=== PATIENT | female | born 1950 | race Caucasian/White ===

== ENCOUNTER 2019-03-07 15:30 | Outpatient (RCR) | payer MEDICARE, SELFPAY ==
--- NOTE | 2019-01-12 15:50 | HP.PTEVAL_ITS ---
Patient's Visit Information TEVIN MILLAN is a 68 year old F referred to Physical Therapy by Jero Leyva PA-C with a diagnosis of R knee pain. Date of Evaluation: 01/12/19 Physical Therapist: Shahzad Bautista PT, ATC - Visit Plan Frequency: 2x /Week Duration: 4-6 Weeks Plan: R LE stretching and strengthening, balance and proprio, core stab ex's, nustep, and HEP - Subjective Findings: Pt reports she has had R knee pain for over 2 years. Pt reports she fell in 2017 and has pad pain ever since that date. Pt reports she has increased pain with standing still, ambulating, and with stqair negotiation. No sleep dif ficulty secondary to pain. No tingling or numbness in R knee at this time. Pt reports her pain is the worst on the lateral aspect of her R knee. pt reports she had xrays taken which revealed severe OA in her R knee. 6/10 at rest, 9/10 when pain is at its worst. Pt reports knee will buckle and give out at time. - Pain R knee Pain Intensity (Out of 10): 6 Pain Intensity Range: 9 - Objective Neuro: B LE sensation is WNL to light touch. Girth at joint line: L knee 44cm, R knee 46 cm. Palpation: Pt is sore throughout the entire joint line of R knee. Minor swelling noted. ROM: R knee 0-5-110 degrees, L knee 0-115 degrees. MMT: L knee is 4/5 throughout, R knee 4-/5 throughout - Goals Goal 1:: Decrease R knee pain x 50% to aid with increasing hazel for ambulation Goal Time Frame: 4-6 Weeks Goal 2:: Increase R LE strength x 1 grade to aid with stair negotiations Goal 3:: I with HEP Goal Time Frame: 4-6 Weeks - Rehabilitation Potential Physical Therapy Diagnosis: Pt has R knee pain, weakness, and intol for ambulation secondary to OA R knee Rehabilitation Potential: Good - Anticipated Interventions Patient/Client Instruction: Educate patient on: Condition, Plan of Care For the Purpose of:: To improve self management Therapeutic Exercise to Include: Strength training, Endurance training, Balance training, Gait and locomotor training, Dynamic Lumbar Stabilization For the Purpose of:: To decrease pain, To increase ROM, To improve muscle performance and motor function Cryotherapy (ice pack, ice massage): Yes For the Purpose of:: To decrease pain Thank you for the opportunity to evaluate your patient. For Medicare and Medicare HMO plans, please review the plan of care and approve it. It will need to be FAXED BACK to us at [phone] for Medicare purposes. For Medicare only, by signing this I certify the plan of care. Please let me know if there are questions or concerns regarding this plan of care. Physician Signature: Date:
--- NOTE | 2019-03-07 15:59 | HP.PTDCSUM ---
HP - PT D/C Summary It has been my pleasure to treat TEVIN MILLAN under orders from Jreo Leyva PA-C, for the diagnosis of R knee pain for a total of 10 visit(s). Discharge Date: Please see the following information for a summary of their discharge status. - Subjective Subjective: Pt reports she has no pain this date - Pain R knee Pain Intensity (Out of 10): 0 - Overall Improvement % Improvement: 100 - Objective Objective/Function: 0/10 R knee pain this date. R LE MMT 5/5 throughout. Pt is I with HEP. Rx goals achieved - Goals Goal 1:: Decrease R knee pain x 50% to aid with increasing hazel for ambulation Goal Progress: Goal Met Goal 2:: Increase R LE strength x 1 grade to aid with stair negotiations Goal 3:: I with HEP Goal Progress: Goal Met - Plan Plan: Discharge - D/C Information If there are questions or concerns regarding this patient's physical therapy, please feel free to call me at [phone]. Thank you for the referral of this patient. Sincerely, Shahzad Bautista, PT, ATC
== END 2019-03-07 19:00 | disposition home or self-care (01) ==
LOC: PT 15:30
PROVIDERS: Family Provider Internal Medicine; PCP Internal Medicine; Referring Provider Physician Assistant; Visit Provider Physician Assistant
DX: M17.11 Unilateral primary osteoarthritis, right knee (principal)
CPT/HCPCS: 97110; 97161; 97530

== ENCOUNTER 2020-05-15 14:12 | Inpatient (IN) | payer MEDICARE, MEDICAID, SELFPAY ==
[2020-05-15] VITALS (11 sets, daily range): BP systolic 110–142; BP diastolic 69–85; PULSE 68–88; RESP 16–28; TEMP 36.6–38.4; O2SAT 93–96; BMI 30.7; BMI 25.4
[2020-05-15 15:56] LABS: Color, Urine Yellow (Yellow); Glucose, Dipstick Normal (Normal); Ketone-Dipstick 5 mg/dl (Negative); Leukocyte Esterase-Dipstick 25 /ul (Negative); Mucous, Urine 0 SEEN /hpf (<or=2+); Nitrite-Dipstick Negative (Negative); Occult Blood-Urine Negative /ul (Negative); Protein-Dipstick Negative (Negative); Red Blood Cells-Urine 0 SEEN /hpf (0-5); Squamous Epithelial Cells - UA 0 SEEN /hpf (5-10); Urine Bilirubin Dipstick Negative (Negative); Urine Clarity Clear (Clear); Urine Urobilinogen Normal (Normal)
[2020-05-15 16:02] LABS: White Blood Cells 5-10 SEEN /hpf (0-5)
--- NOTE | 2020-05-15 16:03 | EKG12_ITS ---
Test Reason : COMPLAINT Blood Pressure : / mmHG Vent. Rate : 076 BPM Atrial Rate : 076 BPM P-R Int : 156 ms QRS Dur : 094 ms QT Int : 368 ms P-R-T Axes : 039 -09 047 degrees QTc Int : 414 ms Normal sinus rhythm Nonspecific ST abnormality Abnormal ECG Confirmed by HERNANDO TRACEY, YARA ([id number]), commissioning editor KUSHAL GRACIA ([id number]) on 05/21/2020 11:49:59 AM Referred By: WANG Confirmed By:YARA VILLAGOMEZ MD
--- NOTE | 2020-05-15 16:04 | ED.VIS.GEN ---
History of Present Illness Chief Complaint: Complaint Informant: Patient Narrative: patient presents the emergency department for evaluation of weakness and inability to urinate. The patient called EMS today after she was unable to get up. She states that every time she tried to stand she did fall backwards. This has been progressively worsening over the past couple days. She urinated about 7 this morning and has not been able to urinate since. She notes that she has had a cough but does not otherwise feel sick. Patient informed me that the cough is new but she informed nursing that the cough is chronic. It is non productive. Past Medical History - Allergies and Home Meds Allergies/Adverse Reactions: Allergies No Known Allergies Allergy (Verified 10/14/15 08:06) Prior records reviewed: Yes Past Medical History: - - Hypertension Surgical History: - - Tracheostomy at age 17 Lives: Alone Smoking Status: Former smoker Drugs: None - Family History Maternal Family History: Reports: Diabetes, Heart Disease - Mother with ID age 60. Paternal Family History: Reports: Heart Disease - Father with ID age 65. Review of Systems General: Reports: Malaise. Denies: Chills, Fever, Sweats Eyes: Denies: Visual changes - bilaterally, Diplopia ENT: Denies: Rhinorrhea, Sore throat Cardiovascular: Denies: Chest pain, Palpitations Respiratory: Reports: Cough. Denies: Dyspnea, Dyspnea on exertion Gastrointestinal: Denies: Abdominal pain, Nausea, Vomiting, Diarrhea, Melena, Hematochezia Genitourinary: Reports: - - Inability urinate. Denies: Dysuria, Hematuria, Frequency Musculoskeletal: Denies: Back pain, Extremity Pain Skin: Denies: Rash, Wounds Neurological: Reports: Weakness - generalized. Denies: Headache, Numbness Physical Exam Vital Signs/Narrative: Vital Signs Temp Pulse Resp BP Pulse Ox 05/15/20 15:39 78 25 H 134/96 H 93 05/15/20 14:27 101.2 F H 86 16 142/85 H 96 05/15/20 14:13 101.2 F H 88 16 142/85 H 96 Inital Vital Signs reviewed: Yes General: Well nourished, Well developed, No Acute Distress Head: Normocephalic, Atraumatic Eyes: Perrl, EOMI ENT: No rhinorrhea, Dry mucous membranes Neck: Supple, Nontender Cardiovascular: Regular rate, Regular rhythm, No murmurs Respiratory: No distress, CTA bilaterally, Chest nontender Abdomen: Soft, Nontender, Nondistended, Normal bowel sounds Back: Nontender, Normal Inspection Extremities: Nontender, No edema Skin: Normal color, No rash Neurological: Alert, Oriented x3, Cranial nerves II-XII grossly intact, Normal Strength, Normal Sensation Psychological: Normal affect, Normal Mood Diagnostic/Tx/Re-eval Clinical Impression(s) from Imaging Studies Chest X-Ray 05/15/20 16:30 IMPRESSION: Normal x-ray examination of the chest. Electronically Signed: Rayo Archuleta MD at 16:53 EDT , Service support , Laboratory Last Values WBC 3.4 K/mm3 (4.4-11.0) L 05/15/20 14:35 RBC 4.32 M/mm3 (4.2-5.4) 05/15/20 14:35 Hgb 13.2 g/dL (12.0-15.0) 05/15/20 14:35 Hct 40.1 % (37-47) 05/15/20 14:35 MCV 92.8 fL (81-99) 05/15/20 14:35 MCH 30.6 pg (27.0-32.0) 05/15/20 14:35 MCHC 32.9 g/dL (32-36) 05/15/20 14:35 RDW Std Deviation 44.4 fl (35.1-43.9) H 05/15/20 14:35 RDW Coeff of Marcus 13.1 % (11.6-14.6) 05/15/20 14:35 Plt Count 126 K/mm3 (150-450) L 05/15/20 14:35 MPV 8.9 fl (6.2-12.0) 05/15/20 14:35 Immature Gran % (Auto) 0.300 % (0.0-0.9) 05/15/20 14:35 Neut % (Auto) 54.8 % (47-70) 05/15/20 14:35 Lymph % (Auto) 39.0 % (19-41) 05/15/20 14:35 [place] % (Auto) 5.3 % (0-10) 05/15/20 14:35 Eos % (Auto) 0.3 % (0-5) 05/15/20 14:35 Baso % (Auto) 0.3 % (0-1) 05/15/20 14:35 Absolute Neuts (auto) 1.9 X10^3/uL (2.0-7.7) L 05/15/20 14:35 Absolute Lymphs (auto) 1.33 X10^3/uL (0.83-4.51) 05/15/20 14:35 Nucleated RBC % 0 % (0-5) 05/15/20 14:35 PT 12.7 SECONDS (11.7-14.9) 05/15/20 14:35 INR 1.0 05/15/20 14:35 APTT 33.7 Seconds (24.1-36.2) 05/15/20 14:35 Sodium 139 mmol/L (136-145) 05/15/20 14:35 Potassium 3.1 mmol/L (3.5-5.1) L 05/15/20 14:35 Chloride 102 mmol/L (98-107) 05/15/20 14:35 Carbon Dioxide 31.0 mmol/L (21.0-32.0) 05/15/20 14:35 Anion Gap 6 (5-15) 05/15/20 14:35 BUN 13 mg/dL (7-18) 05/15/20 14:35 Creatinine 0.82 mg/dL (0.55-1.02) 05/15/20 14:35 Estim Creat Clear Calc 59.76 ml/min 05/15/20 14:35 Est GFR (MDRD) Af Amer 89 mL/min (>60) 05/15/20 14:35 Est GFR (MDRD) Non-Af 74 mL/min (>60) 05/15/20 14:35 BUN/Creatinine Ratio 15.9 RATIO (-20) 05/15/20 14:35 Glucose 93 mg/dL (74-106) 05/15/20 14:35 Lactic Acid 1.0 mmol/L (0.4-1.9) 05/15/20 14:35 Calcium 8.3 mg/dL (8.5-10.1) L 05/15/20 14:35 Total Bilirubin 0.30 mg/dL (0.20-1.00) 05/15/20 14:35 AST 24 U/L (15-37) 05/15/20 14:35 ALT 32 U/L (13-56) 05/15/20 14:35 Alkaline Phosphatase 81 U/L (45-117) 05/15/20 14:35 Troponin I < 0.015 ng/mL (<0.045) 05/15/20 14:35 Total Protein 7.1 g/dL (6.4-8.2) 05/15/20 14:35 Albumin 3.4 g/dL (3.2-5.0) 05/15/20 14:35 Globulin 3.7 g/dL (2.2-4.2) 05/15/20 14:35 Albumin/Globulin Ratio 0.9 RATIO (0.9-2.4) 05/15/20 14:35 Urine Color Yellow (Yellow) 05/15/20 15:35 Urine Clarity Clear (Clear) 05/15/20 15:35 Urine pH 8.0 (5.0 - 8.0) 05/15/20 15:35 Ur Specific [place] 1.010 (1.002-1.030) 05/15/20 15:35 Urine Protein Negative mg/dl (Negative) 05/15/20 15:35 Urine Glucose (UA) Normal mg/dl (Normal) 05/15/20 15:35 Urine Ketones 5 mg/dl (Negative) H 05/15/20 15:35 Urine Occult Blood Negative /ul (Negative) 05/15/20 15:35 Urine Nitrite Negative (Negative) 05/15/20 15:35 Urine Bilirubin Negative mg/dL (Negative) 05/15/20 15:35 Urine Urobilinogen Normal mg/dl (Normal) 05/15/20 15:35 Ur Leukocyte Esterase 25 /ul (Negative) H 05/15/20 15:35 Urine RBC 0 SEEN /hpf (0-5) 05/15/20 15:35 Urine WBC 5-10 SEEN /hpf (0-5) 05/15/20 15:35 Ur Squamous Epith Cells 0 SEEN /hpf (5-10) 05/15/20 15:35 Urine Bacteria 1+ /hpf (None Seen) 05/15/20 15:35 Urine Mucus 0 SEEN /hpf (<or=2+) 05/15/20 15:35 - EKG Initial EKG Interpretation: Sinus Rhythm - EKG demonstrates a normal sinus rhythm at a rate of 76 without ACS features or ectopy - Medical Decision Making Patient received IV fluids Tylenol and Rocephin. She is slightly leukopenic. Otherwise labs are negative. Urinalysis shows 1+ bacteria. Positive leukocyte esterase. But minimal white blood cells. Covid test is positive. As the patient has debility and cannot get up off the couch to feed herself or perform ADLs that alone should require admission. However she is febrile with possible UTI. With temperature and respiratory rate initially greater than 20 this would qualify her for sepsis. Hospitalist will be contacted for admission. Sepsis reevaluation was obtained. Patient was reevaluated multiple times continues to have adequate perfusion (capillary refill) and normal mentation. ED Disposition - Plan for ED Patient: Disposition: Acute Care Hospital [facility] Diagnosis: UTI (urinary tract infection), Sepsis, Debility, COVID-19
[2020-05-15 16:16] LABS: Absolute Lymphocyte Count 1.33 X10^3/uL (0.83-4.51); Absolute Neutrophil Count 1.9 X10^3/uL (2.0-7.7); Basophil# 0.01 X10^3/uL; Basophil% 0.3 % (0-1); Eosinophil# 0.01 X10^3/uL; Eosinophils% 0.3 % (0-5); Hematocrit 40.1 % (37-47); Hemoglobin 13.2 g/dL (12.0-15.0); Lymphocyte # 1.33 X10^3/ul (4.0); Mean Corp Hgb Conc 32.9 g/dL (32-36); Mean Corpuscular Hgb 30.6 pg (27.0-32.0); Mean Corpuscular Volume 92.8 fL (81-99); Mean Platelet Vol. 8.9 fl (6.2-12.0); Monocyte# 0.18 X10^3/uL; Monocyte% 5.3 % (0-10); NRBC Flagged by Analyzer 0 % (0-5); Neutrophil # 1.87 X10^3/uL (2.7-7.7); Neutrophil % 54.8 % (47-70); Platelet Count 126 K/mm3 (150-450); RBC Distribution Width CV 13.1 % (11.6-14.6); RBC Distribution Width SD 44.4 fl (35.1-43.9); Red Blood Count 4.32 M/mm3 (4.2-5.4); White Blood Count 3.4 K/mm3 (4.4-11.0)
[2020-05-15] MEDS: 0.9% Normal Saline 1,000 ML 999 ML IV (16:30)
[2020-05-15] MEDS: Acetaminophen 500 MG Tablet 1000 MG PO (16:30)
--- NOTE | 2020-05-15 16:30 | RAD_ITS ---
STUDY: X-RAY CHEST REASON FOR EXAM: Female, 70 years old. FEVER, UNABLE TO URINATE TECHNIQUE: Single frontal view of the chest. COMPARISON: None. FINDINGS: The lungs are clear and expanded. There is no demonstrated pleural abnormality. Normal size heart. Normal mediastinum and samara. Normal visualized pulmonary arteries. Normal visualized aortic arch and descending thoracic aorta. Normal visualized thoracic spine. Normal visualized ribs, clavicles, and shoulders. There is no demonstrated abnormality of the visualized soft tissue structures of the upper abdomen. RAD/Chest 1 View (Portable) IMPRESSION: Normal x-ray examination of the chest. Electronically Signed: Rayo Archuleta MD at 16:53 EDT , Service support ,
[2020-05-15 16:32] LABS: ALB/GLOB Ratio 0.9 RATIO (0.9-2.4); AST(SGOT) 24 U/L (15-37); Alanine Aminotransfer ALT/SGPT 32 U/L (13-56); Albumin, Serum 3.4 g/dL (3.2-5.0); Alkaline Phosphatase 81 U/L (45-117); Anion Gap 6 (5-15); BUN 13 mg/dL (7-18); BUN/Creat Ratio 15.9 RATIO (10-20); Calcium,Total 8.3 mg/dL (8.5-10.1); Chloride 102 mmol/L (98-107); Creatinine, Serum 0.82 mg/dL (0.55-1.02); EST Glomerular Filtration Rate 74 mL/min (>60); Est Glom Filt Rate - Afr Amer 89 mL/min (>60); Estimated Creatinine Clearance 59.76 ml/min; Globulin 3.7 g/dL (2.2-4.2); Glucose 93 mg/dL (74-106); Potassium 3.1 mmol/L (3.5-5.1); Protein, Total 7.1 g/dL (6.4-8.2); Sodium Level 139 mmol/L (136-145)
[2020-05-15 16:32] LABS: Bacteria 1+ /hpf (None Seen)
[2020-05-15] MEDS: Ceftriaxone 1 GM/50 ML BAG IV (17:00)
[2020-05-15 17:06] LABS: Prothrombin Time (Protime)PT. 12.7 SECONDS (11.7-14.9)
[2020-05-15 17:07] LABS: Partial Thromboplast Time 33.7 Seconds (24.1-36.2)
--- NOTE | 2020-05-15 17:23 | PCM.HP.STD ---
Problem List (1) Sepsis Status: Acute Qualifiers: Sepsis type: sepsis due to unspecified organism Sepsis acute organ dysfunction status: unspecified Qualified Code(s): A41.9 - Sepsis, unspecified organism (2) UTI (urinary tract infection) Status: Acute Qualifiers: Urinary tract infection type: site unspecified (3) HTN (hypertension) Status: Chronic Qualifiers: Hypertension type: essential hypertension Qualified Code(s): I10 - Essential (primary) hypertension (4) GERD (gastroesophageal reflux disease) Status: Chronic Qualifiers: Esophagitis presence: esophagitis presence not specified Qualified Code(s): K21.9 - Gastro-esophageal reflux disease without esophagitis (5) Osteoarthritis Status: Chronic Qualifiers: Osteoarthritis location: unspecified site Osteoarthritis type: unspecified Qualified Code(s): M19.90 - Unspecified osteoarthritis, unspecified site (6) History of seizures as a child Status: Chronic (7) Speech impediment Status: Chronic History of Present Illness Date of Admission: 05/15/20 Chief Complaint: Debility, weakness, cough, decreased UOP The patient is a 70 y/o F w/ PMHx: OA, GERD, HTN, Speech impediment, Hx Respiratory failure possibly secondary to Pneumonia w/ Trach placement at age 17, Hx Infantile Seizure disorder who presents to the [facility] ED on 05/15/20 with history of onset fatigue, malaise and debility with severe weakness, difficulty even ambulating with onset fevers, chills and harsh nonproductive cough without significantly associated dyspnea noting that earlier in the day she had urinated once but had not since prompting eventual ED presentation. She denies any recent ill contacts. She notes when she goes out it is only to the store and she wears a mask. She denies any nausea, emesis, abdominal pain, diarrhea, body aches above normal, alteration to her sense of taste or smell. Work-up in the ED included T101.2, heart rate 88, BP 142/85, respiratory rate 16 although vacillated up into the mid 20s while in the ED, 96% on room air, CBC with WBC 3.4, hemoglobin 13.2, platelet 126 with neutropenia with ANC 1.9, unremarkable coags, CMP with potassium 3.1 otherwise not marked appearing, troponin less than 0.015, lactic acid 1.0, urinalysis with specific gravity 1.010, ketone 5, nitrite negative, leukocyte esterase 25, urine WBCs 5-10 with 1+ urine bacteria, urine culture pending, blood culture x2 pending per ED, Covid testing pending per ED, chest x-ray with no acute cardiopulmonary findings. In the ED patient ministered normal saline, Rocephin, Tylenol therapies. Past Medical History Past Medical History (Chronic Problems): Chronic Problems HTN (hypertension) (Chronic) GERD (gastroesophageal reflux disease) (Chronic) Osteoarthritis (Chronic) History of seizures as a child (Chronic) Speech impediment (Chronic) Allergies No Known Allergies Allergy (Verified 10/14/15 08:06) Home Medications: Ambulatory Orders Medication Instructions Recorded Esomeprazole Mag Trihydrate 20 mg PO DAILY 05/15/20 [Nexium] Ibuprofen 400 mg PO DAILY PRN PRN 05/15/20 Lisinopril/Hydrochlorothiazide 1 tab PO DAILY 05/15/20 [Lisinopril-Hctz 10-12.5 mg Tab] Surgical History: - - Tracheostomy at age 17. Psychiatric History: No pertinent psych hx SPIRITUAL MINISTER History: No pertinent SPIRITUAL MINISTER history Lives: Alone Smoking Status: Never smoker Tobacco Use: Non-smoker Alcohol: None Drugs: None - *Family History Maternal History Items: Diabetes, Heart Disease - Mother with MS age 60. Paternal History Items: Heart Disease - Father with MS age 65. Review of Systems Constitutional: Reports: Anorexia, Chills, Fever, Malaise, Weakness, Fatigue. Denies: Weight Change HEENT: Reports: - - Chronic speech impediment.. Denies: Head Aches, Sinus Congestion, Sinus Drainage Cardiovascular: Denies: Chest Pain, Palpitations Respiratory: Reports: Cough. Denies: Shortness of Breath, Shortness of breath at rest, Shortness of breath upon exertion, Sputum production, Wheezing Gastrointestinal: Denies: Abdominal Pain, Nausea, Vomiting Genitourinary: Reports: - - Decreased urine output.. Denies: Dysuria, Frequency, Hesitancy, Urgency Musculoskeletal: Reports: Joint Pain. Denies: Joint Tenderness Skin: Denies: Rash, Wounds Neurological: Denies: Numbness, Tingling, Focal weakness Psychiatric: Denies: Anxiety, Depression, Homicidal Ideations, Suicidal Ideations Hematologic/ Lymphatic: Denies: Easy Bruising, Easy Bleeding VTE Information - Inpt Only VTE Present on Admission: No VTE Mechan Device Prophylaxis: SCD's VTE Pharm Prophylaxis ordered?: Yes Patient Problems: Active and Suspected Problems Sepsis (Acute) UTI (urinary tract infection) (Acute) Subjective: Patient seated upright in the ED bed, fatigued appearance otherwise NAD, flushed. Objective: Physical Examination: General: awake, alert, oriented x 3 and cooperative, speech impediment, seated upright in the ED bed in no apparent distress,fatigued appearance. Skin: flushed color and warm to touch, normal turgor, no icterus, no cyanosis, noted trach scar. HEENT: AT/NC, EOMI, PERRLA, dry MM, no carotid bruits or JVD noted. Lungs: Diminished BS, > bases, moderate effort, no rales, ronchi or wheezing. Heart: Regular rate and rhythm; no gallop, rub audible. Abdomen: soft, obese, NTTP, ND, normal BS, no HSM. Extremities: no cyanosis, clubbing, or edema. Neurological: patient awake, alert, oriented x 3; cognitive function appears baseline intact; pupils equally reactive to light and accomodation; cranial nerves II-XII grossly normal, moving all 4 extremities, no focal deficits, strength moderately to severely globally decreased secondary to acute presentation. Psychiatric: affect appears fatigued otherwise normal, no acute evidence of depressive or anxiety feelings. - Physical Exam Vitals/I&O's: Vital Signs Temp Pulse Resp BP Pulse Ox 99.4 F H 79 20 H 110/69 96 05/15/20 17:02 05/15/20 17:02 05/15/20 17:02 05/15/20 17:02 05/15/20 17:02 Oxygen Delivery Method Room Air Weight: 190 lb 4.143 oz Body Mass Index (BMI) 30.7 Intake and Output for Last 24 Hours 05/13/20 05/14/20 05/15/20 23:59 23:59 23:59 Intake Total 499.5 / 499.5 Output Total 200 / 200 Balance 299.5 / 299.5 Laboratory Results 05/15/20 14:35: WBC 3.4 L, RBC 4.32, Hgb 13.2, Hct 40.1, MCV 92.8, MCH 30.6, MCHC 32.9, RDW Std Deviation 44.4 H, RDW Coeff of Marcus 13.1, Plt Count 126 L, MPV 8.9, Immature Gran % (Auto) 0.300, Neut % (Auto) 54.8, Lymph % (Auto) 39.0, [place] % (Auto) 5.3, Eos % (Auto) 0.3, Baso % (Auto) 0.3, Absolute Neuts (auto) 1.9 L, Absolute Lymphs (auto) 1.33, Nucleated RBC % 0 05/15/20 14:35: PT 12.7, INR 1.0, APTT 33.7 05/15/20 14:35: Sodium 139, Potassium 3.1 L, Chloride 102, Carbon Dioxide 31.0, Anion Gap 6, BUN 13, Creatinine 0.82, Estim Creat Clear Calc 59.76, Est GFR (MDRD) Af Amer 89, Est GFR (MDRD) Non-Af 74, BUN/Creatinine Ratio 15.9, Glucose 93, Calcium 8.3 L, Total Bilirubin 0.30, AST 24, ALT 32, Alkaline Phosphatase 81, Troponin I < 0.015, Total Protein 7.1, Albumin 3.4, Globulin 3.7, Albumin/Globulin Ratio 0.9 05/15/20 14:35: Lactic Acid 1.0 05/15/20 15:35: Urine Color Yellow, Urine Clarity Clear, Urine pH 8.0, Ur Specific [place] 1.010, Urine Protein Negative, Urine Glucose (UA) Normal, Urine Ketones 5 H, Urine Occult Blood Negative, Urine Nitrite Negative, Urine Bilirubin Negative, Urine Urobilinogen Normal, Ur Leukocyte Esterase 25 H, Urine RBC 0 SEEN, Urine WBC 5-10 SEEN, Ur Squamous Epith Cells 0 SEEN, Urine Bacteria 1+, Urine Mucus 0 SEEN 05/15/20 16:11: COVID-19 (NERY) Pending Current Medications Sodium Chloride () 1,000 mls @ 150 mls/hr IV .[id number] [facility] Assessment/Plan All Active Problems Sepsis (Acute) UTI (urinary tract infection) (Acute) The patient is a 70 y/o F w/ PMHx: OA, GERD, HTN, Speech impediment, Hx Respiratory failure possibly secondary to Pneumonia w/ Trach placement at age 17, Hx Infantile Seizure disorder who presents to the [facility] ED on 05/15/20 with history of onset fatigue, malaise and debility with severe weakness, difficulty even ambulating with onset fevers, chills and harsh nonproductive cough without significantly associated dyspnea with decreased uop associated with decreased intake. 1. Sepsis secondary to ? Acute Urinary Tract Infection: Will admit to medical surgical floor, UA upon ED evaluation not severe appearing but 1+ urine bacteria with some urine WBCs and minimally elevated leukocyte Estrace, pending UCx, admission CBC with low WBCs with ANC 1.9, febrile upon presentation with increased respiratory rate, continue IVFs, monitor I/Os, continue IV Rocephin w/ transition as able pending sensitivities and speciation. Given urinalysis not severe appearing and possible decreased urine output secondary to poor oral intake as patient straight catheterized in the ED with only 200 out, will additionally await Covid testing, request sputum cultures, respiratory viral panel, urine antigens, will obtain procalcitonin, CRP, CPK, Ferritin, LDH. If COVID positive would add d-dimer additionally. We will also plan judicious hydration overnight and repeat chest x-ray in a.m. in case developing pneumonia. Bld cx x 2 obtained in the ED. PT, OT, case management consultation for discharge planning. 2. Hypokalemia: Admission K+ 3.1, magnesium level requested, supplementation given, repeat level in AM. 3. Leukopenia, thrombocytopenia: Admission CBC with WBC 3.4, platelet 126, possibly associated with acute illness and presentation, treating as noted above #1, repeat CBC in AM. 4. History of Infantile Seizures: Noted only as an infant and resolved completely, no seizures as an adult. 5. History of Respiratory Failure, Trach placement: Unclear exact history but possibly secondary to pneumonia at age 17, required trach placement. 6. GERD: Will continue home PPI. 7. Hypertension: Will continue lisinopril, hold HCTZ given poor intake, planned judicious hydration, add back once appropriate. 8. DVT Prophylaxis: SCDs, lovenox. 9 . CODE status: Patient does not have HCPOA nor living will set-up. She notes having two sisters, one she would prefer to make decisions if needed, Keyla who lives in [place]. Encouraged her to discuss set-up information with CM/SW during admission. Discussed CODE status at length including difference between FULL code, DNR-CCA and DNR-CC status. Following discussions about the differences in these status, requested Full Code status. Advanced Care Planning Face to Face Time: 16 minutes. Inpatient E&M: 48527 Init Hosp L3 Procedures: [id number] Advncd Care Plan 30 Min
[2020-05-15 19:00] LABS: Probe Check PASS; Specimen Processing Control PASS
[2020-05-15] MEDS: 0.9% Normal Saline 1,000 ML 100 ML IV (20:48)
[2020-05-15 20:50] LABS: Ferritin 367 ng/mL (8-252); LDH 213 U/L (84-246); Magnesium 1.9 mg/dL (1.6-2.6)
[2020-05-15 20:51] LABS: D-Dimer Quantitative (DVT/PE) 0.69 FEU/ug/m (0.27-0.49)
[2020-05-15] MEDS: Enoxaparin 80 MG/0.8 ML Syringe SC (21:27)
[2020-05-15 22:59] LABS: Procalcitonin < 0.04 ng/mL (0.00-0.09)
[2020-05-16 03:46] VITALS: BP 140/75; PULSE 83; RESP 16; TEMP 37.1; O2SAT 96
--- NOTE | 2020-05-16 05:55 | RAD_ITS ---
STUDY: X-RAY CHEST REASON FOR EXAM: Female, 70 years old. COUGH AND SOB TECHNIQUE: Single AP portable view of the chest. COMPARISON: Comparison is made with prior study dated the 2019. FINDINGS: Mild increased markings are seen in the right midlung as well as in the left lower lobe and lingular segment of the left upper lobe. Follow-up is recommended. There is no demonstrated pleural abnormality. Normal size heart. Normal mediastinum and samara. Normal visualized pulmonary arteries. Normal visualized aortic arch and descending thoracic aorta. Normal visualized thoracic spine. Normal visualized ribs, clavicles, and shoulders. Small hiatal hernia. RAD/Chest 1 View (Portable) IMPRESSION: Increased markings in the right midlung as well as in the lingular segment of the left upper lobe and left lower lobe and follow-up is recommended. Electronically Signed: Dinesh Nevarez, at 9:21 EDT , Service support ,
[2020-05-16] MEDS: 0.9% Normal Saline 1,000 ML 100 ML IV ×2 (06:17→16:27)
[2020-05-16 06:45] LABS: Absolute Lymphocyte Count 1.54 X10^3/uL (0.83-4.51); Absolute Neutrophil Count 1.9 X10^3/uL (2.0-7.7); Basophil# 0.01 X10^3/uL; Basophil% 0.3 % (0-1); Eosinophil# 0.01 X10^3/uL; Eosinophils% 0.3 % (0-5); Hematocrit 36.4 % (37-47); Hemoglobin 11.7 g/dL (12.0-15.0); Lymphocyte # 1.54 X10^3/ul (4.0); Lymphocyte % 41.7 % (19-41); Mean Corp Hgb Conc 32.1 g/dL (32-36); Mean Corpuscular Hgb 30.1 pg (27.0-32.0); Mean Corpuscular Volume 93.6 fL (81-99); Mean Platelet Vol. 8.7 fl (6.2-12.0); Monocyte% 5.4 % (0-10); NRBC Flagged by Analyzer 0 % (0-5); Neutrophil # 1.92 X10^3/uL (2.7-7.7); Platelet Count 109 K/mm3 (150-450); RBC Distribution Width CV 13.2 % (11.6-14.6); RBC Distribution Width SD 45.2 fl (35.1-43.9); Red Blood Count 3.89 M/mm3 (4.2-5.4); White Blood Count 3.7 K/mm3 (4.4-11.0)
[2020-05-16 07:12] LABS: ALB/GLOB Ratio 0.8 RATIO (0.9-2.4); AST(SGOT) 24 U/L (15-37); Alanine Aminotransfer ALT/SGPT 28 U/L (13-56); Albumin, Serum 2.7 g/dL (3.2-5.0); Alkaline Phosphatase 70 U/L (45-117); Anion Gap 5 (5-15); BUN 10 mg/dL (7-18); BUN/Creat Ratio 17.3 RATIO (10-20); Chloride 110 mmol/L (98-107); Creatinine, Serum 0.58 mg/dL (0.55-1.02); EST Glomerular Filtration Rate 110 mL/min (>60); Est Glom Filt Rate - Afr Amer 133 mL/min (>60); Estimated Creatinine Clearance 52.81 ml/min; Globulin 3.2 g/dL (2.2-4.2); Glucose 92 mg/dL (74-106); Potassium 3.6 mmol/L (3.5-5.1); Protein, Total 5.9 g/dL (6.4-8.2); Sodium Level 142 mmol/L (136-145)
--- NOTE | 2020-05-16 07:31 | PCM.PN.HOSP ---
Patient Problems: Active and Suspected Problems Sepsis (Acute) UTI (urinary tract infection) (Acute) UTI (urinary tract infection) (Acute) Sepsis (Acute) Debility (Acute) COVID-19 (Acute) Reason for Visit: Covid 19 infection Subjective: Patient is a 70-year-old lady admitted with increasing generalized weakness with cough. Diagnostic evaluation on admission was consistent with COVID-[address] [facility] floor the cohort unit management initiated per protocol Objective: GENERAL: cooperative HEENT: Atraumatic; EYES; Anicteric, Normal Conjunctiva NECK; supple, normal thyroid, RESPIRATORY: Diminished to auscultation CARDIOVASCULAR: Regular S1 S2, GI: soft, normoactive bowel sounds, : No Renal angle tenderness; EXTREMITIES: No edema, no clubbing, MUSCULOSKELETAL: no muscle waisting NEURO: Awake; no lateralizing signs. SKIN: No Rash PSYCH; Flat affect Vitals/I&O's: Vital Signs Temp Pulse Resp BP Pulse Ox 98.8 F 83 16 140/75 H 96 05/16/20 03:46 05/16/20 03:46 05/16/20 03:46 05/16/20 03:46 05/16/20 03:46 Oxygen Delivery Method Room Air Weight: 75.8 kg Body Mass Index (BMI) 25.4 Intake and Output for Last 24 Hours 05/14/20 05/15/20 05/16/20 23:59 23:59 23:59 Intake Total 1050.0 / 1050.0 948.33 / 948.33 Output Total 200 / 200 500 / 500 Balance 850.0 / 850.0 448.33 / 448.33 Microbiology Past 72 Hours 05/16/20 03:55 Urine, Clean Catch Legionella Antigen - Final 05/16/20 03:55 Urine, Clean Catch Streptococcus pneumoniae Antigen (M - Final 05/15/20 16:11 Mucosa - Nasopharyngeal Respiratory Panel (PCR) - Final Laboratory Results 05/15/20 14:35: WBC 3.4 L, RBC 4.32, Hgb 13.2, Hct 40.1, MCV 92.8, MCH 30.6, MCHC 32.9, RDW Std Deviation 44.4 H, RDW Coeff of Marcus 13.1, Plt Count 126 L, MPV 8.9, Immature Gran % (Auto) 0.300, Neut % (Auto) 54.8, Lymph % (Auto) 39.0, Petroleum % (Auto) 5.3, Eos % (Auto) 0.3, Baso % (Auto) 0.3, Absolute Neuts (auto) 1.9 L, Absolute Lymphs (auto) 1.33, Nucleated RBC % 0 05/15/20 14:35: PT 12.7, INR 1.0, APTT 33.7 05/15/20 14:35: Sodium 139, Potassium 3.1 L, Chloride 102, Carbon Dioxide 31.0, Anion Gap 6, BUN 13, Creatinine 0.82, Estim Creat Clear Calc 59.76, Est GFR (MDRD) Af Amer 89, Est GFR (MDRD) Non-Af 74, BUN/Creatinine Ratio 15.9, Glucose 93, Calcium 8.3 L, Total Bilirubin 0.30, AST 24, ALT 32, Alkaline Phosphatase 81, Troponin I < 0.015, Total Protein 7.1, Albumin 3.4, Globulin 3.7, Albumin/Globulin Ratio 0.9 05/15/20 14:35: Lactic Acid 1.0 05/15/20 14:35: D-Dimer Quant (PE/DVT) 0.69 H* 05/15/20 14:35: Magnesium 1.9, Ferritin 367 H, Lactate Dehydrogenase 213, C-React Prot Ext Range 33.30 H 05/15/20 15:35: Urine Color Yellow, Urine Clarity Clear, Urine pH 8.0, Ur Specific [place] 1.010, Urine Protein Negative, Urine Glucose (UA) Normal, Urine Ketones 5 H, Urine Occult Blood Negative, Urine Nitrite Negative, Urine Bilirubin Negative, Urine Urobilinogen Normal, Ur Leukocyte Esterase 25 H, Urine RBC 0 SEEN, Urine WBC 5-10 SEEN, Ur Squamous Epith Cells 0 SEEN, Urine Bacteria 1+, Urine Mucus 0 SEEN 05/15/20 16:11: COVID-19 (NERY) Detected 05/15/20 21:07: Procalcitonin < 0.04 05/16/20 06:30: WBC 3.7 L, RBC 3.89 L, Hgb 11.7 L, Hct 36.4 L, MCV 93.6, MCH 30.1, MCHC 32.1, RDW Std Deviation 45.2 H, RDW Coeff of Marcus 13.2, Plt Count 109 L, MPV 8.7, Immature Gran % (Auto) 0.300, Neut % (Auto) 52.0, Lymph % (Auto) 41.7 H, Petroleum % (Auto) 5.4, Eos % (Auto) 0.3, Baso % (Auto) 0.3, Absolute Neuts (auto) 1.9 L, Absolute Lymphs (auto) 1.54, Nucleated RBC % 0 05/16/20 06:30: Sodium 142, Potassium 3.6, Chloride 110 H, Carbon Dioxide 27.0, Anion Gap 5, BUN 10, Creatinine 0.58, Estim Creat Clear Calc 52.81, Est GFR (MDRD) Af Amer 133, Est GFR (MDRD) Non-Af 110, BUN/Creatinine Ratio 17.3, Glucose 92, Calcium 8.0 L, Total Bilirubin 0.30, AST 24, ALT 28, Alkaline Phosphatase 70, Total Protein 5.9 L, Albumin 2.7 L, Globulin 3.2, Albumin/Globulin Ratio 0.8 L Current Medications Acetaminophen (Acetaminophen 325 Mg Tablet) 650 mg PO Q6H PRN PRN PRN Reason: Pain Score 1-10/Temp > 100.7 F Al Hydroxide/Mg Hydroxide (Mag Hydrox/Al Hydrox/Simeth 30 Ml Udc) 30 ml PO Q6H PRN PRN PRN Reason: Gastric Burning Albuterol Sulfate (Albuterol 2.5 Mg/3 Ml Vial.Neb.) 2.5 mg INHALATION Q2H PRN PRN PRN Reason: Dyspnea, wheezing Enoxaparin Sodium (Enoxaparin 80 Mg/0.8 Ml Syringe) 80 mg SC BID [facility] Last Admin: 05/15/20 21:27 Dose: 80 mg Documented by: Guaifenesin (Guaifenesin 10 Ml Udc (200mg/10ml)) 20 ml PO Q4H PRN PRN PRN Reason: COUGH Sodium Chloride () 1,000 mls @ 100 mls/hr IV .Q10H [facility] Last Admin: 05/16/20 06:17 Dose: 100 mls/hr Documented by: Lisinopril (Lisinopril 10 Mg Tablet) 10 mg PO DAILY [facility] Magnesium Hydroxide (Magnesium Hydroxide 30 Ml Udc) 30 ml PO DAILY PRN PRN PRN Reason: Constipation Melatonin (Melatonin 3 Mg Tablet) 3 mg PO QHS PRN PRN PRN Reason: INSOMNIA Morphine Sulfate (Morphine 2 Mg/Ml Syringe) 2 mg IV Q3H PRN PRN PRN Reason: Pain Score 6-10 Nitroglycerin (Nitroglycerin (Inpatient Use) 0.4 Mg Tab.Subl) 0.4 mg SUBLINGUAL Q5M PRN PRN Reason: CARDIAC/CHEST PAIN Nutritional Formula (Lactose Free) (Ensure Enlive 120 Ml Liquid) 120 ml PO 4X/DAYCM [facility]AN Ondansetron HCl (Ondansetron 4 Mg/2 Ml Vial) 4 mg IV Q8H PRN PRN PRN Reason: NAUSEA/VOMITING Oxycodone HCl (Oxycodone 5 Mg Tablet) 5 mg PO Q4H PRN PRN PRN Reason: Pain Score 4-5 Pantoprazole Sodium (Pantoprazole Sodium 20 Mg Tablet) 20 mg PO DAILY [facility] Prochlorperazine Edisylate (Prochlorperazine 10 Mg/2 Ml Vial) 5 mg IV Q4H PRN PRN PRN Reason: Breakthrough nausea/vomiting Psyllium Hydrophilic Mucilloid (Psyllium 1 Packet) 1 packet PO DAILY PRN PRN PRN Reason: Constipation Senna/Docusate Sodium (Senna/Docusate Sodium 1 Tablet) 2 tablet PO BID PRN PRN PRN Reason: Constipation Sodium Chloride (0.9% Saline Lock 10 Ml Syringe) 10 - 40 ml IV UD PRN PRN Reason: SALINE FLUSH Throat Lozenges (Benzocaine/Menthol 1 Lozenge) 1 lozenge MUCOUS MEM Q2H PRN PRN PRN Reason: SORE THROAT STROKE Vital Signs/Narrative: Vital Signs Temp Pulse Resp BP Pulse Ox 05/16/20 03:46 98.8 F 83 16 140/75 H 96 Medical Necessity - Tobacco Use Smoking Status: Never smoker Tobacco Use: Non-smoker Assessment/Plan All Active Problems Sepsis (Acute) UTI (urinary tract infection) (Acute) UTI (urinary tract infection) (Acute) Sepsis (Acute) Debility (Acute) COVID-19 (Acute) Patient is a 70-year-old lady admitted with increasing generalized weakness with cough. Diagnostic evaluation on admission was consistent with COVID-[address] [facility] floor the cohort unit management initiated per protocol 1. Sepsis secondary to COVID-19 infection ?Patient admitted to the Covid cohort floor. Placed on supplemental oxygen as well as Decadron 2. Hypokalemia ?Corrected per protocol 3. Thrombocytopenia ?present on admission etiology not clear may be related to patient underlying infection. Patient was started on Lovenox on admission discontinued started on Eliquis instead 4. History of previous trach placement ?Patient has a well-healed scar 5. GERD ?Patient is on PPI 6. Hypertension - Blood pressure controlled, home medications continued with dose adjustment as needed 7. DVT prophylaxis ?[facility] Inpatient E&M: 23034 Subs Hosp L2
[2020-05-16 08:49] VITALS: BP 127/86; PULSE 64; RESP 18; TEMP 36.8; O2SAT 92
[2020-05-16] MEDS: Lisinopril 10 MG Tablet PO (08:57)
[2020-05-16] MEDS: Enoxaparin 80 MG/0.8 ML Syringe SC (08:57)
[2020-05-16] MEDS: Pantoprazole Sodium 20 MG Tablet PO (08:57)
[2020-05-16 09:00] VITALS: O2SAT 92
--- NOTE | 2020-05-16 10:40 | CASEMGMT ---
Addendum entered by Steve Campos 05/16/20 11:05: When talking w/pt on the phone, discussed AD. She states she does not have LW or Healthcare POA and she is not sure who she would want to be her POA. Per Dr Rivera's note pt had told her she would want her sister, Keyla, to make healthcare decisions, but when BERTIN IBARRA asked pt about this, she states she is not sure and she would have to think about it. Pt made aware a Delivery Clerk Rac card/contact info can be provided and she can make an appt if she decides later to have this completed. She voices understanding. Pt also stated that she (pt) and her sister, Keyla, are looking into getting an apartment together soon that would have a walk-in shower and easier to get around. Addendum entered by Steve Campos 05/16/20 10:58: Call has been placed to therapy requesting PT/OT evals. Original Note: BERTIN IBARRA ASSESSMENT Pt is COVID-19 positive and in isolation precautions. BERTIN IBARRA placed call to pt in her room at this time and assessment completed via phone. Pt is A/O at this time and answers all questions appropriately. Care providers, pharmacy, and demographics verified/updated at this time. PCP: Dr Reyes Specialists: None Insurance: [facility] Prescription Benefit: Yes LNOK: Pt only wants her friend, Shirin Grider listed on her demographics for contact at this time, but she does have 2 sisters: Keyla lives in [place], Carmen lives in [place]. Living Arrangements: Lives alone in an apartment. Pt was taking care of herself until she became ill recently. She states she would walk to the store to buy her own groceries and to the bank. She states she has been weak and it has been difficult for to take care of herself. She states she does not know who would be able to help her at home with being COVID + and does not know who would be able to get her groceries. Transportation: Walks to the grocery store and bank. Uses bus or taxi for longer distances. DME: States has the following DME: Pt states no need for further DME at this time. SNF/HHC: No history of SNF. Pt states she feels she needs to go to a nursing facility for awhile prior to returning home, as she has been weak and it is difficult to take care of herself. Pt made aware there are no SNF's in [facility] currently taking COVID + pts and so would need to go to a SNF outside of [facility]. She states would like to see a list of SNF's that she could go to to make a decision of location. Vannessa MADSEN, made aware. PLAN: SNF PT/OT rivera pending. Annamarie CRENSHAWN RN CM
[2020-05-16] MEDS: Polyethylene Glycol 3350 17 GM PACKET PO (12:38)
--- NOTE | 2020-05-16 13:29 | CASEMGMT ---
Social Work Received referral from AYO Wilson that pt is requesting to go to SNF at time of discharge. SW spoke with pt on phone and pt confirms need for short term SNF for rehab prior to returning home. SW explained that local SNFs are not accepting Covid positive pt at this time. Provided information that the three closest facilities that are in network with pt insurance are [facility], [facility] and [facility]. Pt made aware that visitors will not be allowed for at least the first 14 days of admission. Pt choosing [facility]. Referral faxed to [facility] and VM left with carrie Jerez, ([phone]). SW will follow up once determination has been made. Plan: [facility], pending acceptance and JACINTO Cordero
[2020-05-16 14:36] VITALS: BP 150/77; PULSE 87; RESP 22; TEMP 37.2; O2SAT 95
[2020-05-16] MEDS: dexAMETHasone 4 MG Tablet 6 MG PO (14:39)
[2020-05-16] MEDS: Acetaminophen 325 MG Tablet 650 MG PO (14:44)
[2020-05-16 20:54] VITALS: BP 114/75; PULSE 66; RESP 18; TEMP 37.1; O2SAT 96
[2020-05-16] MEDS: APIXABAN 5 MG TABLET PO (21:02)
[2020-05-17 03:00] VITALS: BP 103/81; PULSE 60; RESP 18; TEMP 36.4; O2SAT 96
[2020-05-17] MEDS: 0.9% Normal Saline 1,000 ML 100 ML IV (03:08)
[2020-05-17 06:48] LABS: Hematocrit 36.2 % (37-47); Hemoglobin 11.8 g/dL (12.0-15.0); Mean Corp Hgb Conc 32.6 g/dL (32-36); Mean Corpuscular Hgb 30.2 pg (27.0-32.0); Mean Corpuscular Volume 92.6 fL (81-99); Mean Platelet Vol. 8.5 fl (6.2-12.0); Platelet Count 124 K/mm3 (150-450); RBC Distribution Width SD 44.3 fl (35.1-43.9); Red Blood Count 3.91 M/mm3 (4.2-5.4); White Blood Count 3.4 K/mm3 (4.4-11.0)
[2020-05-17 07:04] LABS: Anion Gap 5 (5-15); BUN 17 mg/dL (7-18); BUN/Creat Ratio 31.8 RATIO (10-20); Calcium,Total 8.2 mg/dL (8.5-10.1); Chloride 111 mmol/L (98-107); Creatinine, Serum 0.53 mg/dL (0.55-1.02); EST Glomerular Filtration Rate 120 mL/min (>60); Est Glom Filt Rate - Afr Amer 145 mL/min (>60); Estimated Creatinine Clearance 52.81 ml/min; Glucose 116 mg/dL (74-106); Magnesium 1.9 mg/dL (1.6-2.6); Potassium 3.8 mmol/L (3.5-5.1); Sodium Level 142 mmol/L (136-145)
--- NOTE | 2020-05-17 07:43 | PCM.PN.HOSP ---
Patient Problems: Active and Suspected Problems Sepsis (Acute) UTI (urinary tract infection) (Acute) UTI (urinary tract infection) (Acute) Sepsis (Acute) Debility (Acute) COVID-19 (Acute) Objective: GENERAL: cooperative HEENT: Atraumatic; EYES; Anicteric, Normal Conjunctiva NECK; supple, normal thyroid, RESPIRATORY: Diminished to auscultation CARDIOVASCULAR: Regular S1 S2, GI: soft, normoactive bowel sounds, : No Renal angle tenderness; EXTREMITIES: No edema, no clubbing, MUSCULOSKELETAL: no muscle waisting NEURO: Awake; no lateralizing signs. SKIN: No Rash PSYCH; Flat affect Vitals/I&O's: Vital Signs Temp Pulse Resp BP Pulse Ox 97.5 F L 60 18 103/81 H 96 05/17/20 03:00 05/17/20 03:00 05/17/20 03:00 05/17/20 03:00 05/17/20 03:00 Oxygen Delivery Method Room Air Weight: 75.8 kg Body Mass Index (BMI) 25.4 Intake and Output for Last 24 Hours 05/15/20 05/16/20 05/17/20 23:59 23:59 23:59 Intake Total 1050.0 / 1050.0 2754.00 / 2954.00 1018.66 / 1018.66 Output Total 200 / 200 800 / 800 Balance 850.0 / 850.0 1954.00 / 2154.00 1018.66 / 1018.66 Microbiology Past 72 Hours 05/15/20 15:35 Urine Catheter - Catheter Urine Culture - Preliminary Gram Positive Cocci 05/16/20 03:55 Urine, Clean Catch Legionella Antigen - Final 05/16/20 03:55 Urine, Clean Catch Streptococcus pneumoniae Antigen (M - Final 05/15/20 16:11 Mucosa - Nasopharyngeal Respiratory Panel (PCR) - Final Laboratory Results 05/17/20 06:34: WBC 3.4 L, RBC 3.91 L, Hgb 11.8 L, Hct 36.2 L, MCV 92.6, MCH 30.2, MCHC 32.6, RDW Std Deviation 44.3 H, RDW Coeff of Marcus 13.0, Plt Count 124 L, MPV 8.5 05/17/20 06:34: Sodium 142, Potassium 3.8, Chloride 111 H, Carbon Dioxide 26.0, Anion Gap 5, BUN 17, Creatinine 0.53 L, Estim Creat Clear Calc 52.81, Est GFR (MDRD) Af Amer 145, Est GFR (MDRD) Non-Af 120, BUN/Creatinine Ratio 31.8 H, Glucose 116 H, Calcium 8.2 L, Magnesium 1.9 Current Medications Acetaminophen (Acetaminophen 325 Mg Tablet) 650 mg PO Q6H PRN PRN PRN Reason: Pain Score 1-10/Temp > 100.7 F Last Admin: 05/16/20 14:44 Dose: 650 mg Documented by: Al Hydroxide/Mg Hydroxide (Mag Hydrox/Al Hydrox/Simeth 30 Ml Udc) 30 ml PO Q6H PRN PRN PRN Reason: Gastric Burning Albuterol Sulfate (Albuterol 2.5 Mg/3 Ml Vial.Neb.) 2.5 mg INHALATION Q2H PRN PRN PRN Reason: Dyspnea, wheezing Apixaban (Apixaban 5 Mg Tablet) 5 mg PO BID [facility] Last Admin: 05/16/20 21:02 Dose: 5 mg Documented by: Dexamethasone (Dexamethasone 4 Mg Tablet) 6 mg PO DAILY@0800 [facility] Guaifenesin (Guaifenesin 10 Ml Udc (200mg/10ml)) 20 ml PO Q4H PRN PRN PRN Reason: COUGH Sodium Chloride () 1,000 mls @ 100 mls/hr IV .Q10H [facility] Last Infusion: 05/17/20 05:49 Dose: 100 mls/hr Documented by: Ampicillin Sodium/Sulbactam (Sodium 3 gm/ Sodium Chloride) 112 mls @ 150 mls/hr IV Q8 [facility] Last Infusion: 05/17/20 05:49 Dose: Infused Documented by: Lisinopril (Lisinopril 10 Mg Tablet) 10 mg PO DAILY [facility] Last Admin: 05/16/20 08:57 Dose: 10 mg Documented by: Magnesium Hydroxide (Magnesium Hydroxide 30 Ml Udc) 30 ml PO DAILY PRN PRN PRN Reason: Constipation Melatonin (Melatonin 3 Mg Tablet) 3 mg PO QHS PRN PRN PRN Reason: INSOMNIA Morphine Sulfate (Morphine 2 Mg/Ml Syringe) 2 mg IV Q3H PRN PRN PRN Reason: Pain Score 6-10 Nitroglycerin (Nitroglycerin (Inpatient Use) 0.4 Mg Tab.Subl) 0.4 mg SUBLINGUAL Q5M PRN PRN Reason: CARDIAC/CHEST PAIN Ondansetron HCl (Ondansetron 4 Mg/2 Ml Vial) 4 mg IV Q8H PRN PRN PRN Reason: NAUSEA/VOMITING Oxycodone HCl (Oxycodone 5 Mg Tablet) 5 mg PO Q4H PRN PRN PRN Reason: Pain Score 4-5 Pantoprazole Sodium (Pantoprazole Sodium 20 Mg Tablet) 20 mg PO DAILY [facility] Last Admin: 05/16/20 08:57 Dose: 20 mg Documented by: Polyethylene Glycol (Polyethylene Glycol 3350 17 Gm Packet) 17 gm PO DAILY [facility] Last Admin: 05/16/20 12:38 Dose: 17 gm Documented by: Prochlorperazine Edisylate (Prochlorperazine 10 Mg/2 Ml Vial) 5 mg IV Q4H PRN PRN PRN Reason: Breakthrough nausea/vomiting Psyllium Hydrophilic Mucilloid (Psyllium 1 Packet) 1 packet PO DAILY PRN PRN PRN Reason: Constipation Senna/Docusate Sodium (Senna/Docusate Sodium 1 Tablet) 2 tablet PO BID PRN PRN PRN Reason: Constipation Sodium Chloride (0.9% Saline Lock 10 Ml Syringe) 10 - 40 ml IV UD PRN PRN Reason: SALINE FLUSH Throat Lozenges (Benzocaine/Menthol 1 Lozenge) 1 lozenge MUCOUS MEM Q2H PRN PRN PRN Reason: SORE THROAT Medical Necessity - Tobacco Use Smoking Status: Never smoker Tobacco Use: Non-smoker Assessment/Plan All Active Problems Sepsis (Acute) UTI (urinary tract infection) (Acute) UTI (urinary tract infection) (Acute) Sepsis (Acute) Debility (Acute) COVID-19 (Acute) Patient is a 70-year-old lady admitted with increasing generalized weakness with cough. Diagnostic evaluation on admission was consistent with COVID-19 infection admitted to [facility] floor the cohort unit management initiated per protocol 1. Sepsis secondary to COVID-19 infection ?Patient admitted to the Covid cohort floor. Placed on supplemental oxygen as well as Decadron 2. Hypokalemia ?Corrected per protocol 3. Thrombocytopenia ?present on admission etiology not clear may be related to patient underlying infection. Patient was started on Lovenox on admission discontinued started on Eliquis instead 4. History of previous trach placement ?Patient has a well-healed scar 5. GERD ?Patient is on PPI 6. Hypertension - Blood pressure controlled, home medications continued with dose adjustment as needed 7. DVT prophylaxis ?[facility] Inpatient E&M: 13281 Subs Hosp L2
--- NOTE | 2020-05-17 09:45 | CASEMGMT ---
Social Work Note SW placed a call to Meri in admissions at [facility] and left message asking if they are able to accept pt. SW waiting for call back. Plan: SNF pending acceptance and pre-cert Renata Rueda MSW, [employer]
[2020-05-17] MEDS: dexAMETHasone 4 MG Tablet 6 MG PO (10:03)
[2020-05-17] MEDS: Lisinopril 10 MG Tablet PO (10:04)
[2020-05-17] MEDS: Pantoprazole Sodium 20 MG Tablet PO (10:04)
[2020-05-17] MEDS: APIXABAN 5 MG TABLET PO (10:04)
[2020-05-17 10:06] VITALS: BP 137/95; PULSE 62; RESP 16; TEMP 36.7; O2SAT 98
--- NOTE | 2020-05-17 11:06 | DCINST_ITS ---
- Discharge Diagnoses Current Active Problems: Current Active and Chronic Problems Sepsis (Acute) UTI (urinary tract infection) (Acute) HTN (hypertension) (Chronic) GERD (gastroesophageal reflux disease) (Chronic) Osteoarthritis (Chronic) History of seizures as a child (Chronic) Speech impediment (Chronic) UTI (urinary tract infection) (Acute) Sepsis (Acute) Debility (Acute) COVID-19 (Acute) You will use the following diet at home:: No restrictions Your food should be the consistency of: Regular Discharge Activity: Return to Normal Activity, - - To isolate for 7 days Allergies/Adverse Reactions: Allergies No Known Allergies Allergy (Verified 10/14/15 08:06) Medications to take at Discharge Esomeprazole Mag Trihydrate [Nexium] 20 mg PO DAILY 05/15/20 Lisinopril/Hydrochlorothiazide [Lisinopril-Hctz 10-12.5 mg Tab] 1 tab PO DAILY 05/15/20 Amoxicillin 500 mg PO BID #10 tab 05/17/20 Apixaban [Eliquis] 5 mg PO BID #30 tab 05/17/20 Dexamethasone [Decadron] 6 mg PO DAILY@0800 #8 tab 05/17/20 The following prescriptions were given: Amoxicillin 500 mg PO BID #10 tab Transmission Status: Pending to [facility] Dexamethasone [Decadron] 6 mg PO DAILY@0800 #8 tab Transmission Status: Pending to [facility] Apixaban [Eliquis] 5 mg PO BID #30 tab Transmission Status: Pending to [facility] Primary Care Physician: Anika Reyes MD [Primary Care Provider] - Please follow up with your Primary Care Physician in: in 2 weeks Test Results: Test results from this visit will be discussed in further detail at your follow- up appointment, if applicable. Proposed Discharge Date: 05/17/20
--- NOTE | 2020-05-17 11:11 | PCM.DC.SUM ---
Discharge Date and Diagnosis - Problem List Patient Problems: Active and Suspected Problems Sepsis (Acute) UTI (urinary tract infection) (Acute) UTI (urinary tract infection) (Acute) Sepsis (Acute) Debility (Acute) COVID-19 (Acute) Date of Admission: 05/15/20 Date of Discharge: 05/17/20 - Primary Discharge Diagnosis Acute Problems: Active Problems Sepsis (Acute) UTI (urinary tract infection) (Acute) UTI (urinary tract infection) (Acute) Sepsis (Acute) Debility (Acute) COVID-19 (Acute) - Secondary Discharge Diagnosis Chronic Problems: Chronic Problems HTN (hypertension) (Chronic) GERD (gastroesophageal reflux disease) (Chronic) Osteoarthritis (Chronic) History of seizures as a child (Chronic) Speech impediment (Chronic) Hospital Course and Treatment Imaging Results: Clinical Impression(s) from Imaging Studies Chest X-Ray 05/15/20 16:30 IMPRESSION: Normal x-ray examination of the chest. Electronically Signed: Rayo Archuleta MD at 16:53 EDT , Service support , Chest X-Ray 05/16/20 05:55 IMPRESSION: Increased markings in the right midlung as well as in the lingular segment of the left upper lobe and left lower lobe and follow-up is recommended. Electronically Signed: Dinesh Nevarez, at 9:21 EDT , Service support , Microbiology 05/15/20 15:35 Urine Catheter - Catheter Urine Culture - Final Enterococcus faecalis 05/16/20 03:55 Urine, Clean Catch Legionella Antigen - Final 05/16/20 03:55 Urine, Clean Catch Streptococcus pneumoniae Antigen (M - Final 05/15/20 16:11 Mucosa - Nasopharyngeal Respiratory Panel (PCR) - Final Summary of Care Provided: Patient is a 70-year-old lady admitted with increasing generalized weakness with cough and dysuria. Diagnostic evaluation on admission was consistent with COVID-19 infection admitted to [facility] floor the cohort unit management initiated per protocol 1. Sepsis secondary to COVID-19 infection ?Patient admitted to the Covid cohort floor. Placed on supplemental oxygen as well as Decadron -Was discharged home on Decadron for 8 days as well as Eliquis for 2 weeks 2. Acute Cystitis with Enterococcus ?Patient was managed with Unasyn discharged home on amoxicillin 3. Hypokalemia ?Corrected per protocol 4. Thrombocytopenia ?present on admission etiology not clear may be related to patient underlying infection. Patient was started on Lovenox on admission discontinued started on Eliquis instead 5. History of previous trach placement ?Patient has a well-healed scar 6. GERD ?Patient is on PPI 7. Hypertension - Blood pressure controlled, home medications continued with dose adjustment as needed 9. DVT prophylaxis ?Eliquis Patient Problems: Active and Suspected Problems Sepsis (Acute) UTI (urinary tract infection) (Acute) UTI (urinary tract infection) (Acute) Sepsis (Acute) Debility (Acute) COVID-19 (Acute) Objective: GENERAL: cooperative HEENT: Atraumatic; EYES; Anicteric, Normal Conjunctiva NECK; supple, normal thyroid, RESPIRATORY: Diminished to auscultation CARDIOVASCULAR: Regular S1 S2, GI: soft, normoactive bowel sounds, : No Renal angle tenderness; EXTREMITIES: No edema, no clubbing, MUSCULOSKELETAL: no muscle waisting NEURO: Awake; no lateralizing signs. SKIN: No Rash PSYCH; Flat affect - Physical Exam Vitals/I&O's: Vital Signs Temp Pulse Resp BP Pulse Ox 98.0 F 62 16 137/95 H 98 05/17/20 10:06 05/17/20 10:06 05/17/20 10:06 05/17/20 10:06 05/17/20 10:06 Oxygen Delivery Method Room Air Weight: 75.8 kg Body Mass Index (BMI) 25.4 Intake and Output for Last 24 Hours 05/15/20 05/16/20 05/17/20 23:59 23:59 23:59 Intake Total 1050.0 / 1050.0 2754.00 / 2954.00 1018.66 / 1018.66 Output Total 200 / 200 800 / 800 Balance 850.0 / 850.0 1954.00 / 2154.00 1018.66 / 1018.66 Microbiology Past 72 Hours 05/15/20 15:35 Urine Catheter - Catheter Urine Culture - Final Enterococcus faecalis 05/16/20 03:55 Urine, Clean Catch Legionella Antigen - Final 05/16/20 03:55 Urine, Clean Catch Streptococcus pneumoniae Antigen (M - Final 05/15/20 16:11 Mucosa - Nasopharyngeal Respiratory Panel (PCR) - Final Laboratory Results 05/17/20 06:34: WBC 3.4 L, RBC 3.91 L, Hgb 11.8 L, Hct 36.2 L, MCV 92.6, MCH 30.2, MCHC 32.6, RDW Std Deviation 44.3 H, RDW Coeff of Marcus 13.0, Plt Count 124 L, MPV 8.5 05/17/20 06:34: Sodium 142, Potassium 3.8, Chloride 111 H, Carbon Dioxide 26.0, Anion Gap 5, BUN 17, Creatinine 0.53 L, Estim Creat Clear Calc 52.81, Est GFR (MDRD) Af Amer 145, Est GFR (MDRD) Non-Af 120, BUN/Creatinine Ratio 31.8 H, Glucose 116 H, Calcium 8.2 L, Magnesium 1.9 Current Medications Acetaminophen (Acetaminophen 325 Mg Tablet) 650 mg PO Q6H PRN PRN PRN Reason: Pain Score 1-10/Temp > 100.7 F Last Admin: 05/16/20 14:44 Dose: 650 mg Documented by: Al Hydroxide/Mg Hydroxide (Mag Hydrox/Al Hydrox/Simeth 30 Ml Udc) 30 ml PO Q6H PRN PRN PRN Reason: Gastric Burning Albuterol Sulfate (Albuterol 2.5 Mg/3 Ml Vial.Neb.) 2.5 mg INHALATION Q2H PRN PRN PRN Reason: Dyspnea, wheezing Apixaban (Apixaban 5 Mg Tablet) 5 mg PO BID [facility] Last Admin: 05/17/20 10:04 Dose: 5 mg Documented by: Dexamethasone (Dexamethasone 4 Mg Tablet) 6 mg PO DAILY@0800 [facility] Last Admin: 05/17/20 10:03 Dose: 6 mg Documented by: Guaifenesin (Guaifenesin 10 Ml Udc (200mg/10ml)) 20 ml PO Q4H PRN PRN PRN Reason: COUGH Sodium Chloride () 1,000 mls @ 100 mls/hr IV .Q10H [facility] Last Infusion: 05/17/20 05:49 Dose: 100 mls/hr Documented by: Ampicillin Sodium/Sulbactam (Sodium 3 gm/ Sodium Chloride) 112 mls @ 150 mls/hr IV Q8 [facility] Last Infusion: 05/17/20 05:49 Dose: Infused Documented by: Lisinopril (Lisinopril 10 Mg Tablet) 10 mg PO DAILY [facility] Last Admin: 05/17/20 10:04 Dose: 10 mg Documented by: Magnesium Hydroxide (Magnesium Hydroxide 30 Ml Udc) 30 ml PO DAILY PRN PRN PRN Reason: Constipation Melatonin (Melatonin 3 Mg Tablet) 3 mg PO QHS PRN PRN PRN Reason: INSOMNIA Morphine Sulfate (Morphine 2 Mg/Ml Syringe) 2 mg IV Q3H PRN PRN PRN Reason: Pain Score 6-10 Nitroglycerin (Nitroglycerin (Inpatient Use) 0.4 Mg Tab.Subl) 0.4 mg SUBLINGUAL Q5M PRN PRN Reason: CARDIAC/CHEST PAIN Ondansetron HCl (Ondansetron 4 Mg/2 Ml Vial) 4 mg IV Q8H PRN PRN PRN Reason: NAUSEA/VOMITING Oxycodone HCl (Oxycodone 5 Mg Tablet) 5 mg PO Q4H PRN PRN PRN Reason: Pain Score 4-5 Pantoprazole Sodium (Pantoprazole Sodium 20 Mg Tablet) 20 mg PO DAILY [facility] Last Admin: 05/17/20 10:04 Dose: 20 mg Documented by: Polyethylene Glycol (Polyethylene Glycol 3350 17 Gm Packet) 17 gm PO DAILY [facility] Last Admin: 05/17/20 09:49 Dose: Not Given Documented by: Prochlorperazine Edisylate (Prochlorperazine 10 Mg/2 Ml Vial) 5 mg IV Q4H PRN PRN PRN Reason: Breakthrough nausea/vomiting Psyllium Hydrophilic Mucilloid (Psyllium 1 Packet) 1 packet PO DAILY PRN PRN PRN Reason: Constipation Senna/Docusate Sodium (Senna/Docusate Sodium 1 Tablet) 2 tablet PO BID PRN PRN PRN Reason: Constipation Sodium Chloride (0.9% Saline Lock 10 Ml Syringe) 10 - 40 ml IV UD PRN PRN Reason: SALINE FLUSH Throat Lozenges (Benzocaine/Menthol 1 Lozenge) 1 lozenge MUCOUS MEM Q2H PRN PRN PRN Reason: SORE THROAT Discharge Diet: No Restrictions Discharge Activity: Return to Normal Activity, - - To isolate for 7 days Home Medications: Medications to take at Discharge Esomeprazole Mag Trihydrate [Nexium] 20 mg PO DAILY 05/15/20 Lisinopril/Hydrochlorothiazide [Lisinopril-Hctz 10-12.5 mg Tab] 1 tab PO DAILY 05/15/20 Amoxicillin 500 mg PO BID #10 tab 05/17/20 Apixaban [Eliquis] 5 mg PO BID #30 tab 05/17/20 Dexamethasone [Decadron] 6 mg PO DAILY@0800 #8 tab 05/17/20 Following Prescriptions Were Given to Patient: Amoxicillin 500 mg PO BID #10 tab Transmission Status: Pending to [facility] Dexamethasone [Decadron] 6 mg PO DAILY@0800 #8 tab Transmission Status: Pending to [facility] Apixaban [Eliquis] 5 mg PO BID #30 tab Transmission Status: Pending to [facility] Primary Care Physician: Anika Reyes MD [Primary Care Provider] - Please follow up with your Primary Care Physician in: in 2 weeks Disposition: Home Minutes spent on discharge:: 35 Patient Condition:: Stable Medical Necessity - Tobacco Use Smoking Status: Never smoker Tobacco Use: Non-smoker Meaningful Use Info Meaningful Use Diagnoses (Choose all that apply): None applicable Inpatient E&M: 07555 Disch Hosp
--- NOTE | 2020-05-17 12:19 | CASEMGMT ---
BERTIN CM Note: [facility] to [facility] copay for Eliquis: $1.95. No other dc concerns identified. Agustín RADFORD RN ACM
--- NOTE | 2020-05-17 12:31 | CASEMGMT ---
Addendum entered by Renata Rueda 05/17/20 13:57: TENA updated April at [facility] that pt is now going home at discharge. Original Note: Social Work Note SW reviewed chart. Discharge for home is in. SW placed a call to pt's room. SW introduced self and role at [facility]. Pt confirms that she will now be returning home at discharge, denied SNF. Pt states she will be returning home alone at discharge but she has neighbors that will be able to assist. Pt denied HHC at this time. Per previous CM notes, pt denied additional DME. TENA updated RN CM. Plan: Home Renata Rueda SKIN GRADER, ACCESS LEAD
[2020-05-17 14:00] VITALS: O2SAT 98
[2020-05-17 14:35] VITALS: O2SAT 97
--- NOTE | 2020-05-17 15:12 | CASEMGMT ---
BERTIN IBARRA Note: nursing received a call from patient's sister stating the patient did not have food in her home. The patient had been relying on neighbors, but her neighbor was nervous re: shopping for her. BERTIN IBARRA called to patient to discuss and pt did state she had no food in her home and was going to rely on her neighbor. BERTIN IBARRA discussed meals on wheels and patient is agreeable to have referral made. BERTIN IBARRA also called [employer] and they will deliver 3 days worth of meals to her home tonight. Patient was given the MOW # to call tomorrow if she does not hear from them. The patient said she will order pizza tonight for dinner. Agustín RADFORD RN ACM
== END 2020-05-17 14:05 | disposition home or self-care (01) | DRG 689 ==
LOC: ED 17:27 → MS2 19:08
PROVIDERS: Admitting Provider Family Medicine; Emergency Provider Emergency Medicine; PCP Internal Medicine; Visit Provider Internal Medicine
DX: N30.00 Acute cystitis without hematuria (principal); U07.1 COVID-19; B95.2 Enterococcus as the cause of diseases classified elsewhere; E87.6 Hypokalemia; D69.6 Thrombocytopenia, unspecified; K21.9 Gastro-esophageal reflux disease without esophagitis; I10 Essential (primary) hypertension; Z87.891 Personal history of nicotine dependence; R53.81 Other malaise; D72.819 Decreased white blood cell count, unspecified
CPT/HCPCS: 36415; 71045; 80048; 80053; 81001; 82728; 83605; 83615; 83735; 84145; 84484; 85025; 85027; 85379; 85610; 85730; 86140; 87040; 87077; 87086; 87088; 87186; 87449; 87633; 87635; 93005; 97110; 97162; 97166; 97530; 97535; 99251; 99285; 99406; J7030; A4216; G0463; J0295; U0003

== ENCOUNTER 2020-05-22 02:09 | Emergency (ER) | payer MEDICARE, MEDICAID, SELFPAY ==
[2020-05-15 20:58] VITALS: BMI 25.4
[2020-05-22 02:10] VITALS: BP 157/75; PULSE 96; RESP 18; TEMP 36.4; O2SAT 97; BMI 27.6
--- NOTE | 2020-05-22 02:33 | ED.VIS.GEN ---
History of Present Illness Chief Complaint: General Illness Informant: Patient Narrative: 70-year-old female presenting with nausea. She was recently hospitalized for UTI, sepsis, Covid?19. She was discharged on the . She states her first day of symptoms were the when she came in this would be the seventh day by her history. She states that she is not short of breath, not having chest pain, and is fever free. Her only complaint is that she is a little nauseous. She has not lost her taste or smell, but states that she has a sour taste in her mouth sometimes. He denies abdominal pain with her nausea. - Past Medical History (1) COVID-19 Status: Acute (2) Debility Status: Chronic (3) GERD (gastroesophageal reflux disease) Status: Chronic (4) HTN (hypertension) Status: Chronic Past Medical History - Allergies and Home Meds Allergies/Adverse Reactions: Allergies No Known Allergies Allergy (Verified 05/22/20 02:16) Primary Care Physician: Anika Reyes MD [Primary Care Provider] - Prior records reviewed: Yes Past Medical History: - - Reviewed problem list Surgical History: - - Tracheostomy at age 17. Lives: Alone Smoking Status: Never smoker - Family History Maternal Family History: Reports: Diabetes, Heart Disease - Mother with LA age 60. Paternal Family History: Reports: Heart Disease - Father with LA age 65. Review of Systems General: Reports: Malaise. Denies: Chills, Fever, Sweats Eyes: Denies: Visual changes - bilaterally, Diplopia ENT: Denies: Rhinorrhea, Sore throat Cardiovascular: Denies: Chest pain, Palpitations Respiratory: Denies: Dyspnea, Cough, Dyspnea on exertion Gastrointestinal: Reports: Nausea. Denies: Abdominal pain, Vomiting, Diarrhea Genitourinary: Denies: Dysuria, Hematuria, Frequency Musculoskeletal: Denies: Myalgias, Arthralgias Skin: Denies: Rash, Abscess Neurological: Denies: Headache, Weakness Physical Exam Vital Signs/Narrative: Vital Signs Temp Pulse Resp BP Pulse Ox 05/22/20 02:10 97.6 F L 96 18 157/75 H 97 General: Well nourished, No Acute Distress Head: Normocephalic, Atraumatic Eyes: Perrl, EOMI. Negative for: Scleral icterus ENT: Moist mucous membranes, No rhinorrhea Cardiovascular: Regular rate, Regular rhythm Respiratory: No distress, CTA bilaterally Abdomen: Soft, Nontender, Nondistended Extremities: Nontender, No edema Skin: Normal color, No rash. Negative for: Cyanosis, Diaphoresis Neurological: Alert, Oriented x3 Psychological: Normal affect, Normal Mood Diagnostic/Tx/Re-eval Laboratory Data 05/22/20 05/22/20 05/22/20 03:20 03:20 04:48 WBC 6.4 RBC 4.25 Hgb 12.9 Hct 39.7 MCV 93.4 MCH 30.4 MCHC 32.5 RDW Std Deviation 43.7 RDW Coeff of Marcus 12.9 Plt Count 314 MPV 8.2 Immature Gran % (Auto) 0.900 Neut % (Auto) 59.9 Lymph % (Auto) 30.2 Hardin % (Auto) 7.8 Eos % (Auto) 0.9 Baso % (Auto) 0.3 Absolute Neuts (auto) 3.8 Absolute Lymphs (auto) 1.93 Nucleated RBC % 0 Sodium 142 Potassium 3.3 L Chloride 107 Carbon Dioxide 29.0 Anion Gap 6 BUN 14 Creatinine 0.71 Estim Creat Clear Calc 52.81 Est GFR (MDRD) Af Amer 105 Est GFR (MDRD) Non-Af 87 BUN/Creatinine Ratio 19.8 Glucose 96 Calcium 8.4 L Total Bilirubin 0.50 AST 20 ALT 113 H Alkaline Phosphatase 81 Total Protein 6.7 Albumin 3.0 L Globulin 3.7 Albumin/Globulin Ratio 0.8 L Lipase 233 Urine Color Yellow Urine Clarity Clear Urine pH 7.0 Ur Specific [place] 1.005 Urine Protein Negative Urine Glucose (UA) Normal Urine Ketones Negative Urine Occult Blood Negative Urine Nitrite Negative Urine Bilirubin Negative Urine Urobilinogen Normal Ur Leukocyte Esterase Negative Urine RBC 0 SEEN Urine WBC 0 SEEN Ur Squamous Epith Cells 0 SEEN Urine Bacteria 1+ Urine Mucus 0 SEEN - Medical Decision Making Patient was seen and evaluated on arrival for nausea. She is currently day 7 with Covid?19. She has been at home. She does not require oxygen. She denies shortness of breath, cough, fever. Her only complaint is of nausea. She was given Zofran which controlled her nausea. I checked basic lab work which is normal. Urinalysis is negative. I feel this time patient is stable to be discharged home. She will be discharged home with prescription for Zofran and given return precautions. Impression: 1. Covid?19 2. Nausea ED Disposition - Plan for ED Patient: Disposition: Home or Assisted Living Diagnosis: COVID-19 Instructions: ED Nausea Vomiting Adult Prescriptions: Ondansetron [Zofran Odt] 4 mg PO Q8H PRN PRN #20 tab PRN Reason: Nausea Prescription Printed Referrals: nAika Reyes MD [Primary Care Provider] -
[2020-05-22] MEDS: Ondansetron 4 MG/2 ML Vial IV (03:16)
[2020-05-22 03:25] LABS: Absolute Lymphocyte Count 1.93 X10^3/uL (0.83-4.51); Absolute Neutrophil Count 3.8 X10^3/uL (2.0-7.7); Basophil# 0.02 X10^3/uL; Basophil% 0.3 % (0-1); Eosinophil# 0.06 X10^3/uL; Eosinophils% 0.9 % (0-5); Hematocrit 39.7 % (37-47); Hemoglobin 12.9 g/dL (12.0-15.0); Lymphocyte # 1.93 X10^3/ul (4.0); Lymphocyte % 30.2 % (19-41); Mean Corp Hgb Conc 32.5 g/dL (32-36); Mean Corpuscular Hgb 30.4 pg (27.0-32.0); Mean Corpuscular Volume 93.4 fL (81-99); Mean Platelet Vol. 8.2 fl (6.2-12.0); Monocyte% 7.8 % (0-10); NRBC Flagged by Analyzer 0 % (0-5); Neutrophil # 3.83 X10^3/uL (2.7-7.7); Neutrophil % 59.9 % (47-70); Platelet Count 314 K/mm3 (150-450); RBC Distribution Width CV 12.9 % (11.6-14.6); RBC Distribution Width SD 43.7 fl (35.1-43.9); Red Blood Count 4.25 M/mm3 (4.2-5.4); White Blood Count 6.4 K/mm3 (4.4-11.0)
[2020-05-22 03:41] LABS: ALB/GLOB Ratio 0.8 RATIO (0.9-2.4); AST(SGOT) 20 U/L (15-37); Alanine Aminotransfer ALT/SGPT 113 U/L (13-56); Alkaline Phosphatase 81 U/L (45-117); Anion Gap 6 (5-15); BUN 14 mg/dL (7-18); BUN/Creat Ratio 19.8 RATIO (10-20); Calcium,Total 8.4 mg/dL (8.5-10.1); Chloride 107 mmol/L (98-107); Creatinine, Serum 0.71 mg/dL (0.55-1.02); EST Glomerular Filtration Rate 87 mL/min (>60); Est Glom Filt Rate - Afr Amer 105 mL/min (>60); Estimated Creatinine Clearance 52.81 ml/min; Globulin 3.7 g/dL (2.2-4.2); Glucose 96 mg/dL (74-106); Lipase 233 U/L (73-393); Potassium 3.3 mmol/L (3.5-5.1); Protein, Total 6.7 g/dL (6.4-8.2); Sodium Level 142 mmol/L (136-145)
[2020-05-22 04:52] VITALS: BP 152/65; PULSE 61; RESP 16; O2SAT 96
[2020-05-22 04:52] LABS: Mucous, Urine 0 SEEN /hpf (<or=2+); Red Blood Cells-Urine 0 SEEN /hpf (0-5); Squamous Epithelial Cells - UA 0 SEEN /hpf (5-10); White Blood Cells 0 SEEN /hpf (0-5)
[2020-05-22 04:53] LABS: Color, Urine Yellow (Yellow); Glucose, Dipstick Normal (Normal); Ketone-Dipstick Negative (Negative); Leukocyte Esterase-Dipstick Negative /ul (Negative); Nitrite-Dipstick Negative (Negative); Occult Blood-Urine Negative /ul (Negative); Protein-Dipstick Negative (Negative); Specific Gravity, Urine 1.005 (1.002-1.030); Urine Bilirubin Dipstick Negative (Negative); Urine Clarity Clear (Clear); Urine Urobilinogen Normal (Normal)
[2020-05-22 04:59] LABS: Bacteria 1+ /hpf (None Seen)
[2020-05-22 06:26] VITALS: BP 148/90; PULSE 64; RESP 16; O2SAT 96
== END 2020-05-22 06:47 | disposition home or self-care (01) ==
PROVIDERS: Emergency Provider Student in an Organized Health Care Education/Training Program; PCP Internal Medicine
DX: U07.1 COVID-19 (principal); R11.0 Nausea; Z87.440 Personal history of urinary (tract) infections; K21.9 Gastro-esophageal reflux disease without esophagitis; I10 Essential (primary) hypertension; Z79.899 Other long term (current) drug therapy
CPT/HCPCS: 80053; 81001; 83690; 85025; 87086; 96374; 99285; A4216; J2405

== ENCOUNTER → 2021-05-30 12:55 | Outpatient (CLI) | payer MEDICARE, MEDICAID, SELFPAY ==
--- NOTE | 2021-05-30 13:02 | CT_ITS ---
STUDY: RIGHT LOWER EXTREMITY CT SCAN REASON FOR EXAM: Female, 71 years old. VALGUS DEFORMITY. Presurgical planning. RADIATION DOSAGE (If Supplied By Facility): CTDIvol = ( 19.01 ) mGy, DLP = ( 1434.18 ) mGycm. Individualized dose optimization techniques were used for this CT.? TECHNIQUE: Axial multidetector CT scan of the right lower cavity. Coronal and sagittal reformatted images. NICHOLE technique. COMPARISON: None. FINDINGS: No acute fracture, dislocation or cortical destruction. Osteopenia. Right hip: Mild/moderate osteoarthritis predominating superiolaterally. Mild pubic symphysis arthrosis. Visualized intra-abdominal/pelvic contents within normal limits. No acute muscle or soft tissue abnormality. Vascular calcifications. Right knee: Severe lateral compartment arthrosis. Moderate medial compartment arthrosis. Severe patellofemoral joint arthrosis. No acute muscle abnormality. Vascular calcifications. Moderate volume joint effusion. No popliteal cyst. Mild soft tissue swelling. Quadriceps tendon enthesophyte. Right ankle: Mild tibiotalar joint arthrosis. Achilles enthesophyte. Ankle mortise well aligned. Spurring at the distal tibiofibular interface (coronal image 25 series 608) with mild calcification of the intraosseous membrane. No acute muscle abnormality. Mild soft tissue swelling. CT/Extremity Lower without Contra IMPRESSION: Severe right knee osteoarthritis Moderate volume right knee joint effusion with mild soft tissue swelling Additional degenerative changes, as above Electronically Signed: Neo Pearson DO at 13:50 EDT Tel , Service support ,
== END ==
PROVIDERS: PCP Internal Medicine; Referring Provider Specialist; Visit Provider Specialist
DX: M21.061 Valgus deformity, not elsewhere classified, right knee (principal)
CPT/HCPCS: 73700

== ENCOUNTER 2021-06-12 18:07 | Observation (INO) | payer MEDICARE, MEDICAID, SELFPAY ==
--- NOTE | 2021-05-27 11:56 | HP.PCM_ITS ---
History and Physical History and Physical [facility] Patient Name: Delmy Campos : 1950 From: FAWAD MILELR PA-C DATE OF SURGERY: 06/12/2021 SCHEDULED PROCEDURE: right total knee arthroplasty HISTORY OF PRESENT ILLNESS: Preoperative history and physical exam was performed on May 27, 2021. This is a 70-year-old female who's had ongoing pain since 2019 with her right knee. Patient initially had a fall while walking her jaw. Her pain is located over the medial aspect of the knee. She gets occasional clicking/cracking sensation in the knee. Pain can reach as high as an 8/10. Pain has been intermittent, aching, and sore. She has increased pain with walking long distances and stooping. She has fallen and tripped/stumbled due to the knee pain. Patient has start up pain. Patient has tried previous conservative measures including rest, elevation with minimal relief. She has had a previous cortisone injection which gave approximately 3 days of relief. She has been through physical therapy with minimal relief. She has tried [id number] Tylenol arthritis. She denies any previous surgery on the right knee. She uses a walker. After failing conservative measures and discussing treatment options with Dr. Clemente Coley, the patient does wish to proceed with a right total knee arthroplasty. We are obtaining surgical clearance from the primary care physician Dr. Reyes. Patient has medical history pertinent for hypertension, vitamin D deficiency, acid reflex, and unspecified intellectual disability. She has also had a tracheostomy when she was 17 years old. She currently denies any chest pain, shortness of breath, fevers chills, or recent infections. REVIEW OF SYSTEMS: ROS: Const: Denies change in appetite, fever and weight change. CV: Denies chest pain, heart murmur and irregular heartbeat. Resp: Denies cough, pneumonia, shortness of breath, tuberculosis and wheezing. GI: Reports constipation and heartburn, but denies diarrhea, nausea, rectal itching, bloody stools and vomiting. : Denies incontinence. Musculo: Reports leg swelling, limitations of movement, trouble walking and weakness, with pain of both feet Skin: Denies Raynaud's, history of shingles and tattoo. Neuro: Reports ambulatory dysfunction but denies dizziness, imbalance, numbness/tingling and tremor. Psych: Reports stress, but denies anxiety and insomnia. Jose De Jesus/Lymph: Denies anemia, bleeding/bruising tendency and past transfusion. Reviewed and updated. PAST MEDICAL HISTORY: Advance Care Plan: No Advance Directives Effective Date: 12/28/2018 PMH: Medical Problems: Arthritis, High Blood Pressure, Osteoporosis, Vision Problems/Blind, Acid Reflux, Vitamin D deficiency, Intellectual disability Accidents: None Surgical Hx: Appendectomy - (1949) MLB-DR CRUZ Anesthesia Complications: None Assistive Devices: Brace, Cane, Walker, Glasses Reviewed and updated. SOCIAL HISTORY: SH: Marital: Single.Occupation: Retired - [employer].Work Status: Retired.Hand Dominance: Right-handed. Personal Habits: Cigarette Use: Never Smoked Cigarettes.Smokeless Tobacco: Never Used Smokeless Tobacco.E-Cigarette Use: Never used.Alcohol: Denies use.Drug Use: Denies Use.Enjoy Exercising: Daily. Reviewed, no changes. VITALS: Ht: 61 Wt: 196lb Wt k.906 BMI: 37.0 BP: 136/84 Pulse: 72 Resp: 16 T: 97.4 T: 36.3C Pain Level: 7 ALLERGIES: No Known Drug Allergy MEDICATIONS: Esomeprazole Magnesium 20 mg 1 by mouth every day, Lisinopril- Hydrochlorothiazide 10-12.5 mg 1 by mouth every day, Calcium 1000 + D 1000-800 MG-Unit daily, Simethicone Extra Strength 125 mg 1po qday, Rosa[place] Original 325 mg DISSOLVE 2 TABS IN 4oz LIQUID, Acetaminophen Extra Strength 500 mg take 2 tablets (1,000 mg) every 8 hours as needed for pain PRE-OP EXAM: General appearance:NORMAL Other: Eyes: Conjunctivae and lids: NORMAL Pupils: ERR Ears, Nose, Mouth, and Throat: NORMAL Other: Inspection of lips, teeth and gums: NORMAL Other: Neck: Examination of neck: no masses noted. Respiratory: Assessment of respiratory effort: NORMAL Other: Auscultation of lungs: clear to auscultation no wheezes, rhonchi or rales. Cardiovascular: Auscultation of heart: regular rate and rhythm, no murmurs, gallops or rubs. PHYSICAL EXAMINATION: Patient does walk with an antalgic gait with use of walker. Right knee is cool to touch without erythema or signs of infection. Patient does have a effusion to the right knee. Patient has valgus alignment which is non-correctable on exam. Range of motion: Lacks 15 extension to 105 flexion. Sensation intact to light touch. IMAGING STUDIES: Previous x-rays of the right knee reveal valgus alignment with lateral joint space narrowing, subchondral sclerosis, osteophyte formation consistent with severe stage IV tricompartmental osteoarthritis. There are bony erosions located in the lateral compartment. IMPRESSION: 1. Severe right knee osteoarthritis with valgus deformity 2. Hypertension 3. Gastroesophageal reflux disease 4. Vitamin D deficiency 5. Unspecified intellectual disability PLAN: Dr. Clemente Coley did discuss and review with the patient all treatment options including surgical versus nonsurgical options. Patient does wish to proceed with the above-stated procedure. Potential risks, benefits, and complications of the procedure were discussed in detail including but not limited to , infection, nerve and blood vessel damage, persistent pain, numbness, tingling, paresthesias, blood clot, pulmonary embolism, and requirement for possible furth er surgery. The patient expressed full understanding and has no further questions for the doctor. Patient does agree to proceed with the above-stated procedure and has signed the surgery consent form. We discussed the current risks associated with COVID 19. This does include the risk of exposure while in the hospital. Patient was reassured local hospitals have low infection rates and are taking all necessary precautions to avoid exposure to patients. In addition, we discussed strategies that can be used to help limit exposure including those that limit the patient's time in the hospital. Also using strategies to limit the patient's need for continued inpatient services after being discharged from the hospital. Patient was notified that we will need to comply with any screening or testing the hospital wishes to perform or that surgery may be delayed for any positive results. This dictation was created using voice recognition software. Phonetic and/or grammatical errors may exist. ___ I have re-examined the patient. There are no clinical changes since date of exam. ___ See progress notes for changes. ___ Dictated on admission Date: Time: Signature:
--- NOTE | 2021-05-29 10:52 | NURSING ---
This RN spoke with embedded case manager Filomena regarding pt's concerns for needing rehab facility placement following surgery and no available transportation. Case management to reach out to pt regarding these concerns
--- NOTE | 2021-05-30 13:06 | EKG12_ITS ---
Test Reason : PREOP Blood Pressure : / mmHG Vent. Rate : 062 BPM Atrial Rate : 062 BPM P-R Int : 170 ms QRS Dur : 098 ms QT Int : 406 ms P-R-T Axes : 017 -18 019 degrees QTc Int : 412 ms Normal sinus rhythm Voltage criteria for left ventricular hypertrophy Abnormal ECG Confirmed by MELVI TRACEY, JERRY ([id number]), editor greeting card KUSHAL GRACIA ([id number]) on 06/03/2021 10:11:45 A M Referred By: Clemente Coley Confirmed By:EH OGDEN MD
[2021-05-30 14:44] LABS: Absolute Lymphocyte Count 2.55 X10^3/uL (0.83-4.51); Absolute Neutrophil Count 6.2 X10^3/uL (2.0-7.7); Basophil# 0.04 X10^3/uL; Basophil% 0.4 % (0-1); Hematocrit 43.1 % (37-47); Lymphocyte # 2.55 X10^3/ul (0.83-4.51); Lymphocyte % 26.7 % (19-41); Mean Corp Hgb Conc 32.5 g/dL (32-36); Mean Corpuscular Hgb 29.5 pg (27.0-32.0); Mean Corpuscular Volume 90.7 fL (81-99); Mean Platelet Vol. 8.7 fl (6.2-12.0); Monocyte# 0.64 X10^3/uL; Monocyte% 6.7 % (0-10); NRBC Flagged by Analyzer 0 % (0-5); Neutrophil # 6.17 X10^3/uL (2.7-7.7); Neutrophil % 64.8 % (47-70); Platelet Count 265 K/mm3 (150-450); RBC Distribution Width CV 12.7 % (11.6-14.6); Red Blood Count 4.75 M/mm3 (4.2-5.4); White Blood Count 9.5 K/mm3 (4.4-11.0)
[2021-05-30 15:01] LABS: Magnesium 2.2 mg/dL (1.6-2.6)
[2021-05-30 15:05] LABS: Albumin, Serum 3.8 g/dL (3.2-5.0); Anion Gap 6 (5-15); BUN 30 mg/dL (7-18); Calcium,Total 9.7 mg/dL (8.5-10.1); Chloride 104 mmol/L (98-107); Creatinine, Serum 0.97 mg/dL (0.55-1.02); EST Glomerular Filtration Rate 60 mL/min (>60); Est Glom Filt Rate - Afr Amer 73 mL/min (>60); Glucose 89 mg/dL (74-106); Potassium 4.5 mmol/L (3.5-5.1); Sodium Level 137 mmol/L (136-145)
--- NOTE | 2021-06-03 13:27 | CASEMGMT ---
SW called pt as preadmission testing had indicated pt needs to go somewhere at discharge for rehab. SW reviewed prior level of care and anticipated discharge plan for pt. PCP: Dr. Reyes Specialists: Dr. Coley(ortho) Insurance: [employer] Medicare Pharmacy: Pt not certain where her meds get ordered from. Pt is at [facility], she states they order her medications and give them to her. Prior level of function/living arrangements: Pt lives at [facility]. They help pt with meals, meds, showers, dressing. Pt states she tries to dress herself but she loses her balance easily. LNOK: Pt has a sister, Keyla Dykes, who lives nearby in [place]\ LW/POA: Pt has not completed LW/POA. DME/HHC/SNF: Pt uses a walker for ambulation. Pt has never been to a chcf in the past. SW spoke w/pt about discharge options, pt is agreeable to go [facility] a [facility] facility. SW reviewed on the phone w/search engine optimization consultantpenitentiary facilities in pt's insurance network. Pt would like to go to TCU if possible. SW explained will make a referral, and SW on the floor will speak w/pt when she is here to let her know if TCU has a bed, if not, we will review other options. Pt states understanding. SW called TCU, message left on Joellen's voicemail letting her know about this pt's preference to come to TCU after surgery. SW will follow up w/pt postoperatively. NOÉ Cook
--- NOTE | 2021-06-05 08:47 | CASEMGMT ---
Social Work Return call from Renate in TCU. Pt name has been placed on TCU wait list. Bed is not guaranteed at this time as pt admission to TCU is dependent on bed availability and insurance preauth. SW will follow up with pt upon admission to assist with d/c planning. JACINTO Saldana
[2021-06-12] VITALS (11 sets, daily range): BP systolic 108–134; BP diastolic 59–75; PULSE 59–91; RESP 16–20; TEMP 35.8–36.8; O2SAT 93–100; BMI 37.5; BMI 36.0
[2021-06-12 12:56] LABS: Bedside Glucose 131 mg/dL (70-110)
[2021-06-12] MEDS: Gabapentin 600 MG Tablet PO (12:59)
[2021-06-12] MEDS: Celecoxib 200 MG Capsule 400 MG PO ×2 (12:59)
[2021-06-12] MEDS: Lactated Ringers 1,000 ML 15 ML IV (13:02)
[2021-06-12] MEDS: Cefazolin 2 GM in 0.9% Normal Saline 100 ML IV (14:00)
--- NOTE | 2021-06-12 15:33 | PCM.OPRPT ---
Report of Operation Date of Procedure: 06/12/21 Pre-Operative Diagnosis: Right knee primary osteoarthritis Fixed valgus deformity right knee Post-Operative Diagnosis: Right knee primary osteoarthritis Fixed valgus deformity right knee Surgery/Procedure Performed:: Right minimally invasive robotic total knee replacement Description of Surgical Findings:: Stable knee with good patella tracking. Valgus alignment was corrected according to robotic navigation. Surgeon: Clemente Coley remote recruiter: Elizabeth Patterson Type of Anesthesia: Spinal Anesthesiologist: Valerio Chase Special Medications: 2 g Ancef, 1 g TXA at incision, 1 g TXA closure, 10 mg Decadron, joint cocktail (5 mg Duramorph, 30 mL of 0.5% Ropivicaine, 1000 units of epinephrine, 30 mg of Toradol) Specimen's removed: Bony cuts Estimated Blood Loss (mL): 75 Fluids Replaced: 600 Description of Procedure: Implants used: 1. Albert size 6 triathlon posterior stabilized distal femoral cemented component 2. Albert size 6 universal tibial baseplate 3. Albert X3 11 mm TS polyethylene 4. [place] X3 32 mm asymmetric patella Brief history operative indications: 71-year-old female with history of right knee osteoarthritis and severe valgus deformity fixed with radiographic findings with loss of joint space, osteophyte formation and subchondral sclerosis. Failed conservative measures as mentioned in the H&P. Discussion of total knee arthroplasty as well as risk and benefits were discussed the patient including but not limited to blood loss, DVTs, PEs, neurovascular damage, general risk of anesthesia including loss of life, and stiffness or instability were discussed with patient. Patient demonstrated understanding and was able to sign informed consent. Procedure: On the date of procedure patient's right lower extremity was marked in the preoperative area. The patient was then taken back to the operating room where the patient was placed on the table in the supine position. All bony prominences were identified a well-padded. Anesthesia assumed control of the C-spine and airway and remained controlled throughout the remainder of the procedure. A tourniquet was placed on the right upper thigh and the leg was prepped in a sterile fashion. The surgeon then scrubbed at this time .Upon reentering the room right lower extremity was draped in a standard orthopedic fashion. A timeout was then called and everyone agreed upon the side, the site, the procedure to be performed, patient's identity and antibiotics given. Esmarch bandage was used to exsanguinate the extremity and the tourniquet was placed up to 250 mmHg with the knee in flexion. A midline skin incision was made and sharp dissection was taken down through skin subcutaneous tissue and fat. The standard medial parapatellar incision was made and the patella was subluxed laterally. An Appropriate deep MCL release was done and the fat pad was resected. Our attention was then directed to the patella. The patella was everted and a flat resection was made. The knee was then flexed up in 2 femoral pins were placed inside the incision and 2 tibial pins were placed outside the incision in the medial tibia bicortically. Once this was completed the 2 checkpoints in the femur and tibia were placed. Knee was then flexed up and the bony landmarks were registered. Once this was completed knee was taken through range of motion and manually stressed allowing us to a plan for an appropriate tibial cut. The robotic arm was brought into the field sterilely and checkpoint and saw were registered. Based on the patient's deformity the tibial cut was made in neutral position as well as skin cuts on the distal femur and posterior condyles using robotics. At this time the tensioner was then placed in the joint and ligament tension was checked at 90 degrees and full extension. Based on the patient's ligamentous tension appropriate adjustments were made to the operative plan and ligament releases were done. This did require significant posterior lateral releases including releasing the popliteus IT band. Once we were happy with our operative plan with balanced flexion and extension gaps our attention was directed to the femur. The robot was brought into the field sterilely and registered. Posterior condylar cuts, anterior chamfer cuts and anterior cuts were appropriately made for a size 6 femur. When these were completed the saws were switched out in the distal femoral and posterior chamfer cuts were made. Protecting the soft tissue throughout this time. A size 6 tibial base plate was selected. the knee was flexed to 90 degrees and the soft tissues and posterior osteophytes were removed from the joint. 40 cc of the periarticular injection was injected into the posterior medial corner of the joint. The appropriate trials were then placed on the femur and tibia. A trial polyethylene was trialed to ensure proper balancing and stability of the knee. The appropriate tibial internal rotation was then marked with a bovie. Our attention was then directed to the patella. The lug holes were drilled and the patella trial was placed. Patellar tracking was checked and deemed appropriate. Once we were happy lug holes were drilled for the femur and trial components were removed. the tibia was subluxed and pinned into place and the keel was punched and drilled appropriately for a short stem. Femoral box cut was made after flexing the knee. Final components were verified and opened, and cement was mixed in a vacuum. Lell[place] Simplex cement was used. The wound was copiously irrigated with normal saline. When the cement was ready the components were cemented into place starting with the tibia, femur and finally cementing the patella. The trial poly component was placed and the knee was placed in full extension. All excess cement was removed in the process. Once the cement had cured the tracking, alignment and balance were verified and a size 11 mm TS polyethylene component was placed. Once the final components were placed a 3-minute dilute Betadine lavage was performed followed by an Irrisept lavage was performed and the wound was copiously irrigated with normal saline solution and the periarticular injection was given. The wound was closed in a layer storey fashion using #1 vicryl interrupted sutures for the arthrotomy, 2-0 interrupted Vicryl suture for the subcuticular layer and marcella for final skin closure. A sterile compressive dressing was then placed. The patient was then awakened from anesthesia, transferred to the [facility] and transferred to the PACU for recovery. Post op plan DVT ppx: ASA 81mg BID, thigh high compression stockings Follow up: in office in 2 weeks for wound check PT: to start POD #0 at hospital, outpatient PT should be arranged. My physician executive assistant to general counsel was a vital part of this case. He was important in appropriate retraction during the case, and protection of soft tissues during bony cuts. His intimate knowledge of the case and my steps aided in safe and expedient completion of the procedure as well as appropriate position of the leg during the case. He was also vital in assisting with closure under my direct supervision. Due to the complexity of this case robotic arm was used to assist in the surgery to improve accuracy and clinical outcomes. Complications No intraoperative complications Admit VTE Documentation VTE Present on Admission: No VTE Mechan Device Prophylaxis: SCD's and Thigh High JJ Hose VTE Pharm Prophylaxis ordered?: Yes
--- NOTE | 2021-06-12 16:40 | RAD_ITS ---
STUDY: X-RAY - RIGHT KNEE REASON FOR EXAM: Female, 71 years old. Postop. TECHNIQUE: 2 view(s) of the knee. COMPARISON: CT of the right lower extremity, 05/30/2021. FINDINGS: There is a total knee replacement. The prosthetic components are intact and articulate normally with each other. There is no evidence of loosening from the underlying bone. There is no evidence of osseous fracture or destructive osseous pathology. There is air and swelling in the anterior soft tissues with midline skin clips. RAD/Knee 1 or 2 Views IMPRESSION: Status post right total knee arthroplasty. Electronically Signed: Chay Enriquez DO at 17:18 EST Tel [phone], Service support ,
[2021-06-12] MEDS: Lactated Ringers 1,000 ML 999 ML IV (16:58)
[2021-06-12] MEDS: Lactated Ringers 1,000 ML 125 ML IV (19:00)
[2021-06-12] MEDS: Acetaminophen 500 MG Tablet 1000 MG PO (21:33)
[2021-06-12] MEDS: Senna/Docusate Sodium 1 Tablet 2 TABLET PO (21:33)
--- NOTE | 2021-06-12 22:05 | PCM.PN.HOSP ---
Subjective Subjective Status post right knee minimally invasive robotic replacement per Dr. Coley. Patient reports she is having right knee pain, reporting it 5-10 in severity and requesting pain medications at this time otherwise no acute complaints. She reports return of full sensation and is moving her right lower extremity as expected postoperatively. Patient denies fevers, chills, nausea, emesis, abdominal pain, chest pain or dyspnea. Objective Data Objective Data Vital Signs: Vital Signs Temp Pulse Resp BP Pulse Ox 98.0 F 79 18 117/69 96 06/12/21 21:35 06/12/21 21:35 06/12/21 21:35 06/12/21 21:35 06/12/21 21:35 Oxygen Flow Rate (L/min) 100 Oxygen Delivery Method Room Air Weight: 191 lb Body Mass Index (BMI) 36.0 Intake & Output: Intake and Output for Last 24 Hours 06/10/21 06/11/21 06/12/21 23:59 23:59 23:59 Intake Total 1435.5 / 1435.5 Balance 1435.5 / 1435.5 Lab / Micro Data Result Diagrams: 05/30/21 13:34 05/30/21 13:34 Labs: Laboratory Results - last 24 hr 06/12/21 12:31: POC Glucose 131 H Micro: Microbiology 05/30/21 13:34 Interface Orders Nasal Screen MRSA/MSSA - Final Radiography Diagnostic Testing: Radiology Impression Knee X-Ray 06/12/21 16:40 IMPRESSION: Status post right total knee arthroplasty. Electronically Signed: Chay Enriquez DO at 17:18 EST Tel [phone], Service support , Physical Exam Narrative Physical Examination: General: awake, alert, oriented x 3 and cooperative, speech impediment, seated upright in the medical surgical bed in no apparent distress, reporting some right knee pain postoperatively. Skin: Normal color, normal turgor, no icterus, no cyanosis except recent right knee total replacement with dressings in place, no drainage. HEENT: AT/NC, EOMI, PERRLA, MMM, no carotid bruits or JVD noted. Lungs: Mildly diminished, greater bases, moderate effort, no rales, ronchi or wheezing. Heart: Regular rate and rhythm; no gallop, rub audible. Abdomen: soft, obese, NTTP, ND, normal BS, no HSM. Extremities: no cyanosis, clubbing, or edema. Neurological: patient awake, alert, oriented as noted; cognitive function appears baseline intact; pupils equally reactive to light and accomodation; cranial nerves II-XII grossly normal, moving all 4 extremities although expected right lower extremity decreased movement given recent right total knee replacement, strength accordingly moderately global decrease. Psychiatric: affect appears fatigued otherwise normal, no acute evidence of depressive or anxiety feelings. Assessment & Plan Assessment/Plan (1) Osteoarthritis: QUALIFIERS: Osteoarthritis location: unspecified site Osteoarthritis type: unspecified Qualified Code(s): M19.90 - Unspecified osteoarthritis, unspecified site PLAN: The patient is a 70 y/o F w/ PMHx: OA, GERD, HTN, Speech impediment, Hx Respiratory failure possibly secondary to Pneumonia w/ Trach placement at age 17, Hx Infantile Seizure disorder who presents to the [facility] 06/12/21 for planned R TKR per Dr. Coley. 1. Severe Osteoarthritis, right knee: Failed conservative therapies and treatments, admitted per Dr. Coley for planned right total knee replacement, post-operative pain management, bowel regimen, DVT Prophylaxis, PT/OT/CM per Orthopedic surgery discretion. 2. History of Infantile Seizures: Noted only as an infant and resolved completely, no seizures as an adult. 3. History of Respiratory Failure, Trach placement: Unclear exact history but possibly secondary to pneumonia at age 17, required trach placement. 4. GERD: Will continue home PPI. 5. Hypertension: Will continue lisinopril-HCTZ regimen. 8. DVT Prophylaxis: SCDs, chemoprophylaxis per orthopedic surgery discretion given recent OR. Charges/Coding Visit Charges Inpatient E&M: 62314 Subs Hosp L3
[2021-06-13 03:30] VITALS: BP 130/76; PULSE 61; RESP 18; TEMP 36.6; O2SAT 94
[2021-06-13] MEDS: Acetaminophen 500 MG Tablet 1000 MG PO ×3 (05:31→21:12)
[2021-06-13 06:00] VITALS: BP 119/86; PULSE 68; RESP 18; TEMP 36.6; O2SAT 96
[2021-06-13 07:42] LABS: Hematocrit 37.2 % (37-47); Hemoglobin 12.3 g/dL (12.0-15.0); Mean Corp Hgb Conc 33.1 g/dL (32-36); Mean Corpuscular Hgb 30.2 pg (27.0-32.0); Mean Corpuscular Volume 91.4 fL (81-99); Mean Platelet Vol. 8.5 fl (6.2-12.0); Platelet Count 170 K/mm3 (150-450); RBC Distribution Width CV 13.2 % (11.6-14.6); RBC Distribution Width SD 43.8 fl (35.1-43.9); Red Blood Count 4.07 M/mm3 (4.2-5.4); White Blood Count 9.4 K/mm3 (4.4-11.0)
[2021-06-13 08:35] LABS: Anion Gap 7 (5-15); BUN 18 mg/dL (7-18); Calcium,Total 8.8 mg/dL (8.5-10.1); Chloride 105 mmol/L (98-107); EST Glomerular Filtration Rate 66 mL/min (>60); Est Glom Filt Rate - Afr Amer 80 mL/min (>60); Estimated Creatinine Clearance 43.26 ml/min; Glucose 100 mg/dL (74-106); Potassium 4.3 mmol/L (3.5-5.1); Sodium Level 139 mmol/L (136-145)
--- NOTE | 2021-06-13 09:27 | PCS.PANDOC ---
PANDEMIC DOCUMENTATION INITIATED: Date: 03/11/2021 Time: 190
[2021-06-13] MEDS: Polyethylene Glycol 3350 17 GM PACKET PO (09:54)
[2021-06-13] MEDS: Aspirin 81 MG TAB.CHEW PO ×2 (09:55→18:07)
[2021-06-13] MEDS: hydroCHLOROthiazide 12.5mg 12.5 MG PO ×2 (09:55)
[2021-06-13] MEDS: Senna/Docusate Sodium 1 Tablet 2 TABLET PO ×2 (09:55→21:13)
[2021-06-13] MEDS: Lisinopril 10 MG Tablet PO (09:55)
[2021-06-13] MEDS: Famotidine 20 MG Tablet PO (09:56)
[2021-06-13] MEDS: Pantoprazole Sodium 20 MG Tablet PO (09:56)
[2021-06-13 09:59] VITALS: BP 141/84; PULSE 68; RESP 16; TEMP 36.4; O2SAT 96
--- NOTE | 2021-06-13 10:15 | CASEMGMT ---
Social Work SW met with pt and introduced self and role of SW. Pt is currently a resident at [facility]. Pt stating that they assist with showers, meals and meds. She is able to dress herself and get around her room. Pt stating she needs rehab prior to return to [facility]. SW provided list of SNF providers including quality and resource use data and consistent with the patient's preferred geographic region, medical needs and insurance network. Pt preferred provider is [facility]. Phone call to Joellen in TCU and they would be able to accept pt and will start precert when therapy evaluations are complete. TENA met with pt and confirmed TCU can accept and precert will need obtained. Discharge likely tomorrow. Pt requesting SW notify pt sister. Phone call to pt sister Keyla and updated on discharge plan. Keyla is agreeable. SW to continue to follow. Plan: TCU, pending precert JACINTO Saldana
[2021-06-13] MEDS: Ensure Surgery 237 ML LIQUID PO ×3 (11:30→18:07)
--- NOTE | 2021-06-13 11:42 | PN.ORTHO_ITS ---
Subjective Subjective Patient is s/p right sided total knee arthroplasty with Dr. Coley. Patient resting comfortably in chair. Rates pain 5/ 10 at rest. With movement 5/10. States taking Tylenol, oxycodone as needed and ice help to relieve pain. Patient has been up with therapy. Walking with the assit of a walker. Afebrile, no chest pain, shortness of breath, negative calf pain/ erythema, and no other signs of DVT. Objective Data Objective Data Vital Signs: Vital Signs Temp Pulse Resp BP Pulse Ox 97.5 F L 68 16 141/84 H 96 06/13/21 09:59 06/13/21 09:59 06/13/21 09:59 06/13/21 09:59 06/13/21 09:59 Oxygen Flow Rate (L/min) 100 Oxygen Delivery Method Room Air Weight: 86.636 kg Body Mass Index (BMI) 36.0 Intake & Output: Intake and Output for Last 24 Hours 06/11/21 06/12/21 06/13/21 23:59 23:59 23:59 Intake Total 2435.5 / 2675.5 2040 / 2040 Output Total 900 / 900 Balance 2435.5 / 2175.5 1140 / 1140 Lab / Micro Data Result Diagrams: 06/13/21 06:54 06/13/21 06:54 Labs: Laboratory Results - last 24 hr 06/12/21 12:31: POC Glucose 131 H 06/13/21 06:54: WBC 9.4, RBC 4.07 L, Hgb 12.3, Hct 37.2, MCV 91.4, MCH 30.2, MCHC 33.1, RDW Std Deviation 43.8, RDW Coeff of Marcus 13.2, Plt Count 170, MPV 8.5 06/13/21 06:54: Sodium 139, Potassium 4.3, Chloride 105, Carbon Dioxide 27.0, Anion Gap 7, BUN 18, Creatinine 0.90, Estim Creat Clear Calc 43.26, Est GFR (MDRD) Af Amer 80, Est GFR (MDRD) Non-Af 66, BUN/Creatinine Ratio 20.0, Glucose 100, Calcium 8.8 Micro: Microbiology 05/30/21 13:34 Interface Orders Nasal Screen MRSA/MSSA - Final Radiography Diagnostic Testing: Radiology Impression Knee X-Ray 06/12/21 16:40 IMPRESSION: Status post right total knee arthroplasty. Electronically Signed: Chay Enriquez, at 17:18 EST Tel [phone], Service support , Physical Exam Narrative Patient resting comfortably in bed No signs of acute distress Satting well on room air Limb is warm to touch, Sensation intact throughout entire lower extremity, including saphenous, sural, superficial and deep peroneal, and tibial dist ribution. DP/PT pulses bounding. Dorsiflexion, plantarflexion 5/5 Dressing small amount of sanguinous drainage at the most inferior aspect of dressing. It has not required changing. Calf nontender to palpation, no erythema, no edema. Negative Homans Assessment & Plan Assessment/Plan (1) S/P total knee arthroplasty: PLAN: Patient is status post robotic assisted right total knee arthroplasty with Dr. Coley on 06/12/2021. 1. Will continue PT today 2. plan for discharge to a nursing facility likely tomorrow. 3. Patient will follow up for post op appointment in 2 weeks. 4. WBC 9.4 no acute reactive leukocytosis 5. H/H 12.3/37.2 no post operavtive anemia 6. DVT prophylaxis : Aspirin 81 mg twice daily x4 weeks 7. Pain control: patient instructed to take tylenol 500mg 2 tablets TID, meloxicam twice daily and oxycodone 1-2 tablets every 4-6 hours only as needed for pain control. 8. Patient also given a prescription of pepcid for ulcer prophylaxis
--- NOTE | 2021-06-13 11:46 | PCM.DC ---
Discharge Instructions Diet Discharge Diet: No restrictions Dressing / Incision Call your doctor if your incision/area has: Continuous Slow Oozing, Sudden Increased Bleeding, Increased Pain/ Swelling, Increased Redness, Foul Smelling Discharge and Swelling at the incision site Call your doctor if you observe: Fever of 101 or Higher, Numbness or Tingling, Shortness of breath, Dizziness, Chest pain and Calf discomfort Remove Dressing in: 5 days Cleanse incision/area with: Soap & Water Follow Up Care Test Results: Test results from this visit will be discussed in further detail at your follow-up appointment, if applicable. Discharge Plan Admission Admit Date/Time: 06/12/21 18:07 Attending Provider: Neo Harden Primary Care Provider: Anika Reyes Consulting Providers: Melissa Liao ; Graciela Diaz ; Roe Chopra ; Harjit Garcia Discharge Orders/Prescriptions Prescriptions: No Action lisinopril-hydrochlorothiazide 1 EACH tablet 1 tab PO DAILY RF: 0 esomeprazole magnesium [Nexium] 20 MG capsule 20 mg PO DAILY RF: 0 polyethylene glycol 3350 [Miralax] 17 gram Powder In Packet 17 g PO DAILY PRN (Reason: Constipation) RF: 0 ketoconazole 2 % cream 1 applic TOPICAL PRN PRN (Reason: Rash) RF: 0 omeprazole 20 mg Capsule,Delayed Release(Dr/Ec) 20 mg PO DAILY RF: 0 Other Ambulatory Orders: 12 Lead EKG (Routine) Location: None Selected Ordered By: Dr. Clemente Coley
--- NOTE | 2021-06-13 11:57 | PCM.TXEXTCAR ---
Diet 06/13/21 06:56 Diet: Regular - General Is pt able to select menu?: Yes Wound(s) RIGHT KNEE: Wound Type: Surgical Incision Therapies Weight Bearing: Weight bearing as tolerated Problem/Diagnosis (1) S/P total knee arthroplasty: Status: Acute Allergies/Procedures Done in Hospital Allergies No Known Allergies Allergy (Verified 05/29/21 10:17) Type of Care/Length of Stay Estimated LOS: Convalescent Care Less Than 30 days Type of Care Needed: Skilled Rehab Potential: Good Prognosis: Good Additional Orders/Day of Discharge Day of Discharge: 06/14/21 Discharge Plan Admission Admit Date/Time: 06/12/21 18:07 Attending Provider: Neo Harden Primary Care Provider: Anika Reyes Consulting Providers: Melissa Liao ; Graciela Diaz ; Roe Chopra ; Harjit Garcia Discharge Orders/Prescriptions Prescriptions: New acetaminophen 500 mg Tablet 1,000 mg PO Q8 Qty: 90 RF: 0 aspirin 81 mg Tablet,Chewable 81 mg PO 0800,1700 28 Days Qty: 56 RF: 0 meloxicam 7.5 mg Tablet 7.5 mg PO BID Qty: 60 RF: 0 oxycodone 5 mg Tablet See Rx Instructions .ROUTE .COMPLEX PRN (Reason: Pain Score 4-10) 7 Days Qty: 60 RF: 0 Continued lisinopril-hydrochlorothiazide 1 EACH tablet 1 tab PO DAILY RF: 0 esomeprazole magnesium [Nexium] 20 MG capsule 20 mg PO DAILY RF: 0 polyethylene glycol 3350 [Miralax] 17 gram Powder In Packet 17 g PO DAILY PRN (Reason: Constipation) RF: 0 ketoconazole 2 % cream 1 applic TOPICAL PRN PRN (Reason: Rash) RF: 0 omeprazole 20 mg Capsule,Delayed Release(Dr/Ec) 20 mg PO DAILY RF: 0 Other Ambulatory Orders: 12 Lead EKG (Routine) Location: None Selected Ordered By: Dr. Clemente Coley Referrals / Follow Up: Anika Reyes MD [Primary Care Provider] - Disposition Disposition (needs filled in before D/C Order can be placed): Senior Living Facility
[2021-06-13] MEDS: oxyCODONE 5 MG Tablet PO ×2 (12:09→18:29)
--- NOTE | 2021-06-13 14:52 | PCM.PN.HOSP ---
Subjective Subjective Feels well. Comments on difficulty flexing her right knee. Has chronic balance issues. Objective Data Objective Data Vital Signs: Vital Signs Temp Pulse Resp BP Pulse Ox 36.4 C L 68 16 141/84 H 96 06/13/21 09:59 06/13/21 09:59 06/13/21 09:59 06/13/21 09:59 06/13/21 09:59 Oxygen Flow Rate (L/min) 100 Oxygen Delivery Method Room Air Weight: 86.636 kg Body Mass Index (BMI) 36.0 Intake & Output: Intake and Output for Last 24 Hours 06/11/21 06/12/21 06/13/21 23:59 23:59 23:59 Intake Total 2435.5 / 2675.5 2039 / 2039 Output Total 900 / 900 Balance 2435.5 / 2175.5 1140 / 1140 Lab / Micro Data Result Diagrams: 06/13/21 06:54 06/13/21 06:54 Labs: Laboratory Results - last 24 hr 06/13/21 06:54: WBC 9.4, RBC 4.07 L, Hgb 12.3, Hct 37.2, MCV 91.4, MCH 30.2, MCHC 33.1, RDW Std Deviation 43.8, RDW Coeff of Marcus 13.2, Plt Count 170, MPV 8.5 06/13/21 06:54: Sodium 139, Potassium 4.3, Chloride 105, Carbon Dioxide 27.0, Anion Gap 7, BUN 18, Creatinine 0.90, Estim Creat Clear Calc 43.26, Est GFR (MDRD) Af Amer 80, Est GFR (MDRD) Non-Af 66, BUN/Creatinine Ratio 20.0, Glucose 100, Calcium 8.8 Micro: Microbiology 05/30/21 13:34 Interface Orders Nasal Screen MRSA/MSSA - Final Radiography Diagnostic Testing: Radiology Impression Knee X-Ray 06/12/21 16:40 IMPRESSION: Status post right total knee arthroplasty. Electronically Signed: Chay Enriquez DO at 17:18 EST Tel [phone], Service support , Physical Exam Const alert HEENT head/scalp atraumatic Head and Scalp: normocephalic Resp normal respiratory effort and no retractions Cardio regular rate, regular rhythm, S1 normal heart sound and S2 normal heart sound GI normal to inspection, nondistended, normoactive bowel sounds, soft to palpation, non-tender and non-distended Extremity Extremity Narrative: right knee bandaged with overlying ice pack--did not remove. Assessment & Plan Assessment/Plan (1) S/P total knee arthroplasty: QUALIFIERS: Laterality: right Qualified Code(s): Z96.651 - Presence of right artificial knee joint PLAN: 1. s/p right knee arthroplasty mgmt per orthopaedics on ASA BID for VTE prophylaxis. Medically stable for discharge. No active medical issues. Will sign off. Please recontact if new issues arrive. Charges/Coding Visit Charges Inpatient E&M: 38084 Subs Hosp L1
[2021-06-13 14:57] VITALS: BP 113/77; PULSE 90; RESP 16; TEMP 36.9; O2SAT 97
--- NOTE | 2021-06-13 16:14 | CASEMGMT ---
BERTIN IBARRA in to complete DURBIN form with patient. BERTIN IBARRA explained DURBIN form with patient, patient voiced understanding. Patient signed DURBIN form and filed in chart. Patient provided with copy of signed DURBIN form. Patient had no further questions or concerns at this time.
[2021-06-13 21:00] VITALS: BP 135/80; PULSE 78; RESP 16; TEMP 37.1; O2SAT 93
[2021-06-14 02:28] VITALS: BP 100/58; PULSE 74; RESP 16; TEMP 37.1; O2SAT 92
[2021-06-14] MEDS: Acetaminophen 500 MG Tablet 1000 MG PO ×3 (05:49→21:11)
[2021-06-14 08:00] VITALS: BP 121/59; PULSE 76; RESP 16; TEMP 36.3; O2SAT 94
[2021-06-14] MEDS: Famotidine 20 MG Tablet PO (08:16)
[2021-06-14] MEDS: Aspirin 81 MG TAB.CHEW PO ×2 (08:16→17:01)
[2021-06-14] MEDS: Polyethylene Glycol 3350 17 GM PACKET PO (08:17)
[2021-06-14] MEDS: Senna/Docusate Sodium 1 Tablet 2 TABLET PO ×2 (08:17→21:10)
[2021-06-14] MEDS: Pantoprazole Sodium 20 MG Tablet PO (08:17)
[2021-06-14] MEDS: Meloxicam 7.5 MG Tablet PO ×2 (08:17→21:09)
[2021-06-14] MEDS: Lisinopril 10 MG Tablet PO (08:18)
[2021-06-14] MEDS: hydroCHLOROthiazide 12.5mg 12.5 MG PO (08:18)
[2021-06-14] MEDS: oxyCODONE 5 MG Tablet PO ×2 (08:22→14:12)
[2021-06-14] MEDS: Ensure Surgery 237 ML LIQUID PO ×3 (08:23→17:01)
--- NOTE | 2021-06-14 11:41 | PCM.PN.ORT ---
Subjective Subjective Patient is s/p right sided total knee arthroplasty with Dr. Coley. Patient resting comfortably in bedside chair. Rates pain 5/ 10 at rest. With movement 5/10. States taking Tylenol, oxycodone as needed and ice help to relieve pain. Patient has been up with therapy. Walking with the assit of a walker. Afebrile, no chest pain, shortness of breath, negative calf pain/ erythema, and no other signs of DVT. Objective Data Objective Data Vital Signs: Vital Signs Temp Pulse Resp BP Pulse Ox 97.3 F L 76 16 121/59 H 94 06/14/21 08:00 06/14/21 08:00 06/14/21 08:00 06/14/21 08:00 06/14/21 08:00 Oxygen Flow Rate (L/min) 100 Oxygen Delivery Method Room Air Weight: 86.636 kg Body Mass Index (BMI) 36.0 Intake & Output: Intake and Output for Last 24 Hours 06/12/21 06/13/21 06/14/21 23:59 23:59 23:59 Intake Total 2435.5 / 2675.5 3020 / 3020 654 / 654 Output Total 1500 / 2050 2700 / 2700 Balance 2435.5 / 2175.5 1520 / 970 -2046 / -2046 Lab / Micro Data Result Diagrams: 06/13/21 06:54 06/13/21 06:54 Micro: Microbiology 05/30/21 13:34 Interface Orders Nasal Screen MRSA/MSSA - Final Physical Exam Narrative Patient resting comfortably in bed No signs of acute distress Satting well on room air Limb is warm to touch, Sensation intact throughout entire lower extremity, including saphenous, sural, superficial and deep peroneal, and tibial distribution. DP/PT pulses bounding. Dorsiflexion plantarflexion 5/5 Dressing small amount of sanguinous drainage at the most inferior aspect of dressing. It has not required changing. Stable from yesterday Calf nontender to palpation, no erythema, no edema. Negative Homans Assessment & Plan Assessment/Plan (1) S/P total knee arthroplasty: QUALIFIERS: Laterality: right Qualified Code(s): Z96.651 - Presence of right artificial knee joint PLAN: 1. Will continue PT today 2. plan for discharge this afternoon following PT 3. Patient will follow up for postop appointment in 2 weeks as previously scheduled. 4. Patient patient will be transitioning to TCU at [facility] 5. DVT prophylaxis : Aspirin 81 mg twice daily x4 weeks . Pain control: patient instructed to take tylenol 500mg 2 tablets TID. and oxycodone 1-2 tablets every 4-6 hours only as needed for pain control. 6. Patient takes omeprazole at home. Should continue for ulcer prophylaxis.
[2021-06-14 14:00] VITALS: BP 123/74; PULSE 97; RESP 16; TEMP 37; O2SAT 95
--- NOTE | 2021-06-14 14:10 | CASEMGMT ---
Social Work Phone call to Joellen in TCU. Precert is still pending. Radha placed on chart in the event precert is obtained over the weekend. Pt updated on status of insurance request. Plan: TCU, pending precert JACINTO Saldana
--- NOTE | 2021-06-14 14:41 | NURSING ---
therapy came to get nurse. pt throwing covers back saying [facility] stole my insurance information. and i cant go to [facility] now so im getting out of here cm just in to say that havent heard yet from insurance for precert yet and that could be today or tomorrow yet. pt back in bed and calixto back in to talk with her d/t mix up.
[2021-06-14 20:00] VITALS: BP 123/65; PULSE 89; RESP 16; TEMP 36.9; O2SAT 93
[2021-06-15 02:00] VITALS: BP 120/62; PULSE 82; RESP 16; TEMP 36.8; O2SAT 95
[2021-06-15] MEDS: oxyCODONE 5 MG Tablet PO ×3 (04:43→15:06)
[2021-06-15] MEDS: Acetaminophen 500 MG Tablet 1000 MG PO ×3 (06:18→21:39)
[2021-06-15 08:00] VITALS: BP 126/80; PULSE 76; RESP 16; TEMP 36.8; O2SAT 93
[2021-06-15] MEDS: hydroCHLOROthiazide 12.5mg 12.5 MG PO (09:14)
[2021-06-15] MEDS: Polyethylene Glycol 3350 17 GM PACKET PO (09:14)
[2021-06-15] MEDS: Pantoprazole Sodium 20 MG Tablet PO (09:14)
[2021-06-15] MEDS: Senna/Docusate Sodium 1 Tablet 2 TABLET PO ×2 (09:14→21:40)
[2021-06-15] MEDS: Meloxicam 7.5 MG Tablet PO ×2 (09:14→21:40)
[2021-06-15] MEDS: Aspirin 81 MG TAB.CHEW PO ×2 (09:14→17:58)
[2021-06-15] MEDS: Lisinopril 10 MG Tablet PO (09:14)
[2021-06-15] MEDS: Ensure Surgery 237 ML LIQUID PO ×2 (09:14→11:55)
[2021-06-15] MEDS: Famotidine 20 MG Tablet PO (09:14)
--- NOTE | 2021-06-15 09:38 | PCM.PN.ORT ---
Subjective Subjective Patient is s/p right sided total knee arthroplasty with Dr. Coley 06/12/21. Patient resting comfortably in bedside chair. Rates pain 5/ 10 at rest. With movement 7/10. States taking Tylenol, oxycodone as needed and ice help to relieve pain. Patient has been up with therapy. Walking with the assist of a walker. Afebrile, no chest pain, shortness of breath, negative calf pain/ erythema, and no other signs of DVT. Objective Data Objective Data Vital Signs: Vital Signs Temp Pulse Resp BP Pulse Ox 98.3 F 76 16 126/80 H 93 06/15/21 08:00 06/15/21 08:00 06/15/21 08:00 06/15/21 08:00 06/15/21 08:00 Oxygen Flow Rate (L/min) 100 Oxygen Delivery Method Room Air Weight: 86.636 kg Body Mass Index (BMI) 36.0 Intake & Output: Intake and Output for Last 24 Hours 06/13/21 06/14/21 06/15/21 23:59 23:59 23:59 Intake Total 3020 / 3020 1321 / 1321 Output Total 1500 / 2050 3525 / 3875 1050 / 1050 Balance 1520 / 970 -2204 / -2554 -1050 / -1050 Lab / Micro Data Result Diagrams: 06/13/21 06:54 06/13/21 06:54 Micro: Microbiology 05/30/21 13:34 Interface Orders Nasal Screen MRSA/MSSA - Final Physical Exam Narrative Patient resting comfortably in bed No signs of acute distress Satting well on room air Limb is warm to touch, Sensation intact throughout entire lower extremity, including saphenous, sural, superficial and deep peroneal, and tibial distribution. DP/PT pulses bounding. Dorsiflexion plantarflexion 5/5 Dressing small amount of sanguinous drainage at the most inferior aspect of dressing. It has not required changing. Stable from yesterday Calf nontender to palpation, no erythema, no edema. Negative Homans Assessment & Plan Assessment/Plan (1) S/P total knee arthroplasty: QUALIFIERS: Laterality: right Qualified Code(s): Z96.651 - Presence of right artificial knee joint PLAN: S/P left total knee arthroplasty 06/12/21: 1. Will continue PT today 2. plan for discharge when precert for TCU is obtained. (potentially today) 3. Patient will follow up for postop appointment in 2 weeks as previously scheduled. 4. Patient patient will be transitioning to TCU at [facility] 5. DVT prophylaxis : Aspirin 81 mg twice daily x4 weeks . Pain control: patient instructed to take tylenol 500mg 2 tablets TID. and oxycodone 1-2 tablets every 4-6 hours only as needed for pain control. 6. Patient takes omeprazole at home. Should continue for ulcer prophylaxis.
[2021-06-15 13:53] VITALS: BP 135/88; PULSE 88; RESP 18; TEMP 36.6; O2SAT 95
[2021-06-15 18:00] VITALS: BP 129/79; PULSE 85; RESP 18; TEMP 36.6; O2SAT 93
[2021-06-15 20:00] VITALS: O2SAT 97
[2021-06-15 20:07] VITALS: BP 125/80; PULSE 84; RESP 20; TEMP 36.8; O2SAT 96
[2021-06-16 02:30] VITALS: BP 110/66; PULSE 98; RESP 16; TEMP 36.9; O2SAT 95
[2021-06-16 02:34] VITALS: O2SAT 98
[2021-06-16] MEDS: Acetaminophen 500 MG Tablet 1000 MG PO ×3 (05:48→20:54)
[2021-06-16 08:30] VITALS: BP 117/85; PULSE 78; RESP 16; TEMP 36.7; O2SAT 95
[2021-06-16] MEDS: Polyethylene Glycol 3350 17 GM PACKET PO (08:52)
[2021-06-16] MEDS: Senna/Docusate Sodium 1 Tablet 2 TABLET PO (08:52)
[2021-06-16] MEDS: hydroCHLOROthiazide 12.5mg 12.5 MG PO (08:52)
[2021-06-16] MEDS: Aspirin 81 MG TAB.CHEW PO ×2 (08:52→17:07)
[2021-06-16] MEDS: Lisinopril 10 MG Tablet PO (08:52)
[2021-06-16] MEDS: Famotidine 20 MG Tablet PO (08:52)
[2021-06-16] MEDS: Pantoprazole Sodium 20 MG Tablet PO (08:52)
[2021-06-16] MEDS: Meloxicam 7.5 MG Tablet PO ×2 (08:52→20:55)
[2021-06-16] MEDS: oxyCODONE 5 MG Tablet PO (10:35)
--- NOTE | 2021-06-16 13:36 | PCM.PN.ORT ---
Subjective Subjective Patient is doing well. She has no new complaints overnight. The nurse is concerned about some of her constipation would like to add a dose of milk of magnesia. Pain is 0 out of 10 she did recently receive a dose of oxycodone however she has not had consistent dosing of this and overall has been doing well with good pain control. She is happy with her current outcomes. Currently we are waiting on pre-CERT approval for transition to rehabilitation. Objective Data Objective Data Postop x-rays reviewed showing stable well aligned right total knee replacement. Vital Signs: Vital Signs Temp Pulse Resp BP Pulse Ox 98.1 F 78 16 117/85 H 95 06/16/21 08:30 06/16/21 08:30 06/16/21 08:30 06/16/21 08:30 06/16/21 08:30 Oxygen Flow Rate (L/min) 100 Oxygen Delivery Method Room Air Weight: 191 lb Body Mass Index (BMI) 36.0 Intake & Output: Intake and Output for Last 24 Hours 06/14/21 06/15/21 06/16/21 23:59 23:59 23:59 Intake Total 1321 / 1321 1650 / 1650 700 / 700 Output Total 3525 / 3875 1050 / 1050 Balance -2204 / -2554 600 / 600 700 / 700 Lab / Micro Data Result Diagrams: 06/13/21 06:54 06/13/21 06:54 Micro: Microbiology 05/30/21 13:34 Interface Orders Nasal Screen MRSA/MSSA - Final Physical Exam Narrative Alert and oriented x3. No acute distress. Extremity Extremity Narrative: Right lower extremity: Dressing is clean dry and intact Sensations intact to light touch saphenous, sural, superficial peroneal, deep peroneal, and tibial distributions Motors intact EHL, DF, PF calves are soft and supple Assessment & Plan Assessment/Plan (1) S/P total knee arthroplasty: QUALIFIERS: Laterality: right Qualified Code(s): Z96.651 - Presence of right artificial knee joint PLAN: Postoperative day 4 right total knee arthroplasty 06/12/21: 1. Will continue PT per inpatient services. Overall doing well. Range of motion as tolerated. Weightbearing as tolerated. 2. Disposition: Plan for discharge when precert for TCU is obtained. Should be early next week. Patient is otherwise medically stable and meets discharge criteria 3. Patient will follow up for postop appointment in 2 weeks as previously scheduled for wound check and regular follow-up. 4. DVT prophylaxis : Aspirin 81 mg twice daily x4 weeks 5. Pain control: patient instructed to take tylenol 500mg 2 tablets TID. and oxycodone 1-2 tablets every 4-6 hours only as needed for pain control. 6. Patient takes omeprazole at home. Should continue for ulcer prophylaxis. 7. Medical management patient medically stable medicine service has signed off. Patient does have some constipation per nursing staff will give her dose of milk of magnesia in addition to her Senokot.
[2021-06-16 14:30] VITALS: BP 119/63; PULSE 70; RESP 18; TEMP 36.6; O2SAT 94
[2021-06-16] MEDS: Magnesium Hydroxide 30 ML UDC PO (14:44)
[2021-06-16 20:49] VITALS: BP 137/72; PULSE 79; RESP 20; TEMP 36.9; O2SAT 96
[2021-06-17 02:04] VITALS: BP 127/73; PULSE 90; RESP 18; TEMP 36.7; O2SAT 93
[2021-06-17] MEDS: Acetaminophen 500 MG Tablet 1000 MG PO ×3 (05:52→21:29)
--- NOTE | 2021-06-17 06:52 | PCM.PN.ORT ---
Subjective Subjective The patient was sitting in bed upon examination. Patient denies any chest pain, shortness of breath, dizziness, lightheadedness, nausea or vomiting, or calf pain. Pain is controlled on medications. No adverse overnight events. Patient overall has been doing well postoperatively. We have been waiting on approval from insurance for patient to go to the transitional care unit. Patient has very little help at home and does have underlying unspecified intellectual disability. Pain is being controlled on Tylenol, meloxicam, and oxycodone. Per case management note we are still waiting on pre-CERT for insurance purposes to go to the transitional care unit. Objective Data Objective Data Vital Signs: Vital Signs Temp Pulse Resp BP Pulse Ox 98.1 F 90 18 127/73 H 93 06/17/21 02:04 06/17/21 02:04 06/17/21 02:04 06/17/21 02:04 06/17/21 02:04 Oxygen Flow Rate (L/min) 100 Oxygen Delivery Method Room Air Weight: 86.636 kg Body Mass Index (BMI) 36.0 Intake & Output: Intake and Output for Last 24 Hours 06/15/21 06/16/21 06/17/21 23:59 23:59 23:59 Intake Total 1650 / 1650 1100 / 1350 300 / 300 Output Total 1050 / 1050 Balance 600 / 600 1100 / 1350 300 / 300 Lab / Micro Data Result Diagrams: 06/13/21 06:54 06/13/21 06:54 Micro: Microbiology 05/30/21 13:34 Interface Orders Nasal Screen MRSA/MSSA - Final Physical Exam Narrative Vital signs stable and afebrile. Patient is able to plantarflex and dorsiflex actively. Sensation is intact to light touch to saphenous, sural, superficial and deep peroneal, and tibial distribution. Minimal drainage over the main distal incision which has been stable. Otherwise clean dry and intact Negative Homans bilaterally, negative signs and symptoms of DVT. Const alert, oriented x3 and no apparent distress Assessment & Plan Assessment/Plan (1) S/P total knee arthroplasty: QUALIFIERS: Laterality: right Qualified Code(s): Z96.651 - Presence of right artificial knee joint PLAN: Postoperative day 5 right total knee arthroplasty 06/12/21: 1. Will continue PT per inpatient services. Overall doing well. Range of motion as tolerated. Weightbearing as tolerated. 2. Disposition: Plan for discharge when precert for TCU is obtained. 3. Patient will follow up for postop appointment in 2 weeks as previously scheduled for wound check and regular follow-up. 4. DVT prophylaxis : Aspirin 81 mg twice daily x4 weeks 5. Pain control: Pain has been controlled with Tylenol, meloxicam, and oxycodone. Continue with current pain regimen. 6. Patient takes omeprazole at home. Should continue for ulcer prophylaxis. 7. Disposition: Plan will be for discharge to TCU once pre-CERT has been obtained from insurance. We will continue to follow today. Prescriptions are attached to chart for discharge. Patient has been stable through the weekend and we have been waiting on insurance for appropriate discharge. Patient resides at [facility] but needs rehab prior to return to this facility. She will keep scheduled follow-up per postop instructions.
[2021-06-17 08:00] VITALS: BP 128/78; PULSE 80; RESP 18; TEMP 36.8; O2SAT 97
--- NOTE | 2021-06-17 08:06 | CASEMGMT ---
Addendum entered by Patti Boyd 06/17/21 16:10: SW let pt know that we are still waiting for precert. Pt states she is just going to go home. SW reviewed PT, explained to pt it does not look like she is ready yet to go home. SW asked pt to give it one more day, pt states will give it one more day. SW will follow up tomorrow, will check /[facility] [place] tomorrow to see if it would be realistic for pt go go back to assisted living tomorrow. SW will continue to follow. NOÉ Cook Addendum entered by Patti Boyd 06/17/21 14:49: SW called pt's sister and left a message letting her know that precert is still pending. NOÉ Cook Addendum entered by Patti Boyd 06/17/21 09:51: [facility] also called back confirming pt has been vaccinated for COVID. NOÉ Cook Addendum entered by Patti Boyd 06/17/21 09:37: Pt has been vaccinated for COVID, SW let Joellen in TCU know, she was aware. Precert is still pending. SW let pt know that we are still waiting for precert and once we hear from insurance will get her moved to [facility]. Pt states understanding. SW will continue to follow. NOÉ Cook Original Note: TENA called [facility] [place] to inquire about pt's vaccination status, message left. NOÉ Cook
[2021-06-17] MEDS: Aspirin 81 MG TAB.CHEW PO ×2 (08:34→14:18)
[2021-06-17] MEDS: hydroCHLOROthiazide 12.5mg 12.5 MG PO (08:35)
[2021-06-17] MEDS: Polyethylene Glycol 3350 17 GM PACKET PO (08:35)
[2021-06-17] MEDS: Meloxicam 7.5 MG Tablet PO ×2 (08:35→21:29)
[2021-06-17] MEDS: Famotidine 20 MG Tablet PO (08:35)
[2021-06-17] MEDS: Pantoprazole Sodium 20 MG Tablet PO (08:35)
[2021-06-17] MEDS: Lisinopril 10 MG Tablet PO (08:36)
[2021-06-17 09:00] VITALS: O2SAT 95
[2021-06-17 13:07] VITALS: BP 117/83; PULSE 77; RESP 16; TEMP 36.7; O2SAT 95
[2021-06-17 13:11] VITALS: PULSE 77
[2021-06-17 20:56] VITALS: BP 123/74; PULSE 74; RESP 16; TEMP 36.4; O2SAT 95
[2021-06-18] MEDS: oxyCODONE 5 MG Tablet PO (00:08)
[2021-06-18 02:56] VITALS: BP 110/62; PULSE 64; RESP 16; TEMP 36.5; O2SAT 96
[2021-06-18] MEDS: Acetaminophen 500 MG Tablet 1000 MG PO ×2 (05:44→14:35)
--- NOTE | 2021-06-18 07:24 | PCM.PN.ORT ---
Subjective Subjective Patient sitting at bedside in a chair sleeping. Patient easy to awake. Patient states her pain is been very well managed. Patient is very anxiously awaiting discharge to postop rehab, TCU. Patient has no other complaints at this time. Patient denies chest pain, shortness of breath, calf pain, nausea vomiting. Objective Data Objective Data Vital Signs: Vital Signs Temp Pulse Resp BP Pulse Ox 97.7 F L 64 16 110/62 96 06/18/21 02:56 06/18/21 02:56 06/18/21 02:56 06/18/21 02:56 06/18/21 02:56 Oxygen Flow Rate (L/min) 100 Oxygen Delivery Method Room Air Weight: 86.636 kg Body Mass Index (BMI) 36.0 Intake & Output: Intake and Output for Last 24 Hours 06/16/21 06/17/21 06/18/21 23:59 23:59 23:59 Intake Total 1100 / 1350 900 / 900 Balance 1100 / 1350 900 / 900 Lab / Micro Data Result Diagrams: 06/13/21 06:54 06/13/21 06:54 Micro: Microbiology 05/30/21 13:34 Interface Orders Nasal Screen MRSA/MSSA - Final Physical Exam Narrative Patient awake, alert and oriented. Patient no respiratory distress, speaking in full sentences. Patient's right knee was cool to touch nonerythematous. Dressings clean dry intact. Patient has no calf pain, or signs or symptoms of DVT. Vital signs and labs were reviewed noted. Patient afebrile. Const alert and oriented x3 Eyes PERRL Neuro CN's II-XII intact bilaterally Psych mental status grossly normal Assessment & Plan Assessment/Plan (1) S/P total knee arthroplasty: QUALIFIERS: Laterality: right Qualified Code(s): Z96.651 - Presence of right artificial knee joint PLAN: 1. Continue all pain medications as prescribed 2. Continue anticoagulation postoperatively as prescribed 3. Encourage incentive spirometry 4. Continue physical therapy, weight-bear as tolerated with walker. 5. Discharge to TCU when cleared with insurance.
[2021-06-18 08:40] VITALS: BP 140/78; PULSE 83; RESP 17; TEMP 36.2; O2SAT 95
[2021-06-18] MEDS: Polyethylene Glycol 3350 17 GM PACKET PO (08:44)
[2021-06-18] MEDS: Meloxicam 7.5 MG Tablet PO (08:45)
[2021-06-18] MEDS: Famotidine 20 MG Tablet PO (08:45)
[2021-06-18] MEDS: hydroCHLOROthiazide 12.5mg 12.5 MG PO (08:45)
[2021-06-18] MEDS: Aspirin 81 MG TAB.CHEW PO (08:45)
[2021-06-18] MEDS: Pantoprazole Sodium 20 MG Tablet PO (08:45)
[2021-06-18] MEDS: Lisinopril 10 MG Tablet PO (08:45)
[2021-06-18] MEDS: Ensure Surgery 237 ML LIQUID PO ×2 (08:48→14:35)
--- NOTE | 2021-06-18 08:53 | CASEMGMT ---
Addendum entered by Patti Boyd 06/18/21 10:26: TENA spoke with Lexii, nurse at [facility], pt needs to be able to walk at least 150 feet in order to return, they do not feel pt is ready to return to [facility] just yet. She states there is not enough help in the evenings to accommodate pt at this time. She states that [facility] also can only do therapy twice per week w/pt. SW will explain this to pt, and Lexii also offered to call pt if needed to explain all of this to her. SW will continue to follow. NOÉ Cook Addendum entered by Patti Boyd 06/18/21 09:47: SW did call [facility] and sent clinicals for them to review, to see if we cannot get authorization from pt's insurance, if she could return to [facility]. NOÉ Cook Addendum entered by Patti Boyd 06/18/21 09:21: As per RN, pt concerned about cost of being in the hospital and paying for TCU. SW spoke w/pt, reassured her that she is not going to be billed for being stuck in the hospital waiting for insurance. SW also explained that we are waiting to hear from insurance, that they will authorize pt to go to TCU, and that they will cover the cost. Pt states understanding, states that she feels knowing this is a weight off my chest. SW explained will let her know as soon as this SW hears back from Joellen in TCU about the precert, explained that Joellen has been in contact with someone at her insurance and we are hopeful to get an answer today. Pt states understanding. SW will continue to follow. NOÉ Cook Original Note: SW spoke w/Joellen in TCU this morning, she did finally hear back from the reviewer at [facility], stating she just received clinicals yesterday, updates requested. Updates faxed already this morning. Joellen will let SW know as soon as she hears back from pt's insurance. NOÉ Cook
--- NOTE | 2021-06-18 11:50 | CASEMGMT ---
Addendum entered by Patti Boyd 06/18/21 12:53: SW faxed all discharge instructions to TCU, COVID results back, pt can go to TCU when TCU is ready to take her. NOÉ Cook Original Note: Precert attained for pt to go to TCU today. TENA let pt know, pt agreeable to go today. SW called pt's sister Keyla, message left letting her know pt will go to TCU this afternoon. NOÉ Cook
--- NOTE | 2021-06-18 12:48 | PCM.DC.SUM ---
Providers Date of Admission: 06/12/21 Date of Discharge: 06/18/21 Primary Care Physician: Dr. Anika Reyes MD Consultations 06/12/21 07:09 Consult: Hospitalist Routine Consulting Provider: [facility] Reason for Consult: post op med management EMERGENT Consult: No MD Notified: Yes Date Notified: 06/12/21 Time Notified: 18:54 Method of Notification: Text Reason For Visit: RT TOTAL KNEE ROBOT Diagnosis Discharge Diagnosis (1) S/P total knee arthroplasty: Status: Acute Code(s): Z96.659 - Presence of unspecified artificial knee joint Qualifiers: Laterality: right Qualified Code(s): Z96.651 - Presence of right artificial knee joint Medications at Discharge Home Medications esomeprazole magnesium [Nexium] 20 mg PO DAILY 05/15/20 lisinopril-hydrochlorothiazide 1 tab PO DAILY 05/15/20 ketoconazole 1 applic TOPICAL PRN PRN 05/29/21 polyethylene glycol 3350 [Miralax] 17 g PO DAILY PRN 05/29/21 omeprazole 20 mg PO DAILY 06/12/21 oxycodone See Rx Instructions .ROUTE .COMPLEX PRN 7 Days #60 tab 06/13/21 acetaminophen 1,000 mg PO Q8 06/18/21 aspirin 81 mg PO 0800,1700 06/18/21 meloxicam 7.5 mg PO BID 06/18/21 Hospital Course Operations total knee replacement (right total knee arthroplasty June 12, 2021) Summary of Care Provided Hospital Course: Patient is a 71-year-old female who has had ongoing right knee pain with severe valgus deformity. After failing conservative measures, the patient opted to proceed with a right total knee arthroplasty. The patient underwent the above-stated procedure on June 12, 2021. Patient did receive perioperative antibiotics. Intraoperatively was uneventful. For details please see dictated operative note. The patient was placed in thigh-high teds, bilateral SCDs, remained stable in recovery. Patient was admitted to the 2nd floor at [facility]. The patient's pain was managed with the use of IV and p.o. pain medications. Patient participated in physical therapy. Patient was discharged on postoperative day 6 to transitional care unit at [facility]. Patient's length of stay was secondary to waiting for approval and Pre-Cert for admission to the transitional care unit. Patient was utilizing Tylenol, meloxicam, oxycodone for pain control. Patient is on aspirin 81 mg twice daily for 4 weeks postoperatively for DVT prophylaxis. Patient will follow up with [facility] per postop instructions for reassessment. Weight / BMI Weight Weight: 86.636 kg Body Mass Index (BMI) 36.0 ABG / Lab / Microbiology Data Result Diagrams: 06/13/21 06:54 06/13/21 06:54 Microbiology: Microbiology 06/18/21 11:40 Nasal Secretion SARS-CoV-2 Antigen (Rapid) - Final 05/30/21 13:34 Interface Orders Nasal Screen MRSA/MSSA - Final D/C Instructions Discharge Diet: No restrictions Call your doctor if your incision/area has: Continuous Slow Oozing, Sudden Increased Bleeding, Increased Pain/ Swelling, Increased Redness, Foul Smelling Discharge and Swelling at the incision site Call your doctor if you observe: Fever of 101 or Higher, Numbness or Tingling, Shortness of breath, Dizziness, Chest pain and Calf discomfort Cleanse incision/area with: Soap & Water Meaningful Use Info Meaningful Use Diagnoses (Choose all that apply): None applicable Discharge Plan Admission Admit Date/Time: 06/12/21 18:07 Attending Provider: Harjit Garcia Primary Care Provider: Anika Reyes Consulting Providers: Melissa Liao ; Graciela Diaz ; Roe Chopra ; Harjit Garcia Discharge Orders/Prescriptions Prescriptions: New oxycodone 5 mg Tablet See Rx Instructions .ROUTE .COMPLEX PRN (Reason: Pain Score 4-10) 7 Days Qty: 60 RF: 0 Continued lisinopril-hydrochlorothiazide 1 EACH tablet 1 tab PO DAILY RF: 0 esomeprazole magnesium [Nexium] 20 MG capsule 20 mg PO DAILY RF: 0 polyethylene glycol 3350 [Miralax] 17 gram Powder In Packet 17 g PO DAILY PRN (Reason: Constipation) RF: 0 ketoconazole 2 % cream 1 applic TOPICAL PRN PRN (Reason: Rash) RF: 0 omeprazole 20 mg Capsule,Delayed Release(Dr/Ec) 20 mg PO DAILY RF: 0 No Action acetaminophen 500 mg tablet 1,000 mg PO Q8 RF: 0 meloxicam 7.5 mg tablet 7.5 mg PO BID RF: 0 aspirin 81 mg tablet,chewable 81 mg PO 0800,1700 RF: 0 Other Ambulatory Orders: 12 Lead EKG (Routine) Location: None Selected Ordered By: Dr. Clemente Coley Referrals / Follow Up: Anika Reyes MD [Primary Care Provider] - Disposition Disposition (needs filled in before D/C Order can be placed): [facility]
== END 2021-06-18 14:50 | disposition skilled nursing facility (03) ==
LOC: MS2 18:07
PROVIDERS: Anesthesiology; Admitting Provider Specialist; PCP Internal Medicine; Referring Provider Specialist; Visit Provider Family Medicine
PROC: 0SRC0JZ Replacement of Right Knee Joint with Synthetic Substitute, Open Approach (ICD-10-PCS; CPT 27447; principal; 2021-06-12 14:05)
DX: M17.11 Unilateral primary osteoarthritis, right knee (principal); M21.061 Valgus deformity, not elsewhere classified, right knee; I10 Essential (primary) hypertension; K21.9 Gastro-esophageal reflux disease without esophagitis; F79 Unspecified intellectual disabilities; Z79.899 Other long term (current) drug therapy
CPT/HCPCS: 01402; 27447; 64447; S2900; 36415; 73560; 80048; 82040; 82962; 83735; 85025; 85027; 87081; 87426; 93005; 97110; 97116; 97162; 97166; 97530; 97535; 99218; 99251; C1776; J7120; G0378; G0463

== ENCOUNTER 2021-06-18 15:00 | Inpatient (IN) | payer MEDICARE, MEDICAID, SELFPAY ==
[2021-06-18 15:12] VITALS: BP 152/84; PULSE 78; RESP 18; TEMP 36; O2SAT 96; BMI 31.0
[2021-06-18] MEDS: Aspirin 81 MG TAB.CHEW PO (17:39)
[2021-06-18] MEDS: Meloxicam 7.5 MG Tablet PO (17:39)
[2021-06-18] MEDS: Polyethylene Glycol 3350 17 GM PACKET PO (17:43)
--- NOTE | 2021-06-18 19:40 | PCM.HP.STD ---
HPI - General General Date of Admission: 06/18/21 HPI Narrative 05/30/2021 EKG normal sinus rhythm, voltage criteria for LVH. 06/12/2021 TEVIN MILLAN, is a 71 Female who presents with followin06/12/2021 Dr. Coley performed right minimally invasive robotic total knee replacement. 06/12/2021 Right knee pain. 06/13/2021 Oxycodone as needed for pain, Tylenol, Meloxicam. PT. Hemoglobin 12.3. Aspirin 81mg twice daily x 4 weeks for DVT prophylaxis. 06/14/2021 Pain 5/10 at rest and movement. Patient up with therapy, walking with walker. Omeprazole for ulcer prophylaxis. 06/14/2021 Pain 5/10 at rest and movement. 06/15/2021 Pain 7/10 with movement. 06/16/2021 Milk of Magnesia, Senokot for constipation. 06/17/2021 Pain controlled. TCU after insurance pre-cert. Resident lives at [facility], does not have enough support to go home alone. 06/18/2021 Pain controlled. Encourage incentive spirometry. 06/18/2021 Admit to TCU with debility, here for rehabilitation, strengthening, prior to discharge home to [facility]. [facility] Medical History (Updated 06/18/21 @ 19:[address] Geovanny Downs MD) Constipation Gastric reflux Hypertension Non-smoker Rash Shortness of breath on exertion Wears glasses Home Medications esomeprazole magnesium [Nexium] 20 mg PO DAILY 05/15/20 [History Last Taken 05/15/20] lisinopril-hydrochlorothiazide 1 tab PO DAILY 05/15/20 [History Last Taken 05/15/20] ketoconazole 1 applic TOPICAL PRN PRN 05/29/21 [History Last Taken Unknown] polyethylene glycol 3350 [Miralax] 17 g PO DAILY PRN 05/29/21 [History Last Taken Unknown] omeprazole 20 mg PO DAILY 06/12/21 [History Last Taken Unknown] oxycodone See Rx Instructions .ROUTE .COMPLEX PRN 7 Days #60 tab 06/13/21 [Rx Last Taken Unknown] acetaminophen 1,000 mg PO Q8 06/18/21 [History Last Taken Unknown] aspirin 81 mg PO 0800,1700 06/18/21 [History Last Taken Unknown] meloxicam 7.5 mg PO BID 06/18/21 [History Last Taken Unknown] Allergy/AdvReac Type Severity Reaction Status Date / Time No Known Allergies Allergy Verified 05/29/21 10:17 Surgical History (Updated 06/18/21 @ 19:[address] Geovanny Downs MD) History of toe surgery History of total right knee replacement Hx of tracheostomy Social History (Updated 06/18/21 @ 19:[address] Geovanny Downs MD) household members: none Smoking Status: Never smoker alcohol intake: never substance use type: does not use ROS Constitutional Constitutional: Denies chills, fever(s) or weight gain ENT HEENT: Denies headache(s), nasal congestion or nasal discharge Cardiovascular Cardiovascular: Denies chest pain or palpitations Respiratory/Chest Respiratory/Chest: Denies cough, excessive phlegm production or shortness of breath with exertion Gastrointestinal Gastrointestinal: Denies abdominal pain, nausea or vomiting Genitourinary Genitourinary: Denies dysuria Musculoskeletal Musculoskeletal: Denies joint pain or joint swelling Integumentary Integumentary: Denies rash or wounds Neurologic Neurologic: Denies focal weakness, numbness or tingling Psychiatric Psychiatric: Denies anxiety, depression, homicidal ideation or suicidal ideation Vital Signs Vital Signs Vital Signs: 06/18/21 15:12 Temperature 96.8 F L Temperature Source Temporal Pulse Rate 78 Pulse Rhythm Regular Pulse Strength Normal (2+) Respiratory Rate 18 Respiratory Effort Normal Respiratory Depth Normal Respiratory Pattern Normal Blood Pressure 152/84 H Blood Pressure Mean 106 Blood Pressure Source Monitor Blood Pressure Position Semi-Fowlers Blood Pressure Location Right Arm Pulse Ox 96 Oxygen Delivery Method Room Air Weight Weight: 92.59 kg Body Mass Index (BMI) 31.0 Physical Exam Const alert and oriented x3 General Appearance: cooperative HEENT normocephalic Eyes PERRL and EOMs intact bilaterally Neck supple, no JVD and no carotid bruits Resp normal respiratory effort, normal air movement and clear to auscultation bilaterally Cardio regular rate and regular rhythm GI normal to inspection, nondistended, normoactive bowel sounds, non-tender and non-distended Extremity normal capillary refill General Extremity: Negative for edema Skin no rashes or lesions noted General Skin Exam: no breakdown Psych affect normal Appearance: appropriate Assessment & Plan Assessment/Plan (1) S/P total knee arthroplasty: QUALIFIERS: Laterality: right Qualified Code(s): Z96.651 - Presence of right artificial knee joint (2) Debility: (3) Osteoarthritis of right knee: (4) Hypertension: (5) Vitamin D deficiency: (6) Gastroesophageal reflux disease: (7) Intellectual disability: PLAN: 71 year old female with below past medical history hospitalized for right total knee replacement 06/12/[address] Coley, Postoperative course uncomplicated, admitted to TCU with debility, here for rehabilitation, strengthening, prior to discharge home to [facility]. Debility - PT/OT. Pain - Tylenol 1000mg q8h, Oxycodone 5-10mg Q4H prn. Bowel - Miralax 17gm every other day, Senna/colace 2 tablets twice daily, Dulcolax 10mg daily prn. Adult immunization - Administer prevnar 13, pneumovax 23, fluzone, covid19 vaccine as appropriate. DVT prophylaxis - Aspirin 81mg twice daily thru 07/12/2021. Indigestion - Calcium carbonate 500mg q4h prn. Hypertension - Lisinopril 10mg daily, HCTZ 12.5mg daily. Tinea Corporis - Ketoconazole cream topical twice daily prn. Osteoarthritis - Meloxicam 7.5mg twice daily. Skin irritation - Calmoseptine topical twice daily. GERD - Pantoprazole 20mg daily.
[2021-06-18] MEDS: Acetaminophen 500 MG Tablet 1000 MG PO (21:44)
[2021-06-18] MEDS: oxyCODONE 5 MG Tablet PO (21:44)
[2021-06-18] MEDS: Menthol/Lanolin/Calamine/Znox 113 GM Tube 1 APPLIC TOPICAL (21:45)
[2021-06-19 05:49] LABS: Absolute Lymphocyte Count 2.12 X10^3/uL (0.83-4.51); Absolute Neutrophil Count 3.3 X10^3/uL (2.0-7.7); Basophil# 0.04 X10^3/uL; Basophil% 0.6 % (0-1); Eosinophil# 0.38 X10^3/uL; Eosinophils% 5.7 % (0-5); Hematocrit 31.8 % (37-47); Hemoglobin 10.5 g/dL (12.0-15.0); Lymphocyte # 2.12 X10^3/ul (0.83-4.51); Lymphocyte % 32.1 % (19-41); Mean Corpuscular Hgb 30.4 pg (27.0-32.0); Mean Corpuscular Volume 92.2 fL (81-99); Mean Platelet Vol. 8.2 fl (6.2-12.0); Monocyte# 0.71 X10^3/uL; Monocyte% 10.7 % (0-10); NRBC Flagged by Analyzer 0 % (0-5); Neutrophil # 3.33 X10^3/uL (2.7-7.7); Neutrophil % 50.4 % (47-70); Platelet Count 245 K/mm3 (150-450); RBC Distribution Width CV 13.2 % (11.6-14.6); RBC Distribution Width SD 44.5 fl (35.1-43.9); Red Blood Count 3.45 M/mm3 (4.2-5.4); White Blood Count 6.6 K/mm3 (4.4-11.0)
[2021-06-19] MEDS: Lisinopril 10 MG Tablet PO (05:54)
[2021-06-19] MEDS: Pantoprazole Sodium 20 MG Tablet PO (05:54)
[2021-06-19] MEDS: hydroCHLOROthiazide 12.5mg 12.5 MG PO (05:54)
[2021-06-19] MEDS: Acetaminophen 500 MG Tablet 1000 MG PO ×3 (05:54→19:48)
[2021-06-19] MEDS: Meloxicam 7.5 MG Tablet PO ×2 (05:54→17:26)
[2021-06-19] MEDS: Senna/Docusate Sodium 1 Tablet 2 TABLET PO ×2 (05:55→17:26)
[2021-06-19] MEDS: Menthol/Lanolin/Calamine/Znox 113 GM Tube 1 APPLIC TOPICAL ×2 (06:01→19:47)
[2021-06-19 06:26] LABS: Anion Gap 4 (5-15); BUN 28 mg/dL (7-18); BUN/Creat Ratio 35.9 RATIO (10-20); Calcium,Total 8.6 mg/dL (8.5-10.1); Chloride 107 mmol/L (98-107); Creatinine, Serum 0.78 mg/dL (0.55-1.02); EST Glomerular Filtration Rate 77 mL/min (>60); Est Glom Filt Rate - Afr Amer 94 mL/min (>60); Estimated Creatinine Clearance 52.05 ml/min; Glucose 95 mg/dL (74-106); Sodium Level 140 mmol/L (136-145)
[2021-06-19] MEDS: oxyCODONE 5 MG Tablet PO ×2 (07:44→17:25)
[2021-06-19] MEDS: Aspirin 81 MG TAB.CHEW PO ×2 (07:45→17:25)
[2021-06-19] MEDS: Iron Polysaccharide Complex 150 MG CAPSULE PO (08:28)
[2021-06-19 10:00] VITALS: BP 150/58; PULSE 71; RESP 16; TEMP 36.2; O2SAT 96
[2021-06-19] MEDS: Tuberculin,Purif.prot.deriv. 50 TU/ML Vial 0.1 ML ID (10:58)
--- NOTE | 2021-06-19 14:19 | CASEMGMT ---
Social Work Met with patient for initial assessment. Discussed code status. Confirmed full code. MOLST form completed, communication to , placed in chart. Explained [facility] insurance with NRD 06/24 and continued stay is not guaranteed. The goal is for pt to return to [facility]. AL assist with all ADLs. Pt has AL Waiver CM Domonique Altamirano, whom is aware of her admission. SW to continue to follow. Shasta Avendano ,STRATEGIC ALLIANCES MANAGER LEATHER CRAFTSMAN
[2021-06-20] MEDS: Menthol/Lanolin/Calamine/Znox 113 GM Tube 1 APPLIC TOPICAL ×2 (06:13→17:18)
[2021-06-20] MEDS: Acetaminophen 500 MG Tablet 1000 MG PO ×3 (06:21→20:41)
[2021-06-20] MEDS: Pantoprazole Sodium 20 MG Tablet PO (06:21)
[2021-06-20] MEDS: Meloxicam 7.5 MG Tablet PO ×2 (06:21→17:17)
[2021-06-20] MEDS: Senna/Docusate Sodium 1 Tablet 2 TABLET PO ×2 (06:21→17:17)
[2021-06-20] MEDS: Lisinopril 10 MG Tablet PO (06:21)
[2021-06-20] MEDS: hydroCHLOROthiazide 12.5mg 12.5 MG PO (06:21)
[2021-06-20] MEDS: Iron Polysaccharide Complex 150 MG CAPSULE PO (07:50)
[2021-06-20] MEDS: Aspirin 81 MG TAB.CHEW PO ×2 (07:50→17:17)
[2021-06-20] MEDS: Polyethylene Glycol 3350 17 GM PACKET PO (09:09)
[2021-06-20 13:27] VITALS: BP 104/65; PULSE 82; RESP 14; TEMP 36.5; O2SAT 95
[2021-06-21] MEDS: Acetaminophen 500 MG Tablet 1000 MG PO ×3 (05:22→20:07)
[2021-06-21] MEDS: Menthol/Lanolin/Calamine/Znox 113 GM Tube 1 APPLIC TOPICAL ×2 (05:22→17:26)
[2021-06-21] MEDS: Lisinopril 10 MG Tablet PO (05:22)
[2021-06-21] MEDS: Meloxicam 7.5 MG Tablet PO ×2 (05:22→17:25)
[2021-06-21] MEDS: Pantoprazole Sodium 20 MG Tablet PO (05:22)
[2021-06-21] MEDS: hydroCHLOROthiazide 12.5mg 12.5 MG PO (05:22)
[2021-06-21 05:30] VITALS: BP 124/72; PULSE 73; RESP 16; TEMP 36.6
[2021-06-21] MEDS: Aspirin 81 MG TAB.CHEW PO ×2 (07:29→17:25)
[2021-06-21] MEDS: Iron Polysaccharide Complex 150 MG CAPSULE PO (07:29)
[2021-06-21 14:50] VITALS: BP 110/66; PULSE 80; RESP 14; TEMP 36.8; O2SAT 95
[2021-06-22] MEDS: Menthol/Lanolin/Calamine/Znox 113 GM Tube 1 APPLIC TOPICAL ×2 (05:45→17:34)
[2021-06-22] MEDS: Meloxicam 7.5 MG Tablet PO ×2 (05:46→17:32)
[2021-06-22] MEDS: Pantoprazole Sodium 20 MG Tablet PO (05:46)
[2021-06-22] MEDS: hydroCHLOROthiazide 12.5mg 12.5 MG PO (05:46)
[2021-06-22] MEDS: Acetaminophen 500 MG Tablet 1000 MG PO ×3 (05:47→21:03)
[2021-06-22] MEDS: Lisinopril 10 MG Tablet PO (05:48)
[2021-06-22] MEDS: Iron Polysaccharide Complex 150 MG CAPSULE PO (08:47)
[2021-06-22] MEDS: Aspirin 81 MG TAB.CHEW PO ×2 (08:47→17:32)
[2021-06-22] MEDS: Polyethylene Glycol 3350 17 GM PACKET PO (08:51)
[2021-06-22 14:22] VITALS: BP 119/70; PULSE 71; RESP 16; TEMP 36.1; O2SAT 97
[2021-06-22] MEDS: Senna/Docusate Sodium 1 Tablet 2 TABLET PO (17:33)
[2021-06-23] MEDS: Lisinopril 10 MG Tablet PO (05:37)
[2021-06-23] MEDS: hydroCHLOROthiazide 12.5mg 12.5 MG PO (05:37)
[2021-06-23] MEDS: Meloxicam 7.5 MG Tablet PO ×2 (05:37→16:41)
[2021-06-23] MEDS: Senna/Docusate Sodium 1 Tablet 2 TABLET PO (05:38)
[2021-06-23] MEDS: Acetaminophen 500 MG Tablet 1000 MG PO ×3 (05:38→20:43)
[2021-06-23] MEDS: Pantoprazole Sodium 20 MG Tablet PO (05:38)
[2021-06-23] MEDS: Menthol/Lanolin/Calamine/Znox 113 GM Tube 1 APPLIC TOPICAL ×2 (05:39→16:41)
[2021-06-23] MEDS: Aspirin 81 MG TAB.CHEW PO ×2 (09:10→16:41)
[2021-06-23] MEDS: Iron Polysaccharide Complex 150 MG CAPSULE PO (09:10)
[2021-06-23 14:35] VITALS: BP 111/68; PULSE 79; RESP 18; TEMP 36.6; O2SAT 97
[2021-06-24] MEDS: hydroCHLOROthiazide 12.5mg 12.5 MG PO (05:56)
[2021-06-24] MEDS: Pantoprazole Sodium 20 MG Tablet PO (05:56)
[2021-06-24] MEDS: Meloxicam 7.5 MG Tablet PO ×2 (05:56→17:36)
[2021-06-24] MEDS: Lisinopril 10 MG Tablet PO (05:56)
[2021-06-24] MEDS: Acetaminophen 500 MG Tablet 1000 MG PO ×3 (05:56→21:20)
[2021-06-24] MEDS: oxyCODONE 5 MG Tablet PO ×2 (05:59→21:23)
[2021-06-24] MEDS: Menthol/Lanolin/Calamine/Znox 113 GM Tube 1 APPLIC TOPICAL ×2 (06:00→17:36)
[2021-06-24 06:02] VITALS: BP 125/70; PULSE 76; RESP 16; TEMP 37.1; O2SAT 94
--- NOTE | 2021-06-24 06:21 | NURSING ---
Patient educated on using call light for assistance. Patient stated she has had pain 10 out of 10 since around 04:00, but did not want to bother staff, because you guys are too busy. Patient reminded we have staff here to always assist with needs.
[2021-06-24] MEDS: Aspirin 81 MG TAB.CHEW PO ×2 (07:35→17:36)
[2021-06-24] MEDS: Iron Polysaccharide Complex 150 MG CAPSULE PO (07:35)
--- NOTE | 2021-06-24 09:20 | PCM.PN.RX ---
Progress Note - Pharmacy Subjective: [] TCU Admission Objective: Allergies No Known Allergies Allergy (Verified 05/29/21 10:17) Current Medications Generic Name Dose Route Start Last Admin Trade Name Madonna PRN Reason Stop Dose Admin Acetaminophen 1,000 mg 06/18/21 22:00 06/24/21 05:56 Acetaminophen 500 Mg Tablet PO 1,000 mg Q8 ANAND Administration Aspirin 81 mg 06/18/21 17:00 06/24/21 07:35 Aspirin 81 Mg Tab.Chew PO 07/10/21 06:00 81 mg 0800,1700 ANAND Administration Bisacodyl 10 mg 06/18/21 19:53 Bisacodyl 5 Mg Tablet PO DAILY PRN Constipation Calamine/Phenol 1 applic 06/18/21 18:00 06/24/21 06:00 Menthol/Lanolin/Calamine/Znox 113 Gm Tube TOPICAL 1 applic BID ANAND Administration Protocol Calcium Carbonate 500 mg 06/18/21 16:59 Calcium Carbonate 500 Mg Tablet PO Q4H PRN PRN INDIGESTION Hydrochlorothiazide 12.5 mg 06/19/21 06:00 06/24/21 05:56 Hydrochlorothiazide 12.5mg PO 12.5 mg DAILY ANAND Administration Ketoconazole 1 applic 06/18/21 15:21 Ketoconazole Cream TOPICAL BID PRN PRN Rash Protocol Lisinopril 10 mg 06/19/21 06:00 06/24/21 05:56 Lisinopril 10 Mg Tablet PO 10 mg DAILY ANAND Administration Meloxicam 7.5 mg 06/18/21 18:00 06/24/21 05:56 Meloxicam 7.5 Mg Tablet PO 7.5 mg BID ANAND Administration Oxycodone HCl 5 - 10 mg 06/18/21 15:21 06/24/21 05:59 Oxycodone 5 Mg Tablet PO 10 mg Q4H PRN PRN Administration Pain Score 4-10 Pantoprazole Sodium 20 mg 06/19/21 06:00 06/24/21 05:56 Pantoprazole Sodium 20 Mg Tablet PO 20 mg DAILY ANAND Administration Polyethylene Glycol 17 gm 06/26/21 06:00 Polyethylene Glycol 3350 17 Gm Packet PO QODAY@0600 ANAND Polysaccharide Iron Complex 150 mg 06/19/21 08:00 06/24/21 07:35 Iron Polysaccharide Complex 150 Mg Capsule PO 150 mg DAILYCM ANAND Administration Senna/Docusate Sodium 2 tablet 06/19/21 06:00 06/24/21 05:57 Senna/Docusate Sodium 1 Tablet PO Not Given BID ANAND Tuberculin PPD 0.1 ml 06/26/21 10:00 Tuberculin,Purif.Prot.Deriv. 50 Tu/Ml Vial ID 06/26/21 10:01 X1 ONE Problem List (Last Updated 06/18/21 @ 19:[address] Geovanny Downs MD) Intellectual disability (Acute) Gastroesophageal reflux disease (Acute) Vitamin D deficiency (Acute) Hypertension (Chronic) Osteoarthritis of right knee (Acute) Debility (Acute) S/P total knee arthroplasty (Acute) Vital Signs Temp Pulse Resp BP Pulse Ox 98.7 F 76 16 125/70 H 94 06/24/21 06:02 06/24/21 06:02 06/24/21 06:02 06/24/21 06:02 06/24/21 06:02 Oxygen Delivery Method Room Air Weight: 92.59 kg Body Mass Index (BMI) 31.0 Sodium 140 mmol/L (136-145) 06/19/21 05:18 Potassium 4.0 mmol/L (3.5-5.1) 06/19/21 05:18 Chloride 107 mmol/L (98-107) 06/19/21 05:18 Carbon Dioxide 29.0 mmol/L (21.0-32.0) 06/19/21 05:18 Anion Gap 4 (5-15) L 06/19/21 05:18 BUN 28 mg/dL (7-18) H 06/19/21 05:18 Creatinine 0.78 mg/dL (0.55-1.02) 06/19/21 05:18 Est GFR (MDRD) Af Amer 94 mL/min (>60) 06/19/21 05:18 Est GFR (MDRD) Non-Af 77 mL/min (>60) 06/19/21 05:18 BUN/Creatinine Ratio 35.9 RATIO (10-20) H 06/19/21 05:18 Glucose 95 mg/dL (74-106) 06/19/21 05:18 Assessment/Plan: 1) Pain: Acetaminophen 1000mg po q8h anand, Oxycodone 5-10mg po q4h prn for pain 4-10. Please continue to monitor prn usage and for signs/symtpoms of increased/decreased pain. 2) GERD: Pantoprazole 20mg po daily. Please continue to monitor for signs/symptoms of GERD 3) Osteoarthritis: Meloxicam 7.5mg po bid. Please continue to monitor for signs/symptoms of arthritis/pain 4) Hypertension: Lisinopril 10mg po daily, HCTZ 12.5mg po daily. Pt's SrCr is 0.78, BUN is 28, Na is 140, and K+ is 4. Please continue to monitor labs. Pt's average bp is 124/69. Please continue to monitor. Psychotropic Medications: none Unnecessary Medications: none Bowel Regimen: Bisacodyl 10mg po daily prn for constipation, Miralax 17gm po every other day, Senna/Docusate 2 tablets po bid. Pt has refused 6 of 11 Senna/Docusate doses. Please consider changing from Anand to PRN. Thanks Date of Note:: 06/24/21
[2021-06-25] MEDS: Lisinopril 10 MG Tablet PO (05:36)
[2021-06-25] MEDS: Acetaminophen 500 MG Tablet 1000 MG PO ×3 (05:36→21:02)
[2021-06-25] MEDS: hydroCHLOROthiazide 12.5mg 12.5 MG PO (05:36)
[2021-06-25] MEDS: Meloxicam 7.5 MG Tablet PO ×2 (05:36→17:33)
[2021-06-25] MEDS: Pantoprazole Sodium 20 MG Tablet PO (05:36)
[2021-06-25] MEDS: Menthol/Lanolin/Calamine/Znox 113 GM Tube 1 APPLIC TOPICAL ×2 (05:37→21:02)
[2021-06-25] MEDS: oxyCODONE 5 MG Tablet PO ×3 (05:39→21:04)
[2021-06-25] MEDS: Aspirin 81 MG TAB.CHEW PO ×2 (08:58→17:33)
[2021-06-25] MEDS: Iron Polysaccharide Complex 150 MG CAPSULE PO (08:58)
[2021-06-25] MEDS: MethylPREDNISolone 125 MG/2 ML Vial IV (09:46)
[2021-06-25] MEDS: 0.9% Saline Lock 10 ML Syringe IV (10:01)
[2021-06-25] MEDS: Calcium Carbonate 500 MG Tablet PO (12:04)
--- NOTE | 2021-06-25 14:30 | NURSING ---
THIS NURSE GAVE PT THE MODERNA BOOSTER IN PT LEFT DELT. PT TOLERATED WELL.
[2021-06-25 15:40] VITALS: BP 128/66; PULSE 77; RESP 16; TEMP 36.7; O2SAT 96
--- NOTE | 2021-06-25 16:36 | CHAPLAIN ---
Type of Pastoral Visit _x__ Initial Visit ___ Follow-up Visit ___ On-call Visit ___ General Patient Visit ___ Spiritual Assessment ___ Family Conference ___ Bereavement ___ Rapid Response ___ Code Blue ___ Other (describe below) Pastoral Care Referral From _x__ Patient ___ Family ___ Nurse ___ Physician ___ Office Technology Instructor ___ Wiper Blender ___ Other (describe below) Sacrament/Intervention _x__ Active listening ___ Anointing ___ Temple ___ Bereavement ___ Communion _x__ Homa exploration ___ ___ Life review _x__ Prayer ___ Reconciliation ___ Sacrament of Sick _x__ Supportive presence ___ Wedding ___ Other (describe below) Pastoral Comments patient is missing going to orthodoxy and hopes to get better soon
[2021-06-25] MEDS: Senna/Docusate Sodium 1 Tablet 2 TABLET PO (17:33)
[2021-06-25] MEDS: Ketoconazole Cream 1 APPLIC TOPICAL (21:22)
[2021-06-26 05:53] LABS: Absolute Neutrophil Count 12.2 X10^3/uL (2.0-7.7); Basophil# 0.03 X10^3/uL; Basophil% 0.2 % (0-1); Eosinophil# 0.02 X10^3/uL; Eosinophils% 0.1 % (0-5); Hematocrit 33.1 % (37-47); Hemoglobin 10.9 g/dL (12.0-15.0); Lymphocyte % 9.1 % (19-41); Mean Corp Hgb Conc 32.9 g/dL (32-36); Mean Corpuscular Hgb 29.4 pg (27.0-32.0); Mean Corpuscular Volume 89.2 fL (81-99); Monocyte# 0.63 X10^3/uL; Monocyte% 4.4 % (0-10); NRBC Flagged by Analyzer 0 % (0-5); Neutrophil # 12.16 X10^3/uL (2.7-7.7); Neutrophil % 85.6 % (47-70); Platelet Count 410 K/mm3 (150-450); RBC Distribution Width CV 13.1 % (11.6-14.6); RBC Distribution Width SD 42.9 fl (35.1-43.9); Red Blood Count 3.71 M/mm3 (4.2-5.4); White Blood Count 14.2 K/mm3 (4.4-11.0)
[2021-06-26] MEDS: Pantoprazole Sodium 20 MG Tablet PO (06:07)
[2021-06-26] MEDS: oxyCODONE 5 MG Tablet PO ×2 (06:07→20:25)
[2021-06-26] MEDS: Lisinopril 10 MG Tablet PO (06:07)
[2021-06-26] MEDS: hydroCHLOROthiazide 12.5mg 12.5 MG PO (06:07)
[2021-06-26] MEDS: Meloxicam 7.5 MG Tablet PO ×2 (06:07→17:48)
[2021-06-26] MEDS: Senna/Docusate Sodium 1 Tablet 2 TABLET PO ×2 (06:07→17:49)
[2021-06-26] MEDS: Acetaminophen 500 MG Tablet 1000 MG PO ×3 (06:07→20:25)
[2021-06-26] MEDS: Menthol/Lanolin/Calamine/Znox 113 GM Tube 1 APPLIC TOPICAL ×2 (06:10→20:26)
[2021-06-26 06:16] LABS: Anion Gap 8 (5-15); BUN 49 mg/dL (7-18); BUN/Creat Ratio 46.2 RATIO (10-20); Calcium,Total 9.1 mg/dL (8.5-10.1); Chloride 103 mmol/L (98-107); Creatinine, Serum 1.06 mg/dL (0.55-1.02); EST Glomerular Filtration Rate 54 mL/min (>60); Est Glom Filt Rate - Afr Amer 66 mL/min (>60); Estimated Creatinine Clearance 49.11 ml/min; Glucose 123 mg/dL (74-106); Potassium 3.9 mmol/L (3.5-5.1); Sodium Level 134 mmol/L (136-145)
--- NOTE | 2021-06-26 06:47 | NURSING ---
ON 06/25 AID CAME TO THIS AND STATED PT HAD A RASH ON HER ARMS,LEGS AND ABDOMINAL. THIS NURSE SEEN PT AND REPORT TO RN. ORDERS FOR IV AND GIVE SOLU-MEDROE X1. AFTER ADMINISTERED RASH STARTED TO GO AWAY.
[2021-06-26 07:30] VITALS: PULSE 91; RESP 18; O2SAT 95
--- NOTE | 2021-06-26 07:46 | NURSING ---
THIS NURSE IN PT ROOM ,THERAPY WITH PT. THIS NURSE FOUND PT SALINE LOCK PULLED OUT. RN AWARE
[2021-06-26] MEDS: Aspirin 81 MG TAB.CHEW PO ×2 (08:49→17:48)
[2021-06-26] MEDS: Tuberculin,Purif.prot.deriv. 50 TU/ML Vial 0.1 ML ID (10:38)
[2021-06-26 14:01] VITALS: BP 135/69; PULSE 82; RESP 28; TEMP 36.6; O2SAT 96
--- NOTE | 2021-06-26 14:31 | CASEMGMT ---
Social Work IDT met with patient and sister for care plan meeting. Discussed patient's progress in PT/OT and nursing. Explained [facility] insurance with NRD 06/27 and continued stay is not guaranteed. The goal is for pt to return to [facility], but pt is unable to ambulate or complete steps. [facility] does not provide assist with their residents and broached topic of pt may not ready to return initially at time of DC. Pt has Domonique Ambriz CM. Provided list of SNF with Medicare resource data to brainstorm alternative place. SW to continue to follow for discharge planning. YARI Andrew WICKER WORKER
[2021-06-26] MEDS: Polyethylene Glycol 3350 17 GM PACKET PO (14:53)
--- NOTE | 2021-06-26 15:06 | NURSING ---
Order for EMG to be done to bilateral legs and nerve conduct study. Order faxed to scheduling. They will set up but said it way be not till in . Resident aware and states I dont think I will even do it. I can walk fine..
[2021-06-26] MEDS: Bisacodyl 5 MG Tablet 10 MG PO (20:25)
[2021-06-27] MEDS: Lisinopril 10 MG Tablet PO (06:30)
[2021-06-27] MEDS: Acetaminophen 500 MG Tablet 1000 MG PO ×2 (06:30→13:33)
[2021-06-27] MEDS: Senna/Docusate Sodium 1 Tablet 2 TABLET PO (06:30)
[2021-06-27] MEDS: Meloxicam 7.5 MG Tablet PO ×2 (06:30→17:51)
[2021-06-27] MEDS: Pantoprazole Sodium 20 MG Tablet PO (06:30)
[2021-06-27] MEDS: hydroCHLOROthiazide 12.5mg 12.5 MG PO (06:30)
[2021-06-27] MEDS: Menthol/Lanolin/Calamine/Znox 113 GM Tube 1 APPLIC TOPICAL ×2 (06:32→17:50)
[2021-06-27 06:33] VITALS: BP 120/63; PULSE 72; RESP 16; TEMP 36.9; O2SAT 96
[2021-06-27] MEDS: Calcium Carbonate 500 MG Tablet PO (06:35)
[2021-06-27] MEDS: Aspirin 81 MG TAB.CHEW PO ×2 (08:10→17:51)
--- NOTE | 2021-06-27 09:28 | NURSING ---
This nurse called Dr. Coley's office to ask if pt had another f/u scheduled. Office staff stated pt has another appointment on 07/24/21 at 1345. Sharona were removed at appointment yesterday and knee is now JONATHAN. Pt still c/o of being unable to move left leg while walking
[2021-06-27 14:11] VITALS: BP 113/66; PULSE 74; RESP 18; TEMP 36.4; O2SAT 97
[2021-06-27] MEDS: oxyCODONE 5 MG Tablet PO (21:00)
[2021-06-28] MEDS: Acetaminophen 500 MG Tablet 1000 MG PO ×3 (06:55→21:39)
[2021-06-28] MEDS: Menthol/Lanolin/Calamine/Znox 113 GM Tube 1 APPLIC TOPICAL ×2 (06:55→17:21)
[2021-06-28] MEDS: hydroCHLOROthiazide 12.5mg 12.5 MG PO (06:55)
[2021-06-28] MEDS: Pantoprazole Sodium 20 MG Tablet PO (06:55)
[2021-06-28] MEDS: Lisinopril 10 MG Tablet PO (06:55)
[2021-06-28] MEDS: Meloxicam 7.5 MG Tablet PO ×2 (06:55→17:20)
[2021-06-28 06:57] VITALS: BP 117/84; PULSE 75
[2021-06-28] MEDS: Aspirin 81 MG TAB.CHEW PO ×2 (09:03→17:20)
[2021-06-28 15:19] VITALS: BP 112/63; PULSE 77; RESP 16; TEMP 36.4; O2SAT 98
[2021-06-28] MEDS: Senna/Docusate Sodium 1 Tablet 2 TABLET PO (17:20)
[2021-06-29] MEDS: Meloxicam 7.5 MG Tablet PO ×2 (05:57→17:32)
[2021-06-29] MEDS: Pantoprazole Sodium 20 MG Tablet PO (05:57)
[2021-06-29] MEDS: Senna/Docusate Sodium 1 Tablet 2 TABLET PO (05:57)
[2021-06-29] MEDS: Acetaminophen 500 MG Tablet 1000 MG PO ×3 (05:57→21:54)
[2021-06-29] MEDS: Lisinopril 10 MG Tablet PO (05:57)
[2021-06-29] MEDS: hydroCHLOROthiazide 12.5mg 12.5 MG PO (05:57)
[2021-06-29] MEDS: Menthol/Lanolin/Calamine/Znox 113 GM Tube 1 APPLIC TOPICAL ×2 (05:58→17:28)
[2021-06-29] MEDS: Aspirin 81 MG TAB.CHEW PO ×2 (08:27→17:32)
[2021-06-29] MEDS: oxyCODONE 5 MG Tablet PO (08:29)
[2021-06-29 15:20] VITALS: BP 112/70; PULSE 73; RESP 16; TEMP 36.8; O2SAT 96
[2021-06-29] MEDS: Calcium Carbonate 500 MG Tablet PO (17:31)
[2021-06-30 05:00] VITALS: BP 114/61; PULSE 71; RESP 16; TEMP 36.6; O2SAT 96
[2021-06-30] MEDS: Lisinopril 10 MG Tablet PO (05:02)
[2021-06-30] MEDS: Senna/Docusate Sodium 1 Tablet 2 TABLET PO (05:02)
[2021-06-30] MEDS: Acetaminophen 500 MG Tablet 1000 MG PO ×3 (05:02→21:48)
[2021-06-30] MEDS: hydroCHLOROthiazide 12.5mg 12.5 MG PO (05:03)
[2021-06-30] MEDS: Pantoprazole Sodium 20 MG Tablet PO (05:03)
[2021-06-30] MEDS: Polyethylene Glycol 3350 17 GM PACKET PO (05:04)
[2021-06-30] MEDS: Menthol/Lanolin/Calamine/Znox 113 GM Tube 1 APPLIC TOPICAL ×2 (05:06→17:38)
[2021-06-30] MEDS: Meloxicam 7.5 MG Tablet PO ×2 (09:03→17:31)
[2021-06-30] MEDS: Aspirin 81 MG TAB.CHEW PO ×2 (09:03→17:31)
[2021-06-30 10:35] VITALS: PULSE 71; RESP 18; O2SAT 97
[2021-06-30 15:38] VITALS: BP 128/73; PULSE 78; RESP 14; TEMP 36.8; O2SAT 96
[2021-07-01] MEDS: Pantoprazole Sodium 20 MG Tablet PO (05:56)
[2021-07-01] MEDS: Acetaminophen 500 MG Tablet 1000 MG PO ×3 (05:56→20:55)
[2021-07-01] MEDS: hydroCHLOROthiazide 12.5mg 12.5 MG PO (05:57)
[2021-07-01] MEDS: Lisinopril 10 MG Tablet PO (05:58)
[2021-07-01] MEDS: Menthol/Lanolin/Calamine/Znox 113 GM Tube 1 APPLIC TOPICAL ×2 (05:59→17:49)
[2021-07-01 06:00] VITALS: BP 109/61; PULSE 69; RESP 16; TEMP 36.3; O2SAT 96
[2021-07-01] MEDS: Aspirin 81 MG TAB.CHEW PO ×2 (09:09→17:48)
[2021-07-01] MEDS: Meloxicam 7.5 MG Tablet PO ×2 (09:10→17:48)
--- NOTE | 2021-07-01 09:22 | MDS.RN ---
Information for the mds was obtained from review of the clinical record, interview of resident, staff, and direct observation of resident's care.
[2021-07-01 14:46] VITALS: BP 122/68; PULSE 80; RESP 18; TEMP 36.2; O2SAT 98
--- NOTE | 2021-07-01 15:16 | NURSING ---
Resident and friend, Shirin notified of staff member testing positive for COVID.
--- NOTE | 2021-07-01 15:46 | CASEMGMT ---
Social Work Followed up with pt on SNF choices. Pt states sister does not drive so she needs to know which facilities has drop off for the city bus and taxi's. Suggested for sister to call those transport companies and this worker can refer to those places. Pt agreed. SW to follow up at a later date. YARI AndrewW
[2021-07-02] MEDS: Pantoprazole Sodium 20 MG Tablet PO (05:33)
[2021-07-02] MEDS: Acetaminophen 500 MG Tablet 1000 MG PO ×3 (05:33→22:31)
[2021-07-02] MEDS: hydroCHLOROthiazide 12.5mg 12.5 MG PO (05:33)
[2021-07-02] MEDS: Lisinopril 10 MG Tablet PO (05:33)
[2021-07-02] MEDS: Aspirin 81 MG TAB.CHEW PO ×2 (08:58→17:30)
[2021-07-02] MEDS: Meloxicam 7.5 MG Tablet PO ×2 (08:58→17:30)
[2021-07-02] MEDS: Menthol/Lanolin/Calamine/Znox 113 GM Tube 1 APPLIC TOPICAL ×2 (09:02→17:29)
[2021-07-02 11:40] VITALS: PULSE 63; RESP 18; O2SAT 97
[2021-07-02 14:17] VITALS: BP 115/67; PULSE 69; RESP 20; TEMP 36.4; O2SAT 95
--- NOTE | 2021-07-02 15:04 | CASEMGMT ---
Social Work Spoke with therapy and pt has made good progress thus far. IDT would like to see pt return to [facility] instead of SNF. Left message with [facility] to inquire about services pt could have upon returning - such as getting assistance to go to the dining room, etc. Will await for return call. Shasta Avendano, PAINTLESS DENT REPAIR TECHNICIAN ELECTROPLATER HELPER
--- NOTE | 2021-07-02 18:13 | NURSING ---
PT ASKED THIS NURSE TO TAKE A FRIEND NAMED VIRGIE OFF HER CONTACT LIST DUE TO FRIEND DID NOT WANT TO BE ON IT. THIS NURSE CALLED REGISTRATION,CONTACT WILL BE TAKEN OFF.
[2021-07-03] MEDS: Acetaminophen 500 MG Tablet 1000 MG PO ×3 (05:39→22:14)
[2021-07-03] MEDS: Lisinopril 10 MG Tablet PO (05:39)
[2021-07-03] MEDS: Pantoprazole Sodium 20 MG Tablet PO (05:39)
[2021-07-03] MEDS: hydroCHLOROthiazide 12.5mg 12.5 MG PO (05:39)
[2021-07-03] MEDS: Menthol/Lanolin/Calamine/Znox 113 GM Tube 1 APPLIC TOPICAL ×2 (05:39→17:30)
[2021-07-03 05:52] LABS: Absolute Lymphocyte Count 2.98 X10^3/uL (0.83-4.51); Basophil# 0.05 X10^3/uL; Basophil% 0.6 % (0-1); Eosinophil# 0.49 X10^3/uL; Hematocrit 38.6 % (37-47); Hemoglobin 12.4 g/dL (12.0-15.0); Lymphocyte # 2.98 X10^3/ul (0.83-4.51); Lymphocyte % 36.7 % (19-41); Mean Corp Hgb Conc 32.1 g/dL (32-36); Mean Corpuscular Hgb 28.8 pg (27.0-32.0); Mean Corpuscular Volume 89.8 fL (81-99); Monocyte% 7.4 % (0-10); NRBC Flagged by Analyzer 0 % (0-5); Neutrophil # 3.97 X10^3/uL (2.7-7.7); Neutrophil % 48.8 % (47-70); Platelet Count 448 K/mm3 (150-450); RBC Distribution Width CV 13.3 % (11.6-14.6); White Blood Count 8.1 K/mm3 (4.4-11.0)
[2021-07-03 06:17] LABS: Anion Gap 9 (5-15); BUN 42 mg/dL (7-18); Calcium,Total 9.3 mg/dL (8.5-10.1); Chloride 108 mmol/L (98-107); Glucose 95 mg/dL (74-106); Sodium Level 140 mmol/L (136-145)
[2021-07-03] MEDS: Aspirin 81 MG TAB.CHEW PO ×2 (08:13→17:29)
[2021-07-03] MEDS: Meloxicam 7.5 MG Tablet PO ×2 (08:13→17:30)
--- NOTE | 2021-07-03 13:05 | NURSING ---
Addendum entered by Eli Mathis 07/03/21 14:57: Pt back from appointment at this time N.N.O Original Note: Pt left for appointment with Dr. Poe at this time
[2021-07-03 14:06] LABS: BUN/Creat Ratio 54.5 RATIO (10-20); Creatinine, Serum 0.77 mg/dL (0.55-1.02); EST Glomerular Filtration Rate 79 mL/min (>60); Est Glom Filt Rate - Afr Amer 96 mL/min (>60); Estimated Creatinine Clearance 52.05 ml/min
--- NOTE | 2021-07-03 15:04 | CASEMGMT ---
Social Work Spoke with [facility] to inquire if pt can get assistance to and from dining room, etc. Nurse stated pt must be able to self-propel in w/c and use bathroom without assistance to return. Updated IDT. SW to continue to follow. Shasta Avendano, SOIL CONSERVATION TEACHER TOOL TECHNICIAN
[2021-07-03 16:00] VITALS: BP 103/70; PULSE 75; RESP 16; TEMP 36.9; O2SAT 97
[2021-07-03] MEDS: Senna/Docusate Sodium 1 Tablet 2 TABLET PO (17:29)
[2021-07-04] MEDS: Pantoprazole Sodium 20 MG Tablet PO (05:58)
[2021-07-04] MEDS: hydroCHLOROthiazide 12.5mg 12.5 MG PO (05:58)
[2021-07-04] MEDS: Acetaminophen 500 MG Tablet 1000 MG PO ×2 (05:58→13:12)
[2021-07-04] MEDS: Lisinopril 10 MG Tablet PO (05:58)
[2021-07-04 06:05] VITALS: BP 107/64; PULSE 70; RESP 16; TEMP 36.8; O2SAT 96
[2021-07-04] MEDS: Meloxicam 7.5 MG Tablet PO ×2 (08:29→17:30)
[2021-07-04] MEDS: Aspirin 81 MG TAB.CHEW PO ×2 (08:29→17:30)
[2021-07-04] MEDS: Menthol/Lanolin/Calamine/Znox 113 GM Tube 1 APPLIC TOPICAL ×2 (08:31→21:33)
[2021-07-04 13:15] VITALS: PULSE 70; RESP 18; O2SAT 96
--- NOTE | 2021-07-05 01:37 | NURSING ---
Assisted patient to restroom X1 assist with FWW. Patient's urine cloudy. Patient complains of urine frequency but denies any pain or discomfort. Message left for Dr. Downs.
[2021-07-05] MEDS: Acetaminophen 500 MG Tablet 1000 MG PO ×3 (04:26→21:59)
[2021-07-05] MEDS: Pantoprazole Sodium 20 MG Tablet PO (04:27)
[2021-07-05] MEDS: hydroCHLOROthiazide 12.5mg 12.5 MG PO (04:27)
[2021-07-05] MEDS: Lisinopril 10 MG Tablet PO (04:27)
[2021-07-05] MEDS: Menthol/Lanolin/Calamine/Znox 113 GM Tube 1 APPLIC TOPICAL ×2 (04:28→16:58)
[2021-07-05 04:29] VITALS: BP 118/67; PULSE 76; RESP 16; TEMP 36.7; O2SAT 95
[2021-07-05] MEDS: Meloxicam 7.5 MG Tablet PO ×2 (08:14→16:58)
[2021-07-05] MEDS: Aspirin 81 MG TAB.CHEW PO ×2 (08:14→16:59)
[2021-07-05 11:19] LABS: Color, Urine Yellow (Yellow); Glucose, Dipstick Normal (Normal); Ketone-Dipstick Negative (Negative); Leukocyte Esterase-Dipstick 500 /ul (Negative); Nitrite-Dipstick Positive (Negative); Occult Blood-Urine 25 /ul (Negative); Protein-Dipstick 30 mg/dl (Negative); Urine Bilirubin Dipstick Negative (Negative); Urine Clarity Cloudy (Clear); Urine Urobilinogen Normal (Normal)
[2021-07-05 11:24] LABS: White Blood Cells >100 SEEN /hpf (0-5)
[2021-07-05 11:25] LABS: Bacteria 3+ /hpf (None Seen); Mucous, Urine RARE /hpf (<or=2+); Red Blood Cells-Urine 0-5 SEEN /hpf (0-5); Squamous Epithelial Cells - UA 0-5 SEEN /hpf (5-10)
[2021-07-05 13:06] VITALS: BP 118/67; PULSE 76; RESP 16; TEMP 36.7; O2SAT 95
[2021-07-05] MEDS: Senna/Docusate Sodium 1 Tablet 2 TABLET PO (16:58)
[2021-07-05] MEDS: Ciprofloxacin 250 MG Tablet PO (17:51)
[2021-07-05] MEDS: Calcium Carbonate 500 MG Tablet PO (22:03)
[2021-07-06] MEDS: hydroCHLOROthiazide 12.5mg 12.5 MG PO (05:28)
[2021-07-06] MEDS: Ciprofloxacin 250 MG Tablet PO ×2 (05:28→17:10)
[2021-07-06] MEDS: Lisinopril 10 MG Tablet PO (05:28)
[2021-07-06] MEDS: Senna/Docusate Sodium 1 Tablet 2 TABLET PO (05:28)
[2021-07-06] MEDS: Pantoprazole Sodium 20 MG Tablet PO (05:28)
[2021-07-06] MEDS: Acetaminophen 500 MG Tablet 1000 MG PO ×3 (05:28→21:22)
[2021-07-06] MEDS: Menthol/Lanolin/Calamine/Znox 113 GM Tube 1 APPLIC TOPICAL ×2 (05:29→17:11)
[2021-07-06] MEDS: Polyethylene Glycol 3350 17 GM PACKET PO (05:29)
[2021-07-06] MEDS: Meloxicam 7.5 MG Tablet PO ×2 (08:08→17:10)
[2021-07-06] MEDS: Aspirin 81 MG TAB.CHEW PO ×2 (08:08→17:10)
[2021-07-06] MEDS: Calcium Carbonate 500 MG Tablet PO ×2 (10:35→21:22)
[2021-07-06 14:30] VITALS: BP 120/60; PULSE 82; RESP 18; TEMP 36.7; O2SAT 95
[2021-07-06 22:19] VITALS: BP 125/73; PULSE 65; RESP 16; TEMP 36.4
[2021-07-06 22:45] VITALS: PULSE 64; RESP 16; O2SAT 99
[2021-07-07] MEDS: Menthol/Lanolin/Calamine/Znox 113 GM Tube 1 APPLIC TOPICAL ×2 (06:11→17:07)
[2021-07-07] MEDS: Ciprofloxacin 250 MG Tablet PO ×2 (06:12→17:07)
[2021-07-07] MEDS: hydroCHLOROthiazide 12.5mg 12.5 MG PO (06:13)
[2021-07-07] MEDS: Senna/Docusate Sodium 1 Tablet 2 TABLET PO (06:14)
[2021-07-07] MEDS: Pantoprazole Sodium 20 MG Tablet PO (06:14)
[2021-07-07] MEDS: Acetaminophen 500 MG Tablet 1000 MG PO ×3 (06:15→21:36)
[2021-07-07] MEDS: Lisinopril 10 MG Tablet PO (06:16)
[2021-07-07] MEDS: Aspirin 81 MG TAB.CHEW PO ×2 (08:23→17:07)
[2021-07-07] MEDS: Meloxicam 7.5 MG Tablet PO ×2 (08:23→17:07)
[2021-07-07 13:41] VITALS: BP 105/52; PULSE 63; RESP 16; TEMP 36.3; O2SAT 99
[2021-07-07] MEDS: Calcium Carbonate 500 MG Tablet PO (21:39)
--- NOTE | 2021-07-07 21:56 | NURSING ---
Spoke w/ pt to clarify if she would like Mylanta in addition to current regimen of Tums and Protonix. Per pt, she does not wish to add any additional medication to current regimen at this time.
[2021-07-08] MEDS: Menthol/Lanolin/Calamine/Znox 113 GM Tube 1 APPLIC TOPICAL ×2 (06:52→17:26)
[2021-07-08] MEDS: hydroCHLOROthiazide 12.5mg 12.5 MG PO (06:53)
[2021-07-08] MEDS: Pantoprazole Sodium 20 MG Tablet PO (06:53)
[2021-07-08] MEDS: Ciprofloxacin 250 MG Tablet PO ×2 (06:53→17:24)
[2021-07-08] MEDS: Lisinopril 10 MG Tablet PO (06:53)
[2021-07-08] MEDS: Acetaminophen 500 MG Tablet 1000 MG PO ×3 (06:54→19:42)
[2021-07-08] MEDS: Calcium Carbonate 500 MG Tablet PO (07:00)
[2021-07-08] MEDS: Meloxicam 7.5 MG Tablet PO ×2 (08:52→17:24)
[2021-07-08] MEDS: Aspirin 81 MG TAB.CHEW PO ×2 (08:52→17:24)
[2021-07-08 10:00] VITALS: PULSE 64; RESP 18; O2SAT 93
[2021-07-08] MEDS: Polyethylene Glycol 3350 17 GM PACKET PO (13:20)
[2021-07-08 16:00] VITALS: BP 140/71; PULSE 73; RESP 16; TEMP 36.5; O2SAT 96
[2021-07-08] MEDS: Senna/Docusate Sodium 1 Tablet 2 TABLET PO (17:24)
[2021-07-08] MEDS: oxyCODONE 5 MG Tablet PO (19:42)
[2021-07-09] MEDS: Acetaminophen 500 MG Tablet 1000 MG PO ×3 (05:31→21:44)
[2021-07-09] MEDS: Pantoprazole Sodium 20 MG Tablet PO (05:31)
[2021-07-09] MEDS: hydroCHLOROthiazide 12.5mg 12.5 MG PO (05:32)
[2021-07-09] MEDS: Lisinopril 10 MG Tablet PO (05:32)
[2021-07-09] MEDS: Ciprofloxacin 250 MG Tablet PO ×2 (05:32→17:15)
[2021-07-09] MEDS: Senna/Docusate Sodium 1 Tablet 2 TABLET PO ×2 (05:32→17:16)
[2021-07-09] MEDS: Menthol/Lanolin/Calamine/Znox 113 GM Tube 1 APPLIC TOPICAL ×2 (05:33→21:45)
[2021-07-09 05:34] VITALS: BP 109/56; PULSE 70; RESP 16; TEMP 36.6; O2SAT 94
[2021-07-09] MEDS: Aspirin 81 MG TAB.CHEW PO ×2 (08:10→17:15)
[2021-07-09] MEDS: Meloxicam 7.5 MG Tablet PO ×2 (08:10→17:15)
[2021-07-09] MEDS: oxyCODONE 5 MG Tablet PO (09:29)
[2021-07-09 21:42] VITALS: PULSE 67; RESP 16; O2SAT 98
[2021-07-10 04:57] LABS: Absolute Neutrophil Count 5.4 X10^3/uL (2.0-7.7); Basophil# 0.05 X10^3/uL; Basophil% 0.5 % (0-1); Eosinophils% 7.4 % (0-5); Hematocrit 35.6 % (37-47); Hemoglobin 11.5 g/dL (12.0-15.0); Lymphocyte % 27.6 % (19-41); Mean Corp Hgb Conc 32.3 g/dL (32-36); Mean Corpuscular Hgb 29.3 pg (27.0-32.0); Mean Corpuscular Volume 90.6 fL (81-99); Mean Platelet Vol. 8.4 fl (6.2-12.0); Monocyte# 0.68 X10^3/uL; Monocyte% 7.2 % (0-10); NRBC Flagged by Analyzer 0 % (0-5); Neutrophil # 5.36 X10^3/uL (2.7-7.7); Neutrophil % 56.9 % (47-70); Platelet Count 291 K/mm3 (150-450); RBC Distribution Width CV 13.4 % (11.6-14.6); RBC Distribution Width SD 45.1 fl (35.1-43.9); Red Blood Count 3.93 M/mm3 (4.2-5.4); White Blood Count 9.4 K/mm3 (4.4-11.0)
[2021-07-10 05:22] LABS: Anion Gap 9 (5-15); BUN 60 mg/dL (7-18); BUN/Creat Ratio 45.5 RATIO (10-20); Calcium,Total 8.9 mg/dL (8.5-10.1); Chloride 106 mmol/L (98-107); Creatinine, Serum 1.32 mg/dL (0.55-1.02); EST Glomerular Filtration Rate 42 mL/min (>60); Est Glom Filt Rate - Afr Amer 51 mL/min (>60); Estimated Creatinine Clearance 39.43 ml/min; Glucose 100 mg/dL (74-106); Sodium Level 137 mmol/L (136-145)
[2021-07-10 05:39] VITALS: BP 102/66; PULSE 74; RESP 16; TEMP 37.1; O2SAT 97
[2021-07-10] MEDS: oxyCODONE 5 MG Tablet PO (05:45)
[2021-07-10] MEDS: Pantoprazole Sodium 20 MG Tablet PO (05:46)
[2021-07-10] MEDS: hydroCHLOROthiazide 12.5mg 12.5 MG PO (05:46)
[2021-07-10] MEDS: Lisinopril 10 MG Tablet PO (05:46)
[2021-07-10] MEDS: Polyethylene Glycol 3350 17 GM PACKET PO (05:46)
[2021-07-10] MEDS: Ciprofloxacin 250 MG Tablet PO ×2 (05:46→17:08)
[2021-07-10] MEDS: Acetaminophen 500 MG Tablet 1000 MG PO ×3 (05:46→21:28)
[2021-07-10] MEDS: Senna/Docusate Sodium 1 Tablet 2 TABLET PO (05:46)
[2021-07-10] MEDS: Menthol/Lanolin/Calamine/Znox 113 GM Tube 1 APPLIC TOPICAL ×2 (05:48→17:08)
[2021-07-10] MEDS: Meloxicam 7.5 MG Tablet PO ×2 (08:07→17:08)
[2021-07-10 09:56] VITALS: PULSE 66; O2SAT 99
--- NOTE | 2021-07-10 15:37 | CASEMGMT ---
Social Work Overheard pt talking on the phone with someone while walking past pt room. Pt was stating she wish she would've gone to the grave; wish she never woke up; she should just kill herself she is so upset. Entered room and asked to speak with pt. Pt ended conversation with whomever on the phone. Inquired about what this worker overheard. Pt began explaining her sister makes her very upset; she feels like a burden, and that her sister blames her for everything. Pt expanded further that sister recently moved from [place] where she was receiving community services such as transport and home delivered meals, and had decided to move to [place] to be closer to pt. Reportedly sister lives at [facility] and the bus nor MOW services that area. She has to take a taxi places, which costs more money. Pt expressed her sister yells at her and makes it seem like she resents pt and it was pt's fault for sister moving to the [facility]. Pt explained she told sister to do what was best for her, and not move to [place], and pt could move to [place], but sister keeps throwing it back in her face any time she can't get something, she blames pt, or if she buys pt clothes, she uses that against pt when she gets angry. Validated pt's feelings. Provided supportive listening. Encouraged pt that it is not her fault; sister can make her own choices, and she should not be blaming pt. Offered maybe having some distance from sister if she is causing her this much angst, to limit conversations and visits for now. Pt agreed but states sister just keeps calling. Offered to speak with sister - pt wishes for this worker to do so. At that time, sister happened to call pt's room, and this worker received pt's permission to answer phone call. It was pt's sister and offered for her to explain what was going on. Sister became 'excited' explaining pt just gets upset over little things and it angers me. She gave a few examples, including I called the pt to tell her I couldn't go to my dr's appt one day because the taxi was late and the bus can't come pick me up. Then the pt got upset and I told her not to - she does stuff like that all the time, even to her friends. She just doesn't understand things. Offered to reframe situation positively that pt is getting 'upset' because she cares for sister and her well-being, and pt is able to understand situations. Sister continued to excitedly explain other issues with pt, and told story of how she moved to area from [place], and she does not have access to the same resources, and she may just move back. Agreed it would be frustrating to not have the services available she needs or is used to having, and to do what is best for her. Also attempted to explain that each person has different perspective's and it is causing pt to become upset and wanting to take her life. Sister did not allow this worker to continue speaking - she said she just wouldn't talk to pt any more and would just move back to [place] and abruptly hung up the phone. Spoke further with pt. Inquired about plan or intent to commit harm to self. Pt explained she would take pills to , but has not thought further about the details. She denied using any other methods, such as utensils or cords in room, and denied hurting others. Explained nursing will continue to provide only the medications prescribed and so will [facility] upon return, so she would not have access to additional pills. Upon further discussion, this worker concluded pt has no intent to harm self or others, is not a threat, and this was an isolated incident that caused a lot of upset to pt. Pt agreed to not take further phone calls or visit from sister until she felt ready. Pt agreeable to psych services offered at [facility] and a SW to follow at [place]. Offered pt to come out of room to [facility] to socialize with others and participate in upcoming activity. Pt agreed. Notified [facility] and assisted with transport. Pt appreciative of SW assistance. Notified nursing and suggested to ensure pt is not pocketing pills at [facility]. SW to notify [facility] at [place] as well. SW to continue to follow. Total time spent: 30-45 minutes YARI Andrew
--- NOTE | 2021-07-10 17:29 | CASEMGMT ---
Social Work Insurance issued LCD 07/12, DC 07/13. Spoke with pt - pt agreeable to DC and returning to [facility]. Left message with [facility] notifying of pt return. Left message with Domonique Altamirano CM notifying of DC. Pt requesting 3-in-1 commode. [place] [facility] Pt agreeable to [facility] PT/OT/SW. Provided [facility] list with quality and resource data. Pt does not have preference - agreeable to any agency. Referred to [facility]. Will await outcome. Plan: DC to [facility], [facility] PT/OT/SW, [facility] Shasta Avendano, SKULL CHOPPER CUSTOM FEED MILL OPERATOR
[2021-07-11 05:27] VITALS: BP 110/68; PULSE 77; RESP 16; TEMP 36.7; O2SAT 95
[2021-07-11] MEDS: Ciprofloxacin 250 MG Tablet PO ×2 (05:28→17:50)
[2021-07-11] MEDS: Lisinopril 10 MG Tablet PO (05:28)
[2021-07-11] MEDS: Acetaminophen 500 MG Tablet 1000 MG PO ×3 (05:28→20:42)
[2021-07-11] MEDS: Senna/Docusate Sodium 1 Tablet 2 TABLET PO ×2 (05:28→17:50)
[2021-07-11] MEDS: Pantoprazole Sodium 20 MG Tablet PO (05:28)
[2021-07-11] MEDS: Menthol/Lanolin/Calamine/Znox 113 GM Tube 1 APPLIC TOPICAL ×2 (05:29→20:45)
[2021-07-11 05:30] VITALS: PULSE 77; RESP 16; O2SAT 95
[2021-07-11] MEDS: Meloxicam 7.5 MG Tablet PO ×2 (08:29→17:50)
--- NOTE | 2021-07-11 11:31 | CASEMGMT ---
Social Work Spoke with [facility] nurse. Provided hand off and inquired about psych[facility]counseling services. [facility] and scheduled appt for 07/23 at 12:30 pm. [facility] stated they will schedule transport. Followed up with [facility] and they can accept. Awaiting return phone call from CM. Pt will need transport home. SW to assist. Shasta Avendano, ACTING PROFESSOR POSTDOCTORAL FELLOW
--- NOTE | 2021-07-11 12:24 | MDS.RN ---
Pain interview for COLBY 07/13/21 completed.
--- NOTE | 2021-07-11 16:09 | CHAPLAIN ---
Type of Pastoral Visit ___ Initial Visit _x__ Follow-up Visit ___ On-call Visit ___ General Patient Visit ___ Spiritual Assessment ___ Family Conference ___ Bereavement ___ Rapid Response ___ Code Blue ___ Other (describe below) Pastoral Care Referral From _x__ Patient ___ Family ___ Nurse ___ Physician ___ Aerial Photogrammetrist ___ Oral Communication Instructor ___ Other (describe below) Sacrament/Intervention _x__ Active listening ___ Anointing ___ Protestant ___ Bereavement ___ Communion ___ Homa exploration ___ ___ Life review ___ Prayer ___ Reconciliation ___ Sacrament of Sick _x__ Supportive presence ___ Wedding ___ Other (describe below) Pastoral Comments
[2021-07-11] MEDS: Calcium Carbonate 500 MG Tablet PO (20:43)
--- NOTE | 2021-07-11 21:00 | PCM.DC.SUM ---
Providers Date of Admission: 06/18/21 Primary Care Physician: Dr. Anika Reyes MD Reason For Visit: RIGHT TOTAL KNEE -ROBOT Diagnosis Discharge Diagnosis (1) S/P total knee arthroplasty: Status: Acute Code(s): Z96.659 - Presence of unspecified artificial knee joint Qualifiers: Laterality: right Qualified Code(s): Z96.651 - Presence of right artificial knee joint (2) Debility: Status: Acute Code(s): R53.81 - Other malaise (3) Osteoarthritis of right knee: Status: Acute Code(s): M17.11 - Unilateral primary osteoarthritis, right knee (4) Hypertension: Status: Chronic Code(s): I10 - Essential (primary) hypertension (5) Vitamin D deficiency: Status: Acute Code(s): E55.9 - Vitamin D deficiency, unspecified (6) Gastroesophageal reflux disease: Status: Acute Code(s): K21.9 - Gastro-esophageal reflux disease without esophagitis (7) Intellectual disability: Status: Acute Code(s): F79 - Unspecified intellectual disabilities Medications at Discharge Home Medications esomeprazole magnesium [Nexium] 20 mg PO DAILY 05/15/20 ketoconazole 1 applic TOPICAL PRN PRN 05/29/21 polyethylene glycol 3350 [Miralax] 17 g PO DAILY PRN 05/29/21 acetaminophen 1,000 mg PO Q8 06/18/21 meloxicam 7.5 mg PO BID 06/18/21 calcium carbonate 500 mg PO Q4H PRN PRN #0 tab 07/11/21 lisinopril 10 mg PO DAILY 30 Days #30 tab 07/11/21 menthol-zinc oxide [Calmoseptine] 1 applic TOPICAL BID #0 g 07/11/21 oxycodone 5 - 10 mg PO Q4H PRN PRN 7 Days #42 tab 07/11/21 sennosides-docusate sodium [Stool Softener-Stimulant Laxat] 2 tab PO BID 30 Days #120 tab 07/11/21 Hospital Course Operations total knee replacement (Robotic assisted right.) Procedures None Summary of Care Provided Minutes Spent on Discharge: 35 Hospital Course: 71 year old female with below past medical history hospitalized for right total knee replacement 06/12/[address] Coley, Postoperative course uncomplicated, admitted to TCU with debility, here for rehabilitation, strengthening, prior to [place] [facility] [place] [facility] [place]. [facility]. Discharge to [facility] [place] 07/13/2021, [facility] PT/OT/SW, Bedside commode. Physical Exam Const alert and oriented x3 General Appearance: cooperative HEENT normocephalic Eyes PERRL and EOMs intact bilaterally Neck supple, no JVD and no carotid bruits Resp normal respiratory effort, normal air movement and clear to auscultation bilaterally Cardio regular rate and regular rhythm GI normal to inspection, nondistended, normoactive bowel sounds, non-tender and non-distended Extremity normal capillary refill General Extremity: Negative for edema Skin no rashes or lesions noted General Skin Exam: no breakdown Psych affect normal Appearance: appropriate Weight / BMI Weight Weight: 89.131 kg Body Mass Index (BMI) 31.0 ABG / Lab / Microbiology Data Result Diagrams: 07/10/21 04:15 07/10/21 04:15 Microbiology: Microbiology 07/05/21 11:00 Urine Catheter - Catheter Urine Culture - Final Enterobacter aerogenes D/C Instructions Discharge Diet: No restrictions Discharge Activity: Return to Normal Activity, May Shower and Use Walker Weight Bearing Status: Weight bearing as tolerated Call your doctor if you observe: Fever of 101 or Higher, Inability to urinate, Inability to have a bowel movement, Shortness of breath, Dizziness, Fainting spells, Swelling in the ankles, Chest pain and Uncontrolled pain Additional Instructions: Discharge to [facility] [place] 07/13/2021, [facility] PT/OT/SW, Bedside commode. Meaningful Use Info Meaningful Use Diagnoses (Choose all that apply): None applicable Discharge Plan Admission Admit Date/Time: 06/18/21 15:00 Primary Reason for Your Visit: Debility. Attending Provider: Geovanny Downs Chi Primary Care Provider: Anika Reyes Instructions Additional Instructions / Restrictions: Discharge to [facility] [place] 07/13/2021, [facility] PT/OT/SW, Bedside commode. Discharge Orders/Prescriptions Prescriptions: New calcium carbonate 200 mg calcium (500 mg) Tablet,Chewable 500 mg PO Q4H PRN PRN (Reason: Indigestion) Qty: 0 RF: 0 oxycodone 5 mg Tablet 5 - 10 mg PO Q4H PRN PRN (Reason: Pain Score 4-10) 7 Days Qty: 42 RF: 0 lisinopril 10 mg Tablet 10 mg PO DAILY 30 Days Qty: 30 RF: 0 sennosides-docusate sodium [Stool Softener-Stimulant Laxat] 8.6-50 mg Tablet 2 tab PO BID 30 Days Qty: 120 RF: 0 menthol-zinc oxide [Calmoseptine] 0.44-20.6 % Ointment 1 applic topical BID Qty: 0 RF: 0 Continued esomeprazole magnesium [Nexium] 20 MG capsule 20 mg PO DAILY RF: 0 polyethylene glycol 3350 [Miralax] 17 gram Powder In Packet 17 g PO DAILY PRN (Reason: Constipation) RF: 0 ketoconazole 2 % cream 1 applic TOPICAL PRN PRN (Reason: Rash) RF: 0 acetaminophen 500 mg tablet 1,000 mg PO Q8 RF: 0 meloxicam 7.5 mg tablet 7.5 mg PO BID RF: 0 Discontinued lisinopril-hydrochlorothiazide 1 EACH tablet 1 tab PO DAILY RF: 0 omeprazole 20 mg Capsule,Delayed Release(Dr/Ec) 20 mg PO DAILY RF: 0 oxycodone 5 mg Tablet See Rx Instructions .ROUTE .COMPLEX PRN (Reason: Pain Score 4-10) 7 Days Qty: 60 RF: 0 aspirin 81 mg tablet,chewable 81 mg PO 0800,1700 RF: 0 Referrals / Follow Up: [facility] [GROUP OF PHYSICIANS] - 07/23/21 1:00 pm ([facility] to schedule transport. Arrive by 12:30 pm. Counselor is Uma. ) Anika Reyes MD [Primary Care Provider] - Kirit Poe DO [STAFF PHYSICIAN] - 07/03/21 2:00 pm ([facility] w[facility] poultry picker 1:00p.m.) Teto Jeffers PA-C [PHYSICIAN SENIOR POLICY ASSOCIATE] - 07/24/22 1:45 pm (Schedule transport if here) Disposition Disposition (needs filled in before D/C Order can be placed): Assisted Living
--- NOTE | 2021-07-11 21:08 | TREXTCAR_ITS ---
Diet 06/18/21 15:29 Diet: Regular - General Food consistency:: Regular Liquid Consistency:: Regular/Thin Dietary Modifications:: No Added Salt Routine Orders/Code Status Code Status: Full Code Wound(s) RIGHT UPPER LEG: Wound Type: Surgical Incision Dressing Change: Dry Sterile Dressing RIGHT KNEE: Wound Type: Surgical Incision Dressing Change: Dry Sterile Dressing RIGHT LOWER LEG: Wound Type: Surgical Incision Dressing Change: Wet to Dry Dressing UPPER THIGH: Wound Type: Abrasion LEFT CHEST: Wound Type: Abrasion MID BACK: Wound Type: redness, pad and protect Dressing Change: mepilex 06/18 Therapies Weight Bearing: Weight bearing as tolerated Extremity Affected:: Bilateral Lower Physical Therapy: Eval and Treat Occupational Therapy: Eval and Treat Problem/Diagnosis (1) S/P total knee arthroplasty: Status: Acute (2) Debility: Status: Acute (3) Osteoarthritis of right knee: Status: Acute (4) Hypertension: Status: Chronic (5) Vitamin D deficiency: Status: Acute (6) Gastroesophageal reflux disease: Status: Acute (7) Intellectual disability: Status: Acute Allergies/Procedures Done in Hospital Allergies No Known Allergies Allergy (Verified 05/29/21 10:17) Procedures: None Type of Care/Length of Stay Estimated LOS: More Than 30 Days Type of Care Needed: Assisted/Assisted Living Rehab Potential: Fair Prognosis: Fair Additional Orders/Day of Discharge Day of Discharge: 07/13/21 Dietary and Speech Recommendations Dietitian Recommendations/Changes: Will continue Regular No Added Salt d/t pmhx Discharge Plan Admission Admit Date/Time: 06/18/21 15:00 Primary Reason for Your Visit: Debility. Attending Provider: Geovanny Downs Chi Primary Care Provider: Anika Reyes Instructions Additional Instructions / Restrictions: Discharge to [facility] 07/13/2021, [facility] PT/OT/SW, Bedside commode. Discharge Orders/Prescriptions Prescriptions: New calcium carbonate 200 mg calcium (500 mg) Tablet,Chewable 500 mg PO Q4H PRN PRN (Reason: Indigestion) Qty: 0 RF: 0 oxycodone 5 mg Tablet 5 - 10 mg PO Q4H PRN PRN (Reason: Pain Score 4-10) 7 Days Qty: 42 RF: 0 lisinopril 10 mg Tablet 10 mg PO DAILY 30 Days Qty: 30 RF: 0 sennosides-docusate sodium [Stool Softener-Stimulant Laxat] 8.6-50 mg Tablet 2 tab PO BID 30 Days Qty: 120 RF: 0 menthol-zinc oxide [Calmoseptine] 0.44-20.6 % Ointment 1 applic topical BID Qty: 0 RF: 0 Continued esomeprazole magnesium [Nexium] 20 MG capsule 20 mg PO DAILY RF: 0 polyethylene glycol 3350 [Miralax] 17 gram Powder In Packet 17 g PO DAILY PRN (Reason: Constipation) RF: 0 ketoconazole 2 % cream 1 applic TOPICAL PRN PRN (Reason: Rash) RF: 0 acetaminophen 500 mg tablet 1,000 mg PO Q8 RF: 0 meloxicam 7.5 mg tablet 7.5 mg PO BID RF: 0 Discontinued lisinopril-hydrochlorothiazide 1 EACH tablet 1 tab PO DAILY RF: 0 omeprazole 20 mg Capsule,Delayed Release(Dr/Ec) 20 mg PO DAILY RF: 0 oxycodone 5 mg Tablet See Rx Instructions .ROUTE .COMPLEX PRN (Reason: Pain Score 4-10) 7 Days Qty: 60 RF: 0 aspirin 81 mg tablet,chewable 81 mg PO 0800,1700 RF: 0 Referrals / Follow Up: [facility] [GROUP OF PHYSICIANS] - 07/23/21 1:00 pm ([facility] to schedule transport. Arrive by 12:30 pm. Counselor is Uma. ) Anika Reyes MD [Primary Care Provider] - Kirit Poe DO [STAFF PHYSICIAN] - 07/03/21 2:00 pm ([facility] w/c coal picker 1:00p.m.) Teto Jeffers PA-C [PHYSICIAN COUNTY EXTENSION AGENT] - 07/24/22 1:45 pm (Schedule transport if here) Disposition Disposition (needs filled in before D/C Order can be placed): Assisted Living
[2021-07-12 05:20] VITALS: BP 101/62; PULSE 74
[2021-07-12] MEDS: Lisinopril 10 MG Tablet PO (05:21)
[2021-07-12] MEDS: Pantoprazole Sodium 20 MG Tablet PO (05:21)
[2021-07-12] MEDS: Ciprofloxacin 250 MG Tablet PO ×2 (05:21→17:06)
[2021-07-12] MEDS: Polyethylene Glycol 3350 17 GM PACKET PO (05:22)
[2021-07-12] MEDS: Senna/Docusate Sodium 1 Tablet 2 TABLET PO (05:22)
[2021-07-12] MEDS: Acetaminophen 500 MG Tablet 1000 MG PO ×3 (05:22→21:54)
[2021-07-12] MEDS: Menthol/Lanolin/Calamine/Znox 113 GM Tube 1 APPLIC TOPICAL ×2 (05:22→17:07)
[2021-07-12 06:32] LABS: Anion Gap 7 (5-15); BUN 53 mg/dL (7-18); BUN/Creat Ratio 49.5 RATIO (10-20); Calcium,Total 8.9 mg/dL (8.5-10.1); Chloride 109 mmol/L (98-107); Creatinine, Serum 1.07 mg/dL (0.55-1.02); EST Glomerular Filtration Rate 54 mL/min (>60); Est Glom Filt Rate - Afr Amer 65 mL/min (>60); Estimated Creatinine Clearance 48.65 ml/min; Glucose 95 mg/dL (74-106); Sodium Level 139 mmol/L (136-145)
[2021-07-12] MEDS: Meloxicam 7.5 MG Tablet PO ×2 (07:54→17:06)
--- NOTE | 2021-07-12 09:17 | CASEMGMT ---
Social Work W/C transport scheduled through [facility] at 11 am. BIMS and PHQ-9 completed for MDS assessment. Faxed DC paperwork to [facility] and [facility]. Shasta Avendano MSW REFINERY OPERATOR [employer]
[2021-07-12 15:36] VITALS: BP 110/72; PULSE 73; RESP 18; TEMP 36.4; O2SAT 96
[2021-07-12 21:50] VITALS: PULSE 69; RESP 16; O2SAT 96
[2021-07-13 04:00] VITALS: PULSE 74; RESP 16; O2SAT 94
[2021-07-13] MEDS: Lisinopril 10 MG Tablet PO (05:16)
[2021-07-13] MEDS: Pantoprazole Sodium 20 MG Tablet PO (05:16)
[2021-07-13] MEDS: Senna/Docusate Sodium 1 Tablet 2 TABLET PO (05:16)
[2021-07-13] MEDS: Acetaminophen 500 MG Tablet 1000 MG PO (05:16)
[2021-07-13] MEDS: Menthol/Lanolin/Calamine/Znox 113 GM Tube 1 APPLIC TOPICAL (05:17)
[2021-07-13 05:18] VITALS: BP 117/50; PULSE 71
[2021-07-13] MEDS: Meloxicam 7.5 MG Tablet PO (09:03)
--- NOTE | 2021-07-13 11:25 | NURSING ---
Report called to [facility]
[2021-07-13 12:27] VITALS: BP 135/65; PULSE 65; RESP 16; TEMP 36.1; O2SAT 97
== END 2021-07-13 11:05 | disposition home health service (06) | DRG 561 ==
PROVIDERS: Admitting Provider Family Medicine Geriatric Medicine; PCP Internal Medicine; Visit Provider Family Medicine Geriatric Medicine
DX: Z47.1 Aftercare following joint replacement surgery (principal); Z96.651 Presence of right artificial knee joint; Z23 Encounter for immunization; I10 Essential (primary) hypertension; M17.11 Unilateral primary osteoarthritis, right knee; K21.9 Gastro-esophageal reflux disease without esophagitis; E55.9 Vitamin D deficiency, unspecified; B35.4 Tinea corporis; F79 Unspecified intellectual disabilities; Z79.899 Other long term (current) drug therapy; Z79.82 Long term (current) use of aspirin
CPT/HCPCS: 0064A; 36415; 80048; 81001; 85025; 87077; 87086; 87088; 87186; 87635; 91306; 97110; 97116; 97162; 97166; 97530; 97535; 97802; U0005; A4216; U0003

== ENCOUNTER 2021-12-30 09:48 | Inpatient (IN) | payer MEDICARE, MEDICAID, SELFPAY ==
[2021-12-30] VITALS (11 sets, daily range): BP systolic 110–150; BP diastolic 67–97; PULSE 66–96; RESP 14–20; TEMP 36.4–37.1; O2SAT 91–98; BMI 32.6; BMI 30.4
--- NOTE | 2021-12-30 10:01 | RAD_ITS ---
STUDY: X-RAY - RIGHT FEMUR REASON FOR STUDY: Female, 71 years old. Trauma TECHNIQUE: 4 view(s) of the femur. COMPARISON: None. FINDINGS: Normal visualized femur. Normal visualized soft tissue structure. The patient is status post total knee replacement. RAD/Femur Min 2 Views IMPRESSION: Status post total knee replacement. No acute abnormality is seen. Electronically Signed: Dinesh Nevarez MD at 11:56 EDT ,
--- NOTE | 2021-12-30 10:01 | CT_ITS ---
STUDY: CT CERVICAL SPINE WITHOUT CONTRAST REASON FOR EXAM: Female, 71 years old. Trauma due to a fall. RADIATION DOSAGE (If Supplied By Facility): CTDIvol = ( 23.79 ) mGy, DLP = ( 485.71 ) mGycm TECHNIQUE: High resolution transaxial imaging was performed without contrast material. Sagittal and coronal images were reconstructed. Individualized dose optimization techniques were used for this CT. COMPARISON: None FINDINGS: Normal craniovertebral junction. There are degenerative changes of the anterior atlantoaxial articulation. Normal odontoid process. There is straightening of the normal cervical lordosis. Normal vertebral bodies and posterior osseous elements. C2-3: Normal endplates. Normal disc height and morphology. Normal central canal and intervertebral neuroforamina. C3-4: Normal endplates. Normal disc height and morphology. Normal central canal and intervertebral neuroforamina. C4-5: Normal endplates. Normal disc height and morphology. Normal central canal and intervertebral neuroforamina. C5-6: Normal endplates. Normal disc height and morphology. Normal central canal and intervertebral neuroforamina. C6-7: Moderate degree of disc space narrowing and spondylolisthesis. Facet joint osteoarthritis. Mild degree of bilateral neural foraminal stenosis worse on the left side. C7-T1: Normal endplates. Normal disc height and morphology. Normal central canal and intervertebral neuroforamina. Normal visualized soft tissue structures. CT/Spine Cervical without Contras IMPRESSION: Multilevel degenerative changes, as described above. Electronically Signed: Dinesh Nevarez MD at 11:54 EDT ,
--- NOTE | 2021-12-30 10:01 | CT_ITS ---
STUDY: CT LUMBAR SPINE WITHOUT CONTRAST REASON FOR EXAM: Female, 71 years old. History of fall. Low back pain. RADIATION DOSAGE (If Supplied By Facility): CTDIvol = ( 42.89 ) mGy, DLP = ( 1310.75 ) mGycm TECHNIQUE: The patient was scanned in a multi detector CT scanner. High resolution transaxial imaging was performed. Images were obtained from T12 to S1 level. Sagittal and coronal images were reconstructed. Individualized dose optimization techniques were used for this CT. COMPARISON: None FINDINGS: Normal lumbar lordosis. There is a dextroscoliosis of the lumbar spine. Multilevel spondylosis. L1-2: Marked degree of disc space narrowing and disc degeneration with spondylosis. No significant spinal stenosis is seen. L2-3: Marked degree of disc space narrowing and disc degeneration with anterior spondylosis. L3-4: Mild degree of disc space narrowing. Facet joint osteoarthritis. L4-5: Facet joint osteoarthritis and hypertrophy. L5-S1: Marked degree of disc space narrowing and disc generation. Normal visualized paraspinous soft tissue structures. CT/Spine Lumbar without Contrast IMPRESSION: Multilevel degenerative changes, as described above. Electronically Signed: Dinesh Nevarez MD at 11:51 EDT ,
--- NOTE | 2021-12-30 10:01 | RAD_ITS ---
STUDY: X-RAY - PELVIS REASON FOR EXAM: Female, 71 years old. Trauma TECHNIQUE: One view of the pelvis was obtained. COMPARISON: None. FINDINGS: There is a non-specific bowel gas pattern. Normal visualized soft tissue structures. Normal bilateral iliac wings, sacroiliac joints and visualized sacrum. Normal visualized bilateral superior and inferior pubic rami. There is narrowing with sclerosis of the pubic symphysis. Normal ischial tuberosities. Normal visualized right femoral head. Normal right acetabulum. There is mild articular joint space narrowing of the right hip. Normal visualized left femoral head. Normal left acetabulum. There is mild articular joint space narrowing of the left hip. RAD/Pelvis 1 or 2 Views IMPRESSION: Degenerative changes. No fracture is seen. Electronically Signed: Dinesh Nevarez MD at 11:56 EDT ,
--- NOTE | 2021-12-30 10:01 | CT_ITS ---
STUDY: CT BRAIN WITHOUT CONTRAST REASON FOR EXAM: Female, 71 years old. Trauma. RADIATION DOSAGE (If Supplied By Facility): CTDIvol = ( 44.99 ) mGy, DLP = ( 1310.75 ) mGycm TECHNIQUE: Transaxial CT imaging of the brain was performed without administration of intravenous contrast material. Individualized dose optimization techniques were used for this CT. COMPARISON: Comparison is made with prior study 10/29/2010. FINDINGS: Normal soft tissue structures. Normal calvarium. There is mild cerebral atrophy with widening of the extra-axial spaces and ventricular dilatation. Hydrocephalus. Normal basal ganglia and thalami. Normal brainstem. There is a 4.4 cm x 5.1 cm cystic mass in the left side of the cerebellum extending into the right side. 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 There is no intracranial hemorrhage. There are no findings of an acute ischemic infarction. Atherosclerotic calcification of the cavernous portions of the internal carotid arteries bilaterally. Normal visualized paranasal sinuses. CT/Brain/Head without Contrast IMPRESSION: Hydrocephalus. 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 Electronically Signed: Dinesh Nevarez MD at 11:28 EDT ,
--- NOTE | 2021-12-30 10:02 | EKG12_ITS ---
Test Reason : FALL Blood Pressure : / mmHG Vent. Rate : 092 BPM Atrial Rate : 092 BPM P-R Int : 148 ms QRS Dur : 090 ms QT Int : 368 ms P-R-T Axes : 051 -18 -04 degrees QTc Int : 455 ms Sinus rhythm with frequent Premature ventricular complexes Voltage criteria for left ventricular hypertrophy Nonspecific ST abnormality Abnormal ECG Confirmed by HERNANDO TRACEY, YARA ([id number]), assignment editor KUSHAL GRACIA ([id number]) on 12/31/2021 1:36:03 PM Referred By: LISSA Confirmed By:YARA VILLAGOMEZ MD
--- NOTE | 2021-12-30 10:07 | EX.ED.GENINJ ---
HPI History of Present Illness Chief Complaint: Fall Informant: patient Narrative Narrative: Patient evidently lives in assisted living. She states she was going to breakfast and she just got weak and fell. She is states she landed on her buttock and back. She evidently did hit her lip. There was no loss of consciousness. She has pain in her right femur and lower back area. When specifically asked she does have some soreness of her neck. She denies dyspnea yet her sats dropped to the 80s off of oxygen and she is not on oxygen and has no history of significant lung disease and is a non-smoker. But she does admit to bringing up phlegm for the last 4 days and coughing more. No chest pain. She has not noted any fevers. She does not know if she has been exposed to any illness. [facility] Medical History Constipation Gastric reflux Hypertension Non-smoker Rash Shortness of breath on exertion Wears glasses Home Medications esomeprazole magnesium [Nexium] 20 mg PO DAILY 05/15/20 [History Last Taken 12/30/21] ketoconazole 1 applic TOPICAL PRN PRN 05/29/21 [History Last Taken Unknown] polyethylene glycol 3350 [Miralax] 17 g PO DAILY PRN 05/29/21 [History Last Taken Unknown] lisinopril 10 mg PO DAILY 12/30/21 [History Last Taken 12/30/21] sennosides-docusate sodium [Stool Softener-Stimulant Laxat] 2 tab PO BID PRN 12/30/21 [History Last Taken Unknown] Allergy/AdvReac Type Severity Reaction Status Date / Time No Known Allergies Allergy Verified 12/30/21 09:54 Surgical History History of toe surgery History of total right knee replacement Hx of tracheostomy Social History household members: none Smoking Status: Never smoker alcohol intake: never substance use type: does not use ROS ROS ED Constitutional Constitutional ED: Denies chills or fever(s) Eyes Eyes: Denies change in vision ENT ENT ED: Reports other Details: She did hit her lower lip. No facial pain or headache though. ; Denies rhinorrhea Cardiovascular Cardiovascular: Denies chest pain or palpitations Respiratory/Chest Respiratory/Chest: Reports cough and sputum; Denies dyspnea or dyspnea on exertion Gastrointestinal Gastrointestinal: Denies abdominal pain, nausea or vomiting Genitourinary Genitourinary ED: Denies dysuria Musculoskeletal Musculoskeletal: Reports other Details: Pain is in mostly the mid right femur area. ; Denies myalgias Integumentary Denies rash Neurologic Neurologic: Denies headache(s), paresthesias or weakness Endocrine Endocrinology: Denies polydipsia or polyuria Hematologic/Lymphatic Hematologic/Lymphatic: Denies easy bleeding or easy bruising Allergic/Immunologic Allergic/Immunologic ED: Denies urticaria EXAM Physical Exam Const Vital Signs: 12/30/21 09:50 12/30/21 10:39 12/30/21 10:43 Temperature 98 F 98.0 F Temperature Source Temporal Temporal Pulse Rate 66 79 84 Respiratory Rate 20 H 18 20 H Respiratory Effort Short of Breath Labored Respiratory Depth Normal Respiratory Pattern Normal Blood Pressure 138/88 H 110/83 H 110/83 H Blood Pressure Mean 104 92 92 Blood Pressure Source Blood Pressure Position Blood Pressure Location Pulse Ox 91 94 93 Oxygen Delivery Method Nasal Cannula Nasal Cannula Nasal Cannula Oxygen Flow Rate (L/min) 6 4 4 12/30/21 11:00 12/30/21 12:00 12/30/21 13:00 Temperature 98.7 F 98.4 F 97.6 F L Temperature Source Temporal Temporal Temporal Pulse Rate 92 96 79 Respiratory Rate 18 16 20 H Respiratory Effort Respiratory Depth Respiratory Pattern Blood Pressure 142/68 H 138/78 H 138/79 H Blood Pressure Mean 92 98 98 Blood Pressure Source Blood Pressure Position Blood Pressure Location Pulse Ox 98 98 97 Oxygen Delivery Method Nasal Cannula Nasal Cannula Nasal Cannula Oxygen Flow Rate (L/min) 4 4 4 12/30/21 13:42 12/30/21 14:00 12/30/21 14:30 Temperature 98.8 F 98.4 F 98.3 F Temperature Source Temporal Temporal Oral Pulse Rate 90 76 76 Respiratory Rate 20 H 14 20 H Respiratory Effort Respiratory Depth Respiratory Pattern Blood Pressure 134/67 H 138/68 H 150/97 H Blood Pressure Mean 89 91 114 Blood Pressure Source Monitor Blood Pressure Position Semi-Fowlers Blood Pressure Location Right Arm Pulse Ox 96 98 93 Oxygen Delivery Method Nasal Cannula Room Air Nasal Cannula Oxygen Flow Rate (L/min) 4 4 12/30/21 15:43 Temperature Temperature Source Pulse Rate Respiratory Rate Respiratory Effort Normal Respiratory Depth Respiratory Pattern Blood Pressure Blood Pressure Mean Blood Pressure Source Blood Pressure Position Blood Pressure Location Pulse Ox 97 Oxygen Delivery Method Nasal Cannula Oxygen Flow Rate (L/min) 4 Positive well nourished and well developed General Appearance ED: well developed HEENT HEENT Narrative: Patient does have swelling of the outer portion of the left lower lip. There is an abrasion small break in the skin internally but none externally. No active bleeding. Teeth are nontender. Jaw is nontender. I see no other contusion or injury on the head or scalp. Eyes EOMs intact bilaterally General Eye ED: Yes other Other Details: Pupils are about 2 and half to 3 mm normal and reactive Neck General: Negative for tenderness Chest Wall inspection of chest normal Resp normal respiratory effort Resp Narrative: I turned off her oxygen when I walked in the room. She dropped about 84% on room air. I turned it back up to 4 L had her take deep breath and is back up to 90-91. But she does not feel short of breath with this. But I got a very good waveform. Auscultation: rhonchi; Negative for wheezes or diminished lung sounds Cardio regular rhythm Rate: regular rate GI normal to inspection, nondistended, normoactive bowel sounds, non-tender and non-distended Palpation: soft Back/Spine Back/Spine Narrative: She has some mild nonfocal tenderness low in the lumbar area. There is a slight amount of tenderness in the right mid femoral area but no deformity. No pain with palpation of the right hip itself. Knee does not seem notably tender although some the pain refers down there. EXTR upper extremity showed no pain with palpation or motion. Left lower extremity is normal. Extremity normal to inspection Neuro Sensorium / Orientation: alert Psych mental status grossly normal Skin Skin Narrative: Lip abrasion/shallow laceration as above. No need to suture. MDM MDM MDM Narrative Medical decision making narrative: (Dragon out) Patient does have elevated white count. Electrolytes show no marked abnormalities does have elevated white count. Electrolytes show no marked abnormalities but there is some mild dehydration. Lactate is normal. Troponin is negative. Pt admittted. Lab Data Attestation: I reviewed the patient's lab results. Labs: Laboratory Results - last 24 hr 12/30/21 12/30/21 12/30/21 10:35 10:35 10:35 WBC 15.3 H RBC 4.90 Hgb 13.7 Hct 43.2 MCV 88.2 MCH 28.0 MCHC 31.7 L RDW Std Deviation 45.8 H RDW Coeff of Marcus 14.1 Plt Count 250 MPV 8.1 Immature Gran % (Auto) 0.700 Neut % (Auto) 88.1 H Lymph % (Auto) 6.6 L Ada % (Auto) 4.4 Eos % (Auto) 0.0 Baso % (Auto) 0.2 Absolute Neuts (auto) 13.5 H Absolute Lymphs (auto) 1.01 Nucleated RBC % 0 Sodium 141 Potassium 3.7 Chloride 109 H Carbon Dioxide 28.0 Anion Gap 4 L BUN 27 H Creatinine 0.87 Estim Creat Clear Calc 59.83 Est GFR (MDRD) Af Amer 83 Est GFR (MDRD) Non-Af 68 BUN/Creatinine Ratio 31.1 H Glucose 111 H Lactic Acid 1.1 Calcium 9.1 Troponin I High Sens 44 COVID-19 (NERY) 12/30/21 13:40 WBC RBC Hgb Hct MCV MCH MCHC RDW Std Deviation RDW Coeff of Marcus Plt Count MPV Immature Gran % (Auto) Neut % (Auto) Lymph % (Auto) Ada % (Auto) Eos % (Auto) Baso % (Auto) Absolute Neuts (auto) Absolute Lymphs (auto) Nucleated RBC % Sodium Potassium Chloride Carbon Dioxide Anion Gap BUN Creatinine Estim Creat Clear Calc Est GFR (MDRD) Af Amer Est GFR (MDRD) Non-Af BUN/Creatinine Ratio Glucose Lactic Acid Calcium Troponin I High Sens COVID-19 (NERY) Not Detected Radiography Diagnostic Testing: Clinical Impression(s) from Imaging Studies Brain CT 12/30/21 10:01 IMPRESSION: Hydrocephalus. 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 Electronically Signed: Dinesh Nevarez MD at 11:28 EDT , Cervical Spine CT 12/30/21 10:01 IMPRESSION: Multilevel degenerative changes, as described above. Electronically Signed: Dinesh Nevarez MD at 11:54 EDT , Femur X-Ray 12/30/21 10:01 IMPRESSION: Status post total knee replacement. No acute abnormality is seen. Electronically Signed: Dinesh Nevarez MD at 11:56 EDT Reading Location ID and State: [facility] / [place] , Service support , Lumbar Spine CT 12/30/21 10:01 IMPRESSION: Multilevel degenerative changes, as described above. Electronically Signed: Dinesh Nevarez MD at 11:51 EDT Reading Location ID and State: [facility] / [place] , Service support , Pelvis X-Ray 12/30/21 10:01 IMPRESSION: Degenerative changes. No fracture is seen. Electronically Signed: Dinesh Nevarez MD at 11:56 EDT , Chest X-Ray 12/30/21 11:20 IMPRESSION: Bilateral pulmonary infiltrates worse in the right upper lobe. Electronically Signed: Dinesh Nevarez MD at 11:55 EDT Reading Location ID and State: [facility] / [place] , Service support , Chest CTA 12/30/21 13:28 IMPRESSION: Pulmonary infiltrates in both upper lobes worse in the right upper lobe. Increased markings at the lung bases suggestive of atelectasis. No evidence of pulmonary embolus. Moderate sized hiatal hernia. Electronically Signed: Dinesh Nevarez MD at 14:07 EDT Reading Location ID and State: [facility] / [place] , Service support , Discharge Plan Triage Chief Complaint: Fall ED Provider: Oscar Hargrove Dx/Rx/DC Orders Clinical Impression: Pneumonia, Respiratory failure with hypoxia, Fall at intermediate Primary Care Provider: Anika Reyes Disposition Disposition: Acute Care Hospital [facility] Discharge Date/Time: 12/30/21 14:05
[2021-12-30 10:47] LABS: Absolute Lymphocyte Count 1.01 X10^3/uL (0.83-4.51); Absolute Neutrophil Count 13.5 X10^3/uL (2.0-7.7); Basophil# 0.03 X10^3/uL; Basophil% 0.2 % (0-1); Hematocrit 43.2 % (37-47); Hemoglobin 13.7 g/dL (12.0-15.0); Lymphocyte # 1.01 X10^3/ul (0.83-4.51); Lymphocyte % 6.6 % (19-41); Mean Corp Hgb Conc 31.7 g/dL (32-36); Mean Corpuscular Volume 88.2 fL (81-99); Mean Platelet Vol. 8.1 fl (6.2-12.0); Monocyte# 0.67 X10^3/uL; Monocyte% 4.4 % (0-10); NRBC Flagged by Analyzer 0 % (0-5); Neutrophil # 13.46 X10^3/uL (2.7-7.7); Neutrophil % 88.1 % (47-70); Platelet Count 250 K/mm3 (150-450); RBC Distribution Width CV 14.1 % (11.6-14.6); RBC Distribution Width SD 45.8 fl (35.1-43.9); White Blood Count 15.3 K/mm3 (4.4-11.0)
[2021-12-30 11:05] LABS: Anion Gap 4 (5-15); BUN 27 mg/dL (7-18); BUN/Creat Ratio 31.1 RATIO (10-20); Calcium,Total 9.1 mg/dL (8.5-10.1); Chloride 109 mmol/L (98-107); Creatinine, Serum 0.87 mg/dL (0.55-1.02); EST Glomerular Filtration Rate 68 mL/min (>60); Est Glom Filt Rate - Afr Amer 83 mL/min (>60); Estimated Creatinine Clearance 59.83 ml/min; Glucose 111 mg/dL (74-106); Potassium 3.7 mmol/L (3.5-5.1); Sodium Level 141 mmol/L (136-145); Troponin-I HS 44 pg/mL (3.0-54.0)
[2021-12-30 11:15] LABS: Lactic Acid 1.1 mmol/L (0.4-1.9)
--- NOTE | 2021-12-30 11:20 | RAD_ITS ---
STUDY: X-RAY CHEST REASON FOR EXAM: Female, 71 years old. Sob, hypoxia TECHNIQUE: Single AP portable view of the chest. COMPARISON: Comparison is made with prior study dated 05/16/2020. FINDINGS: EKG electrodes are seen. Infiltrates in both upper lobes more prominent on the right side. Increased markings at the lung bases. Blunting of the left collecting ankle. Normal size heart. Normal mediastinum and samara. Normal visualized pulmonary arteries. Normal visualized aortic arch and descending thoracic aorta. There are diffuse degenerative changes of the visualized thoracic spine. Normal visualized ribs, clavicles, and shoulders. Hiatal hernia. RAD/Chest 1 View (Portable) IMPRESSION: Bilateral pulmonary infiltrates worse in the right upper lobe. Electronically Signed: Dinesh Nevarez MD at 11:55 EDT ,
--- NOTE | 2021-12-30 13:28 | CT_ITS ---
STUDY: CTA CHEST REASON FOR EXAM: Female, 71 years old. Back pain following a fall. RADIATION DOSAGE (If Supplied By Facility): CTDIvol = ( 11.18 ) mGy, DLP = ( 413.45 ) mGycm TECHNIQUE: The examination was performed with the intravenous administration of IV 75mL Isovue-370. Post-processing of the angiographic images was performed, with multiplanar reformation and 3D reconstruction. Individualized dose optimization techniques were used for this CT. COMPARISON: None. FINDINGS: Normal enhancement of the main pulmonary artery and right and left pulmonary arteries. Normal enhancement of the bilateral peripheral pulmonary arteries. There is no demonstrated pulmonary embolism. Normal thoracic aorta and visualized great vessels. There is no demonstrated aortic dissection. There are calcifications of the coronary arteries. Normal mediastinum. Normal hilar regions. Normal visualized trachea and bronchi. The lungs are well expanded. Patchy infiltrates in both upper lobes. This is worse in the posterior aspect of the right temporal abutting the right minor fissure. Mild degree of increased markings in the lower. Normal pleura. Normal chest wall structures. There are degenerative changes of thoracic spine. Dextroscoliosis. Moderate sized hiatal hernia. CT/CTA Chest W/WO Contrast IMPRESSION: Pulmonary infiltrates in both upper lobes worse in the right upper lobe. Increased markings at the lung bases suggestive of atelectasis. No evidence of pulmonary embolus. Moderate sized hiatal hernia. Electronically Signed: Dinesh Nevarez MD at 14:07 EDT ,
--- NOTE | 2021-12-30 13:39 | NURSING ---
MED SURG KOSAVANAS HYPOXIA
--- NOTE | 2021-12-30 17:25 | HP.PCM.HOS_ITS ---
HPI - General General Date of Admission: 12/30/21 HPI Narrative TEVIN MILLAN, is a 71 F who presents from the SNF with a productive cough for several days and a fall on her way to breakfast. She describes the fall as weakness, and that her legs just gave out. when ems arrived she was hypoxic to the 80's and responded to several liters of O2. She was found to have bilateral infiltrates on CTA of the chest, without PE. She had covid in 04/2020 but was negative on the ag and PCR test today. She received a dose of abx in the ed today. [facility] Medical History Constipation Gastric reflux Hypertension Non-smoker Rash Shortness of breath on exertion Wears glasses Home Medications esomeprazole magnesium [Nexium] 20 mg PO DAILY 05/15/20 [History Last Taken 12/30/21] ketoconazole 1 applic TOPICAL PRN PRN 05/29/21 [History Last Taken Unknown] polyethylene glycol 3350 [Miralax] 17 g PO DAILY PRN 05/29/21 [History Last Taken Unknown] lisinopril 10 mg PO DAILY 12/30/21 [History Last Taken 12/30/21] sennosides-docusate sodium [Stool Softener-Stimulant Laxat] 2 tab PO BID PRN 12/30/21 [History Last Taken Unknown] Allergy/AdvReac Type Severity Reaction Status Date / Time No Known Allergies Allergy Verified 12/30/21 09:54 Family History (Updated 12/30/21 @ 17:[address] Harjit Garcia MD) Other Hypertension Surgical History History of toe surgery History of total right knee replacement Hx of tracheostomy Social History household members: none Smoking Status: Never smoker alcohol intake: never substance use type: does not use ROS Constitutional Constitutional: Reports weakness; Denies chills, fatigue, fever(s) or malaise Eyes Eyes: Denies blurry vision ENT HEENT: Denies headache(s) or nasal discharge Cardiovascular Cardiovascular: Denies chest pain, dyspnea on exertion or syncope Respiratory/Chest Respiratory/Chest: Reports productive cough; Denies shortness of breath at rest or shortness of breath with exertion Gastrointestinal Gastrointestinal: Denies constipation, diarrhea, nausea or vomiting Genitourinary Genitourinary: Denies dysuria Neurologic Neurologic: Denies focal weakness, numbness or tremor(s) Psychiatric Psychiatric: Denies anxiety or depression Vital Signs Vital Signs Vital Signs: 12/30/21 09:50 12/30/21 10:39 12/30/21 10:43 Temperature 98 F 98.0 F Temperature Source Temporal Temporal Pulse Rate 66 79 84 Respiratory Rate 20 H 18 20 H Respiratory Effort Short of Breath Labored Respiratory Depth Normal Respiratory Pattern Normal Blood Pressure 138/88 H 110/83 H 110/83 H Blood Pressure Mean 104 92 92 Blood Pressure Source Blood Pressure Position Blood Pressure Location Pulse Ox 91 94 93 Oxygen Delivery Method Nasal Cannula Nasal Cannula Nasal Cannula Oxygen Flow Rate (L/min) 6 4 4 12/30/21 11:00 12/30/21 12:00 12/30/21 13:00 Temperature 98.7 F 98.4 F 97.6 F L Temperature Source Temporal Temporal Temporal Pulse Rate 92 96 79 Respiratory Rate 18 16 20 H Respiratory Effort Respiratory Depth Respiratory Pattern Blood Pressure 142/68 H 138/78 H 138/79 H Blood Pressure Mean 92 98 98 Blood Pressure Source Blood Pressure Position Blood Pressure Location Pulse Ox 98 98 97 Oxygen Delivery Method Nasal Cannula Nasal Cannula Nasal Cannula Oxygen Flow Rate (L/min) 4 4 4 12/30/21 13:42 12/30/21 14:00 12/30/21 14:30 Temperature 98.8 F 98.4 F 98.3 F Temperature Source Temporal Temporal Oral Pulse Rate 90 76 76 Respiratory Rate 20 H 14 20 H Respiratory Effort Respiratory Depth Respiratory Pattern Blood Pressure 134/67 H 138/68 H 150/97 H Blood Pressure Mean 89 91 114 Blood Pressure Source Monitor Blood Pressure Position Semi-Fowlers Blood Pressure Location Right Arm Pulse Ox 96 98 93 Oxygen Delivery Method Nasal Cannula Room Air Nasal Cannula Oxygen Flow Rate (L/min) 4 4 12/30/21 15:43 Temperature Temperature Source Pulse Rate Respiratory Rate Respiratory Effort Normal Respiratory Depth Respiratory Pattern Blood Pressure Blood Pressure Mean Blood Pressure Source Blood Pressure Position Blood Pressure Location Pulse Ox 97 Oxygen Delivery Method Nasal Cannula Oxygen Flow Rate (L/min) 4 Weight Weight: 200 lb 6.403 oz Body Mass Index (BMI) 30.4 Physical Exam Const alert, oriented x3 and no apparent distress General Appearance: cooperative HEENT normocephalic and moist oral mucous membranes Eyes PERRL, EOMs intact bilaterally and conjunctivae normal Neck supple and no JVD Resp normal respiratory effort, no retractions and no use of accessory muscles Auscultation: rhonchi and diminished lung sounds; Negative for crackles, rales or wheezes Cardio regular rate, regular rhythm, S1 normal heart sound, S2 normal heart sound and no murmurs GI soft to palpation, non-tender and non-distended; Negative for hepatosplenomegaly Extremity no clubbing, cyanosis or edema Skin Skin Narrative: Lip laceration Neuro no focal motor deficits and no sensory deficits noted Psych affect normal Appearance: appropriate Results Lab / Micro Data Result Diagrams: 12/31/21 05:54 12/31/21 05:54 Labs: Laboratory Results - last 24 hr 12/30/21 10:35: WBC 15.3 H, RBC 4.90, Hgb 13.7, Hct 43.2, MCV 88.2, MCH 28.0, MCHC 31.7 L, RDW Std Deviation 45.8 H, RDW Coeff of Marcus 14.1, Plt Count 250, MPV 8.1, Immature Gran % (Auto) 0.700, Neut % (Auto) 88.1 H, Lymph % (Auto) 6.6 L, Ingham % (Auto) 4.4, Eos % (Auto) 0.0, Baso % (Auto) 0.2, Absolute Neuts (auto) 13.5 H, Absolute Lymphs (auto) 1.01, Nucleated RBC % 0 12/30/21 10:35: Sodium 141, Potassium 3.7, Chloride 109 H, Carbon Dioxide 28.0, Anion Gap 4 L, BUN 27 H, Creatinine 0.87, Estim Creat Clear Calc 59.83, Est GFR (MDRD) Af Amer 83, Est GFR (MDRD) Non-Af 68, BUN/Creatinine Ratio 31.1 H, Glucose 111 H, Calcium 9.1, Troponin I High Sens 44 12/30/21 10:35: Lactic Acid 1.1 12/30/21 13:40: COVID-19 (NERY) Not Detected Micro: Microbiology 12/30/21 12:11 Nasal Secretion SARS-CoV-2 & FLU Antigen (Rapid) - Final Radiology Impression Brain CT 12/30/21 10:01 IMPRESSION: Hydrocephalus. 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 Electronically Signed: Dinesh Nevarez MD at 11:28 EDT , Cervical Spine CT 12/30/21 10:01 IMPRESSION: Multilevel degenerative changes, as described above. Electronically Signed: Dinesh Nevarez MD at 11:54 EDT , Femur X-Ray 12/30/21 10:01 IMPRESSION: Status post total knee replacement. No acute abnormality is seen. Electronically Signed: Dinesh Nevarez MD at 11:56 EDT , Lumbar Spine CT 12/30/21 10:01 IMPRESSION: Multilevel degenerative changes, as described above. Electronically Signed: Dinesh Nevarez MD at 11:51 EDT , Pelvis X-Ray 12/30/21 10:01 IMPRESSION: Degenerative changes. No fracture is seen. Electronically Signed: Dinesh Nevarez MD at 11:56 EDT , Chest X-Ray 12/30/21 11:20 IMPRESSION: Bilateral pulmonary infiltrates worse in the right upper lobe. Electronically Signed: Dinesh Nevarez MD at 11:55 EDT , Chest CTA 12/30/21 13:28 IMPRESSION: Pulmonary infiltrates in both upper lobes worse in the right upper lobe. Increased markings at the lung bases suggestive of atelectasis. No evidence of pulmonary embolus. Moderate sized hiatal hernia. Electronically Signed: Dinesh Nevarez MD at 14:07 EDT , Assessment & Plan Assessment/Plan (1) Respiratory failure with hypoxia: (2) Pneumonia: PLAN: 1. Acute hypoxic resp failure from bilateral pneumonia/Fall - COVID and flu negative - c/w rocephin and azithro - Maintain o2 on 4 liters, was hypoxic to the 80's by EMS - WBC at 15 - cw PT/OT - Sputum cx pending 2. HTN - Stable - Cw lisinopril and monitor renal function and blood pressure 3. GERD - Stable - c/w PPI DVT: Lovenox Charges/Coding Visit Charges Inpatient E&M: 14936 Init Hosp L3
[2021-12-30] MEDS: Ceftriaxone 1 GM/50 ML BAG IV (17:33)
[2021-12-30] MEDS: Polyethylene Glycol 3350 17 GM PACKET PO (17:35)
[2021-12-30] MEDS: Acetaminophen 325 MG Tablet 650 MG PO (17:35)
[2021-12-30] MEDS: 0.9% Saline Lock 10 ML Syringe IV (17:35)
[2021-12-31 02:30] VITALS: BP 129/72; PULSE 74; RESP 16; TEMP 37.2; O2SAT 98
[2021-12-31 06:34] LABS: Absolute Lymphocyte Count 1.55 X10^3/uL (0.83-4.51); Absolute Neutrophil Count 9.1 X10^3/uL (2.0-7.7); Basophil# 0.02 X10^3/uL; Basophil% 0.2 % (0-1); Eosinophil# 0.11 X10^3/uL; Hematocrit 36.6 % (37-47); Hemoglobin 11.7 g/dL (12.0-15.0); Lymphocyte # 1.55 X10^3/ul (0.83-4.51); Lymphocyte % 13.5 % (19-41); Mean Corpuscular Hgb 28.2 pg (27.0-32.0); Mean Corpuscular Volume 88.2 fL (81-99); Mean Platelet Vol. 8.7 fl (6.2-12.0); Monocyte# 0.72 X10^3/uL; Monocyte% 6.3 % (0-10); NRBC Flagged by Analyzer 0 % (0-5); Neutrophil # 9.05 X10^3/uL (2.7-7.7); Neutrophil % 78.7 % (47-70); Platelet Count 212 K/mm3 (150-450); RBC Distribution Width CV 14.6 % (11.6-14.6); RBC Distribution Width SD 46.9 fl (35.1-43.9); Red Blood Count 4.15 M/mm3 (4.2-5.4); White Blood Count 11.5 K/mm3 (4.4-11.0)
[2021-12-31 06:55] LABS: Anion Gap 6 (5-15); BUN 21 mg/dL (7-18); BUN/Creat Ratio 30.1 RATIO (10-20); Calcium,Total 8.5 mg/dL (8.5-10.1); Chloride 110 mmol/L (98-107); EST Glomerular Filtration Rate 88 mL/min (>60); Est Glom Filt Rate - Afr Amer 106 mL/min (>60); Estimated Creatinine Clearance 52.05 ml/min; Glucose 98 mg/dL (74-106); Potassium 3.4 mmol/L (3.5-5.1); Sodium Level 142 mmol/L (136-145)
[2021-12-31 07:29] VITALS: O2SAT 96
[2021-12-31 09:03] VITALS: BP 133/89; PULSE 81; RESP 18; TEMP 37.1; O2SAT 96
[2021-12-31] MEDS: Enoxaparin 40 MG/0.4 ML Syringe SC (09:24)
[2021-12-31] MEDS: Lisinopril 10 MG Tablet PO (09:24)
[2021-12-31] MEDS: Pantoprazole Sodium 20 MG Tablet PO (09:24)
[2021-12-31] MEDS: Ceftriaxone 1 GM/50 ML BAG IV (09:27)
[2021-12-31] MEDS: 0.9% Saline Lock 10 ML Syringe IV (09:31)
--- NOTE | 2021-12-31 10:06 | PCM.PN.HOSP ---
Subjective Subjective Feels better today, she is still coughing but is not as productive Objective Data Objective Data Vital Signs: Vital Signs Temp Pulse Resp BP Pulse Ox 98.8 F 81 18 133/89 H 96 12/31/21 09:03 12/31/21 09:03 12/31/21 09:03 12/31/21 09:03 12/31/21 09:03 Oxygen Flow Rate (L/min) 4 Oxygen Delivery Method Nasal Cannula Weight: 200 lb 6.403 oz Body Mass Index (BMI) 30.4 Intake & Output: Intake and Output for Last 24 Hours 12/30/21 12/31/21 01/01/22 03:59 03:59 03:59 Intake Total 361.00 / 361.00 Output Total 450 / 450 200 / 200 Balance -89.00 / -89.00 -200 / -200 Lab / Micro Data Result Diagrams: 12/31/21 05:54 12/31/21 05:54 Labs: Laboratory Results - last 24 hr 12/30/21 10:35: WBC 15.3 H, RBC 4.90, Hgb 13.7, Hct 43.2, MCV 88.2, MCH 28.0, MCHC 31.7 L, RDW Std Deviation 45.8 H, RDW Coeff of Marcus 14.1, Plt Count 250, MPV 8.1, Immature Gran % (Auto) 0.700, Neut % (Auto) 88.1 H, Lymph % (Auto) 6.6 L, [place] % (Auto) 4.4, Eos % (Auto) 0.0, Baso % (Auto) 0.2, Absolute Neuts (auto) 13.5 H, Absolute Lymphs (auto) 1.01, Nucleated RBC % 0 12/30/21 10:35: Sodium 141, Potassium 3.7, Chloride 109 H, Carbon Dioxide 28.0, Anion Gap 4 L, BUN 27 H, Creatinine 0.87, Estim Creat Clear Calc 59.83, Est GFR (MDRD) Af Amer 83, Est GFR (MDRD) Non-Af 68, BUN/Creatinine Ratio 31.1 H, Glucose 111 H, Calcium 9.1, Troponin I High Sens 44 12/30/21 10:35: Lactic Acid 1.1 12/30/21 13:40: COVID-19 (NERY) Not Detected 12/31/21 05:54: WBC 11.5 H, RBC 4.15 L, Hgb 11.7 L, Hct 36.6 L, MCV 88.2, MCH 28.2, MCHC 32.0, RDW Std Deviation 46.9 H, RDW Coeff of Marcus 14.6, Plt Count 212, MPV 8.7, Immature Gran % (Auto) 0.300, Neut % (Auto) 78.7 H, Lymph % (Auto) 13.5 L, [place] % (Auto) 6.3, Eos % (Auto) 1.0, Baso % (Auto) 0.2, Absolute Neuts (auto) 9.1 H, Absolute Lymphs (auto) 1.55, Nucleated RBC % 0 12/31/21 05:54: Sodium 142, Potassium 3.4 L, Chloride 110 H, Carbon Dioxide 26.0, Anion Gap 6, BUN 21 H, Creatinine 0.70, Estim Creat Clear Calc 52.05, Est GFR (MDRD) Af Amer 106, Est GFR (MDRD) Non-Af 88, BUN/Creatinine Ratio 30.1 H, Glucose 98, Calcium 8.5 Micro: Microbiology 12/30/21 12:11 Nasal Secretion SARS-CoV-2 & FLU Antigen (Rapid) - Final Radiography Diagnostic Testing: Radiology Impression Brain CT 12/30/21 10:01 IMPRESSION: Hydrocephalus. 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 Electronically Signed: Dinesh Nevarez MD at 11:28 EDT , Cervical Spine CT 12/30/21 10:01 IMPRESSION: Multilevel degenerative changes, as described above. Electronically Signed: Dinesh Nevarez MD at 11:54 EDT , Femur X-Ray 12/30/21 10:01 IMPRESSION: Status post total knee replacement. No acute abnormality is seen. Electronically Signed: Dinesh Nevarez MD at 11:56 EDT , Lumbar Spine CT 12/30/21 10:01 IMPRESSION: Multilevel degenerative changes, as described above. Electronically Signed: Dinesh Nevarez MD at 11:51 EDT , Pelvis X-Ray 12/30/21 10:01 IMPRESSION: Degenerative changes. No fracture is seen. Electronically Signed: Dinesh Nevarez MD at 11:56 EDT , Chest X-Ray 12/30/21 11:20 IMPRESSION: Bilateral pulmonary infiltrates worse in the right upper lobe. Electronically Signed: Dinesh Nevarez MD at 11:55 EDT , Chest CTA 12/30/21 13:28 IMPRESSION: Pulmonary infiltrates in both upper lobes worse in the right upper lobe. Increased markings at the lung bases suggestive of atelectasis. No evidence of pulmonary embolus. Moderate sized hiatal hernia. Electronically Signed: Dinesh Nevarez MD at 14:07 EDT , Physical Exam Const alert, oriented x3 and no apparent distress General Appearance: cooperative HEENT normocephalic and moist oral mucous membranes Eyes PERRL, EOMs intact bilaterally and conjunctivae normal Neck supple and no JVD Resp normal respiratory effort, no retractions and no use of accessory muscles Auscultation: rhonchi and diminished lung sounds; Negative for crackles, rales or wheezes Cardio regular rate, regular rhythm, S1 normal heart sound, S2 normal heart sound and no murmurs GI soft to palpation, non-tender and non-distended; Negative for hepatosplenomegaly Extremity no clubbing, cyanosis or edema Skin Skin Narrative: Lip laceration Neuro no focal motor deficits and no sensory deficits noted Psych affect normal Appearance: appropriate Assessment & Plan Assessment/Plan (1) Respiratory failure with hypoxia: (2) Pneumonia: PLAN: 1. Acute hypoxic resp failure from bilateral pneumonia/Fall - COVID PCR/antigen and flu negative - c/w rocephin and azithro - Maintain o2 on 4 liters, was hypoxic to the 80's by EMS ? Continue with incentive spirometry, and will likely need an ambulatory pulse ox prior to discharge - WBC at 15 - cw PT/OT - Sputum cx pending 2. HTN - Stable - Cw lisinopril and monitor renal function and blood pressure 3. GERD - Stable - c/w PPI DVT: Lovenox Charges/Coding Visit Charges Inpatient E&M: 43485 Subs Hosp L2
[2021-12-31] MEDS: Potassium Chloride Oral Tablet 20 MEQ 40 MEQ PO (10:36)
[2021-12-31 11:58] VITALS: O2SAT 84
--- NOTE | 2021-12-31 12:00 | CASEMGMT ---
Social Work Note TENA reviewed chart. Pt is listed as being from [facility]. SW in to speak with pt. Pt confirms that she came from [facility] and she would like to return. Pt states that she has been at [facility] for a couple months. Pt states that she is on the 5th floor and she has an elevator. Pt states she has no steps in the home and there is a curb outside. Pt states that she has a walker and rollator. Pt states that the staff helps her with bathing, cooking, cleaning, and taking the garbage out. Pt states that she does not normally wear Oxygen. SW informed pt that this worker will keep [facility] updated. Pt states understanding. Plan: Return to [facility] Renata Rueda DATAPOWER CONSULTANT, RETAIL SALES REPRESENTATIVE
[2021-12-31 15:00] VITALS: BP 128/64; PULSE 88; RESP 18; TEMP 36.7; O2SAT 96
--- NOTE | 2021-12-31 17:31 | CASEMGMT ---
Social Work Note Per previous notes, pt has CM Domonique Altamirano. SW placed a call to Domonique Altamirano and left message updating her on pt's admission to [facility]. SW faxed updated clinicals to [facility]. Renata Rueda GAS METER REPAIRER, TAXATION CONSULTANT
[2021-12-31 20:45] VITALS: BP 124/80; PULSE 76; RESP 16; TEMP 37.2; O2SAT 94
[2022-01-01 02:45] VITALS: BP 149/73; PULSE 78; RESP 16; TEMP 36.9; O2SAT 94
[2022-01-01 06:47] LABS: Absolute Lymphocyte Count 1.89 X10^3/uL (0.83-4.51); Absolute Neutrophil Count 6.2 X10^3/uL (2.0-7.7); Basophil# 0.03 X10^3/uL; Basophil% 0.3 % (0-1); Eosinophil# 0.16 X10^3/uL; Eosinophils% 1.8 % (0-5); Hematocrit 39.6 % (37-47); Hemoglobin 12.5 g/dL (12.0-15.0); Lymphocyte # 1.89 X10^3/ul (0.83-4.51); Lymphocyte % 21.1 % (19-41); Mean Corp Hgb Conc 31.6 g/dL (32-36); Mean Corpuscular Volume 88.6 fL (81-99); Mean Platelet Vol. 8.4 fl (6.2-12.0); Monocyte# 0.64 X10^3/uL; Monocyte% 7.2 % (0-10); NRBC Flagged by Analyzer 0 % (0-5); Neutrophil % 69.4 % (47-70); Platelet Count 236 K/mm3 (150-450); RBC Distribution Width CV 14.6 % (11.6-14.6); RBC Distribution Width SD 47.4 fl (35.1-43.9); Red Blood Count 4.47 M/mm3 (4.2-5.4); White Blood Count 8.9 K/mm3 (4.4-11.0)
[2022-01-01 07:07] LABS: Anion Gap 5 (5-15); BUN 22 mg/dL (7-18); BUN/Creat Ratio 30.6 RATIO (10-20); Calcium,Total 8.8 mg/dL (8.5-10.1); Chloride 112 mmol/L (98-107); Creatinine, Serum 0.72 mg/dL (0.55-1.02); EST Glomerular Filtration Rate 85 mL/min (>60); Est Glom Filt Rate - Afr Amer 103 mL/min (>60); Estimated Creatinine Clearance 52.05 ml/min; Glucose 105 mg/dL (74-106); Potassium 3.8 mmol/L (3.5-5.1); Sodium Level 142 mmol/L (136-145)
[2022-01-01 08:29] VITALS: BP 147/88; PULSE 78; RESP 16; TEMP 37.2; O2SAT 96
[2022-01-01] MEDS: Enoxaparin 40 MG/0.4 ML Syringe SC (08:36)
[2022-01-01] MEDS: Lisinopril 10 MG Tablet PO (08:36)
[2022-01-01] MEDS: Pantoprazole Sodium 20 MG Tablet PO (08:36)
[2022-01-01 08:59] VITALS: O2SAT 95
[2022-01-01] MEDS: Ceftriaxone 1 GM/50 ML BAG IV (09:49)
[2022-01-01] MEDS: 0.9% Saline Lock 10 ML Syringe IV (09:55)
--- NOTE | 2022-01-01 10:49 | PN.HOSP_ITS ---
Subjective Subjective Feeling better today, her oxygenation is improving, unfortunately she has been unable to provide a sputum sample at this time Objective Data Objective Data Vital Signs: Vital Signs Temp Pulse Resp BP Pulse Ox 98.9 F 78 16 147/88 H 95 01/01/22 08:29 01/01/22 08:29 01/01/22 08:29 01/01/22 08:29 01/01/22 08:59 Oxygen Flow Rate (L/min) 4 Oxygen Delivery Method Nasal Cannula Weight: 200 lb 6.403 oz Body Mass Index (BMI) 30.4 Intake & Output: Intake and Output for Last 24 Hours 12/31/21 01/01/22 01/02/22 03:59 03:59 03:59 Intake Total 361.00 / 361.00 705 / 705 50 / 50 Output Total 450 / 450 1350 / 1350 400 / 400 Balance -89.00 / -89.00 -645 / -645 -350 / -350 Lab / Micro Data Result Diagrams: 01/01/22 06:33 01/01/22 06:33 Labs: Laboratory Results - last 24 hr 01/01/22 06:33: WBC 8.9, RBC 4.47, Hgb 12.5, Hct 39.6, MCV 88.6, MCH 28.0, MCHC 31.6 L, RDW Std Deviation 47.4 H, RDW Coeff of Marcus 14.6, Plt Count 236, MPV 8.4, Immature Gran % (Auto) 0.200, Neut % (Auto) 69.4, Lymph % (Auto) 21.1, [place] % (Auto) 7.2, Eos % (Auto) 1.8, Baso % (Auto) 0.3, Absolute Neuts (auto) 6.2, Absolute Lymphs (auto) 1.89, Nucleated RBC % 0 01/01/22 06:33: Sodium 142, Potassium 3.8, Chloride 112 H, Carbon Dioxide 25.0, Anion Gap 5, BUN 22 H, Creatinine 0.72, Estim Creat Clear Calc 52.05, Est GFR (MDRD) Af Amer 103, Est GFR (MDRD) Non-Af 85, BUN/Creatinine Ratio 30.6 H, Gl ucose 105, Calcium 8.8 Micro: Microbiology 12/30/21 12:05 Blood Culture (Wb) - Right Hand Blood Culture - Preliminary No growth in 48 hours. 12/30/21 10:45 Blood Culture (Wb) - Left Hand Blood Culture - Preliminary No growth in 48 hours. 12/30/21 12:11 Nasal Secretion SARS-CoV-2 & FLU Antigen (Rapid) - Final Physical Exam Const alert, oriented x3 and no apparent distress General Appearance: cooperative HEENT normocephalic and moist oral mucous membranes Eyes PERRL, EOMs intact bilaterally and conjunctivae normal Neck supple and no JVD Resp normal respiratory effort, no retractions and no use of accessory muscles Auscultation: rhonchi and diminished lung sounds; Negative for crackles, rales or wheezes Cardio regular rate, regular rhythm, S1 normal heart sound, S2 normal heart sound and no murmurs GI soft to palpation, non-tender and non-distended; Negative for hepatosplenomegaly Extremity no clubbing, cyanosis or edema Skin Skin Narrative: Lip laceration Neuro no focal motor deficits and no sensory deficits noted Psych affect normal Appearance: appropriate Assessment & Plan Assessment/Plan (1) Respiratory failure with hypoxia: (2) Pneumonia: PLAN: 1. Acute hypoxic resp failure from bilateral pneumonia/Fall - COVID PCR/antigen and flu negative - c/w rocephin and azithro - Maintain o2 on 2 liters, was hypoxic to the 80's by EMS ? Continue with incentive spirometry, and will likely need an ambulatory pulse ox prior to discharge -Leukocytosis has resolved - cw PT/OT - Sputum cx pending, blood cultures are negative 2. HTN - Stable - Cw lisinopril and monitor renal function and blood pressure 3. GERD - Stable - c/w PPI DVT: Lovenox Charges/Coding Visit Charges Inpatient E&M: 09504 Subs Hosp L2
--- NOTE | 2022-01-01 11:00 | CASEMGMT ---
Social Work Telephone call from [facility], Sarah Duncan. Sarah reports to be casey saw operator following patient case for waiver/PASSPORT program. Sarah request to be updated on discharge plan when determined. Sarah provided [phone] as direct line. Maddy GREENBERG, RADHA-S
--- NOTE | 2022-01-01 11:14 | CASEMGMT ---
Social Work Notified by medical team voicing concern of patient returning to assisted living due to level of assistance needed. Per therapy evaluations, patient requested x2 assist for mobility/transfers. This licensed clinical social worker met with patient in room. Introduced self and licensed clinical social worker role. Patient agreeable to speak with this licensed clinical social worker. This licensed clinical social worker broached topic of correction placement for patient. Patient agrees that patient is not as strong as I was. Patient stated that prior to fall that patient was able to ambulate around the assisted living on own with a walker. Patient stated to now not be able to get out of bed. This licensed clinical social worker provided patient with list of in-network long-term facilities that are local to patient geographical region. Patient requested for referral to be sent to Transitional Care Unit (TCU) at [facility] first and then [facility] ([facility]) if U is not able to accept. This licensed clinical social worker inquired as to who this licensed clinical social worker can call as a support person for patient. Patient identifies Keyla bello and requested for this licensed clinical social worker to call Keyla. 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 Patient is agreeable to [facility] being updated on patient discharge plan/goal. Telephone call to [facility]. Unable to accept due to at limit for of patients with patient insurance. [facility] No [facility]. Voicemail left. Clinical information faxed. Telephone call to patient Keyla bello. Keyla updated on above information and agreeable to all discharge planning. PLAN: jail home, pending [facility] acceptance. Will need pre-cert prior to being able to discharge. Social Work to continue to follow. Maddy GREENBERG, NOÉ
--- NOTE | 2022-01-01 11:33 | CASEMGMT ---
Social Work Telephone call to Lexii Neville. This criminal justice social worker updated Lexii that plan is for patient to discharge to a prison facility. Lexii thanked this criminal justice social worker for the updated. Social Work to continue to follow. Maddy GREENBERG, NOÉ
[2022-01-01 11:44] VITALS: O2SAT 94
--- NOTE | 2022-01-01 11:53 | CASEMGMT ---
Social Work Telephone call from [facility]. Luda reports to have obtained this social workers voicemail and to be waiting on fax to be received. This social work administrator noted that fax is currently being transmitted. Luda reported to have two open beds and will review clinicals and get back to this social work administrator. PLAN: [facility], pending acceptance. Maddy GREENBERG, NOÉ
--- NOTE | 2022-01-01 14:09 | CASEMGMT ---
[facility] Luda to start pre-cert. PLAN: [facility] skilled. Maddy Jama, NOÉ
[2022-01-01 14:55] VITALS: BP 136/82; PULSE 78; RESP 18; TEMP 36.8; O2SAT 97
[2022-01-01 20:07] VITALS: BP 134/92; PULSE 74; RESP 16; TEMP 36.7; O2SAT 97
[2022-01-02 01:45] VITALS: BP 140/85; PULSE 71; RESP 16; TEMP 36.5; O2SAT 92
[2022-01-02 06:39] VITALS: BP 151/81; PULSE 74; RESP 16; TEMP 36.7; O2SAT 97
[2022-01-02 08:19] VITALS: BP 148/91; PULSE 79; RESP 18; TEMP 36.6; O2SAT 98
[2022-01-02] MEDS: Lisinopril 10 MG Tablet PO (08:21)
[2022-01-02] MEDS: Enoxaparin 40 MG/0.4 ML Syringe SC (08:21)
[2022-01-02] MEDS: Pantoprazole Sodium 20 MG Tablet PO (08:21)
--- NOTE | 2022-01-02 09:20 | PCM.PN.HOSP ---
Subjective Subjective Doing well, oxygen status is improving. No issues overnight Objective Data Objective Data Vital Signs: Vital Signs Temp Pulse Resp BP Pulse Ox 97.9 F 79 18 148/91 H 98 01/02/22 08:19 01/02/22 08:19 01/02/22 08:19 01/02/22 08:19 01/02/22 08:19 Oxygen Flow Rate (L/min) 2 Oxygen Delivery Method Nasal Cannula Weight: 200 lb 6.403 oz Body Mass Index (BMI) 30.4 Intake & Output: Intake and Output for Last 24 Hours 01/01/22 01/02/22 01/03/22 03:59 03:59 03:59 Intake Total 705 / 705 305 / 305 Output Total 1350 / 1350 800 / 800 200 / 200 Balance -645 / -645 -495 / -495 -200 / -200 Lab / Micro Data Result Diagrams: 01/01/22 06:33 01/01/22 06:33 Micro: Microbiology 12/30/21 12:05 Blood Culture (Wb) - Right Hand Blood Culture - Preliminary No growth in 48 hours. 12/30/21 10:45 Blood Culture (Wb) - Left Hand Blood Culture - Preliminary No growth in 48 hours. 12/30/21 12:11 Nasal Secretion SARS-CoV-2 & FLU Antigen (Rapid) - Final Physical Exam Const alert, oriented x3 and no apparent distress General Appearance: cooperative HEENT normocephalic and moist oral mucous membranes Eyes PERRL, EOMs intact bilaterally and conjunctivae normal Neck supple and no JVD Resp normal respiratory effort, no retractions and no use of accessory muscles Auscultation: rhonchi and diminished lung sounds; Negative for crackles, rales or wheezes Cardio regular rate, regular rhythm, S1 normal heart sound, S2 normal heart sound and no murmurs GI soft to palpation, non-tender and non-distended; Negative for hepatosplenomegaly Extremity no clubbing, cyanosis or edema Skin Skin Narrative: Lip laceration Neuro no focal motor deficits and no sensory deficits noted Psych affect normal Appearance: appropriate Assessment & Plan Assessment/Plan (1) Respiratory failure with hypoxia: (2) Pneumonia: PLAN: 1. Acute hypoxic resp failure from bilateral pneumonia/Fall - COVID PCR/antigen and flu negative - c/w nav, she completed azithromycin - Maintain o2 on 2 liters, was hypoxic to the 80's by EMS on admission ? Continue with incentive spirometry, and will likely need an ambulatory pulse ox prior to discharge -Leukocytosis has resolved - cw PT/OT, may need SNF placement - Sputum cx pending, blood cultures are negative 2. HTN - Stable - Cw lisinopril and monitor renal function and blood pressure 3. GERD - Stable - c/w PPI DVT: Lovenox Charges/Coding Visit Charges Inpatient E&M: 13870 Subs Hosp L2
[2022-01-02] MEDS: 0.9% Saline Lock 10 ML Syringe IV (09:36)
[2022-01-02] MEDS: Ceftriaxone 1 GM/50 ML BAG IV (09:36)
--- NOTE | 2022-01-02 14:14 | CASEMGMT ---
Social Work Telephone call to Luda Aguero. Pre-cert continues to be pending. Luda states I would plan on discharge tomorrow as patient insurance can take 2-3 days to get a response. PLAN: Donita Jama, nellie. Will continue to follow. Maddy GREENBERG, NOÉ
[2022-01-02 14:29] VITALS: BP 134/98; PULSE 80; RESP 17; TEMP 36.8; O2SAT 95
[2022-01-02 20:40] VITALS: BP 148/75; PULSE 73; RESP 18; TEMP 36.8; O2SAT 95
[2022-01-03 02:55] VITALS: BP 131/56; PULSE 73; RESP 18; TEMP 36.8; O2SAT 96
[2022-01-03 06:53] VITALS: O2SAT 87; O2SAT 94; O2SAT 95
[2022-01-03 07:22] VITALS: O2SAT 96
[2022-01-03 08:04] VITALS: O2SAT 96
--- NOTE | 2022-01-03 09:05 | PN.HOSP_ITS ---
Subjective Subjective Doing well, no issues overnight. Breathing well, she did have an ambulatory pulse ox yesterday and she was down to 87% necessitating chronic oxygen on discharge. Plan will be for [facility] Objective Data Objective Data Vital Signs: Vital Signs Temp Pulse Resp BP Pulse Ox 98.2 F 73 18 131/56 H 96 01/03/22 02:55 01/03/22 02:55 01/03/22 02:55 01/03/22 02:55 01/03/22 07:22 Oxygen Flow Rate (L/min) [ 2 AMBULATING with Oxygen #1] Oxygen Flow Rate (L/min) [At 2 REST with Oxygen] Oxygen Flow Rate (L/min) [At 0 REST on Room Air] Oxygen Flow Rate (L/min) 2 Oxygen Delivery Method Nasal Cannula Weight: 200 lb 6.403 oz Body Mass Index (BMI) 30.4 Intake & Output: Intake and Output for Last 24 Hours 01/02/22 01/03/22 01/04/22 03:59 03:59 03:59 Intake Total 305 / 305 170 / 170 0 / 0 Output Total 800 / 800 1000 / 1000 Balance -495 / -495 -830 / -830 0 / 0 Lab / Micro Data Result Diagrams: 01/01/22 06:33 01/01/22 06:33 Micro: Microbiology 12/30/21 12:05 Blood Culture (Wb) - Right Hand Blood Culture - Preliminary No growth in 48 hours. 12/30/21 10:45 Blood Culture (Wb) - Left Hand Blood Culture - Preliminary No growth in 48 hours. 12/30/21 12:11 Nasal Secretion SARS-CoV-2 & FLU Antigen (Rapid) - Final Physical Exam Const alert, oriented x3 and no apparent distress General Appearance: cooperative HEENT normocephalic and moist oral mucous membranes Eyes PERRL, EOMs intact bilaterally and conjunctivae normal Neck supple and no JVD Resp normal respiratory effort, no retractions and no use of accessory muscles Auscultation: rhonchi and diminished lung sounds; Negative for crackles, rales or wheezes Cardio regular rate, regular rhythm, S1 normal heart sound, S2 normal heart sound and no murmurs GI soft to palpation, non-tender and non-distended; Negative for hepatosplenomegaly Extremity no clubbing, cyanosis or edema Skin Skin Narrative: Lip laceration Neuro no focal motor deficits and no sensory deficits noted Psych affect normal Appearance: appropriate Assessment & Plan Assessment/Plan (1) Respiratory failure with hypoxia: (2) Pneumonia: PLAN: 1. Acute hypoxic resp failure from bilateral pneumonia/Fall - COVID PCR/antigen and flu negative -She will complete Rocephin today and she has completed azithromycin - Maintain o2 on 2 liters, was hypoxic to the 80's by EMS on admission, she was 87% on room air with ambulation yesterday ? Continue with incentive spirometry -Leukocytosis has resolved - cw PT/OT, will need SNF placement -Blood cultures are negative 2. HTN - Stable - Cw lisinopril and monitor renal function and blood pressure 3. GERD - Stable - c/w PPI DVT: Lovenox Charges/Coding Visit Charges Inpatient E&M: 81023 Subs Hosp L2
[2022-01-03 09:38] VITALS: BP 149/71; PULSE 75; RESP 18; TEMP 36.9; O2SAT 99
[2022-01-03] MEDS: Pantoprazole Sodium 20 MG Tablet PO (09:42)
[2022-01-03] MEDS: Ceftriaxone 1 GM/50 ML BAG IV (09:42)
[2022-01-03] MEDS: Lisinopril 10 MG Tablet PO (09:42)
[2022-01-03] MEDS: Enoxaparin 40 MG/0.4 ML Syringe SC (09:43)
[2022-01-03] MEDS: 0.9% Saline Lock 10 ML Syringe IV (09:43)
--- NOTE | 2022-01-03 11:04 | CASEMGMT ---
Addendum entered by Patti Boyd 01/03/22 13:40: TENA called [facility], the transport is set up for 2pm. SW let pt, pt's RN and Naida at [facility] know time of pickup. SW asked pt for an updated number for her sister to let her know, her number is [phone]. TENA called pt's sister Keyla's phone from the room, the voicemail is not set up. SW let pt know, she will call her sister later when she gets to [facility]. Plan: [facility] today, skilled level of care NOÉ Cook Addendum entered by Patti Boyd 01/03/22 12:41: Social Work SW completed hospital exemption in the [employer] system, faxed this along with all discharge papework to [facility]. TENA called [facility] to set up transportation, will check in shortly to check on time. NOÉ Cook Addendum entered by Patti Boyd 01/03/22 11:06: Social Work TENA called pt's waiver case loader operator Sarah Duncan, let her know that pt is going to [facility] today. NOÉ Cook Original Note: Social Work SW received a call from Naida at [facility], they have precert. SW notified physician, he will discharge pt today. SW let pt know, she is agreeable today to go to [facility]. TENA faxed updates, will follow for discharge to [facility] later today. NOÉ Cook
--- NOTE | 2022-01-03 11:18 | PCM.TXEXTCAR ---
Diet 12/30/21 16:53 Diet: Regular - General Food consistency:: Regular Liquid Consistency:: Regular/Thin Is pt able to select menu?: No Routine Orders/Code Status Routine Lab Work: CBC and BMP Therapies Physical Therapy: Eval and Treat Occupational Therapy: Eval and Treat Problem/Diagnosis (1) Respiratory failure with hypoxia: Status: Acute (2) Pneumonia: Status: Acute Allergies/Procedures Done in Hospital Allergies No Known Allergies Allergy (Verified 12/30/21 09:54) Procedures: None Type of Care/Length of Stay Estimated LOS: Convalescent Care Less Than 30 days Type of Care Needed: Skilled Rehab Potential: Good Prognosis: Good Additional Orders/Day of Discharge Day of Discharge: 01/03/22 Dietary and Speech Recommendations Dietitian Recommendations/Changes: Recommend ADAT to Regular when medically able. Discharge Plan Admission Admit Date/Time: 12/30/21 16:42 Attending Provider: Harjit Garcia Primary Care Provider: Anika Reyes Discharge Orders/Prescriptions Prescriptions: Continued esomeprazole magnesium [Nexium] 20 MG capsule 20 mg PO DAILY RF: 0 polyethylene glycol 3350 [Miralax] 17 gram Powder In Packet 17 g PO DAILY PRN (Reason: Constipation) RF: 0 ketoconazole 2 % cream 1 applic TOPICAL PRN PRN (Reason: Rash) RF: 0 sennosides-docusate sodium [Stool Softener-Stimulant Laxat] 8.6-50 mg tablet 2 tab PO BID PRN (Reason: Constipation) RF: 0 lisinopril 10 mg tablet 10 mg PO DAILY RF: 0 Referrals / Follow Up: Anika Reyes MD [Primary Care Provider] - Disposition Disposition (needs filled in before D/C Order can be placed): Retirement Facility
--- NOTE | 2022-01-03 11:21 | PCM.DC.SUM ---
Providers Date of Admission: 12/30/21 Primary Care Physician: Dr. Anika Reyes MD Reason For Visit: FALL / WEAKNESS Diagnosis Discharge Diagnosis (1) Respiratory failure with hypoxia: Status: Acute Code(s): J96.91 - Respiratory failure, unspecified with hypoxia (2) Pneumonia: Status: Acute Code(s): J18.9 - Pneumonia, unspecified organism Medications at Discharge Home Medications esomeprazole magnesium [Nexium] 20 mg PO DAILY 05/15/20 ketoconazole 1 applic TOPICAL PRN PRN 05/29/21 polyethylene glycol 3350 [Miralax] 17 g PO DAILY PRN 05/29/21 lisinopril 10 mg PO DAILY 12/30/21 sennosides-docusate sodium [Stool Softener-Stimulant Laxat] 2 tab PO BID PRN 12/30/21 Hospital Course Operations None Procedures None Summary of Care Provided Minutes Spent on Discharge: 40 Hospital Course: Per HPI: TEVIN MILLAN, is a 71 F who presents from the SNF with a productive cough for several days and a fall on her way to breakfast. She describes the fall as weakness, and that her legs just gave out. when ems arrived she was hypoxic to the 80's and responded to several liters of O2. She was found to have bilateral infiltrates on CTA of the chest, without PE. She had covid in 04/2020 but was negative on the ag and PCR test today. She received a dose of abx in the ed today. Hospital Course: 1. Acute hypoxic respiratory failure secondary to bilateral community-acquired pneumonia/fall?71-year-old female lives at an assisted living secondary to intellectual disability, and was coming down for breakfast when she fell. EMS was called and she was found to be significantly hypoxic into the 80s so she was brought to the hospital. She was found to have bilateral infiltrates she was started on Rocephin and azithromycin and she is completed both antibiotics, with 3 days of azithromycin and 5 days of Rocephin. On admission she was tested for COVID and flu both of which came back negative, she did have COVID in April 2021 and has been vaccinated. She is still requiring oxygen mostly with ambulation however she is also significantly weak and therefore will be discharged to a [place] [facility]. I discussed with her the plan for discharge today she expressed understanding of the risk and benefits of going to the detention and is okay with going today. 2. Hypertension, GERD are all chronic medical conditions which complicate her care. Her home medications were continued where appropriate. Weight / BMI Weight Weight: 200 lb 6.403 oz Body Mass Index (BMI) 30.4 ABG / Lab / Microbiology Data Result Diagrams: 01/01/22 06:33 01/01/22 06:33 Microbiology: Microbiology 12/30/21 12:05 Blood Culture (Wb) - Right Hand Blood Culture - Preliminary No growth in 48 hours. 12/30/21 10:45 Blood Culture (Wb) - Left Hand Blood Culture - Preliminary No growth in 48 hours. 12/30/21 12:11 Nasal Secretion SARS-CoV-2 & FLU Antigen (Rapid) - Final Meaningful Use Info Meaningful Use Diagnoses (Choose all that apply): None applicable Discharge Plan Admission Admit Date/Time: 12/30/21 16:42 Attending Provider: Harjit Garcia Primary Care Provider: Anika Reyes Discharge Orders/Prescriptions Prescriptions: Continued esomeprazole magnesium [Nexium] 20 MG capsule 20 mg PO DAILY RF: 0 polyethylene glycol 3350 [Miralax] 17 gram Powder In Packet 17 g PO DAILY PRN (Reason: Constipation) RF: 0 ketoconazole 2 % cream 1 applic TOPICAL PRN PRN (Reason: Rash) RF: 0 sennosides-docusate sodium [Stool Softener-Stimulant Laxat] 8.6-50 mg tablet 2 tab PO BID PRN (Reason: Constipation) RF: 0 lisinopril 10 mg tablet 10 mg PO DAILY RF: 0 Referrals / Follow Up: Anika Reyes MD [Primary Care Provider] - Disposition Disposition (needs filled in before D/C Order can be placed): Group Home Facility Charges/Coding Visit Charges Inpatient E&M: 05384 Disch Hosp
[2022-01-03 13:44] VITALS: BP 133/90; PULSE 65; RESP 18; TEMP 37.2; O2SAT 97
--- NOTE | 2022-01-03 14:03 | NURSING ---
Report called to [facility]ak nurse at [facility].
== END 2022-01-03 14:30 | DRG 193 ==
LOC: ED 12:25 → MS3 16:58
PROVIDERS: Admitting Provider Family Medicine; Emergency Provider Emergency Medicine; PCP Internal Medicine; Visit Provider Family Medicine
DX: J18.9 Pneumonia, unspecified organism (principal); J96.01 Acute respiratory failure with hypoxia; K21.9 Gastro-esophageal reflux disease without esophagitis; I10 Essential (primary) hypertension; K59.00 Constipation, unspecified; S00.512A Abrasion of oral cavity, initial encounter; W19.XXXA Unspecified fall, initial encounter; Z79.899 Other long term (current) drug therapy; Y92.099 Unspecified place in other non-institutional residence as the place of occurrence of the external cause; Z86.16 Personal history of COVID-19
CPT/HCPCS: 36415; 70450; 71045; 71275; 72125; 72131; 72170; 73552; 80048; 83605; 84484; 85025; 87040; 87426; 87428; 87635; 93005; 97110; 97116; 97162; 97166; 97530; 97535; 99251; 99285; J7050; Q9967; A4216; G0463; U0003; U0005

== ENCOUNTER → 2022-01-10 | Outpatient (REF) | payer SELFPAY ==
[2022-01-10 06:59] LABS: Hematocrit 42.2 % (37-47); Hemoglobin 13.4 g/dL (12.0-15.0); Mean Corp Hgb Conc 31.8 g/dL (32-36); Mean Corpuscular Hgb 28.2 pg (27.0-32.0); Mean Corpuscular Volume 88.8 fL (81-99); Mean Platelet Vol. 8.5 fl (6.2-12.0); Platelet Count 304 K/mm3 (150-450); RBC Distribution Width CV 14.6 % (11.6-14.6); RBC Distribution Width SD 47.6 fl (35.1-43.9); Red Blood Count 4.75 M/mm3 (4.2-5.4); White Blood Count 7.3 K/mm3 (4.4-11.0)
[2022-01-10 07:17] LABS: Anion Gap 3 (5-15); BUN 22 mg/dL (7-18); BUN/Creat Ratio 24.2 RATIO (10-20); Calcium,Total 9.3 mg/dL (8.5-10.1); Chloride 111 mmol/L (98-107); Creatinine, Serum 0.91 mg/dL (0.55-1.02); EST Glomerular Filtration Rate 65 mL/min (>60); Est Glom Filt Rate - Afr Amer 78 mL/min (>60); Glucose 86 mg/dL (74-106); Potassium 4.2 mmol/L (3.5-5.1); Sodium Level 140 mmol/L (136-145)
== END | disposition home or self-care (01) ==
LOC: OLS.WHLTCC 05:00
PROVIDERS: PCP Internal Medicine; Visit Provider Family Medicine
DX: J96.01 Acute respiratory failure with hypoxia (principal); J18.9 Pneumonia, unspecified organism; M62.81 Muscle weakness (generalized); R26.2 Difficulty in walking, not elsewhere classified; R27.8 Other lack of coordination; Z74.1 Need for assistance with personal care
CPT/HCPCS: 36415; 80048; 85027

== ENCOUNTER 2022-03-25 16:43 | Emergency (ER) | payer MEDICARE, MEDICAID, SELFPAY ==
[2022-03-25 17:15] VITALS: BP 161/84; PULSE 75; RESP 16; TEMP 36.1; O2SAT 96; BMI 33.4
--- NOTE | 2022-03-25 19:49 | EX.ED.DYSGE1 ---
HPI History of Present Illness Chief Complaint: Lower Extremity Injury Narrative Narrative: 71-year-old female history of hypertension, GERD, debility here with right knee pain. Pain is worse with ambulation, improved by rest. She still able to ambulate with the help of her walker. States she got her knee replaced approximate 1 year ago patient states she noted some pain and decreased range of motion. Denies falls. Denies decreased sensation. Patient denies active cancer, being bedridden for greater than 3 days, major surgery within 12 weeks, recent paralysis, previous DVT. Old chart reviewed: Last ED visit in December 2019 for fall at [facility]. No recent imaging of the involved extremity [facility] Medical History Constipation Gastric reflux Hypertension Non-smoker Rash Shortness of breath on exertion Wears glasses Home Medications esomeprazole magnesium 20 mg capsule,delayed release (Nexium) 20 mg PO DAILY gerd 05/15/20 [History Last Taken 12/30/21] ketoconazole 2 % topical cream 1 applic topical PRN PRN Rash 05/29/21 [History Last Taken Unknown] polyethylene glycol 3350 17 gram oral powder packet (Miralax) 17 g PO DAILY PRN Constipation 05/29/21 [History Last Taken Unknown] lisinopril 10 mg tablet 10 mg PO DAILY bp 12/30/21 [History Last Taken 12/30/21] sennosides 8.6 mg-docusate sodium 50 mg tablet (Stool Softener-Stimulant Laxative) 2 tab PO BID PRN Constipation 12/30/21 [History Last Taken Unknown] Allergy/AdvReac Type Severity Reaction Status Date / Time No Known Allergies Allergy Verified 03/25/22 17:18 Family History (Updated 12/30/21 @ 17:[address] Harjit Garcia MD) Other Hypertension Surgical History History of toe surgery History of total right knee replacement Hx of tracheostomy Social History household members: none Smoking Status: Never smoker alcohol intake: never substance use type: does not use ROS ROS ED Constitutional Constitutional ED: Denies chills or fever(s) Eyes Eyes: Denies other visual disturbances ENT ENT ED: Denies ear pain Cardiovascular Cardiovascular: Denies chest pain Respiratory/Chest Respiratory/Chest: Denies dyspnea Gastrointestinal Gastrointestinal: Denies abdominal pain Genitourinary Genitourinary ED: Denies dysuria Musculoskeletal Musculoskeletal: Reports abnormal gait, difficulty walking, joint pain and joint stiffness Integumentary Denies rash Neurologic Neurologic: Denies dizziness, focal weakness, numbness, syncope or weakness Psychiatric Psychiatric: Denies homicidal ideation or suicidal ideation EXAM Physical Exam Const Vital Signs: 03/25/22 17:15 Temperature 97.0 F L Temperature Source Temporal Pulse Rate 75 Respiratory Rate 16 Blood Pressure 161/84 H Blood Pressure Mean 109 Pulse Ox 96 Oxygen Delivery Method Room Air Negative for alert or oriented x3 General Appearance ED: Negative for comfortable Orientation / Consciousness: Negative for awake HEENT Denies normocephalic Face and Sinus: Negative for face symmetric External Ear: Negative for external ears normal Mouth ED: No moist mucous membranes normal Throat: Negative for posterior oropharynx normal Eyes Negative for PERRL or EOMs intact bilaterally Neck Carotids: other Other Details: no carotid bruits Chest Wall Negative for inspection of chest normal Resp No normal respiratory effort, No no retractions, No no use of accessory muscles and No clear to auscultation bilaterally Cardio Negative for no murmurs or peripheral pulses 2+ throughout GI Negative for no bruits GI Narrative: no pulsatile abdominal masses Negative for no CVA tenderness Back/Spine Cervical Spine: Negative for cervical ROM normal Extremity Extremity Narrative: Right lower extremity neurovascular intact, intact dorsalis pedis and posterior tibial pulses. 2+ patellar reflexes noted bilaterally. Intact surgical scar on right knee clean dry intact no fluctuance induration. Full range of motion in flexion extension of the right knee. No obvious swelling to the lower extremity, no calf tenderness, intact course of tendon reflex Neuro Neuro Narrative: Intact sensation, strength in the right lower extremity MDM MDM MDM Narrative Medical decision making narrative: 71-year-old female here with right knee pain. No obvious deformity, good range of motion no obvious evidence of arterial occlusion, DVT, compartment syndrome on exam. With no joint effusion, warmth, fever low suspicion for septic arthritis. Obtained x-ray gave pain medicine. Patient was ambulated here in the emergency department. She ambulated without significant difficulty. She was informed to follow-up with her orthopedic surgeon for outpatient evaluation as there is no indication for admission at this time. Radiography Diagnostic Testing: Clinical Impression(s) from Imaging Studies Knee X-Ray 03/25/22 20:09 IMPRESSION: Stable knee replacement. Electronically Signed: Remington Mars MD at 20:38 EDT , Treatment and Re-Evaluation Narrative: Patient was able to ambulate without difficulty patient is appropriate for discharge home. Discharge Plan Triage Chief Complaint: Lower Extremity Injury ED Provider: Tommy Lopez Dx/Rx/DC Orders Clinical Impression: Acute pain of right knee, History of knee joint replacement Instructions: ED Knee Pain of Uncertain Cause Prescriptions: No Action esomeprazole magnesium [Nexium] 20 MG capsule 20 mg PO DAILY polyethylene glycol 3350 [Miralax] 17 gram Powder In Packet 17 g PO DAILY PRN (Reason: Constipation) ketoconazole 2 % cream 1 applic TOPICAL PRN PRN (Reason: Rash) Label Comments: APPLY TO AFFECTED AREA ONCE DAILY sennosides-docusate sodium [Stool Softener-Stimulant Laxat] 8.6-50 mg tablet 2 tab PO BID PRN (Reason: Constipation) lisinopril 10 mg tablet 10 mg PO DAILY Primary Care Provider: Anika Reyes Referrals: Anika Reyes MD [Primary Care Provider] - Clemente Coley MD [Med Staff - Active Staff] - Activity Restrictions/Additional Instructions: Please return if symptoms change or worsen. Please return if you are unable to ambulate. Disposition Disposition: Home, Self Care
--- NOTE | 2022-03-25 20:09 | RAD_ITS ---
STUDY: X-RAY - RIGHT KNEE REASON FOR EXAM: Female, 71 years old. Right knee pain TECHNIQUE: 2 view(s) of the knee. COMPARISON: June 12, 2021 FINDINGS: There is demineralization of the visualized distal femur. There is demineralization of the tibia and fibula. Normal proximal tibiofibular articulation. There is no demonstrated fracture. There is total joint replacement. Alignment is stable. The soft tissue structures are unremarkable. RAD/Knee 1 or 2 Views IMPRESSION: Stable knee replacement. Electronically Signed: Remington Mars MD at 20:38 EDT ,
[2022-03-25] MEDS: Acetaminophen 500 MG Tablet PO (20:10)
[2022-03-25] MEDS: Ibuprofen 200 MG Tablet 400 MG PO (20:11)
[2022-03-25 21:20] VITALS: PULSE 78; RESP 18
== END 2022-03-25 21:46 | disposition home or self-care (01) ==
PROVIDERS: Emergency Provider Emergency Medicine; PCP Internal Medicine; Visit Provider Emergency Medicine
DX: M25.561 Pain in right knee (principal); I10 Essential (primary) hypertension; Z79.899 Other long term (current) drug therapy; Z96.659 Presence of unspecified artificial knee joint
CPT/HCPCS: 73560; 99285

== ENCOUNTER 2022-04-16 09:50 | Emergency (ER) | payer MEDICARE, MEDICAID, SELFPAY ==
[2022-04-16 09:51] VITALS: BP 146/77; PULSE 90; RESP 16; TEMP 36.2; O2SAT 90; BMI 32.1
[2022-04-16 09:57] VITALS: O2SAT 94
[2022-04-16 09:59] VITALS: O2SAT 94
--- NOTE | 2022-04-16 10:03 | RAD_ITS ---
STUDY: X-RAY - LUMBAR SPINE REASON FOR EXAM: Female, 71 years old. Back pain. TECHNIQUE: 3 view(s) of the lumbar spine were obtained. COMPARISON: None FINDINGS: Marked osteopenia. Marked rotatory dextroscoliosis. Increased kyphosis. Diffuse facet sclerosis. Diffuse intervertebral disc space narrowing with osteophyte formation most marked at L1-2 and L2-3. Vascular calcification. RAD/Lumbar Spine 2 or 3 Views IMPRESSION: Osteopenia with diffuse moderate lumbosacral spondylosis as described. No acute abnormality, evidence of erosive changes or fusion. Electronically Signed: Jero Rivera, at 10:44 EDT ,
--- NOTE | 2022-04-16 10:03 | RAD_ITS ---
STUDY: X-RAY - RIGHT KNEE REASON FOR EXAM: Female, 71 years old. Injury. Pain. TECHNIQUE: 2 view(s) of the knee. COMPARISON: 03/25/2022. FINDINGS: Osteopenia. Total knee arthroplasty in anatomic alignment, unchanged in position. Diffuse mild soft tissue swelling. RAD/Knee 1 or 2 Views IMPRESSION: Osteopenia with uncomplicated total knee arthroplasty. No acute finding. Electronically Signed: Jero Rivera, at 10:42 EDT ,
--- NOTE | 2022-04-16 10:05 | ED.VIS.FALL ---
HPI HPI - Fall History of Present Illness Chief Complaint: Fall Informant: patient Occured/Mechanism Occurred: Today Mechanism/Context: Yes same level fall Narrative: In assisted living. Going to the bathroom, trying to get him to position apparently on the toilet when she states her back and right knee gave out. Usually ambulates: - (Rollator/walker) Pain/Injury Pain Location: back and lower extremity Quality of Pain: Aching Current Severity: Severe (Knee) Maximum Severity: Severe (Right knee) Worsened by: Movement Relieved by: Remaining still Associated Symptoms Associated Symptoms: Positive for Loss of function (R knee) and Inability to ambulate; Negative for Parasthesias, Weakness, Loss of consciousness or Amnesia Narrative Narrative: Fell while she was in her bathroom. She did not injure herself when she fell, she states the problem was her right knee giving out and her low back seeming to give out, causing her to fall without further injury. Unable to stand or move the right knee after this. She had a total knee arthroplasty last year. She denies pain elsewhere. She agrees she has a history of scoliosis that is bad. PFSH PFS Medical History Constipation Gastric reflux Hypertension Non-smoker Rash Shortness of breath on exertion Wears glasses Home Medications esomeprazole magnesium 20 mg capsule,delayed release (Nexium) 20 mg PO DAILY gerd 05/15/20 [History Last Taken 12/30/21] ketoconazole 2 % topical cream 1 applic topical PRN PRN Rash 05/29/21 [History Last Taken Unknown] polyethylene glycol 3350 17 gram oral powder packet (Miralax) 17 g PO DAILY PRN Constipation 05/29/21 [History Last Taken Unknown] lisinopril 10 mg tablet 10 mg PO DAILY bp 12/30/21 [History Last Taken 12/30/21] sennosides 8.6 mg-docusate sodium 50 mg tablet (Stool Softener-Stimulant Laxative) 2 tab PO BID PRN Constipation 12/30/21 [History Last Taken Unknown] Allergy/AdvReac Type Severity Reaction Status Date / Time No Known Allergies Allergy Verified 04/16/22 09:56 Family History (Updated 12/30/21 @ 17:[address] Harjit Garcia MD) Other Hypertension Surgical History History of toe surgery History of total right knee replacement Hx of tracheostomy Social History household members: none Smoking Status: Never smoker alcohol intake: never substance use type: does not use ROS ROS ED Constitutional Constitutional ED: Denies chills or fever(s) Eyes Eyes: Denies change in vision or diplopia ENT ENT ED: Denies ear pain, epistaxis, facial pain or rhinorrhea Cardiovascular Cardiovascular: Denies chest pain or palpitations Respiratory/Chest Respiratory/Chest: Denies cough or dyspnea Gastrointestinal Gastrointestinal: Denies abdominal pain, diarrhea, melena, nausea or vomiting Genitourinary Genitourinary ED: Denies dysuria or hematuria Musculoskeletal Musculoskeletal: Reports back pain and extremity pain; Denies neck pain Integumentary Denies abscess, Abrasions, laceration or rash Neurologic Neurologic: Denies confusion, headache(s), paresthesias or weakness EXAM Physical Exam Const Vital Signs: 04/16/22 09:51 04/16/22 09:57 04/16/22 09:59 Temperature 97.2 F L Temperature Source Temporal Pulse Rate 90 Respiratory Rate 16 Respiratory Effort Normal Non-Labored Respiratory Depth Normal Respiratory Pattern Normal Blood Pressure 146/77 H Blood Pressure Mean 100 Pulse Ox 90 94 94 Oxygen Delivery Method Room Air Nasal Cannula Nasal Cannula Oxygen Flow Rate (L/min) 2 2 Positive well nourished and well developed General Appearance ED: well developed and NAD HEENT Reports nasal mucous membranes and turbinates normal atraumatic Face and Sinus: Negative for facial tenderness Eyes PERRL and EOMs intact bilaterally Visual Acuity: other Other Details: no entrapment or pain with extraocular movements Neck full ROM and supple General: Negative for tenderness Chest Wall inspection of chest normal and palpation of chest normal Chest: symmetrical chest wall rise; Negative for crepitus or tenderness Resp normal respiratory effort and clear to auscultation bilaterally Percussion: other equal BS bilat Cardio no murmurs Rate: regular rate Rhythm: regular rhythm GI normal to inspection, nondistended, normoactive bowel sounds, soft to palpation and non-tender Back/Spine Back/Spine Narrative: Severe lower spine scoliosis. Tender right paraspinal area, well above the pelvic brim, seems to be lateral still to the midline lumbar spinous processes which curved to the right. Cervical Spine: Negative for cervical spine tenderness Thoracic Spine / Upper Back: pain with ROM; Negative for thoracic spinal tenderness Lumbar Spine / Lower Back: Negative for lumbar spinal tenderness Extremity Extremity Narrative: Very limited range of motion right knee which is swollen, there is a skin indentation along the superior medial aspect of the patella but no gross deformity. She is able to bend it a little, but no more than 20 degrees or so due to pain. Mild tenderness at the distal femur medially and laterally. General Extremety ED: Yes tenderness Neuro oriented x3, CN's II-XII intact bilaterally, moves all extremities, no focal motor deficits and no sensory deficits noted Merry Coma Scale: document GCS findings Spontaneous Obeys Commands Oriented 15 Sensorium / Orientation: awake and alert Psych mental status grossly normal and thought process normal Skin no wounds Lesions: no lesions Rashes: no rashes MDM MDM MDM Narrative Medical decision making narrative: 2 view x-ray series is all that was able to be obtained of the right knee, on my interpretation there is no acute fracture or abnormality. Clinically I think she has an effusion versus hemarthrosis there, at the very least that is preventing her from bending her knee or being able to weight-bear on it at all prior to arrival. I gave her some morphine here for the pain, and obtained lumbar spine x-rays. 3 views of my interpretation show significant scoliosis and degeneration multilevel. Radiology is in agreement with all of this. We attempted to ambulate her here, using a walker temporarily. She was able to walk at baseline and did very well with that. Based on this and basically negative x-rays on okay with her going back to assisted living. Radiography Diagnostic Testing: Clinical Impression(s) from Imaging Studies Knee X-Ray 04/16/22 10:03 IMPRESSION: Osteopenia with uncomplicated total knee arthroplasty. No acute finding. Electronically Signed: Jero Rivera, at 10:42 EDT , Lumbar Spine X-Ray 04/16/22 10:03 IMPRESSION: Osteopenia with diffuse moderate lumbosacral spondylosis as described. No acute abnormality, evidence of erosive changes or fusion. Electronically Signed: Jero Rivera, at 10:44 EDT , Discharge Plan Triage Chief Complaint: Fall ED Provider: Remington Goldberg Dx/Rx/DC Orders Clinical Impression: Injury of knee, right, Effusion of right knee, Low back pain, Scoliosis Instructions: ED Mechanical Fall Prescriptions: No Action esomeprazole magnesium [Nexium] 20 MG capsule 20 mg PO DAILY polyethylene glycol 3350 [Miralax] 17 gram Powder In Packet 17 g PO DAILY PRN (Reason: Constipation) ketoconazole 2 % cream 1 applic TOPICAL PRN PRN (Reason: Rash) Label Comments: APPLY TO AFFECTED AREA ONCE DAILY sennosides-docusate sodium [Stool Softener-Stimulant Laxat] 8.6-50 mg tablet 2 tab PO BID PRN (Reason: Constipation) lisinopril 10 mg tablet 10 mg PO DAILY Primary Care Provider: Charlotte Cerda AVIATION MANAGER Referrals: Anika Reyes MD [Med Staff - Research Interviewer] - 3-5 Days if not improving Disposition Disposition: Home, Self Care
--- NOTE | 2022-04-16 11:21 | ED.RN ---
report called to [facility]
[2022-04-16 12:59] VITALS: BP 138/67; PULSE 82; RESP 15; O2SAT 93
[2022-04-16 13:00] VITALS: O2SAT 93
== END 2022-04-16 13:01 | disposition home or self-care (01) ==
PROVIDERS: Emergency Provider Emergency Medicine; PCP Nurse Practitioner Adult Health; Visit Provider Emergency Medicine
DX: S89.91XA Unspecified injury of right lower leg, initial encounter (principal); M41.9 Scoliosis, unspecified; I10 Essential (primary) hypertension; R26.2 Difficulty in walking, not elsewhere classified; M25.461 Effusion, right knee; M54.50 Low back pain, unspecified; Z96.651 Presence of right artificial knee joint; Z79.899 Other long term (current) drug therapy; W18.30XA Fall on same level, unspecified, initial encounter
CPT/HCPCS: 72100; 73560; 99283; 99284; A4216

== ENCOUNTER 2022-04-16 14:52 | Emergency (ER) | payer MEDICARE, MEDICAID, SELFPAY ==
[2022-04-16 14:53] VITALS: BP 147/79; PULSE 89; RESP 14; TEMP 36.7; O2SAT 94; BMI 30.8
--- NOTE | 2022-04-16 15:21 | ED.RN ---
LEFT MESSAGE TO SPEAK WITH CAREGIVER AT [facility], NO ANSWER ON INITIAL CALL
--- NOTE | 2022-04-16 15:39 | EDS_ITS ---
HPI HPI - Psych History of Present Illness Chief Complaint: Mental Health Informant: patient and EMS Narrative Narrative: Patient was just seen here earlier by myself after a fall in which she injured her right knee and her back. She was sent back to [facility]term at which she [facility], and she apparently is sent back here by them because of suicidality. The patient tells us that she is not suicidal at all, she simply was upset, concerned that her knee was hurting, and states that I said I would want to if this pain never went away. She states he misunderstood her and she is not suicidal. Furthermore, she states that she grew up in [place] and she would want her to be there. She states she did not want to come here again, her back pain is gone, and her knee is feeling better after the medicine we gave her but it is still sore and she is still able to walk. [facility] Medical History Constipation Gastric reflux Hypertension Non-smoker Rash Shortness of breath on exertion Wears glasses Home Medications esomeprazole magnesium 20 mg capsule,delayed release (Nexium) 20 mg PO DAILY gerd 05/15/20 [History Last Taken 12/30/21] ketoconazole 2 % topical cream 1 applic topical PRN PRN Rash 05/29/21 [History Last Taken Unknown] polyethylene glycol 3350 17 gram oral powder packet (Miralax) 17 g PO DAILY PRN Constipation 05/29/21 [History Last Taken Unknown] lisinopril 10 mg tablet 10 mg PO DAILY bp 12/30/21 [History Last Taken 12/30/21] sennosides 8.6 mg-docusate sodium 50 mg tablet (Stool Softener-Stimulant Laxative) 2 tab PO BID PRN Constipation 12/30/21 [History Last Taken Unknown] Allergy/AdvReac Type Severity Reaction Status Date / Time No Known Allergies Allergy Verified 04/16/22 09:56 Family History (Updated 12/30/21 @ 17:[address] Harjit Garcia MD) Other Hypertension Surgical History History of toe surgery History of total right knee replacement Hx of tracheostomy Social History household members: none Smoking Status: Never smoker alcohol intake: never substance use type: does not use ROS ROS ED Constitutional Constitutional ED: Denies chills or fever(s) Eyes Eyes: Denies change in vision or diplopia ENT ENT ED: Denies rhinorrhea or sore throat Cardiovascular Cardiovascular: Denies chest pain or palpitations Respiratory/Chest Respiratory/Chest: Denies cough or dyspnea Gastrointestinal Gastrointestinal: Denies abdominal pain, diarrhea, nausea or vomiting Genitourinary Genitourinary ED: Denies dysuria or hematuria Musculoskeletal Musculoskeletal: Reports extremity pain; Denies back pain or neck pain Integumentary Denies abscess or rash Neurologic Neurologic: Denies headache(s), paresthesias or weakness Psychiatric Psychiatric: Reports anxiety; Denies suicidal thoughts EXAM Physical Exam Const Vital Signs: 04/16/22 14:53 Temperature 98.1 F Temperature Source Oral Pulse Rate 89 Respiratory Rate 14 Blood Pressure 147/79 H Blood Pressure Mean 101 Pulse Ox 94 Oxygen Delivery Method Room Air Positive well nourished and well developed General Appearance ED: well developed and NAD HEENT Reports moist mucous membranes normocephalic and atraumatic Eyes PERRL and EOMs intact bilaterally Neck full ROM and supple Resp normal respiratory effort Back/Spine Back/Spine Narrative: Full range of motion nontender. Significant scoliotic curve lower back. Extremity normal to inspection Extremity Narrative: No pain or laxity with stressing MCL and LCL right knee. General Extremety ED: Negative for edema, pulses abnormal or tenderness General Extremity: Negative for edema or pulses abnormal Neuro oriented x3, CN's II-XII intact bilaterally and no sensory deficits noted Sensorium / Orientation: awake and alert Motor Exam: strength 5/5 throughout Psych mental status grossly normal, thought process normal, cooperative, affect normal, speech normal, activity/motor behavior normal, denies homicidal ideation and denies suicidal ideation Appearance: grossly normal Skin no rashes or lesions noted and no wounds MDM MDM MDM Narrative Medical decision making narrative: Patient is not suicidal, she understands that it was not the best thing to have said, but I do not think she needs a formal psychiatric evaluation. She was given an Roberto wrap for her knee which she thinks might help, and is discharged back to [facility]. Nursing try to call them to clarify everything, and there was no answer. Discharge Plan Triage Chief Complaint: Mental Health ED Provider: Remington Goldberg Dx/Rx/DC Orders Clinical Impression: Acute reaction to situational stress, Injury of right knee Instructions: Responding Better to Stress Prescriptions: No Action esomeprazole magnesium [Nexium] 20 MG capsule 20 mg PO DAILY polyethylene glycol 3350 [Miralax] 17 gram Powder In Packet 17 g PO DAILY PRN (Reason: Constipation) ketoconazole 2 % cream 1 applic TOPICAL PRN PRN (Reason: Rash) Label Comments: APPLY TO AFFECTED AREA ONCE DAILY sennosides-docusate sodium [Stool Softener-Stimulant Laxat] 8.6-50 mg tablet 2 tab PO BID PRN (Reason: Constipation) lisinopril 10 mg tablet 10 mg PO DAILY Primary Care Provider: Charlotte Cerda HUMAN RESOURCES TRAINER Referrals: Charlotte Cerda HUMAN RESOURCES TRAINER, HUMAN RESOURCES TRAINER-C [Primary Care Provider] - Disposition Disposition: Home, Self Care
[2022-04-16 15:53] VITALS: BP 144/74; PULSE 71
--- NOTE | 2022-04-16 16:05 | CM.ED ---
Addendum entered by Shobha Desai 04/16/22 20:05: This social services counselor updated crisis on below. Crisis plans to call patient for a check in phone call tomorrow. Original Note: Social Work Consult: Mental Health Referral source: Dr. Goldberg and crisis. Crisis calling this social services counselor informing this social services counselor that patient is coming back to the ED as patient is now voicing suicidal comments. Per triage note patient did not voice suicidal comments and says things when upset. This social services counselor met with patient in room. Introduced self and social services counselor role. Patient agreeable to speak with this social services counselor. This social services counselor inquired about patient suicidal comments. Patient states I just say things when I am upset. This social services counselor inquired as to what things patient says, I don't want to kill myself, patient stated in response. Patients states to have a desire to live and is agreeable to returning to [facility]. Patient with no concerns on returning to [facility]. Patient denies suicidal thoughts, plans, intents or history of. Medical team updated. No further services requested or indicated. Maddy GREENBERG, NOÉ
--- NOTE | 2022-04-16 16:24 | ED.RN ---
Patient able to stand, bear weight, and make small steps to awaiting bedside commode. Denies additional pain. Able to again make small steps without assist and without assistive devices back to bed.
[2022-04-16 17:03] VITALS: BP 144/74; PULSE 71
== END 2022-04-16 17:09 | disposition home or self-care (01) ==
PROVIDERS: Emergency Provider Emergency Medicine; PCP Nurse Practitioner Adult Health; Visit Provider Emergency Medicine
DX: F43.0 Acute stress reaction (principal); S89.91XA Unspecified injury of right lower leg, initial encounter; I10 Essential (primary) hypertension; M54.50 Low back pain, unspecified; M41.9 Scoliosis, unspecified; Z79.899 Other long term (current) drug therapy; Z96.651 Presence of right artificial knee joint; W18.30XA Fall on same level, unspecified, initial encounter

== ENCOUNTER 2022-08-01 13:41 | Emergency (ER) | payer MEDICARE, MEDICAID, SELFPAY ==
[2022-08-01 13:43] VITALS: BP 142/68; PULSE 78; RESP 16; TEMP 36.6; O2SAT 99; BMI 32.9
--- NOTE | 2022-08-01 14:12 | RAD_ITS ---
STUDY: X-RAY CHEST REASON FOR EXAM: Female, 72 years old. MENTAL HEALTH CLEARANCE TECHNIQUE: Single AP portable view of the chest. COMPARISON: Comparison is made with prior study dated 12/30/2021. FINDINGS: Mild persistent increased linear markings at the lung bases suggest bibasilar linear atelectasis. This as improved as compared to prior study. There is no demonstrated pleural abnormality. Normal size heart. Normal mediastinum and samara. Normal visualized pulmonary arteries. Normal visualized aortic arch and descending thoracic aorta. There are diffuse degenerative changes of the visualized thoracic spine. Normal visualized ribs, clavicles, and shoulders. Moderate sized hiatal hernia. RAD/Chest 1 View (Portable) IMPRESSION: Mild persistent increase in markings at the lung bases suggestive of bibasilar atelectasis. These have improved as compared to prior study. Electronically Signed: Dinesh Nevarez MD at 14:44 EST ,
--- NOTE | 2022-08-01 14:12 | EKG12_ITS ---
Test Reason : MEDICAL CLEARANCE Blood Pressure : / mmHG Vent. Rate : 065 BPM Atrial Rate : 065 BPM P-R Int : 154 ms QRS Dur : 096 ms QT Int : 424 ms P-R-T Axes : 010 -13 017 degrees QTc Int : 440 ms Poor data quality, interpretation may be adversely affected Normal sinus rhythm Moderate voltage criteria for LVH, may be normal variant ( R in aVL , [place] product ) Borderline ECG When compared with ECG of 30-DEC-2021 10:28, Premature ventricular complexes are no longer Present Confirmed by SRINATH TRACEY, JESSICA ([id number]), department editor KUSHAL GRACIA ([id number]) on 08/05/2022 8:46:11 AM Referred By: Confirmed By:JESSICA YO MD
--- NOTE | 2022-08-01 14:24 | CM.ED ---
TENA MADSEN called Shobha at [facility] to inquire as to what patient had stated. Shobha said that patient voiced that she wants to . When staff asked her if she had a plan patient refused to answer. Patient also refused care and activity. Shobha said that this is not the first time that patient has vocalized that she does not want to live anymore or would be better off but previously patient would state she had no plan and was making those statements as she was upset. Jennifer BREWSTER
--- NOTE | 2022-08-01 14:27 | EX.ED.VIS.PS ---
HPI HPI - Psych History of Present Illness Chief Complaint: Suicidal Narrative Narrative: 72-year-old female presents with increasing depression and reported suicidal ideation. She states that she had knee surgery in May of last year, approximately 2 months ago, first went to [facility] for rehab, and now is currently at [facility]. She reports that she is unable to do anything secondary to her having right knee surgery. She has to walk with a walker. She states she has now more depressed and disgusted with her life because she is not where she used to be in terms of being able to ambulate. She states that she is sleeping more because she cannot do anything she also has decreased appetite. She is frustrated and fed up. She presents via EMS with increased depression. [facility], [facility] Medical History Constipation Gastric reflux Hypertension Non-smoker Rash Shortness of breath on exertion Wears glasses Home Medications esomeprazole magnesium 20 mg capsule,delayed release (Nexium) 20 mg PO DAILY gerd 05/15/20 [History Last Taken 12/30/21] ketoconazole 2 % topical cream 1 applic topical PRN PRN Rash 05/29/21 [History Last Taken Unknown] polyethylene glycol 3350 17 gram oral powder packet (Miralax) 17 g PO DAILY PRN Constipation 05/29/21 [History Last Taken Unknown] lisinopril 10 mg tablet 10 mg PO DAILY bp 12/30/21 [History Last Taken 12/30/21] sennosides 8.6 mg-docusate sodium 50 mg tablet (Stool Softener-Stimulant Laxative) 2 tab PO BID PRN Constipation 12/30/21 [History Last Taken Unknown] Allergy/AdvReac Type Severity Reaction Status Date / Time No Known Allergies Allergy Verified 08/01/22 13:42 Family History Other Hypertension Surgical History History of toe surgery History of total right knee replacement Hx of tracheostomy Social History household members: none Smoking Status: Never smoker alcohol intake: never substance use type: does not use ROS ROS ED ROS Narrative Constitutional: No fever, no chills. HEENT: No sore throat. No neck pain. No loss of vision. No rhinorrhea. Cardiovascular: No chest pain. No palpitations. No pedal edema. Respiratory: No cough, no shortness of breath. Abdominal: No abdominal pain. No nausea. No vomiting. Genitourinary: No dysuria. No hematuria. Musculoskeletal: No myalgias. No arthralgias. Neurologic: No headaches. No dizziness. No lightheadedness. Right leg weakness after knee surgery 2 months ago. Skin: No rash. No change in color. Psychiatric: Increasing depression. No anxiety. Hypersomnolence. Feeling helpless and hopeless, frustrated with debility. Decreased appetite. EXAM Physical Exam Narrative Exam Narrative: Afebrile. Vital signs noted. HEENT: Normocephalic. Atraumatic. PERRL, EOMI. Neck soft and supple. No point tenderness or step off. Cardiovascular: Regular rate and rhythm. No murmurs, rubs, or gallops appreciated. Respiratory: No tachypnea. Lungs clear to auscultation bilaterally. Gastrointestinal: Abdomen soft, nontender, with normoactive bowel sounds. No rebound or guarding. Neurological: Awake. Alert. Nonfocal, nonlateralizing. Skin: No rash. Normal color. No pallor. Musculoskeletal: No pedal edema. Full range of motion extremities. Psychiatric: Positive depressed affect. Currently denies suicidal ideation. Const Vital Signs: 08/01/22 13:43 08/01/22 15:00 08/01/22 15:26 Temperature 97.8 F 97.9 F Temperature Source Temporal Pulse Rate 78 73 86 Respiratory Rate 16 16 16 Blood Pressure 142/68 H 124/82 H 124/74 H Blood Pressure Mean 92 96 Pulse Ox 99 98 99 Oxygen Delivery Method Room Air Room Air MDM MDM MDM Narrative Medical decision making narrative: Medical screening labs were obtained. EKG was obtained and interpreted by myself which demonstrates normal sinus rhythm at 65 bpm without ectopy or acute ST changes. No STEMI. Her medical screening labs are grossly unremarkable, ethyl alcohol negative. Chest x-ray interpreted by myself shows no acute process. I reviewed the radiology report and agree that there may be bibasilar atelectasis but no significant change from previous. At this point in time, she has been evaluated by the caser shoe parts. It was not felt that she required admission to a psychiatric facility. She stated that she was able to contract for safety without ambivalence and that did not have a plan to commit suicide. She just states that she is depressed. Her therapist/friend is at the bedside who states that the facility where she is staying, [facility], has residents quarantine because of an influenza outbreak. This may have contributed to her increasing depression. I feel she can be discharged safely home with follow-up. Return instructions to the emergency department were reviewed. Disposition is discharged home in stable condition. Lab Data Attestation: I reviewed the patient's lab results. Labs: Laboratory Results - last 24 hr 08/01/22 08/01/22 08/01/22 15:20 15:20 15:20 WBC 4.6 RBC 4.70 Hgb 13.3 Hct 41.5 MCV 88.3 MCH 28.3 MCHC 32.0 RDW Std Deviation 42.9 RDW Coeff of Marcus 13.2 Plt Count 182 MPV 8.3 Immature Gran % (Auto) 0.200 Neut % (Auto) 32.2 L Lymph % (Auto) 55.9 H Bertie % (Auto) 7.4 Eos % (Auto) 3.9 Baso % (Auto) 0.4 Absolute Neuts (auto) 1.5 L Absolute Lymphs (auto) 2.57 Nucleated RBC % 0 Sodium 142 Potassium 3.5 Chloride 109 H Carbon Dioxide 28.0 Anion Gap 5 BUN 13 Creatinine 0.72 Estim Creat Clear Calc 53.14 Est GFR (MDRD) Af Amer 102 Est GFR (MDRD) Non-Af 84 BUN/Creatinine Ratio 18.0 Glucose 93 Calcium 9.1 Total Bilirubin 0.40 AST 42 H ALT 119 H Alkaline Phosphatase 105 Total Protein 7.0 Albumin 3.4 Globulin 3.6 Albumin/Globulin Ratio 0.9 Ethyl Alcohol < 3.0 Radiography Diagnostic Testing: Clinical Impression(s) from Imaging Studies Chest X-Ray 08/01/22 14:12 IMPRESSION: Mild persistent increase in markings at the lung bases suggestive of bibasilar atelectasis. These have improved as compared to prior study. Electronically Signed: Dinesh Nevarez MD at 14:44 EST , Discharge Plan Triage Chief Complaint: Suicidal ED Provider: Errol Stewart Dx/Rx/DC Orders Clinical Impression: Depression, Debility Instructions: ED Depression Prescriptions: No Action esomeprazole magnesium [Nexium] 20 MG capsule 20 mg PO DAILY polyethylene glycol 3350 [Miralax] 17 gram Powder In Packet 17 g PO DAILY PRN (Reason: Constipation) ketoconazole 2 % cream 1 applic TOPICAL PRN PRN (Reason: Rash) Label Comments: APPLY TO AFFECTED AREA ONCE DAILY sennosides-docusate sodium [Stool Softener-Stimulant Laxat] 8.6-50 mg tablet 2 tab PO BID PRN (Reason: Constipation) lisinopril 10 mg tablet 10 mg PO DAILY Primary Care Provider: Care Physician,No Primary Referrals: Charlotte Cerda FAMILY CONSUMER SCIENTIST, FAMILY CONSUMER SCIENTIST-C [Non-Staff] - 3-5 Days if not improving Activity Restrictions/Additional Instructions: Return if you have thoughts about hurting yourself/killing yourself. Follow-up with your primary care provider soon as possible. Return with new or worsening symptoms. Disposition Disposition: Assisted Living Discharge Location: [facility]
[2022-08-01 15:00] VITALS: BP 124/82; PULSE 73; RESP 16; O2SAT 98
[2022-08-01 15:26] VITALS: BP 124/74; PULSE 86; RESP 16; TEMP 36.6; O2SAT 99
--- NOTE | 2022-08-01 15:34 | ED.RN ---
Ok to d/c sitter per provider.
[2022-08-01 15:35] LABS: Absolute Lymphocyte Count 2.57 X10^3/uL (0.83-4.51); Absolute Neutrophil Count 1.5 X10^3/uL (2.0-7.7); Basophil# 0.02 X10^3/uL; Basophil% 0.4 % (0-1); Eosinophil# 0.18 X10^3/uL; Eosinophils% 3.9 % (0-5); Hematocrit 41.5 % (37-47); Hemoglobin 13.3 g/dL (12.0-15.0); Lymphocyte # 2.57 X10^3/ul (0.83-4.51); Lymphocyte % 55.9 % (19-41); Mean Corpuscular Hgb 28.3 pg (27.0-32.0); Mean Corpuscular Volume 88.3 fL (81-99); Mean Platelet Vol. 8.3 fl (6.2-12.0); Monocyte# 0.34 X10^3/uL; Monocyte% 7.4 % (0-10); NRBC Flagged by Analyzer 0 % (0-5); Neutrophil # 1.48 X10^3/uL (2.7-7.7); Neutrophil % 32.2 % (47-70); Platelet Count 182 K/mm3 (150-450); RBC Distribution Width CV 13.2 % (11.6-14.6); RBC Distribution Width SD 42.9 fl (35.1-43.9); White Blood Count 4.6 K/mm3 (4.4-11.0)
[2022-08-01 15:41] LABS: Alcohol, Blood (Medical)-Serum < 3.0 mg/dL
[2022-08-01 15:44] LABS: ALB/GLOB Ratio 0.9 RATIO (0.9-2.4); AST(SGOT) 42 U/L (15-37); Alanine Aminotransfer ALT/SGPT 119 U/L (13-56); Albumin, Serum 3.4 g/dL (3.2-5.0); Alkaline Phosphatase 105 U/L (45-117); Anion Gap 5 (5-15); BUN 13 mg/dL (7-18); Calcium,Total 9.1 mg/dL (8.5-10.1); Chloride 109 mmol/L (98-107); Creatinine, Serum 0.72 mg/dL (0.55-1.02); EST Glomerular Filtration Rate 84 mL/min (>60); Est Glom Filt Rate - Afr Amer 102 mL/min (>60); Estimated Creatinine Clearance 53.14 ml/min; Globulin 3.6 g/dL (2.2-4.2); Glucose 93 mg/dL (74-106); Potassium 3.5 mmol/L (3.5-5.1); Sodium Level 142 mmol/L (136-145)
--- NOTE | 2022-08-01 15:58 | NURSING ---
08/01/22@ 1543- REPORT CALLED TO NERI QUEEN AT [facility].
[2022-08-01 16:00] VITALS: BP 122/81; PULSE 78; RESP 18; O2SAT 97
--- NOTE | 2022-08-01 16:04 | ED.RN ---
[facility] ETA [id number]
[2022-08-01 17:00] VITALS: BP 120/80; PULSE 75; RESP 20; O2SAT 95
[2022-08-01 18:00] VITALS: BP 123/76; PULSE 80; RESP 16; O2SAT 98
--- NOTE | 2022-08-01 18:21 | CM.ED ---
Addendum entered by Yola Ford 08/01/22 18:27: SW completed [place] Suicide Screening with patient, it was indicated that patient was at low risk for suicide. Yola oFrd [employer]ANCIAL SERVICES INTERNSHIP, ENGINEERING ASSOCIATE Original Note: Social Work Psychiatric Assessment Reason for Consult: SI Informants: Patient, Delmy Chief Complaint: Patient states ?I?m disgusting. I can?t do anything, my leg won?t let me go anywhere?. Patient reports she has been struggling mentally since she had her knee surgery in May and recently moved to [facility] from [facility]. Martial Status: Patient is single. Identified gender/ sexual orientation: female, heterosexual Living situation: Patient reports she lives at [facility] since June. ?? Supports/ Resources: Patient explained her two sisters are her main support, one lives in [place] and the other lives in [place]. No other resources reported. ??? History: None Education and Employment history: Patient states she dropped out of school in 5th grade due to school causing stress induced epilepsy. Patient explained her mother said she was ?a slow learner?, but did not have an IEP nor is aware of any learning disabilities. Patient stated she currently received disability for her knee but previously worked in food and beverage director. Mental Health Treatment/ History: Patient states she has no previous mental health treatment, no known MH diagnosis, no prescribed medications, and no previous psychiatric hospitalization. Patient unaware of family MH history. ??? Triggers/ stressors: Patient being unable to do things without help has been stressful. Patient explained the staff at [facility] have been encouraging her to be more independent with DLS but have been helping with food and medication management. Coping Skills: Patient reports she enjoys watching game shows and cowboy shows. Patient?s coping skills appear to be primitive. ?? Abuse History: ? Emotional: none reported ? Physical: none reported ? Sexual: none reported ? Substance Abuse Hx: none reported? Risk to Self/Others: ? Suicidal: Patient reports she has thoughts sometimes when she gets depressed but has never had a plan. Patient explained ?it?s just talk, I get upset or mad and think I wish I was just ?. Patient clarified she does not have a plan to take her own life. When asked about patient?s intent to commit suicide on a scale of 1-10, patient reported at her worst she was a 4. ? Homicidal: denied ? Violence: denied Mental Status Exam: ? Orientation x4 ? Memory: fair ? Appearance:? Disheveled ? Mood/ affect: depressed mood ? Communication Pattern: responds to questions ? Thought Process: appropriate ? General Intellectual Functioning: below average Judgement: fair Insight: fair? consulted with MD Stewart to review patient?s symptoms, in agreement to recommend home with safety plan and provide counseling resources. ?? Assessment: Patient was brought into the ED due to an increase in depressive symptoms. Patient states she has been struggling with depression since her knee surgery due to it impacting her functioning and ability to be independent. Patient explained she has no plan at this time and just feels ?discouraged? with her current situation. No history of MH treatment, diagnosis, medications nor family history of MH. Patient would benefit from a safety plan and a list of local resources for counseling agencies to address the depressive symptoms. Plan: Informal safety plan, provide resources and D/C home RADHA Lindsay
--- NOTE | 2022-08-01 18:22 | CM.ED ---
SW Note SW met with patient to review recommendations. SW engaged patient in a conversation to complete an informal safety plan. Patient was receptive and explained if she noticed an increase in depressive symptoms she would talk to the nurses at [facility]. Patient stated she could also contact her sisters to talk to them about how she is feeling. SW then inquired about patient's interest in local counseling resources. Patient stated she was not interested in resources. SW inquired about providing patient with [facility] Crisis contact information. Patient was receptive and took their number. SW provided patient with emotional support. SW remains available if other needs arise. MD and RN updated about resources an support offered to patient. Yola GREENBERG, RADHA
== END 2022-08-01 18:41 | disposition home or self-care (01) ==
PROVIDERS: Emergency Provider Emergency Medicine; Visit Provider Emergency Medicine
DX: R45.851 Suicidal ideations (principal); R53.81 Other malaise; I10 Essential (primary) hypertension; F32.A Depression, unspecified; Z98.890 Other specified postprocedural states
CPT/HCPCS: 71045; 80053; 82077; 85025; 87811; 93005; 99285

== ENCOUNTER 2022-11-10 22:01 | Emergency (ER) | payer MEDICARE, MEDICAID, SELFPAY ==
[2022-11-10 22:04] VITALS: BP 119/64; PULSE 95; RESP 16; TEMP 36.8; O2SAT 100; BMI 31.2
[2022-11-11 00:13] VITALS: BP 153/74; PULSE 83; RESP 16; O2SAT 95
[2022-11-11 00:24] LABS: Mucous, Urine 0 SEEN /hpf (<or=2+); Red Blood Cells-Urine 0 SEEN /hpf (0-5); Squamous Epithelial Cells - UA 0 SEEN /hpf (5-10)
[2022-11-11 00:25] LABS: Color, Urine Yellow (Yellow); Glucose, Dipstick Normal (Normal); Ketone-Dipstick Negative (Negative); Leukocyte Esterase-Dipstick 25 /ul (Negative); Nitrite-Dipstick Negative (Negative); Occult Blood-Urine Negative /ul (Negative); Protein-Dipstick 30 mg/dl (Negative); Urine Bilirubin Dipstick Negative (Negative); Urine Clarity Clear (Clear); Urine Urobilinogen Normal (Normal)
[2022-11-11 00:42] LABS: Absolute Neutrophil Count 6.8 X10^3/uL (2.0-7.7); Basophil# 0.02 X10^3/uL; Basophil% 0.2 % (0-1); Hematocrit 42.3 % (37-47); Hemoglobin 13.5 g/dL (12.0-15.0); Mean Corp Hgb Conc 31.9 g/dL (32-36); Mean Corpuscular Hgb 28.5 pg (27.0-32.0); Mean Corpuscular Volume 89.4 fL (81-99); Mean Platelet Vol. 8.5 fl (6.2-12.0); Monocyte# 0.96 X10^3/uL; Monocyte% 10.2 % (0-10); NRBC Flagged by Analyzer 0 % (0-5); Neutrophil % 72.2 % (47-70); Platelet Count 213 K/mm3 (150-450); RBC Distribution Width CV 14.3 % (11.6-14.6); RBC Distribution Width SD 46.4 fl (35.1-43.9); Red Blood Count 4.73 M/mm3 (4.2-5.4); White Blood Count 9.4 K/mm3 (4.4-11.0)
[2022-11-11 00:58] LABS: Anion Gap 3 (5-15); BUN 26 mg/dL (7-18); BUN/Creat Ratio 28.8 RATIO (10-20); Calcium,Total 9.2 mg/dL (8.5-10.1); Chloride 107 mmol/L (98-107); EST Glomerular Filtration Rate 65 mL/min (>60); Est Glom Filt Rate - Afr Amer 79 mL/min (>60); Estimated Creatinine Clearance 59.05 ml/min; Glucose 116 mg/dL (74-106); Potassium 3.7 mmol/L (3.5-5.1); Sodium Level 138 mmol/L (136-145)
[2022-11-11 00:59] LABS: Bacteria RARE /hpf (None Seen); White Blood Cells 0-5 SEEN /hpf (0-5)
--- NOTE | 2022-11-11 01:16 | EX.ED.DYSGE1 ---
HPI History of Present Illness Chief Complaint: General Illness Narrative Narrative: Patient is a 72-year-old female from the group home with history of debility hypertension and GERD. She had a urine sample obtained at the group home recently which showed changes concerning for infection and was started on Macrobid. Today she complained of the inability to urinate and also leg swelling and with this was sent to the hospital for evaluation. [facility] Medical History Constipation Gastric reflux Hypertension Non-smoker Rash Shortness of breath on exertion Wears glasses Home Medications ketoconazole 2 % topical cream 1 applic topical PRN PRN Rash 05/29/21 [History Last Taken Unknown] polyethylene glycol 3350 17 gram oral powder packet (Miralax) 17 g PO DAILY PRN Constipation 05/29/21 [History Last Taken Unknown] lisinopril 10 mg tablet 10 mg PO DAILY bp 12/30/21 [History Last Taken 12/30/21] sennosides 8.6 mg-docusate sodium 50 mg tablet (Stool Softener-Stimulant Laxative) 2 tab PO BID PRN Constipation 12/30/21 [History Last Taken Unknown] cholecalciferol (vitamin D3) 50 mcg (2,000 unit) capsule 50 mcg PO DAILY 11/10/22 [History Last Taken Unknown] nitrofurantoin monohydrate/macrocrystals 100 mg capsule 100 mg PO BID 11/10/22 [History Last Taken Unknown] nystatin 100,000 unit/gram topical powder (Nyamyc) 1 applic topical BID 11/10/22 [History Last Taken Unknown] omeprazole 20 mg capsule,delayed release 20 mg PO DAILY 11/10/22 [History Last Taken Unknown] Allergy/AdvReac Type Severity Reaction Status Date / Time No Known Allergies Allergy Verified 08/01/22 13:42 Family History Other Hypertension Surgical History History of toe surgery History of total right knee replacement Hx of tracheostomy Social History household members: none Smoking Status: Never smoker alcohol intake: never substance use type: does not use ROS ROS ED Constitutional Constitutional ED: Denies chills or fever(s) ENT ENT ED: Denies sore throat Cardiovascular Cardiovascular: Denies chest pain Respiratory/Chest Respiratory/Chest: Denies cough or dyspnea Gastrointestinal Gastrointestinal: Denies abdominal pain, diarrhea, nausea or vomiting Genitourinary Genitourinary ED: Reports other Details: Positive anuria ; Denies dysuria Musculoskeletal Musculoskeletal: Reports other Details: Positive leg swelling ; Denies back pain or myalgias Integumentary Denies rash Neurologic Neurologic: Denies headache(s) Hematologic/Lymphatic Hematologic/Lymphatic: Denies easy bleeding or easy bruising EXAM Physical Exam Const Vital Signs: 11/10/22 22:04 11/11/22 00:13 Temperature 98.2 F Temperature Source Oral Pulse Rate 95 83 Respiratory Rate 16 16 Blood Pressure 119/64 153/74 H Blood Pressure Mean 82 100 Pulse Ox 100 95 Oxygen Delivery Method Room Air Room Air Positive well nourished and well developed General Appearance ED: well developed HEENT Reports moist mucous membranes Eyes PERRL and EOMs intact bilaterally Neck supple and no JVD Resp normal respiratory effort and clear to auscultation bilaterally Cardio regular rate and regular rhythm GI GI Narrative: There is organomegaly in the suprapubic region consistent with a distended bladder there is mild pain with palpation at the site but otherwise no voluntary guarding or rigidity or pulsatile mass. Auscultation: normoactive bowel sounds Palpation: soft Back/Spine no CVA tenderness Extremity Extremity Narrative: +1-2 pitting edema that is equal and symmetric to the bilateral lower extremity. Negative Homans' sign Neuro oriented x3 and CN's II-XII intact bilaterally Sensorium / Orientation: alert Motor Exam: general weakness Psych mental status grossly normal Skin Skin Narrative: Patient has erythema with faint overlying white hue and multiple skin folds of the chest wall/breast as well as inguinal regions consistent with cutaneous candidiasis MDM MDM MDM Narrative Medical decision making narrative: Patient presented to the ER with stable vitals but reported that she has not been able to urinate for approximately 12 hours. On exam there appears to be a distended bladder consistent with acute urinary retention. As nursing reported that she was recently diagnosed with UTI there is concern that she could be developing acute kidney injury secondary to the retention as well as urosepsis so basic blood work was obtained. With the peripheral edema there is concern that acute kidney injury is the cause but also congestive heart failure the patient's lungs are clear and she is satting 100% on room air and there is no JVD so concern for this is low. Blood work showed no leukocytosis or left shift kidney function is normal and urine sample only shows rare bacteria. The Arevalo catheter was placed and there was resolution of the mild organomegaly/distention. Therefore at this time the catheter can be kept in place secondary to the retention she can continue the Macrobid that was prescribed by the group home as the urine sample does not show worsening infection and is otherwise safe for discharge. History & Record Review Discussion w/independent historian: EMS personnel and Patient Lab Data Attestation: I reviewed the patient's lab results. Labs: Laboratory Results - last 24 hr 11/11/22 11/11/22 11/11/22 00:15 00:32 00:32 WBC 9.4 RBC 4.73 Hgb 13.5 Hct 42.3 MCV 89.4 MCH 28.5 MCHC 31.9 L RDW Std Deviation 46.4 H RDW Coeff of Marcus 14.3 Plt Count 213 MPV 8.5 Immature Gran % (Auto) 0.400 Neut % (Auto) 72.2 H Lymph % (Auto) 17.0 L [place] % (Auto) 10.2 H Eos % (Auto) 0.0 Baso % (Auto) 0.2 Absolute Neuts (auto) 6.8 Absolute Lymphs (auto) 1.60 Nucleated RBC % 0 Sodium 138 Potassium 3.7 Chloride 107 Carbon Dioxide 28.0 Anion Gap 3 L BUN 26 H Creatinine 0.90 Estim Creat Clear Calc 59.05 Est GFR (MDRD) Af Amer 79 Est GFR (MDRD) Non-Af 65 BUN/Creatinine Ratio 28.8 H Glucose 116 H Calcium 9.2 Urine Color Yellow Urine Clarity Clear Urine pH 6.0 Ur Specific [place] 1.020 Urine Protein 30 H Urine Glucose (UA) Normal Urine Ketones Negative Urine Occult Blood Negative Urine Nitrite Negative Urine Bilirubin Negative Urine Urobilinogen Normal Ur Leukocyte Esterase 25 H Urine RBC 0 SEEN Urine WBC 0-5 SEEN Ur Squamous Epith Cells 0 SEEN Urine Bacteria RARE Urine Mucus 0 SEEN Discharge Plan Triage Chief Complaint: General Illness ED Provider: Bong Alex Dx/Rx/DC Orders Clinical Impression: Acute urinary retention, Debility, Peripheral edema Instructions: ED Arevalo Catheter, Care, ED Urinary Retention, Female Prescriptions: No Action polyethylene glycol 3350 [Miralax] 17 gram Powder In Packet 17 g PO DAILY PRN (Reason: Constipation) ketoconazole 2 % cream 1 applic TOPICAL PRN PRN (Reason: Rash) Label Comments: APPLY TO AFFECTED AREA ONCE DAILY sennosides-docusate sodium [Stool Softener-Stimulant Laxat] 8.6-50 mg tablet 2 tab PO BID PRN (Reason: Constipation) lisinopril 10 mg tablet 10 mg PO DAILY omeprazole 20 mg capsule,delayed release(DR/EC) 20 mg PO DAILY nystatin [Nyamyc] 100,000 unit/gram powder 1 applic TOPICAL BID nitrofurantoin monohyd/m-cryst 100 mg capsule 100 mg PO BID Rx Instructions: 11/10-11/15/22 cholecalciferol (vitamin D3) 50 mcg (2,000 unit) Capsule 50 mcg PO DAILY Primary Care Provider: Care Physician,No Primary Referrals: Adelita Velásquez MD [Med Staff - Active Staff] - Care Physician,No Primary [Primary Care Provider] - Activity Restrictions/Additional Instructions: Please follow-up with urology secondary to the urinary retention noted on today's exam. Continue the antibiotic that was prescribed from the group home secondary to concern for UTI but urine today only shows rare bacteria. He has no signs of fluid overload or congestive heart failure or acute kidney damage. Therefore your family doctor may need to set you up with possible lymphedema clinic secondary to your leg swelling. Please return to the ER should you have any further concerns Disposition Disposition: Home, Self Care
[2022-11-11 02:24] VITALS: BP 133/64; PULSE 88; RESP 16; O2SAT 95
== END 2022-11-11 03:24 | disposition home or self-care (01) ==
PROVIDERS: Emergency Provider Emergency Medicine; Visit Provider Emergency Medicine
DX: R33.9 Retention of urine, unspecified (principal); R53.81 Other malaise; I10 Essential (primary) hypertension; M79.89 Other specified soft tissue disorders; R60.9 Edema, unspecified
CPT/HCPCS: 51702; 80048; 81001; 85025; 99284

== ENCOUNTER 2023-02-01 10:09 | Inpatient (IN) | payer MEDICARE, MEDICAID, SELFPAY ==
[2023-02-01] VITALS (13 sets, daily range): BP systolic 109–147; BP diastolic 70–87; PULSE 71–108; RESP 14–22; TEMP 36.6–37.1; O2SAT 85–96; BMI 30.4; BMI 31.1
--- NOTE | 2023-02-01 10:26 | EKG12_ITS ---
Test Reason : DIZZY Blood Pressure : / mmHG Vent. Rate : 100 BPM Atrial Rate : 100 BPM P-R Int : 148 ms QRS Dur : 094 ms QT Int : 354 ms P-R-T Axes : 021 -25 055 degrees QTc Int : 456 ms Sinus rhythm with frequent Premature ventricular complexes Moderate voltage criteria for LVH, may be normal variant ( R in aVL , Nicholson product ) Nonspecific ST and T wave abnormality Abnormal ECG Confirmed by SRINATH TRACEY, JESSICA ([id number]), editor newspaper KUSHAL GRACIA ([id number]) on 02/03/2023 8:28:29 AM Referred By: JOSEPH Confirmed By:JESSICA YO MD
--- NOTE | 2023-02-01 10:26 | CT_ITS ---
STUDY: CT BRAIN WITHOUT CONTRAST REASON FOR EXAM: Female, 72 years old. altered mental status RADIATION DOSAGE (If Supplied By Facility): CTDIvol = ( 44.99 ) mGy, DLP = ( 897.35 ) mGycm TECHNIQUE: Transaxial CT imaging of the brain was performed without administration of intravenous contrast material. Individualized dose optimization techniques were used for this CT. COMPARISON: 12/30/2021 FINDINGS: Normal soft tissue structures. Normal calvarium. There is moderate cerebral atrophy with widening of the extra-axial spaces and ventricular dilatation. Normal white matter tracts of the cerebral hemispheres. Normal basal ganglia and thalami. Normal brainstem. Normal cerebellum. There is no intracranial hemorrhage. There are no findings of an acute ischemic infarction. Normal visualized paranasal sinuses. CT/Brain/Head without Contrast IMPRESSION: Chronic involutional changes of the brain. Electronically Signed: Gerhard Enriquez MD at 13:20 EDT ,
--- NOTE | 2023-02-01 10:28 | EX.ED.DYSGE1 ---
HPI History of Present Illness Chief Complaint: General Illness Narrative Narrative: 72-year-old female presenting with altered mental status. Apparently she was hypoglycemic with a blood sugar of 29 at her skilled nursing. She is a very poor informant. She tells me that she feels lightheaded and she is felt that way since 7 in the morning however she complained of lightheadedness about 3 or 4 AM reportedly. She also was evaluated then and her vital signs were normal so nothing was done. She did not get up for breakfast because she felt lightheaded and did not eat this morning. She describes her lightheadedness as feeling off. She is not on any insulin diabetic medications. She tells me she has not had a low blood sugar before that she knows of. She says she does not have any pain anywhere. She is not short of breath. She does not believe she is fallen. She bit her tongue at some point but does not remember why or how. She has history of seizures as a child but states that the last time she can recall having one. She is not on any seizure medications. She is complaining of neck and back pain that is in her upper back. [facility] Medical History Constipation Gastric reflux Hypertension Non-smoker Rash Shortness of breath on exertion Wears glasses Home Medications ketoconazole 2 % topical cream 1 applic topical PRN PRN Rash 05/29/21 [History Last Taken Unknown] polyethylene glycol 3350 17 gram oral powder packet (Miralax) 17 g PO DAILY PRN Constipation 05/29/21 [History Last Taken 01/31/23] lisinopril 10 mg tablet 10 mg PO DAILY bp 12/30/21 [History Last Taken 01/31/23] sennosides 8.6 mg-docusate sodium 50 mg tablet (Stool Softener-Stimulant Laxative) 2 tab PO BID PRN Constipation 12/30/21 [History Last Taken 01/31/23] cholecalciferol (vitamin D3) 50 mcg (2,000 unit) capsule 50 mcg PO DAILY 11/10/22 [History Last Taken 01/31/23] nystatin 100,000 unit/gram topical powder (Nyamyc) 1 applic topical BID 11/10/22 [History Last Taken 01/31/23] omeprazole 20 mg capsule,delayed release 20 mg PO DAILY 11/10/22 [History Last Taken 02/01/23] ropinirole 0.25 mg tablet 0.25 mg PO QHS RESTLESS LEG 02/01/23 [History Last Taken 01/31/23] vibegron 75 mg tablet (Gemtesa) 75 mg PO DAILY BLADDER SPASM 02/01/23 [History Last Taken 01/31/23] Allergy/AdvReac Type Severity Reaction Status Date / Time No Known Allergies Allergy Verified 08/01/22 13:42 Family History Other Hypertension Surgical History History of toe surgery History of total right knee replacement Hx of tracheostomy Social History household members: none Smoking Status: Never smoker alcohol intake: never substance use type: does not use ROS ROS ED Constitutional Constitutional ED: Denies chills or fever(s) Eyes Eyes: Denies change in vision or diplopia ENT ENT ED: Reports other Details: Tongue abrasion ; Denies rhinorrhea or sore throat Cardiovascular Cardiovascular: Denies chest pain or palpitations Respiratory/Chest Respiratory/Chest: Denies cough, dyspnea or dyspnea on exertion Gastrointestinal Gastrointestinal: Denies abdominal pain Genitourinary Genitourinary ED: Denies dysuria or hematuria Musculoskeletal Musculoskeletal: Reports back pain and neck pain Neurologic Neurologic: Denies headache(s) Psychiatric Psychiatric: Denies anxiety or depression EXAM Physical Exam Const Vital Signs: 02/01/23 10:11 02/01/23 10:10 02/01/23 10:19 Temperature 98.4 F Temperature Source Temporal Pulse Rate 100 108 H Respiratory Rate 18 22 H Respiratory Pattern Normal Blood Pressure 133/78 H Blood Pressure Mean 96 Pulse Ox 85 94 Oxygen Delivery Method Room Air Nasal Cannula Oxygen Flow Rate (L/min) 4 02/01/23 13:05 Temperature Temperature Source Pulse Rate 71 Respiratory Rate 18 Respiratory Pattern Blood Pressure 143/79 H Blood Pressure Mean 100 Pulse Ox 95 Oxygen Delivery Method Nasal Cannula Oxygen Flow Rate (L/min) 4 Positive well nourished General Appearance ED: NAD HEENT Reports moist mucous membranes HEENT Narrative: Superficial abrasion noted to the right anterior portion of the tongue. No active bleeding. No jaw malocclusion. No signs of facial trauma. Eyes PERRL and EOMs intact bilaterally Chest Wall inspection of chest normal Resp normal respiratory effort Auscultation: Negative for rales, rhonchi or wheezes GI Palpation: Negative for tender, guarding or splenomegaly Back/Spine Back/Spine Narrative: No midline cervical or thoracic we will deformities or step-offs. Neuro CN's II-XII intact bilaterally and no sensory deficits noted Motor Exam: general weakness Psych Psych Narrative: Awake and alert Skin no rashes or lesions noted MDM MDM MDM Narrative Medical decision making narrative: 72-year-old female who is alert and awake, however it sounds like she had a hypoglycemic episode. It is unclear if she is fallen because she is a poor informant. She does not have any external signs of head trauma but did bite her tongue and she is complaining of neck and upper back pain. She states he feels lightheaded and describes this as feeling off. She denies having any anterior chest pain or pressure. She did present hypoxic at 85% on room air and reports that she does not typically wear oxygen. On 2 L she has been stable. Differential includes hypoglycemia, seizure, head injury, neck and back contusion, acute coronary syndrome, dehydration, electrolyte abnormalities, PE, aortic dissection, pneumonia, UTI. Given her tachycardia, hypoxia, tachypnea sepsis work-up was pursued and the patient was pancultured. She given a liter normal saline. Her blood sugar is now above 100. We will continue to monitor this. CT of the brain, cervical spine will be obtained because is unclear if she had a head injury. We will obtain a D-dimer to assess for PE as a cause of her shortness of breath and hypoxia. EKG and high-sensitivity troponin will be obtained to rule out ischemic causes. Chest x-ray will be obtained to rule out pneumonia. EKG shows a sinus rhythm with frequent PVCs on my interpretation with a ventricular rate of 100 bpm. CBC shows a leukocytosis of 14.7 with a left shift. Hemoglobin hematocrit are stable. Platelets are normal. Renal function appears normal however there are some prerenal azotemia. Patient was already given IV fluids. Electrolytes within normal limits. Glucose 144 without anion gap. High-sensitivity troponin came back at 113. Urinalysis negative for infection. D-dimer returned elevated at 1.31. We will obtain a CTA chest abdomen pelvis to rule out dissection or PE. CT brain and cervical spine were negative. High-sensitivity troponin came back at 113. We will obtain a delta troponin. Patient's lactic acid is normal which makes seizure less likely. COVID and influenza were obtained due to the hypoxia and these were negative. Given elevated troponin and hypoxia as well as abnormal EKG observation benefit from admission. Discussed with hospitalist. Impression: 1. Hypoxia 2. Leukocytosis 3. Hyperglycemia 4. Elevated troponin 5. Back pain 6. Neck pain Lab Data Labs: Laboratory Results - last 24 hr 02/01/23 02/01/23 02/01/23 10:40 11:30 13:35 WBC 14.7 H RBC 4.68 Hgb 13.7 Hct 41.9 MCV 89.5 MCH 29.3 MCHC 32.7 RDW Std Deviation 45.0 H RDW Coeff of Marcus 13.8 Plt Count 260 MPV 8.2 Immature Gran % (Auto) 0.400 Neut % (Auto) 87.5 H Lymph % (Auto) 8.9 L [place] % (Auto) 3.1 Eos % (Auto) 0.0 Baso % (Auto) 0.1 Absolute Neuts (auto) 12.8 H Absolute Lymphs (auto) 1.31 Nucleated RBC % 0 PT 13.0 INR 1.0 D-Dimer Quant (PE/DVT) 1.31 H* Sodium 139 Potassium 4.0 Chloride 107 Carbon Dioxide 27.0 Anion Gap 5 BUN 25 H Creatinine 0.94 Estim Creat Clear Calc 56.54 Est GFR (MDRD) Af Amer 75 Est GFR (MDRD) Non-Af 62 BUN/Creatinine Ratio 26.5 H Glucose 144 H Lactic Acid 1.1 Calcium 8.6 Total Bilirubin 0.40 AST 14 L ALT 24 Alkaline Phosphatase 115 Troponin I High Sens 113 H 116 H B-Natriuretic Peptide 43.1 Total Protein 7.2 Albumin 3.3 Globulin 3.9 Albumin/Globulin Ratio 0.8 L Urine Color Yellow Urine Clarity Clear Urine pH 5.0 Ur Specific [place] 1.025 Urine Protein 30 H Urine Glucose (UA) Normal Urine Ketones Negative Urine Occult Blood Negative Urine Nitrite Negative Urine Bilirubin Negative Urine Urobilinogen Normal Ur Leukocyte Esterase Negative Urine RBC 0 SEEN Urine WBC 0 SEEN Ur Squamous Epith Cells 0 SEEN Urine Bacteria 0 SEEN Urine Mucus 0 SEEN Radiography Diagnostic Testing: Clinical Impression(s) from Imaging Studies Brain CT 02/01/23 10:26 IMPRESSION: Chronic involutional changes of the brain. Electronically Signed: Gerhard Enriquez MD at 13:20 EDT Reading Location ID and State: [id number] / [employer] , Service support , Cervical Spine CT 02/01/23 10:42 IMPRESSION: 1. No acute fracture or subluxation. 2. Mild degenerative disc disease at C6-C7 as described above. Electronically Signed: Gerhard Enriquez MD at 13:48 EDT Reading Location ID and State: [id number] / [employer] , Service support , Chest/Abdomen/Pelvis CTA 02/01/23 11:13 IMPRESSION: Normal contrast-enhanced CT of the chest. Normal contrast-enhanced CT of the abdomen and pelvis. Electronically Signed: Gerhard Enriquez MD at 14:04 EDT Reading Location ID and State: [id number] / [employer] , Service support , Discharge Plan Triage Chief Complaint: General Illness ED Provider: Padilla Arteaga Dx/Rx/DC Orders Prescriptions: No Action polyethylene glycol 3350 [Miralax] 17 gram Powder In Packet 17 g PO DAILY PRN (Reason: Constipation) ketoconazole 2 % cream 1 applic TOPICAL PRN PRN (Reason: Rash) Patient Comments: APPLY TO AFFECTED AREA ONCE DAILY sennosides-docusate sodium [Stool Softener-Stimulant Laxat] 8.6-50 mg tablet 2 tab PO BID PRN (Reason: Constipation) lisinopril 10 mg tablet 10 mg PO DAILY omeprazole 20 mg capsule,delayed release(DR/EC) 20 mg PO DAILY nystatin [Nyamyc] 100,000 unit/gram powder 1 applic TOPICAL BID cholecalciferol (vitamin D3) 50 mcg (2,000 unit) Capsule 50 mcg PO DAILY Gemtesa 75 mg tablet 75 mg PO DAILY ropinirole 0.25 mg tablet 0.25 mg PO QHS Primary Care Provider: Szymanski,Nasir Referrals: Care Physician,No Primary [Non-Staff] -
[2023-02-01] MEDS: 0.9% Normal Saline 1,000 ML 999 ML IV (10:37)
--- NOTE | 2023-02-01 10:42 | CT_ITS ---
STUDY: CT CERVICAL SPINE WITHOUT CONTRAST REASON FOR EXAM: Female, 72 years old. pain RADIATION DOSAGE (If Supplied By Facility): CTDIvol = ( 20.61 ) mGy, DLP = ( 413.15 ) mGycm TECHNIQUE: High resolution transaxial imaging was performed without contrast material. Sagittal and coronal images were reconstructed. Individualized dose optimization techniques were used for this CT. COMPARISON: 12/30/2021 FINDINGS: Normal craniovertebral junction. There are degenerative changes of the anterior atlantoaxial articulation. Normal odontoid process. Normal cervical lordosis. Normal vertebral bodies and posterior osseous elements. C2-3: Normal endplates. Normal disc height and morphology. Normal central canal and intervertebral neuroforamina. C3-4: Normal endplates. Normal disc height and morphology. Normal central canal and intervertebral neuroforamina. C4-5: Normal endplates. Normal disc height and morphology. Normal central canal and intervertebral neuroforamina. C5-6: Normal endplates. Normal disc height and morphology. Normal central canal and intervertebral neuroforamina. C6-7: Mild broad disc osteophyte complex produces mild spinal stenosis. No neural foraminal stenosis. C7-T1: Normal endplates. Normal disc height and morphology. Normal central canal and intervertebral neuroforamina. Normal visualized soft tissue structures. CT/Spine Cervical without Contras IMPRESSION: 1. No acute fracture or subluxation. 2. Mild degenerative disc disease at C6-C7 as described above. Electronically Signed: Gerhard Enriquez MD at 13:48 EDT ,
[2023-02-01 11:00] LABS: Absolute Lymphocyte Count 1.31 X10^3/uL (0.83-4.51); Absolute Neutrophil Count 12.8 X10^3/uL (2.0-7.7); Basophil# 0.02 X10^3/uL; Basophil% 0.1 % (0-1); Hematocrit 41.9 % (37-47); Hemoglobin 13.7 g/dL (12.0-15.0); Lymphocyte # 1.31 X10^3/ul (0.83-4.51); Lymphocyte % 8.9 % (19-41); Mean Corp Hgb Conc 32.7 g/dL (32-36); Mean Corpuscular Hgb 29.3 pg (27.0-32.0); Mean Corpuscular Volume 89.5 fL (81-99); Mean Platelet Vol. 8.2 fl (6.2-12.0); Monocyte# 0.45 X10^3/uL; Monocyte% 3.1 % (0-10); NRBC Flagged by Analyzer 0 % (0-5); Neutrophil # 12.83 X10^3/uL (2.7-7.7); Neutrophil % 87.5 % (47-70); Platelet Count 260 K/mm3 (150-450); RBC Distribution Width CV 13.8 % (11.6-14.6); Red Blood Count 4.68 M/mm3 (4.2-5.4); White Blood Count 14.7 K/mm3 (4.4-11.0)
[2023-02-01 11:11] LABS: D-Dimer Quantitative (DVT/PE) 1.31 FEU/ug/m (0.27-0.49)
--- NOTE | 2023-02-01 11:13 | CT_ITS ---
INDICATION: back pain EXAMINATION: CTA CHEST, ABDOMEN AND PELVIS WITH CONTRAST - TECHNIQUE: A CTA of the chest, abdomen, and pelvis is obtained with sagittal and coronal reconstructed MIP views. Three-dimensional surface rendered sequence of the thoracic and abdominal aorta was obtained. A radiation dose optimization technique was used for this scan. mL of Isovue-[id number]. Oral contrast: None. COMPARISON: None. FINDINGS: CT CHEST: THORACIC AORTA: No atheromatous disease, no aneurysmal changes or dissection. ABDOMINAL AORTA: No aneurysm or dissection. No significant atheromatous disease. The iliac arteries are unremarkable. LUNGS: Groundglass opacity throughout both lungs consistent with subsegmental atelectasis or pneumonitis. MEDIASTINUM: The thyroid gland is normal. No mediastinal or hilar adenopathy. HEART: Heart is normal size. No pericardial effusion. No CAD. CT ABDOMEN AND PELVIS: LIVER: The liver enhances homogeneously. No masses identified. GALLBLADDER: Gallbladder not visualized. SPLEEN: Normal. PANCREAS: No masses or inflammation. ADRENAL GLANDS: Normal. KIDNEYS AND URETERS: The kidneys both enhance appropriately. There are normal size and shape. No hydronephrosis or nephrolithiasis. No renal masses or cysts. STOMACH: Large hiatal hernia. SMALL BOWEL: No abnormal distention of the small bowel. MESENTERY: No mesenteric inflammation. No ascites. COLON: No significant diverticulosis, masses or inflammation. The colon otherwise is normal. There is a large fatty ileocecal valve. APPENDIX: The appendix is visualized and normal. IVC: Normal. RETROPERITONEUM: No retroperitoneal lymphadenopathy. PELVIC STRUCTURES: Normal bladder. SOFT TISSUES ABDOMEN: The anterior abdominal wall is normal. SOFT TISSUE CHEST: The extrathoracic soft tissues are normal. BONES: Moderate dextroscoliosis of the lumbar spine with degenerative disc disease. CT/CTA Chst, Abd, Pel W and/or WO IMPRESSION: Normal contrast-enhanced CT of the chest. Normal contrast-enhanced CT of the abdomen and pelvis. Electronically Signed: Gerhard Enriquez MD at 14:04 EDT ,
[2023-02-01 11:16] LABS: Lactic Acid 1.1 mmol/L (0.4-1.9)
[2023-02-01 11:17] LABS: ALB/GLOB Ratio 0.8 RATIO (0.9-2.4); AST(SGOT) 14 U/L (15-37); Alanine Aminotransfer ALT/SGPT 24 U/L (13-56); Albumin, Serum 3.3 g/dL (3.2-5.0); Alkaline Phosphatase 115 U/L (45-117); Anion Gap 5 (5-15); BNP,B-Type NATRIURETIC PEPTIDE 43.1 pg/mL (0-100); BUN 25 mg/dL (7-18); BUN/Creat Ratio 26.5 RATIO (10-20); Calcium,Total 8.6 mg/dL (8.5-10.1); Chloride 107 mmol/L (98-107); Creatinine, Serum 0.94 mg/dL (0.55-1.02); EST Glomerular Filtration Rate 62 mL/min (>60); Est Glom Filt Rate - Afr Amer 75 mL/min (>60); Estimated Creatinine Clearance 56.54 ml/min; Globulin 3.9 g/dL (2.2-4.2); Glucose 144 mg/dL (74-106); Protein, Total 7.2 g/dL (6.4-8.2); Sodium Level 139 mmol/L (136-145); Troponin-I HS 113 pg/mL (3.0-54.0)
[2023-02-01 11:36] LABS: Bacteria 0 SEEN /hpf (None Seen); Mucous, Urine 0 SEEN /hpf (<or=2+); Red Blood Cells-Urine 0 SEEN /hpf (0-5); Squamous Epithelial Cells - UA 0 SEEN /hpf (5-10); White Blood Cells 0 SEEN /hpf (0-5)
[2023-02-01 11:38] LABS: Color, Urine Yellow (Yellow); Glucose, Dipstick Normal (Normal); Ketone-Dipstick Negative (Negative); Leukocyte Esterase-Dipstick Negative /ul (Negative); Nitrite-Dipstick Negative (Negative); Occult Blood-Urine Negative /ul (Negative); Protein-Dipstick 30 mg/dl (Negative); Specific Gravity, Urine 1.025 (1.002-1.030); Urine Bilirubin Dipstick Negative (Negative); Urine Clarity Clear (Clear); Urine Urobilinogen Normal (Normal)
[2023-02-01 14:08] LABS: Troponin-I HS 116 pg/mL (3.0-54.0)
--- NOTE | 2023-02-01 15:01 | HP.PCM.HOS_ITS ---
HPI - General General Date of Admission: 02/01/23 Date of Service: 02/01/23 Chief Complaint: Shortness of breath on and off for couple days HPI Narrative TEVIN MILLAN, is a 72 F Y brought to ED from [facility] for dizziness and shortness of breath. Patient is not good historian and I suspect patient has some intellectual disability/developmental disorder as mentioned in previous discharge summary. She states he gets short of breath on and off mainly on exertion but more consistently for last few days. Denies fever, coug h, chest pain or pressure or tightness. She has not been eating good/appetite for last few days. Denies difficulty in his speech or swallowing. Her glucose was found low 28 by EMS and was given oral glucose and rechecked 115. As per EMS he was back to normal. Her dizziness has resolved. In ED, she had extensive investigation which shows groundglass opacity in both lungs. Possible subsegmental atelectasis or pneumonitis. Patient pulse ox was 85% on room air, 94% on 4 L of oxygen was mildly tachycardic and tachypneic in triage which is resolved now. Twelve-lead EKG individually reviewed and shows multiple PVCs every third beat. Labs and imaging reviewed and discussed in assessment and plan. [facility] Medical History Constipation Gastric reflux Hypertension Non-smoker Rash Shortness of breath on exertion Wears glasses Home Medications ketoconazole 2 % topical cream 1 applic topical PRN PRN Rash 05/29/21 [History Last Taken Unknown] polyethylene glycol 3350 17 gram oral powder packet (Miralax) 17 g PO DAILY PRN Constipation 05/29/21 [History Last Taken 01/31/23] lisinopril 10 mg tablet 10 mg PO DAILY bp 12/30/21 [History Last Taken 01/31/23] sennosides 8.6 mg-docusate sodium 50 mg tablet (Stool Softener-Stimulant Laxative) 2 tab PO BID PRN Constipation 12/30/21 [History Last Taken 01/31/23] cholecalciferol (vitamin D3) 50 mcg (2,000 unit) capsule 50 mcg PO DAILY 11/10/22 [History Last Taken 01/31/23] nystatin 100,000 unit/gram topical powder (Nyamyc) 1 applic topical BID 11/10/22 [History Last Taken 01/31/23] omeprazole 20 mg capsule,delayed release 20 mg PO DAILY 11/10/22 [History Last Taken 02/01/23] ropinirole 0.25 mg tablet 0.25 mg PO QHS RESTLESS LEG 02/01/23 [History Last Taken 01/31/23] vibegron 75 mg tablet (Gemtesa) 75 mg PO DAILY BLADDER SPASM 02/01/23 [History Last Taken 01/31/23] Allergy/AdvReac Type Severity Reaction Status Date / Time No Known Allergies Allergy Verified 08/01/22 13:42 Family History Other Hypertension Surgical History History of toe surgery History of total right knee replacement Hx of tracheostomy Social History household members: none Smoking Status: Never smoker alcohol intake: never substance use type: does not use ROS ROS Narrative Constitutional: Reports fatigue and weakness. No fever. HEENT: Reports systems reviewed and no addt'l complaints, except as documented Respiratory/Chest: Shortness of breath. Denies chronic lung disease. CVS: No chest pain or pressure. Gastrointestinal: Denies coffee ground emesis, hematemesis or vomiting Genitourinary: Denies burning urination or new urinary tract symptoms Musculoskeletal/spine: Chronic neck and back pain and scoliosis. Neurologic: No acute a stroke or seizure. History of childhood seizure. not on AED skin: No ulcer. No rash Endocrinology: Hyperglycemia. Reports systems reviewed and no addt'l complaints, except as documented Hematologic/Lymphatic: Reports systems reviewed and no addt'l complaints, except as documented Rest 14 ROS are negative except as mentioned in HPI Vital Signs Vital Signs Vital Signs: 02/01/23 10:11 02/01/23 10:10 02/01/23 10:19 Temperature 98.4 F Temperature Source Temporal Pulse Rate 100 108 H Respiratory Rate 18 22 H Respiratory Pattern Normal Blood Pressure 133/78 H Blood Pressure Mean 96 Pulse Ox 85 94 Oxygen Delivery Method Room Air Nasal Cannula Oxygen Flow Rate (L/min) 4 02/01/23 13:05 Temperature Temperature Source Pulse Rate 71 Respiratory Rate 18 Respiratory Pattern Blood Pressure 143/79 H Blood Pressure Mean 100 Pulse Ox 95 Oxygen Delivery Method Nasal Cannula Oxygen Flow Rate (L/min) 4 Weight Weight: 205 lb 11.06 oz Body Mass Index (BMI) 30.4 Physical Exam Narrative General: Alert, Oriented x3, Cooperative HEENT: Atraumatic, PERRLA, EOMI, Normocephalic Oral: Oral mucosa moist. No Gingival or Mucosal Lesions/ Ulcerations Neck: Supple, No JVD, Negative Carotid Bruits Lungs: Air entry diminished in bilateral lung bases. No crepitation/rhonchi Cardiovascular: Regular rate, Regular Rhythm, Normal S1, Normal S2, No murmurs Abdomen: Bowel Sounds Present, Soft, Non Tender, Non-Distended : No renal angle tenderness. No suprapubic tenderness. Extremities: No edema, Capillary Refill Less than 3 Seconds Skin: No rashes, No breakdown Musculoskeletal: Bilateral knee joint arthritis. Right TKR with varus deformity. No Tenderness to Palpation of Joints or Extremities Spine: Chronic kyphoscoliosis. No acute T-spine tenderness. Neurological: Cranial nerves II-XII grossly intact, DTR 2+/4 and Symmetrical, Neuro grossly intact Psych/Mental Status: Flat affect. Results Lab / Micro Data 02/01/23 10:40 02/01/23 10:40 Labs: Laboratory Results - last 24 hr 02/01/23 10:40: WBC 14.7 H, RBC 4.68, Hgb 13.7, Hct 41.9, MCV 89.5, MCH 29.3, MCHC 32.7, RDW Std Deviation 45.0 H, RDW Coeff of Marcus 13.8, Plt Count 260, MPV 8.2, Immature Gran % (Auto) 0.400, Neut % (Auto) 87.5 H, Lymph % (Auto) 8.9 L, [place]bert % (Auto) 3.1, Eos % (Auto) 0.0, Baso % (Auto) 0.1, Absolute Neuts (auto) 12.8 H, Absolute Lymphs (auto) 1.31, Nucleated RBC % 0, PT 13.0, INR 1.0, D-D anna Quant (PE/DVT) 1.31 H*, Sodium 139, Potassium 4.0, Chloride 107, Carbon Dioxide 27.0, Anion Gap 5, BUN 25 H, Creatinine 0.94, Estim Creat Clear Calc 56.54, Est GFR (MDRD) Af Amer 75, Est GFR (MDRD) Non-Af 62, BUN/Creatinine Ratio 26.5 H, Glucose 144 H, Lactic Acid 1.1, Calcium 8.6, Total Bilirubin 0.40, AST 14 L, ALT 24, Alkaline Phosphatase 115, Troponin I High Sens 113 H, B- Natriuretic Peptide 43.1, Total Protein 7.2, Albumin 3.3, Globulin 3.9, Albumi n/Globulin Ratio 0.8 L 02/01/23 11:30: Urine Color Yellow, Urine Clarity Clear, Urine pH 5.0, Ur Specific [place] 1.025, Urine Protein 30 H, Urine Glucose (UA) Normal, Urine Ketones Negative, Urine Occult Blood Negative, Urine Nitrite Negative, Urine Bilirubin Negative, Urine Urobilinogen Normal, Ur Leukocyte Esterase Negative, Urine RBC 0 SEEN, Urine WBC 0 SEEN, Ur Squamous Epith Cells 0 SEEN, Urine Bacteria 0 SEEN, Urine Mucus 0 SEEN 02/01/23 13:35: Troponin I High Sens 116 H Micro: Microbiology 02/01/23 10:40 Nasal Secretion SARS-CoV-2 & FLU Antigen (Rapid) - Final Radiology Impression Brain CT 02/01/23 10:26 IMPRESSION: Chronic involutional changes of the brain. Electronically Signed: Gerhard Enriquez MD at 13:20 EDT Reading Location ID and State: [place] / [employer] Tel , Service support , Cervical Spine CT 02/01/23 10:42 IMPRESSION: 1. No acute fracture or subluxation. 2. Mild degenerative disc disease at C6-C7 as described above. Electronically Signed: Gerhard Enriquez MD at 13:48 EDT Reading Location ID and State: [id number] / [employer] Tel , Service support , Chest/Abdomen/Pelvis CTA 02/01/23 11:13 IMPRESSION: Normal contrast-enhanced CT of the chest. Normal contrast-enhanced CT of the abdomen and pelvis. Electronically Signed: Gerhard Enriquez MD at 14:04 EDT , Assessment & Plan Assessment/Plan (1) Hypoxia: PLAN: Plan This is a 72-year-old female being admitted for shortness of breath and hypoxia, etiology unclear 1. Acute hypoxia shortness of breath possible pneumonitis/pneumonia: Patient is being admitted in PCU. Chest CTA does not show acute PE, aortic dissection but bilateral groundglass opacity diffusely. Pneumonia work-up ordered including COVID-19, respiratory panel, blood cultures x2, CRP and ESR. Lactic acid normal. Empirically started on IV ceftriaxone and Zithromax. DuoNeb as needed. Incentive spirometry, Pep and Mucinex. ABG ordered. Patient was last admitted in December 2021 for acute hypoxic respiratory failure from bilateral pneumonia and fall. At that time COVID and flu antigens were negative. She is vaccinated with COVID in April 2021. Pulmonary consult requested, discussed with Dr. Mark. 2. Abnormal EKG changes: Patient has every third beat PVCs, LVH QTc 457 ms.. Previous EKG from July 2022 reviewed and shows normal sinus rhythm with LVH but had PVCs on the on December 2021 EKG. 2 troponin are elevated but no significant delta change. Patient does not have chest pain tightness or heaviness. ACS less likely. 3. Acute hypoglycemia, resolved: Glucose in BMP is 144. It was 28 by EMS and resolved with oral glucose. A1c ordered for tomorrow AM. 4. 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 Living will/advanced directive/end of life care: Patient does not have living will or advanced directive. After discussion of benefits/risks procedures involved with full code, DNR CC arrest and DNR CC, the patient opted for full code. She understands CPR/chest compressions and intubation and ventilator. Patient does want artificial life support including intubation, tube feed, ventilator and/chest compression, central venous catheter, vasopressor and DC shock if needed Total time spent in [id number] encounter in discussion of advanced directive 17 minutes. Microbiology Past 72 Hours 02/01/23 10:40 Nasal Secretion SARS-CoV-2 & FLU Antigen (Rapid) - Final Laboratory Results 02/01/23 10:40: WBC 14.7 H, RBC 4.68, Hgb 13.7, Hct 41.9, MCV 89.5, MCH 29.3, MCHC 32.7, RDW Std Deviation 45.0 H, RDW Coeff of Marcus 13.8, Plt Count 260, MPV 8.2, Immature Gran % (Auto) 0.400, Neut % (Auto) 87.5 H, Lymph % (Auto) 8.9 L, Colbert % (Auto) 3.1, Eos % (Auto) 0.0, Baso % (Auto) 0.1, Absolute Neuts (auto) 12.8 H, Absolute Lymphs (auto) 1.31, Nucleated RBC % 0, PT 13.0, INR 1.0, D- Dimer Quant (PE/DVT) 1.31 H* Sodium 139, Potassium 4.0, Chloride 107, Carbon Dioxide 27.0, Anion Gap 5, BUN 25 H, Creatinine 0.94, Estim Creat Clear Calc 56.54, Est GFR (MDRD) Af Amer 75, Est GFR (MDRD) Non-Af 62, BUN/Creatinine Ratio 26.5 H, Glucose 144 H, Lactic Acid 1.1, Calcium 8.6, Total Bilirubin 0.40, AST 14 L, ALT 24, Alkaline Phosphatase 115, Troponin I High Sens 113 H, B-Natriuretic Peptide 43.1, Total Protein 7.2, Albumin 3.3, Globulin 3.9, Albumin/Globulin Ratio 0.8 L 02/01/23 11:30: Urine Color Yellow, Urine Clarity Clear, Urine pH 5.0, Ur Specific [place] 1.025, Urine Protein 30 H, Urine Glucose (UA) Normal, Urine Ketones Negative, Urine Occult Blood Negative, Urine Nitrite Negative, Urine Bilirubin Negative, Urine Urobilinogen Normal, Ur Leukocyte Esterase Negative, Urine RBC 0 SEEN, Urine WBC 0 SEEN, Ur Squamous Epith Cells 0 SEEN, Urine Bacteria 0 SEEN, Urine Mucus 0 SEEN 02/01/23 13:35: Troponin I High Sens 116 H Charges/Coding Visit Charges Inpatient E&M: 68768 Init Hosp L3 Procedures Hospitalists Procedures: 08836 Advncd Care Plan 30 Min
--- NOTE | 2023-02-01 15:39 | ED.RN ---
Antibiotics not started in ED per Dr Franklin, orders will be changed.
[2023-02-01 16:19] LABS: Phosphorus 2.8 mg/dL (2.5-4.9)
[2023-02-01 16:38] LABS: BNP,B-Type NATRIURETIC PEPTIDE 142.1 pg/mL (0-100)
[2023-02-01] MEDS: Ondansetron 4 MG/2 ML Vial IV (16:44)
[2023-02-01] MEDS: Furosemide 40 MG/4 ML Vial IV (16:55)
[2023-02-01 17:10] LABS: Base Excess -1 mmol/L (-2 to +2); Bicarbonate 23.8 mmol/L (22-26); Blood Gas Specimen Type ART; O2 Delivery Device Cannula; PO2 125 mmHG (75-100); SITE Art Line; SO2 99 % (95-99); Total Carbon Dioxide 25 mmol/L; pCO2 35.3 mmHg (35-45); pH 7.44 (7.35-7.45)
[2023-02-01] MEDS: Pantoprazole Sodium 20 MG Tablet PO (17:46)
[2023-02-01] MEDS: Pramipexole Di-HCl 0.125 MG Tablet PO (19:58)
[2023-02-01] MEDS: Polyethylene Glycol 3350 17 GM PACKET PO (19:58)
[2023-02-01] MEDS: Ipratropium/Albuterol Sulfate 3 ML AMPUL.NEB INHALATION (20:12)
[2023-02-01 21:08] LABS: BNP,B-Type NATRIURETIC PEPTIDE 146.6 pg/mL (0-100)
[2023-02-01 21:11] LABS: Troponin-I HS 106 pg/mL (3.0-54.0)
[2023-02-01] MEDS: guaiFENesin 1,200 MG Tablet 1200 MG PO (22:26)
[2023-02-01] MEDS: Senna/Docusate Sodium 1 Tablet 2 TABLET PO (22:27)
[2023-02-01] MEDS: Enoxaparin 40 MG/0.4 ML Syringe SC (22:28)
[2023-02-02] VITALS (10 sets, daily range): BP systolic 100–117; BP diastolic 59–82; PULSE 70–109; RESP 16–24; TEMP 36.1–36.8; O2SAT 88–97
[2023-02-02 00:01] LABS: Troponin-I HS 91 pg/mL (3.0-54.0)
[2023-02-02 00:26] LABS: Bedside Glucose 131 mg/dL (74-106)
[2023-02-02 02:44] LABS: Absolute Lymphocyte Count 1.52 X10^3/uL (0.83-4.51); Absolute Neutrophil Count 10.9 X10^3/uL (2.0-7.7); Basophil# 0.03 X10^3/uL; Basophil% 0.2 % (0-1); Eosinophil# 0.01 X10^3/uL; Eosinophils% 0.1 % (0-5); Hematocrit 39.7 % (37-47); Hemoglobin 13.1 g/dL (12.0-15.0); Lymphocyte # 1.52 X10^3/ul (0.83-4.51); Lymphocyte % 11.4 % (19-41); Mean Corpuscular Hgb 29.7 pg (27.0-32.0); Mean Platelet Vol. 8.1 fl (6.2-12.0); Monocyte# 0.72 X10^3/uL; Monocyte% 5.4 % (0-10); NRBC Flagged by Analyzer 0 % (0-5); Neutrophil # 10.94 X10^3/uL (2.7-7.7); Neutrophil % 82.4 % (47-70); Platelet Count 222 K/mm3 (150-450); RBC Distribution Width CV 13.8 % (11.6-14.6); RBC Distribution Width SD 45.1 fl (35.1-43.9); Red Blood Count 4.41 M/mm3 (4.2-5.4); White Blood Count 13.3 K/mm3 (4.4-11.0)
[2023-02-02 03:09] LABS: Anion Gap 6 (5-15); BUN 24 mg/dL (7-18); BUN/Creat Ratio 24.5 RATIO (10-20); Calcium,Total 8.5 mg/dL (8.5-10.1); Chloride 107 mmol/L (98-107); Creatinine, Serum 0.98 mg/dL (0.55-1.02); EST Glomerular Filtration Rate 59 mL/min (>60); Est Glom Filt Rate - Afr Amer 72 mL/min (>60); Estimated Creatinine Clearance 52.34 ml/min; Glucose 112 mg/dL (74-106); Potassium 3.3 mmol/L (3.5-5.1); Sodium Level 139 mmol/L (136-145); Thyroid Stim Hormone (TSH) 0.79 uIU/mL (0.358-3.74)
[2023-02-02 03:17] LABS: Troponin-I HS 233 pg/mL (3.0-54.0)
--- NOTE | 2023-02-02 05:55 | ECHOD_ITS ---
Reason For Study: SOB/HF Procedure This was a 2D Doppler, Color Flow transthoracic echocardiogram. Exam performed portable in patient room. Left Ventricle Normal LV size. The estimated ejection fraction is 60-65 %. Right Ventricle Normal right ventricle. Normal systolic function. Atria Normal left atrium. Normal right atrium. Mitral Valve The mitral valve is structurally normal. No prolapse or stenosis seen. Trivial mitral valve insufficiency. Tricuspid Valve Normal tricuspid valve. Aortic Valve Normal aortic valve. Pulmonic Valve The pulmonic valve is not well visualized. Great Vessels Normal aortic root. Pericardium/Pleural No pericardial effusion. MMode/2D Measurements & Calculations LVIDd: 3.8 cm IVSd: 1.1 cm LAV(MOD-bp): 43.7 ml LVIDs: 2.7 cm LVPWd: 1.3 cm LAV(MOD-bp) Indexed: 21.2 ml/m2 FS: 29.0 % LAV(MOD-sp2): 41.1 ml LAV(MOD-sp4): 44.5 ml SV(MOD-sp4): 42.5 ml SV(sp4-el): 46.0 ml LVAd ap4: 23.2 cm2 LVLd ap4: 7.1 cm EDV(MOD-sp4): 62.4 ml EDV(sp4-el): 64.4 ml LVAs ap4: 11.5 cm2 LVLs ap4: 6.1 cm ESV(MOD-sp4): 19.9 ml ESV(sp4-el): 18.3 ml EF(MOD-sp4): 68.2 % EF(sp4-el): 71.5 % LA A4 area: 17.4 cm2 LA dimension(2D): 3.2 cm RA A4 area: 14.9 cm2 TAPSE: 2.5 cm Time Measurements MV dec time: 0.28 sec Doppler Measurements & Calculations MV E max louie: 77.8 cm/sec Lat Peak E' Louie: 10.4 cm/sec Med Peak E' Louie: 7.8 cm/sec MV A max louie: 96.3 cm/sec E/E' lat: 7.5 E/E' med: 10.0 MV E/A: 0.81 MV V2 max: 118.8 cm/sec Ao V2 max: 174.4 cm/sec MV max P.7 mmHg MV dec slope: 277.6 cm/sec2 Ao max P.2 mmHg MV V2 mean: 68.4 cm/sec Ao V2 mean: 111.3 cm/sec MV mean P.1 mmHg Ao mean P.9 mmHg MV V2 VTI: 37.4 cm Ao V2 VTI: 33.6 cm AV (velocity ratio): 0.79 LV V1 max: 126.1 cm/sec PA V2 max: 86.4 cm/sec LV V1 max P.4 mmHg PA V2 mean: 56.2 cm/sec LV V1 mean P.2 mmHg LV V1 mean: 81.9 cm/sec LV V1 VTI: 26.5 cm ECHO/Echo Complete Interpretation Summary The estimated ejection fraction is 60-65 %. Normal LV systolic function NO previous echo to compare Ordering Physician: Bryan Franklin Referring Physician: Nasir Szymanski Performed By: Cristina Perez RCS
[2023-02-02 07:13] LABS: Bedside Glucose 104 mg/dL (74-106)
[2023-02-02] MEDS: Ipratropium/Albuterol Sulfate 3 ML AMPUL.NEB INHALATION ×3 (08:02→19:42)
--- NOTE | 2023-02-02 08:05 | PN.HOSP_ITS ---
Reason for Visit Reason for Visit: Diagnoses Hypoxemia (02/01/23) Subjective Subjective Follow-up for hypoxia and shortness of breath probably due to bilateral pneumonitis Objective Data Objective Data Vital Signs: Vital Signs Temp Pulse Resp BP Pulse Ox O2 Del Method O2 Flow Rate 97 F L 70 16 110/74 95 Nasal Cannula 3 02/02/23 04:20 02/02/23 04:20 02/02/23 04:20 02/02/23 04:20 02/02/23 04:20 02/02/23 04:20 02/02/23 04:20 Oxygen Flow Rate (L/min) 3 Oxygen Delivery Method Nasal Cannula Weight: 204 lb 12.951 oz Body Mass Index (BMI) 31.1 Intake & Output: Intake and Output for Last 24 Hours 01/31/23 02/01/23 02/02/23 23:59 23:59 23:59 Intake Total 1150 / 1150 50 / 50 Output Total 700 / 700 Balance 1150 / 450 -650 / -650 Lab / Micro Data 02/02/23 02:25 02/02/23 02:25 Labs: Laboratory Results - last 24 hr 02/01/23 10:40: WBC 14.7 H, RBC 4.68, Hgb 13.7, Hct 41.9, MCV 89.5, MCH 29.3, MCHC 32.7, RDW Std Deviation 45.0 H, RDW Coeff of Marcus 13.8, Plt Count 260, MPV 8.2, Immature Gran % (Auto) 0.400, Neut % (Auto) 87.5 H, Lymph % (Auto) 8.9 L, [place] % (Auto) 3.1, Eos % (Auto) 0.0, Baso % (Auto) 0.1, Absolute Neuts (auto) 12.8 H, Absolute Lymphs (auto) 1.31, Nucleated RBC % 0, PT 13.0, INR 1.0, D- Dimer Quant (PE/DVT) 1.31 H*, Sodium 139, Potassium 4.0, Chloride 107, Carbon Dioxide 27.0, Anion Gap 5, BUN 25 H, Creatinine 0.94, Estim Creat Clear Calc 56.54, Est GFR (MDRD) Af Amer 75, Est GFR (MDRD) Non-Af 62, BUN/Creatinine Ratio 26.5 H, Glucose 144 H, Lactic Acid 1.1, Calcium 8.6, Phosphorus 2.8, Magnesium 2.0, Total Bilirubin 0.40, AST 14 L, ALT 24, Alkaline Phosphatase 115, Troponin I High Sens 113 H, B-Natriuretic Peptide 43.1, Total Protein 7.2, Albumin 3.3, Globulin 3.9, Albumin/Globulin Ratio 0.8 L 02/01/23 11:30: Urine Color Yellow, Urine Clarity Clear, Urine pH 5.0, Ur Specific [place] 1.025, Urine Protein 30 H, Urine Glucose (UA) Normal, Urine Ketones Negative, Urine Occult Blood Negative, Urine Nitrite Negative, Urine Bilirubin Negative, Urine Urobilinogen Normal, Ur Leukocyte Esterase Negative, Urine RBC 0 SEEN, Urine WBC 0 SEEN, Ur Squamous Epith Cells 0 SEEN, Urine Bacteria 0 SEEN, Urine Mucus 0 SEEN 02/01/23 13:35: Troponin I High Sens 116 H 02/01/23 16:11: B-Natriuretic Peptide 142.1 H 02/01/23 20:42: Troponin I High Sens 106 H, B-Natriuretic Peptide 146.6 H 02/01/23 22:48: POC Glucose 131 H 02/01/23 23:01: Troponin I High Sens 91 H 02/02/23 02:25: WBC 13.3 H, RBC 4.41, Hgb 13.1, Hct 39.7, MCV 90.0, MCH 29.7, MCHC 33.0, RDW Std Deviation 45.1 H, RDW Coeff of Marcus 13.8, Plt Count 222, MPV 8.1, Immature Gran % (Auto) 0.500, Neut % (Auto) 82.4 H, Lymph % (Auto) 11.4 L, [place] % (Auto) 5.4, Eos % (Auto) 0.1, Baso % (Auto) 0.2, Absolute Neuts (auto) 10.9 H, Absolute Lymphs (auto) 1.52, Nucleated RBC % 0, Sodium 139, Potassium 3.3 L, Chloride 107, Carbon Dioxide 26.0, Anion Gap 6, BUN 24 H, Creatinine 0.98, Estim Creat Clear Calc 52.34, Est GFR (MDRD) Af Amer 72, Est GFR (MDRD) Non-Af 59 L, BUN/Creatinine Ratio 24.5 H, Glucose 112 H, Calcium 8.5, Troponin I High Sens 233 H*, TSH 0.79 02/02/23 06:19: POC Glucose 104 Micro: Microbiology 02/01/23 20:15 Mucosa - Nasopharyngeal Coronavirus COVID-19 PCR - Final 02/01/23 20:15 Mucosa - Nasopharyngeal Respiratory Panel (PCR) - Final 02/01/23 Unknown Urine, Clean Catch Legionella Antigen - Final 02/01/23 Unknown Urine, Clean Catch Streptococcus pneumoniae Antigen (M - Final 02/01/23 10:40 Nasal Secretion SARS-CoV-2 & FLU Antigen (Rapid) - Final ABG Data ABG results: ABG 02/01/23 17:07 Specimen Type ART Sample Site Art Line pH 7.44 Bicarbonate Actual 23.8 Total CO2 25 Base Excess -1 O2 Saturation 99 ABG pCO2 35.3 ABG pO2 125 H O2 Delivery Device Cannula Liter Flow 3.0 Radiography Diagnostic Testing: Radiology Impression Brain CT 02/01/23 10:26 IMPRESSION: Chronic involutional changes of the brain. Electronically Signed: Gerhard Enriquez MD at 13:20 EDT Reading Location ID and State: [employer] / [employer] , Service support , Cervical Spine CT 02/01/23 10:42 IMPRESSION: 1. No acute fracture or subluxation. 2. Mild degenerative disc disease at C6-C7 as described above. Electronically Signed: Gerhard Enriquez MD at 13:48 EDT Reading Location ID and State: [id number] , Service support , Chest/Abdomen/Pelvis CTA 02/01/23 11:13 IMPRESSION: Normal contrast-enhanced CT of the chest. Normal contrast-enhanced CT of the abdomen and pelvis. Electronically Signed: Gerhard Enriquez MD at 14:04 EDT Reading Location ID and State: [employer] / [employer] , Service support , Physical Exam Narrative Patient sister near the bedside. According to her she had dizziness and double vision about 2 to 3 months ago and then about 1 week ago. Currently she does not have dizziness or lightheadedness. Physical exam General: Alert, Oriented x3, Cooperative HEENT: Atraumatic, PERRLA, EOMI, Normocephalic Oral: Oral mucosa moist. No Gingival or Mucosal Lesions/ Ulcerations Neck: Supple, No JVD, Negative Carotid Bruits Lungs: Air entry diminished in bilateral lung bases. No crepitation/rhonchi Cardiovascular: Regular rate, Regular Rhythm, Normal S1, Normal S2, No murmurs Abdomen: Bowel Sounds Present, Soft, Non Tender, Non-Distended : No renal angle tenderness. No suprapubic tenderness. Extremities: No edema, Capillary Refill Less than 3 Seconds Skin: No rashes, No breakdown Musculoskeletal: Bilateral knee joint arthritis. Right TKR with varus deformity. No Tenderness to Palpation of Joints or Extremities Spine: Chronic kyphoscoliosis. No acute T-spine tenderness. Neurological: Cranial nerves II-XII grossly intact, DTR 2+/4 and Symmetrical, Neuro grossly intact Psych/Mental Status: Flat affect. Assessment & Plan Assessment/Plan (1) Hypoxia: PLAN: Plan This is a 72-year-old female being admitted for shortness of breath and hypoxia, etiology unclear 1. Acute hypoxia shortness of breath possible pneumonitis/pneumonia: Patient is being admitted in PCU. Chest CTA does not show acute PE, aortic dissection but bilateral groundglass opacity diffusely. Pneumonia work-up ordered including COVID-19, respiratory panel, blood cultures x2, CRP and ESR. Lactic acid normal. Empirically started on IV ceftriaxone and Zithromax. DuoNeb as needed. Incentive spirometry, Pep and Mucinex. ABG ordered. Patient was last admitted in December 2021 for acute hypoxic respiratory failure from bilateral pneumonia and fall. At that time COVID and flu antigens were negative. She is vaccinated with COVID in April 2021. Pulmonary consult requested, discussed with Dr. Mark. 02/02: COVID-19 PCR, respiratory panel and urinary antigens are negative. No fever. Leukocytosis trending down. On 3 L of oxygen. Pulmonary consult requested. 2. Abnormal EKG changes: Patient has every third beat PVCs, LVH QTc 457 ms.. Previous EKG from July 2022 reviewed and shows normal sinus rhythm with LVH but had PVCs on the on December 2021 EKG. 2 troponin are elevated but no significant delta change. Patient does not have chest pain tightness or heaviness. ACS less likely. 02/02: Patient does not have chest pain or pressure since the beginning. Troponin trends are inconsistent. Decreased to 91 and type II 133 and then 210. Repeat EKG in the morning similar to yesterday. Normal sinus rhythm with LVH with QRS 160 ms. QT 370 ms. PVCs is resolved. No acute ST-T changes. ACS ruled out 3. Acute hypoglycemia, resolved: Glucose in BMP is 144. It was 28 by EMS and resolved with oral glucose. A1c ordered for tomorrow AM. 02/02: A1c 5.5%. Diabetes mellitus and prediabetes ruled out. 4. 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 Living will/advanced directive/end of life care: Patient does not have living will or advanced directive. After discussion of benefits/risks procedures involved with full code, DNR CC arrest and DNR CC, the patient opted for full code. She understands CPR/chest compressions and intubation and ventilator. Patient does want artificial life support including intubation, tube feed, ventilator and/chest compression, central venous catheter, vasopressor and DC shock if needed Charges/Coding Visit Charges Inpatient E&M: 90866 Subs Hosp L2 Protein 7.2, Albumin 3.3, Globulin 3.9, Albumin/Globulin Ratio 0.8 L 02/01/23 11:30: Urine Color Yellow, Urine Clarity Clear, Urine pH 5.0, Ur Specific [place] 1.025, Urine Protein 30 H, Urine Glucose (UA) Normal, Urine Ketones Negative, Urine Occult Blood Negative, Urine Nitrite Negative, Urine B ilirubin Negative, Urine Urobilinogen Normal, Ur Leukocyte Esterase Negative, Urine RBC 0 SEEN, Urine WBC 0 SEEN, Ur Squamous Epith Cells 0 SEEN, Urine Bacteria 0 SEEN, Urine Mucus 0 SEEN 02/01/23 13:35: Troponin I High Sens 116 H
[2023-02-02 08:07] LABS: Hemoglobin A1c 5.5 % (3.8-5.6)
--- NOTE | 2023-02-02 08:09 | EKG12_ITS ---
Test Reason : ELEVATED TROP Blood Pressure : / mmHG Vent. Rate : 068 BPM Atrial Rate : 068 BPM P-R Int : 166 ms QRS Dur : 116 ms QT Int : 348 ms P-R-T Axes : 018 -18 012 degrees QTc Int : 370 ms Normal sinus rhythm Left ventricular hypertrophy with QRS widening ( R in aVL , [place] product ) Nonspecific T wave abnormality Abnormal ECG When compared with ECG of 01-FEB-2023 10:26, MANUAL COMPARISON REQUIRED, DATA IS UNCONFIRMED Confirmed by SRINATH TRACEY, JESSICA ([id number]), assistant editor KUSHAL GRACIA ([id number]) on 02/03/2023 12:19:43 PM Referred By: Confirmed By:JESSICA YO MD
[2023-02-02 09:37] LABS: Troponin-I HS 210 pg/mL (3.0-54.0)
[2023-02-02] MEDS: Enoxaparin 40 MG/0.4 ML Syringe SC (09:51)
[2023-02-02] MEDS: Polyethylene Glycol 3350 17 GM PACKET PO ×2 (09:51→21:48)
[2023-02-02] MEDS: Senna/Docusate Sodium 1 Tablet 2 TABLET PO ×2 (09:52→21:48)
[2023-02-02] MEDS: Pantoprazole Sodium 20 MG Tablet PO (09:52)
[2023-02-02] MEDS: guaiFENesin 1,200 MG Tablet 1200 MG PO ×2 (09:52→21:48)
[2023-02-02] MEDS: Cholecalciferol (VIT D3) 25 MCG TABLET (1,000 UNITS) 50 MCG PO (09:53)
[2023-02-02] MEDS: Lisinopril 10 MG Tablet PO (09:53)
--- NOTE | 2023-02-02 10:26 | EX.PCM.CONCC ---
Assessment & Plan Assessment/Plan (1) Hypoxia: PLAN: Plan RECOMMENDATIONS: 1. Continue supplemental oxygen to maintain saturations at or above 90%. 2. Continue empiric antimicrobials. 3. Check MRSA screen. If negative, discontinue vancomycin. 4. Further swallow evaluation per speech therapy. 5. Await results of echocardiogram. 6. Encourage incentive spirometer use and mobilize patient as tolerated. 7. Continue appropriate DVT prophylaxis. IMPRESSIONS: 1. Shortness of breath with hypoxemia The patient's presenting chest imaging demonstrated bilateral groundglass opacities. These findings could represent an occult infectious etiology versus aspiration pneumonitis versus pulmonary edema. The patient is on appropriate antimicrobial therapy. We will plan to check a MRSA screen, and if negative, vancomycin can be discontinued. In the interim, continue supplemental oxygen to maintain saturations at or above 90%. Bedside echocardiogram is currently pending. Lastly, the patient has been evaluated by speech therapy, with tentative plans for a formal swallow evaluation tomorrow. 2. History of hypertension/GERD/questionable intellectual disability Complicates care, management, recovery and prognosis. Continue home medications as indicated. Physical therapy evaluation is pending. This note was generated with [employer] dictation software. It may contain incorrect words, spelling, and punctuation that were not noted in checking the note before signing. HPI Consult Data Date of Consult: 02/02/23 HPI Narrative Reason for Consultation: Shortness of breath and hypoxemia HPI Narrative: The patient is a 72-year-old female, with a history as outlined below, who presented to the emergency department via EMS on February 01 with shortness of breath and hypoxemia. The patient currently resides at a group home facility. The patient has no pre-existing lung conditions. However, she was admitted approximately 1 year ago with pneumonia, which was treated with antimicrobials. She denied any overt aspiration events recently. On presentation to the emergency department, the patient was noted to be afebrile and hemodynamically stable. Initial laboratory evaluation revealed an elevated white blood cell count to 15,000. Chemistry profile was unremarkable. Lactate was within normal limits. BNP was mildly elevated at 142. Urine analysis was unremarkable. CTA chest/abdomen/pelvis demonstrated bilateral groundglass opacities. Of note, the patient was noted to be hypoglycemic on arrival to the emergency department. Strep and urine Legionella antigens were negative. COVID PCR was negative. Respiratory viral panel was unremarkable. The patient is currently stable from a respiratory perspective on 2 L/min via nasal cannula. She has been evaluated by speech therapy, with tentative plans for a cookie swallow. [facility] Medical History Constipation Gastric reflux Hypertension Non-smoker Rash Shortness of breath on exertion Wears glasses Home Medications ketoconazole 2 % topical cream 1 applic topical PRN PRN Rash 05/29/21 [History Last Taken Unknown] polyethylene glycol 3350 17 gram oral powder packet (Miralax) 17 g PO DAILY PRN Constipation 05/29/21 [History Last Taken 01/31/23] lisinopril 10 mg tablet 10 mg PO DAILY bp 12/30/21 [History Last Taken 01/31/23] sennosides 8.6 mg-docusate sodium 50 mg tablet (Stool Softener-Stimulant Laxative) 2 tab PO BID PRN Constipation 12/30/21 [History Last Taken 01/31/23] cholecalciferol (vitamin D3) 50 mcg (2,000 unit) capsule 50 mcg PO DAILY 11/10/22 [History Last Taken 01/31/23] nystatin 100,000 unit/gram topical powder (Nyamyc) 1 applic topical BID 11/10/22 [History Last Taken 01/31/23] omeprazole 20 mg capsule,delayed release 20 mg PO DAILY 11/10/22 [History Last Taken 02/01/23] ropinirole 0.25 mg tablet 0.25 mg PO QHS RESTLESS LEG 02/01/23 [History Last Taken 01/31/23] vibegron 75 mg tablet (Gemtesa) 75 mg PO DAILY BLADDER SPASM 02/01/23 [History Last Taken 01/31/23] Allergy/AdvReac Type Severity Reaction Status Date / Time No Known Allergies Allergy Verified 08/01/22 13:42 Family History Other Hypertension Surgical History History of toe surgery History of total right knee replacement Hx of tracheostomy Social History household members: none Smoking Status: Never smoker alcohol intake: never substance use type: does not use ROS ROS Narrative 10 systems were reviewed with pertinent positives as noted in the HPI above. Physical Exam Const alert and no apparent distress Constitutional Narrative: Sister is present at the bedside. General Appearance: cooperative HEENT normocephalic and head/scalp atraumatic Eyes PERRL, EOMs intact bilaterally and conjunctivae normal Neck supple General: trachea midline Chest inspection of chest normal Resp Resp Narrative: Poor patient dependent inspiratory effort. Auscultation: diminished lung sounds; Negative for rales, rhonchi or wheezes Cardio regular rate and regular rhythm GI normal to inspection, nondistended, normoactive bowel sounds Extremity no clubbing, cyanosis or edema Skin no rashes or lesions noted Neuro CN's II-XII intact bilaterally and no focal motor deficits Psych Mood & Affect: flat affect Lab / Micro Data 02/02/23 02:25 02/02/23 02:25 Labs: Laboratory Results - last 24 hr 02/01/23 10:40: WBC 14.7 H, RBC 4.68, Hgb 13.7, Hct 41.9, MCV 89.5, MCH 29.3, MCHC 32.7, RDW Std Deviation 45.0 H, RDW Coeff of Marcus 13.8, Plt Count 260, MPV 8.2, Immature Gran % (Auto) 0.400, Neut % (Auto) 87.5 H, Lymph % (Auto) 8.9 L, Salem % (Auto) 3.1, Eos % (Auto) 0.0, Baso % (Auto) 0.1, Absolute Neuts (auto) 12.8 H, Absolute Lymphs (auto) 1.31, Nucleated RBC % 0, PT 13.0, INR 1.0, D-Dimer Quant (PE/DVT) 1.31 H*, Sodium 139, Potassium 4.0, Chloride 107, Carbon Dioxide 27.0, Anion Gap 5, BUN 25 H, Creatinine 0.94, Estim Creat Clear Calc 56.54, Est GFR (MDRD) Af Amer 75, Est GFR (MDRD) Non-Af 62, BUN/Creatinine Ratio 26.5 H, Glucose 144 H, Lactic Acid 1.1, Calcium 8.6, Phosphorus 2.8, Magnesium 2.0, Total Bilirubin 0.40, AST 14 L, ALT 24, Alkaline Phosphatase 115, Troponin I High Sens 113 H, B-Natriuretic Peptide 43.1, Total Protein 7.2, Albumin 3.3, Globulin 3.9, Albumin/Globulin Ratio 0.8 L 02/01/23 11:30: Urine Color Yellow, Urine Clarity Clear, Urine pH 5.0, Ur Specific Henderson 1.025, Urine Protein 30 H, Urine Glucose (UA) Normal, Urine Ketones Negative, Urine Occult Blood Negative, Urine Nitrite Negative, Urine Bilirubin Negative, Urine Urobilinogen Normal, Ur Leukocyte Esterase Negative, Urine RBC 0 SEEN, Urine WBC 0 SEEN, Ur Squamous Epith Cells 0 SEEN, Urine Bacteria 0 SEEN, Urine Mucus 0 SEEN 02/01/23 13:35: Troponin I High Sens 116 H 02/01/23 16:11: B-Natriuretic Peptide 142.1 H 02/01/23 20:42: Troponin I High Sens 106 H, B-Natriuretic Peptide 146.6 H 02/01/23 22:48: POC Glucose 131 H 02/01/23 23:01: Troponin I High Sens 91 H 02/02/23 02:25: WBC 13.3 H, RBC 4.41, Hgb 13.1, Hct 39.7, MCV 90.0, MCH 29.7, MCHC 33.0, RDW Std Deviation 45.1 H, RDW Coeff of Marcus 13.8, Plt Count 222, MPV 8.1, Immature Gran % (Auto) 0.500, Neut % (Auto) 82.4 H, Lymph % (Auto) 11.4 L, Salem % (Auto) 5.4, Eos % (Auto) 0.1, Baso % (Auto) 0.2, Absolute Neuts (auto) 10.9 H, Absolute Lymphs (auto) 1.52, Nucleated RBC % 0, Sodium 139, Potassium 3.3 L, Chloride 107, Carbon Dioxide 26.0, Anion Gap 6, BUN 24 H, Creatinine 0.98, Estim Creat Clear Calc 52.34, Est GFR (MDRD) Af Amer 72, Est GFR (MDRD) Non-Af 59 L, BUN/Creatinine Ratio 24.5 H, Glucose 112 H, Hemoglobin A1c 5.5, Calcium 8.5, Troponin I High Sens 233 H*, TSH 0.79 02/02/23 06:19: POC Glucose 104 02/02/23 08:28: Troponin I High Sens 210 H* Micro: Microbiology 02/01/23 11:30 Urine, Clean Catch Urine Culture - Preliminary Culture exhibits no growth. 02/01/23 20:15 Mucosa - Nasopharyngeal Coronavirus COVID-19 PCR - Final 02/01/23 20:15 Mucosa - Nasopharyngeal Respiratory Panel (PCR) - Final 02/01/23 Unknown Urine, Clean Catch Legionella Antigen - Final 02/01/23 Unknown Urine, Clean Catch Streptococcus pneumoniae Antigen (M - Final 02/01/23 10:40 Nasal Secretion SARS-CoV-2 & FLU Antigen (Rapid) - Final ABG Data ABG results: ABG 02/01/23 17:07 Specimen Type ART Sample Site Art Line pH 7.44 Bicarbonate Actual 23.8 Total CO2 25 Base Excess -1 O2 Saturation 99 ABG pCO2 35.3 ABG pO2 125 H O2 Delivery Device Cannula Liter Flow 3.[address] 02/01/23 10:26 IMPRESSION: Chronic involutional changes of the brain. Electronically Signed: Gerhard Enriquez MD at 13:20 EDT Reading Location ID and State: [employer] Tel , Service support , Cervical Spine CT 02/01/23 10:42 IMPRESSION: 1. No acute fracture or subluxation. 2. Mild degenerative disc disease at C6-C7 as described above. Electronically Signed: Gerhard Enriquez MD at 13:48 EDT Reading Location ID and State: [employer] Tel , Service support , Chest/Abdomen/Pelvis CTA 02/01/23 11:13 IMPRESSION: Normal contrast-enhanced CT of the chest. Normal contrast-enhanced CT of the abdomen and pelvis. Electronically Signed: Gerhard Enriquez MD at 14:04 EDT Reading Location ID and State: [employer] Tel , Service support , Charges/Coding Visit Charges Inpatient E&M: 38517 Init Hosp L3
--- NOTE | 2023-02-02 10:56 | CASEMGMT ---
Discharge Planning Patient resides at [facility]. Updates sent via [facility]. Asked if precert will be needed. Awaiting response. Danelle Thakur, Discharge Planning Asst.
[2023-02-02] MEDS: Potassium Chloride Oral Tablet 20 MEQ 40 MEQ PO (12:04)
[2023-02-02 12:36] LABS: Bedside Glucose 110 mg/dL (74-106)
[2023-02-02 17:51] LABS: Bedside Glucose 125 mg/dL (74-106)
[2023-02-02 19:50] LABS: M R Staph aureus DNA By PCR Negative (Negative); Probe Check PASS; Specimen Processing Control PASS
[2023-02-02] MEDS: Pramipexole Di-HCl 0.125 MG Tablet PO (21:48)
[2023-02-03] VITALS (13 sets, daily range): BP systolic 99–151; BP diastolic 65–83; PULSE 71–90; RESP 16–24; TEMP 36.1–36.9; O2SAT 85–97
[2023-02-03] MEDS: Ipratropium/Albuterol Sulfate 3 ML AMPUL.NEB INHALATION ×3 (01:43→19:58)
--- NOTE | 2023-02-03 09:24 | PCM.PN.INT ---
Assessment & Plan Assessment/Plan (1) Hypoxia: PLAN: Plan RECOMMENDATIONS: 1. Continue supplemental oxygen to maintain saturations at or above 90%. 2. Continue empiric antimicrobials. Transition to Levaquin at discharge to complete 7 days of therapy. 3. Encourage incentive spirometer use and mobilize patient as tolerated. 4. Continue appropriate DVT prophylaxis. 5. Outpatient PCP follow-up with repeat chest imaging in 6 to 8 weeks. 6. We will sign off from a pulmonary perspective. Please call with any additional questions. IMPRESSIONS: 1. Shortness of breath with hypoxemia The patient's presenting chest imaging demonstrated bilateral ground glass opacities. These findings could represent an occult infectious etiology versus aspiration pneumonitis versus pulmonary edema. The patient is on appropriate antimicrobial therapy. In the interim, continue supplemental oxygen to maintain saturations at or above 90%. Bedside echocardiogram was unrevealing. The patient was also evaluated by speech therapy with modified barium swallow completed, the results of which are pending. 2. History of hypertension/GERD/questionable intellectual disability Complicates care, management, recovery and prognosis. Continue home medications as indicated. Physical therapy to work with the patient. This note was generated with [employer] dictation software. It may contain incorrect words, spelling, and punctuation that were not noted in checking the note before signing. Subjective Subjective The patient was seen and examined at the bedside this morning. Events from the last 24 hours have been reviewed. The patient is currently afebrile, hemodynamically stable and maintaining appropriate oxygen saturations on 2 L/min via nasal cannula. The patient just returned from a modified barium swallow, the results of which are pending. Objective Data Objective Data The patient's most recent lab work, culture data and imaging studies have all been personally reviewed. Surface echocardiogram demonstrated normal LV size and function with an ejection fraction of 60 to 65%. Infectious work-up has been unrevealing to date. Vital Signs: Vital Signs Temp Pulse Resp BP Pulse Ox O2 Del Method O2 Flow Rate 97 F L 83 16 99/78 96 Nasal Cannula 2 02/03/23 05:00 02/03/23 05:00 02/03/23 05:00 02/03/23 05:00 02/03/23 05:00 02/03/23 08:35 02/03/23 08:35 Oxygen Flow Rate (L/min) 2 Oxygen Delivery Method Nasal Cannula Weight: 204 lb 12.951 oz Body Mass Index (BMI) 31.1 Intake & Output: Intake and Output for Last 24 Hours 02/01/23 02/02/23 02/03/23 23:59 23:59 23:59 Intake Total 1150 / 1150 1050 / 1050 50 / 50 Output Total 1150 / 1150 450 / 450 Balance 1150 / 450 -100 / -100 -400 / -400 Lab / Micro Data Attestation: I reviewed the patient's lab results. 02/02/23 02:25 02/02/23 02:25 Labs: Laboratory Results - last 24 hr 02/02/23 08:28: Troponin I High Sens 210 H* 02/02/23 12:07: POC Glucose 110 H 02/02/23 17:18: POC Glucose 125 H 02/02/23 17:30: MRSA (PCR) Negative Micro: Microbiology 02/01/23 10:40 Blood Culture (Wb) - Right Hand Blood Culture - Preliminary No growth in 48 hours. 02/01/23 10:40 Blood Culture (Wb) - Anticubital Right Blood Culture - Preliminary No growth in 48 hours. 02/01/23 11:30 Urine, Clean Catch Urine Culture - Preliminary Culture exhibits no growth. 02/01/23 20:15 Mucosa - Nasopharyngeal Coronavirus COVID-19 PCR - Final 02/01/23 20:15 Mucosa - Nasopharyngeal Respiratory Panel (PCR) - Final 02/01/23 Unknown Urine, Clean Catch Legionella Antigen - Final 02/01/23 Unknown Urine, Clean Catch Streptococcus pneumoniae Antigen (M - Final 02/01/23 10:40 Nasal Secretion SARS-CoV-2 & FLU Antigen (Rapid) - Final Radiography Diagnostic Testing: Radiology Impression Echocardiogram 02/02/23 05:55 Interpretation Summary The estimated ejection fraction is 60-65 %. Normal LV systolic function NO previous echo to compare Ordering Physician: Bryan Franklin Referring Physician: Nasir Szymanski Performed By: Widder, Cristina, RCS Physical Exam Const alert and no apparent distress Constitutional Narrative: Sister is present at the bedside. General Appearance: cooperative HEENT normocephalic and head/scalp atraumatic Eyes PERRL, EOMs intact bilaterally and conjunctivae normal Neck supple General: trachea midline Chest inspection of chest normal Resp Resp Narrative: Poor patient dependent inspiratory effort. Auscultation: diminished lung sounds; Negative for rales, rhonchi or wheezes Cardio regular rate and regular rhythm GI normal to inspection, nondistended, normoactive bowel sounds Extremity no clubbing, cyanosis or edema Skin no rashes or lesions noted Neuro CN's II-XII intact bilaterally and no focal motor deficits Psych Mood & Affect: flat affect Charges/Coding Visit Charges Inpatient E&M: 70328 Subs Hosp L2
[2023-02-03] MEDS: Pantoprazole Sodium 20 MG Tablet PO (10:21)
[2023-02-03] MEDS: Lisinopril 10 MG Tablet PO (10:21)
[2023-02-03] MEDS: guaiFENesin 1,200 MG Tablet 1200 MG PO ×2 (10:21→21:56)
[2023-02-03] MEDS: Senna/Docusate Sodium 1 Tablet 2 TABLET PO (10:21)
[2023-02-03] MEDS: Cholecalciferol (VIT D3) 25 MCG TABLET (1,000 UNITS) 50 MCG PO (10:21)
[2023-02-03] MEDS: Enoxaparin 40 MG/0.4 ML Syringe SC (10:22)
--- NOTE | 2023-02-03 10:41 | SP.MBSS_ITS ---
Modified Barium Swallow Patient Information Study Date: 02/03/23 Study Time: 09:30 Direct Billable Minutes: 71 Total Minutes procedure & reportin Diagnosis: Bilateral Pneumonitis (J84.114) Referring Physician: Bryan Franklin Reason for Referral: Objectively assess swallow function, assess risk for aspiration, and determine recommendations for least restrictive diet textures and compensatory strategies to improve safety of swallow. Medical History: Delmy Campos is a 72-year-old female with a PMH of constipation, Gastric reflux, Hypertension, and shortness of breath on exertion. See PMH in the H&P for full report. Patient brought to [facility] ED on 02/01/23 from [facility] for dizziness and shortness of breath probably due to bilateral pneumonitis. Patient is currently being treated for pneumonia w/ antibiotic. Concerned for some aspiration. She states she gets short of breath on and off mainly on e xertion but more consistently for last few days. ?Denies fever, cough, chest pain or pressure or tightness. ST consulted d/t concerns for aspiration pneumonia. Patient evaluated by speech on 02/02/23 and recommended for instrumental swallow study to objectively assess swallow function d/t bilateral pneumonitis. Current Diet Ordered: Regular Textures/ Thin Liquids Dentition: WNL Mental Status: Impaired Respiratory Status: Oxygenating on 2L/M nasal cannula Penetration-Aspiration Scale Penetration-Aspiration Scale: OBJECTIVE ASSESSMENT OF SWALLOW FUNCTION (QUANTITATIVE ? PER TRIAL): PENETRATION / ASPIRATION SCALE (AGUILAR): 1 = does not enter airway 2 = enters airway/above vocal folds/ejected 3 = enters airway/above vocal folds/not ejected 4 = enters airway/contacts vocal folds/ejected 5 = enters airway/contacts vocal folds/not ejected 6 = enters airway/below vocal folds/ejected 7 = enters airway/below vocal folds/not ejected despite effort 8 = enters airway/below vocal folds/no effort VIDEOFLOROSCOPIC SCALE SCORE (AGUILAR): Grade I = aspiration of material that has penetrated into the laryngeal vestibule, intact cough reflex Grade II = aspiration < 10 % of the bolus, intact cough reflex Grade III = aspiration of < 10 % of the bolus, reduced cough reflex or aspiration of > 10 % of the bolus, intact cough reflex Grade IV = aspiration of > 10 % of the bolus, reduced cough reflex Penetration-Aspiration Scale Score Thin Liquid via teaspoon: Result: 1= does not enter airway Thin Liquid via teaspoon Trial 2: Result: 1= does not enter airway Thin Liquid via small cup : Result: 1= does not enter airway [place] Thick Liquid via small cup: Result: 1= does not enter airway Pudding by tsp w/esophageal screen: Result: 1= does not enter airway Thin Liquid via sequential sips from straw: Result: 3= enters airways/above vocal folds/not ejected Comment: cued cough and re-swallow 1/2 Cookie: Result: 1= does not enter airway Oral Phase Labial Seal: Escape beyond interlabial space; no extension beyond maria esther border Tongue Control During Bolus Hold: Posterior escape of less than half of bolus Bolus Preparation/Mastication: Slow prolonged chewing/mashing with complete recollection Bolus Transport/Lingual Motion: Delayed initiation of tongue motion Oral Residue: Residue collection on oral structures Pharyngeal Phase Initiation of Pharyngeal Swallow: Bolus head in pyriforms Soft Palate Elevation: No bolus between soft palate and pharyngeal wall Laryngeal Elevation: Comp. Superior move thyroid cart w/comp. apprx arytenoid cart-epig pet Anterior Hyoid Excursion: Partial anterior movement Epiglottic Movement: Complete inversion Laryngeal Vestibule Closure at Height of Swallow: Incomplete; narrow column of air/contrast in laryngeal vestibule Pharyngeal Stripping Wave: Present - complete Pharyngoesophageal Segment Opening: Complete distension and complete duration; no obstruction of flow Tongue Base Retraction: Narrow column of contrast between tongue base & post. pharyngeal wall Pharyngeal Residue: Collection of residue within or on pharyngeal structures Esophageal Phase Esophageal Clearance: Esophageal retention w/ retrograde flow below pharyngoesophageal seg. Treatment Strategies Effects of treatment strategies attemped:: cough and re-swallow = somewhat effective Diagnosis/Impression Diagnosis: Mild-Moderate Oropharyngeal Dysphagia (R13.12) Impression: The oral phase is primarily marked by... -Decreased bolus control with <1/2 of the bolus spilling posteriorly to the posterior surface of the epiglottis prior to swallow onset observed with thin liquids by via straw especially. -Slowed tongue motion for A-P transport. -Prolonged, but adequate mastication of cookie trial, with moderate oral residue after initial swallow, which mostly cleared with independent initiation of a second swallow. The pharyngeal phase is primarily marked by... -Mildly decreased airway closure during the swallow due to mildly decreased anterior hyoid excursion. -Moderately decreased tongue base retraction, moderate pharyngeal residues after the swallow. -No aspiration observed during the study. Penetration above the vocal folds with thin by sequential straw sips, which did not reliably eject when cued for cough and re-swallow, placing patient at higher risk for aspiration. Patient noted to have weak voluntary cough. The esophageal phase is primarily marked by... -Mild esophageal retrograde flow, which remained well below UES. Recommendations Diet: Regular Textures and Thin Liquids Comment: Liquids by small cup sips ONLY. Compensatory Strategies: Small Bites, Small Sips, No Straws, Slow Rate, Sitting upright and Remain sitting upright for 30 minutes after PO intake Supervision: Distant Supervision Recommend Repeat Modified Barium Swallow: No Need for Skilled Speech Therapy Services: Yes Comment: Will recommend the patient for dysphagia therapy to address deficits in oropharyngeal swallow function. Will recommend the patient for oropharyngeal strengthening to improve lingual coordination, airway closure, hyoid excursion, and tongue base retraction (i.e., CTAR, Effortful swallows, Mya, Lingual Resistance). The patient would benefit from thorough education regarding diet recommendations and recommended compensatory strategies. Education Completed: 1. Described result of evaluation., 2. Pt understands evaluation & agrees with goals and treatment plan. and 7. Pt requires further education on strategies & risks. Status Active ST Patient: Active Contact Information [facility] Speech Therapy:: Elmo Israel M.A. [employer] SET UP OPERATOR Speech-Language Pathologist [facility] [address] [place] [address]
--- NOTE | 2023-02-03 10:45 | CASEMGMT ---
TENA met with patient and her sister. Introduced self and role at [facility]. TENA confirmed the plan is to return to [place]. April Laws MSW RADHA
[2023-02-03 12:54] LABS: Bedside Glucose 142 mg/dL (74-106)
--- NOTE | 2023-02-03 14:12 | PCM.PN.HOSP ---
Reason for Visit Reason for Visit: Diagnoses Hypoxemia (02/01/23) Subjective Subjective Follow-up for shortness of breath with hypoxemia. Objective Data Objective Data Vital Signs: Vital Signs Temp Pulse Resp BP Pulse Ox O2 Del Method O2 Flow Rate 97.6 F L 80 16 127/73 H 96 Nasal Cannula 3 02/03/23 10:19 02/03/23 10:19 02/03/23 10:19 02/03/23 10:19 02/03/23 10:19 02/03/23 10:19 02/03/23 10:19 Oxygen Flow Rate (L/min) 3 Oxygen Delivery Method Nasal Cannula Weight: 204 lb 12.951 oz Body Mass Index (BMI) 31.1 Intake & Output: Intake and Output for Last 24 Hours 02/01/23 02/02/23 02/03/23 23:59 23:59 23:59 Intake Total 1150 / 1150 1050 / 1050 100 / 100 Output Total 1150 / 1150 450 / 450 Balance 1150 / 450 -100 / -100 -350 / -350 Lab / Micro Data 02/02/23 02:25 02/02/23 02:25 Labs: Laboratory Results - last 24 hr 02/02/23 17:18: POC Glucose 125 H 02/02/23 17:30: MRSA (PCR) Negative 02/03/23 11:41: POC Glucose 142 H Micro: Microbiology 02/01/23 11:30 Urine, Clean Catch Urine Culture - Final Culture exhibits no growth. 02/01/23 10:40 Blood Culture (Wb) - Right Hand Blood Culture - Preliminary No growth in 48 hours. 02/01/23 10:40 Blood Culture (Wb) - Anticubital Right Blood Culture - Preliminary No growth in 48 hours. 02/01/23 20:15 Mucosa - Nasopharyngeal Coronavirus COVID-19 PCR - Final 02/01/23 20:15 Mucosa - Nasopharyngeal Respiratory Panel (PCR) - Final 02/01/23 Unknown Urine, Clean Catch Legionella Antigen - Final 02/01/23 Unknown Urine, Clean Catch Streptococcus pneumoniae Antigen (M - Final 02/01/23 10:40 Nasal Secretion SARS-CoV-2 & FLU Antigen (Rapid) - Final Physical Exam Narrative Patient sister near the bedside. She had acute follow-up study done today. On dietary treated with speech therapist. Physical exam General: Alert, Oriented x3, Cooperative HEENT: Atraumatic, PERRLA, EOMI, Normocephalic Oral: Oral mucosa moist. No Gingival or Mucosal Lesions/ Ulcerations Neck: Supple, No JVD, Negative Carotid Bruits Lungs: Air entry diminished in bilateral lung bases. No crepitation/rhonchi Cardiovascular: Regular rate, Regular Rhythm, Normal S1, Normal S2, No murmurs Abdomen: Bowel Sounds Present, Soft, Non Tender, Non-Distended : No renal angle tenderness. No suprapubic tenderness. Extremities: No edema, Capillary Refill Less than 3 Seconds Skin: No rashes, No breakdown. Outgrown toenails. No obvious signs of inflammation. Musculoskeletal: Bilateral knee joint arthritis. Right TKR with varus deformity. No Tenderness to Palpation of Joints or Extremities Spine: Chronic kyphoscoliosis. No acute T-spine tenderness. Neurological: Cranial nerves II-XII grossly intact, DTR 2+/4 and Symmetrical, Neuro grossly intact Psych/Mental Status: Flat affect. Assessment & Plan Assessment/Plan (1) Hypoxia: PLAN: Plan This is a 72-year-old female being admitted for shortness of breath and hypoxia, etiology unclear 1. Acute hypoxia shortness of breath possible pneumonitis/pneumonia: Patient is being admitted in PCU. Chest CTA does not show acute PE, aortic dissection but bilateral groundglass opacity diffusely. Pneumonia work-up ordered including COVID-19, respiratory panel, blood cultures x2, CRP and ESR. Lactic acid normal. Empirically started on IV ceftriaxone and Zithromax. DuoNeb as needed. Incentive spirometry, Pep and Mucinex. ABG ordered. Patient was last admitted in December 2021 for acute hypoxic respiratory failure from bilateral pneumonia and fall. At that time COVID and flu antigens were negative. She is vaccinated with COVID in April 2021. Pulmonary consult requested, discussed with Dr. Mark. 02/02: COVID-19 PCR, respiratory panel and urinary antigens are negative. No fever. Leukocytosis trending down. On 3 L of oxygen. Pulmonary consult requested. 02/03: On 2 L of oxygen. Art Gallery Internship advised repeat chest imaging in 6 to 8 weeks. Continue incentive spirometry and Pep. Levaquin for total of 7 days of antibiotic treatment. 2. Abnormal EKG changes: Patient has every third beat PVCs, LVH QTc 457 ms.. Previous EKG from July 2022 reviewed and shows normal sinus rhythm with LVH but had PVCs on the on December 2021 EKG. 2 troponin are elevated but no significant delta change. Patient does not have chest pain tightness or heaviness. ACS less likely. 02/02: Patient does not have chest pain or pressure since the beginning. Troponin trends are inconsistent. Decreased to 91 and type II 133 and then 210. Repeat EKG in the morning similar to yesterday. Normal sinus rhythm with LVH with QRS 160 ms. QT 370 ms. PVCs is resolved. No acute ST-T changes. ACS ruled out 02/03: night custodian shows normal sinus rhythm. PVCs have much decreased in frequency today. 3. Acute hypoglycemia, resolved: Glucose in BMP is 144. It was 28 by EMS and resolved with oral glucose. A1c ordered for tomorrow AM. 02/02: A1c 5.5%. Diabetes mellitus and prediabetes ruled out. 4. 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 Patient's sister stated she has numbness/paresthesia in lower legs and wanted EMG/NCV study. She also had GERD/esophageal reflux therefore on Protonix 40 mg daily. Outpatient GI referral. Patient has outgrown toenails/chronic onychomycosis therefore podiatry referral. Living will/advanced directive/end of life care: Patient does not have living will or advanced directive. After discussion of benefits/risks procedures involved with full code, DNR CC arrest and DNR CC, the patient opted for full code. She understands CPR/chest compressions and intubation and ventilator. Patient does want artificial life support including intubation, tube feed, ventilator and/chest compression, central venous catheter, vasopressor and DC shock if needed Charges/Coding Visit Charges Inpatient E&M: 84575 Subs Hosp L2
[2023-02-03 15:33] LABS: Bedside Glucose 118 mg/dL (74-106)
[2023-02-03 17:47] LABS: Bedside Glucose 131 mg/dL (74-106)
[2023-02-03] MEDS: Pramipexole Di-HCl 0.125 MG Tablet PO (21:56)
[2023-02-04 03:37] LABS: M R Staph aureus DNA By PCR Negative (Negative); Probe Check PASS; Specimen Processing Control PASS
[2023-02-04 05:00] VITALS: BP 153/101; PULSE 75; RESP 18; TEMP 36.1; O2SAT 94
[2023-02-04 06:05] VITALS: BP 153/101; PULSE 80; RESP 18; TEMP 36.1; O2SAT 94
[2023-02-04] MEDS: Ipratropium/Albuterol Sulfate 3 ML AMPUL.NEB INHALATION (07:29)
[2023-02-04 07:30] VITALS: PULSE 76; RESP 18; O2SAT 92
[2023-02-04 08:12] LABS: Bedside Glucose 99 mg/dL (74-106)
--- NOTE | 2023-02-04 08:24 | CASEMGMT ---
Discharge Planning Updates sent to [place] via [facility]. Danelle Thakur, Discharge Planning Asst.
[2023-02-04 10:01] VITALS: O2SAT 94
[2023-02-04 10:12] VITALS: BP 133/66; PULSE 85; RESP 17; TEMP 36.8; O2SAT 98
--- NOTE | 2023-02-04 10:12 | TREXTCAR_ITS ---
Diet Diet Order/Speech Therapy: 02/01/23 20:03 Diet: Regular - General Food consistency:: Regular Liquid Consistency:: Regular/Thin Type of Dietary Supplement:: 240ml Ensure+ HP w/ break Diet Comments: No straws, thin by small cup sips, sitting upright Routine Orders/Code Status Suppository Type: Dulcolax 10mg Suppository Frequency: Daily PRN Therapies Weight Bearing: Weight bearing as tolerated Extremity Affected:: Bilateral Upper Physical Therapy: Eval and Treat Occupational Therapy: Eval and Treat Speech Therapy: Eval and Treat Problem/Diagnosis (1) Hypoxia: Status: Acute Code(s): R09.02 - Hypoxemia Plan This is a 72-year-old female being admitted for shortness of breath and hypoxia, etiology unclear 1. Acute hypoxia shortness of breath possible pneumonitis/pneumonia: Patient is being admitted in PCU. Chest CTA does not show acute PE, aortic dissection but bilateral groundglass opacity diffusely. Pneumonia work-up ordered including COVID-19, respiratory panel, blood cultures x2, CRP and ESR. Lactic acid normal. Empirically started on IV ceftriaxone and Zithromax. DuoNeb as needed. Incentive spirometry, Pep and Mucinex. ABG ordered. Patient was last admitted in December 2021 for acute hypoxic respiratory failure from bilateral pneumonia and fall. At that time COVID and flu antigens were negative. She is vaccinated with COVID in April 2021. Pulmonary consult requested, discussed with Dr. Mark. 02/02: COVID-19 PCR, respiratory panel and urinary antigens are negative. No fever. Leukocytosis trending down. On 3 L of oxygen. Pulmonary consult requested. 02/03: On 2 L of oxygen. [employer] Fusion Middleware Developer advised repeat chest imaging in 6 to 8 weeks. Continue incentive spirometry and Pep. Levaquin for total of 7 days of antibiotic treatment. 2. Abnormal EKG changes: Patient has every third beat PVCs, LVH QTc 457 ms.. Previous EKG from July 2022 reviewed and shows normal sinus rhythm with LVH but had PVCs on the on December 2021 EKG. 2 troponin are elevated but no significant delta change. Patient does not have chest pain tightness or heaviness. ACS less likely. 02/02: Patient does not have chest pain or pressure since the beginning. Troponin trends are inconsistent. Decreased to 91 and type II 133 and then 210. Repeat EKG in the morning similar to yesterday. Normal sinus rhythm with LVH with QRS 160 ms. QT 370 ms. PVCs is resolved. No acute ST-T changes. ACS ruled out 02/03: marketing database analyst shows normal sinus rhythm. PVCs have much decreased in frequency today. 3. Acute hypoglycemia, resolved: Glucose in BMP is 144. It was 28 by EMS and resolved with oral glucose. A1c ordered for tomorrow AM. 02/02: A1c 5.5%. Diabetes mellitus and prediabetes ruled out. 4. 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 Patient's sister stated she has numbness/paresthesia in lower legs and wanted EMG/NCV study. She also had GERD/esophageal reflux therefore on Protonix 40 mg daily. Outpatient GI referral. Patient has outgrown toenails/chronic onychomycosis therefore podiatry referral. Living will/advanced directive/end of life care: Patient does not have living will or advanced directive. After discussion of benefits/risks procedures involved with full code, DNR CC arrest and DNR CC, the patient opted for full code. She understands CPR/chest compressions and intubation and ventilator. Patient does want artificial life support including intubation, tube feed, ventilator and/chest compression, central venous catheter, vasopressor and DC shock if needed Allergies/Procedures Done in Hospital Allergies No Known Allergies Allergy (Verified 08/01/22 13:42) Type of Care/Length of Stay Estimated LOS: Convalescent Care Less Than 30 days Type of Care Needed: Skilled Rehab Potential: Good Prognosis: Good Additional Orders/Day of Discharge Day of Discharge: 02/04/23 Dietary and Speech Recommendations Dietitian Recommendations/Changes: Continue Regular diet as ordered while oral intake adequacy established with meals. Will add 240 mL ensure plus high protein 1 times per day w/ breakfast meal as tolerated. Adjust ONS as needed to optimize intake and prevent weight during acute illness. Discharge Plan Admission Admit Date/Time: 02/01/23 14:55 Primary Reason for Your Visit: Bilateral pneumonitis. Attending Provider: Bryan Franklin Primary Care Provider: Nasir Szymanski Consulting Providers: Drake Morris; Deon Mandel; Poli Lin; Pieter Junior; Yamile Chambers BIG DATA PLATFORM ARCHITECT Discharge Orders/Prescriptions Prescriptions: New Mucus Relief ER 1,200 mg Tablet Extended Release 12hr 1,200 mg PO BID 7 Days Qty: 14 0RF levofloxacin 500 mg tablet 500 mg PO DAILY 4 Days Qty: 4 0RF ipratropium-albuterol 0.5 mg-3 mg(2.5 mg base)/3 mL Solution For Nebulization 3 ml inhalation Q6H.RT PRN (Reason: sob) Qty: 0 0RF Continued polyethylene glycol 3350 [Miralax] 17 gram Powder In Packet 17 g PO DAILY PRN (Reason: Constipation) ketoconazole 2 % cream 1 applic TOPICAL PRN PRN (Reason: Rash) Patient Comments: APPLY TO AFFECTED AREA ONCE DAILY sennosides-docusate sodium [Stool Softener-Stimulant Laxat] 8.6-50 mg tablet 2 tab PO BID PRN (Reason: Constipation) lisinopril 10 mg tablet 10 mg PO DAILY omeprazole 20 mg capsule,delayed release(DR/EC) 20 mg PO DAILY nystatin [Nyamyc] 100,000 unit/gram powder 1 applic TOPICAL BID cholecalciferol (vitamin D3) 50 mcg (2,000 unit) Capsule 50 mcg PO DAILY Gemtesa 75 mg tablet 75 mg PO DAILY ropinirole 0.25 mg tablet 0.25 mg PO QHS Referrals / Follow Up: Drake Morris MD [Med Staff - Active Staff] - Within 1 Month Byron Carlos DPM [Med Staff - Active Staff] - (Toe nail trimmings) Nasir Szymanski MD [Primary Care Provider] - John Piedra MD [Non-Staff -Ordering Privileges] - (neuropathy) Care Physician,No Primary [Non-Staff] - Disposition Disposition (needs filled in before D/C Order can be placed): Residential Facility
[2023-02-04 10:15] VITALS: O2SAT 94
[2023-02-04] MEDS: guaiFENesin 1,200 MG Tablet 1200 MG PO (10:17)
[2023-02-04] MEDS: Pantoprazole Sodium 20 MG Tablet PO (10:18)
[2023-02-04] MEDS: Enoxaparin 40 MG/0.4 ML Syringe SC (10:18)
[2023-02-04] MEDS: Lisinopril 10 MG Tablet PO (10:18)
[2023-02-04] MEDS: Cholecalciferol (VIT D3) 25 MCG TABLET (1,000 UNITS) 50 MCG PO (10:18)
--- NOTE | 2023-02-04 10:18 | PCM.DC.SUM ---
Providers Date of Admission: 02/01/23 Date of Discharge: 02/04/23 Primary Care Physician: Dr. Nasir Szymanski MD Consultations 02/01/23 15:29 Consult: Mortgage Operations Manager / Pulmonary Medicine Routine Consulting Provider: Pulmonary Medicine [place] Reason for Consult: B/L groundglass opacities EMERGENT Consult: No MD Notified: Yes Date Notified: 02/01/23 Time Notified: 15:29 Method of Notification: ED Physician Initiated Reason For Visit: HYPOXIA Diagnosis Discharge Diagnosis (1) Hypoxia: Status: Acute Code(s): R09.02 - Hypoxemia Plan This is a 72-year-old female being admitted for shortness of breath and hypoxia, etiology unclear 1. Acute hypoxia shortness of breath possible pneumonitis/pneumonia: Patient is being admitted in PCU. Chest CTA does not show acute PE, aortic dissection but bilateral groundglass opacity diffusely. Pneumonia work-up ordered including COVID-19, respiratory panel, blood cultures x2, CRP and ESR. Lactic acid normal. Empirically started on IV ceftriaxone and Zithromax. DuoNeb as needed. Incentive spirometry, Pep and Mucinex. ABG ordered. Patient was last admitted in December 2021 for acute hypoxic respiratory failure from bilateral pneumonia and fall. At that time COVID and flu antigens were negative. She is vaccinated with COVID in April 2021. Pulmonary consult requested, discussed with Dr. Mark. 02/02: COVID-19 PCR, respiratory panel and urinary antigens are negative. No fever. Leukocytosis trending down. On 3 L of oxygen. Pulmonary consult requested. 02/03: On 2 L of oxygen. Impregnating Tank Operator advised repeat chest imaging in 6 to 8 weeks. Continue incentive spirometry and Pep. Levaquin for total of 7 days of antibiotic treatment. 02/04: Patient is discharged on Levaquin total of 4 tablets given to complete total of 7 days. Home oxygen qualification test. Follow-up in pulmonary clinic as mentioned discharge instruction. 2. Abnormal EKG changes: Patient has every third beat PVCs, LVH QTc 457 ms.. Previous EKG from July 2022 reviewed and shows normal sinus rhythm with LVH but had PVCs on the on December 2021 EKG. 2 troponin are elevated but no significant delta change. Patient does not have chest pain tightness or heaviness. ACS less likely. 02/02: Patient does not have chest pain or pressure since the beginning. Troponin trends are inconsistent. Decreased to 91 and type II 133 and then 210. Repeat EKG in the morning similar to yesterday. Normal sinus rhythm with LVH with QRS 160 ms. QT 370 ms. PVCs is resolved. No acute ST-T changes. ACS ruled out 02/03: vehicle monitor technician shows normal sinus rhythm. PVCs have much decreased in frequency today. 3. Acute hypoglycemia, resolved: Glucose in BMP is 144. It was 28 by EMS and resolved with oral glucose. A1c ordered for tomorrow AM. 02/02: A1c 5.5%. Diabetes mellitus and prediabetes ruled out. 4. 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 Patient recommended GI outpatient referral to evaluate with EGD. On omeprazole 40 mg daily. VTE prophylaxis: Lovenox 40 mg subcu daily. Patient's sister stated she has numbness/paresthesia in lower legs and wanted EMG/NCV study. She also had GERD/esophageal reflux therefore on Protonix 40 mg daily. Outpatient GI referral. Patient has outgrown toenails/chronic onychomycosis therefore podiatry referral. Living will/advanced directive/end of life care: Patient does not have living will or advanced directive. After discussion of benefits/risks procedures involved with full code, DNR CC arrest and DNR CC, the patient opted for full code. She understands CPR/chest compressions and intubation and ventilator. Patient does want artificial life support including intubation, tube feed, ventilator and/chest compression, central venous catheter, vasopressor and DC shock if needed Discharge medication reconciliation done. Discharge follow-up instructions completed. Discharge process discussed with the patient and all questions were answered to patient's satisfaction. Discharged to TCU. Total time spent, exact 35 minutes on discharge meds reconciliation, examination, coordination of care with nurses and ancillary staff, review of imaging and blood test and discussion with the patient on follow-up instructions. Medications at Discharge Home Medications ketoconazole 2 % topical cream 1 applic topical PRN PRN Rash 05/29/21 polyethylene glycol 3350 17 gram oral powder packet (Miralax) 17 g PO DAILY PRN Constipation 05/29/21 lisinopril 10 mg tablet 10 mg PO DAILY bp 12/30/21 sennosides 8.6 mg-docusate sodium 50 mg tablet (Stool Softener-Stimulant Laxative) 2 tab PO BID PRN Constipation 12/30/21 cholecalciferol (vitamin D3) 50 mcg (2,000 unit) capsule 50 mcg PO DAILY 11/10/22 nystatin 100,000 unit/gram topical powder (Nyamyc) 1 applic topical BID 11/10/22 ropinirole 0.25 mg tablet 0.25 mg PO QHS RESTLESS LEG 02/01/23 vibegron 75 mg tablet (Gemtesa) 75 mg PO DAILY BLADDER SPASM 02/01/23 guaifenesin 1,200 mg tablet, extended release 12 hr (Mucus Relief ER) 1,200 mg PO BID 7 days #14 tabs 02/04/23 ipratropium 0.5 mg-albuterol 3 mg (2.5 mg base)/3 mL nebulization soln 3 ml inhalation Q6H.RT PRN sob #0 mL 02/04/23 levofloxacin 500 mg tablet 500 mg PO DAILY 4 days #4 tabs 02/04/23 omeprazole 20 mg capsule,delayed release 40 mg (2 x 20 mg) PO DAILY 30 days #0 caps 02/04/23 Physical Exam Narrative Seen and examined on the day of discharge. Patient had modified barium swallow yesterday. Mild to moderate esophageal dysphagia and recommended diet with compensatory strategies. Physical exam General: Alert, Oriented x3, Cooperative HEENT: Atraumatic, PERRLA, EOMI, Normocephalic Oral: Oral mucosa moist. No Gingival or Mucosal Lesions/ Ulcerations Neck: Supple, No JVD, Negative Carotid Bruits Lungs: Air entry diminished in bilateral lung bases. No crepitation/rhonchi Cardiovascular: Regular rate, Regular Rhythm, Normal S1, Normal S2, No murmurs Abdomen: Bowel Sounds Present, Soft, Non Tender, Non-Distended : No renal angle tenderness. No suprapubic tenderness. Extremities: No edema, Capillary Refill Less than 3 Seconds Skin: No rashes, No breakdown. Outgrown toenails. No obvious signs of inflammation. Musculoskeletal: Bilateral knee joint arthritis. Right TKR with varus deformity. No Tenderness to Palpation of Joints or Extremities Spine: Chronic kyphoscoliosis. No acute T-spine tenderness. Neurological: Cranial nerves II-XII grossly intact, DTR 2+/4 and Symmetrical, Neuro grossly intact Psych/Mental Status: Flat affect. Weight / BMI Weight Weight: 204 lb 12.951 oz Body Mass Index (BMI) 31.1 ABG / Lab / Microbiology Data 02/02/23 02:25 02/02/23 02:25 Laboratory: Laboratory Results - last 24 hr 02/01/23 10:11: POC Glucose 118 H 02/03/23 11:41: POC Glucose 142 H 02/03/23 17:28: POC Glucose 131 H 02/04/23 01:32: MRSA (PCR) Negative 02/04/23 07:54: POC Glucose 99 Microbiology: Microbiology 02/01/23 11:30 Urine, Clean Catch Urine Culture - Final Culture exhibits no growth. 02/01/23 10:40 Blood Culture (Wb) - Right Hand Blood Culture - Preliminary No growth in 48 hours. 02/01/23 10:40 Blood Culture (Wb) - Anticubital Right Blood Culture - Preliminary No growth in 48 hours. 02/01/23 20:15 Mucosa - Nasopharyngeal Coronavirus COVID-19 PCR - Final 02/01/23 20:15 Mucosa - Nasopharyngeal Respiratory Panel (PCR) - Final 02/01/23 Unknown Urine, Clean Catch Legionella Antigen - Final 02/01/23 Unknown Urine, Clean Catch Streptococcus pneumoniae Antigen (M - Final 02/01/23 10:40 Nasal Secretion SARS-CoV-2 & FLU Antigen (Rapid) - Final Meaningful Use Info Meaningful Use Diagnoses (Choose all that apply): None applicable Discharge Plan Admission Admit Date/Time: 02/01/23 14:55 Primary Reason for Your Visit: Bilateral pneumonitis. Attending Provider: Bryan Franklin Primary Care Provider: Nasir Szymanski Consulting Providers: Drake Morris; Deon Mandel; Poli Lin; Pieter Whalen; Yamile Chambers LIVESTOCK COUNTER Discharge Orders/Prescriptions Prescriptions: New Mucus Relief ER 1,200 mg Tablet Extended Release 12hr 1,200 mg PO BID 7 Days Qty: 14 0RF levofloxacin 500 mg tablet 500 mg PO DAILY 4 Days Qty: 4 0RF ipratropium-albuterol 0.5 mg-3 mg(2.5 mg base)/3 mL Solution For Nebulization 3 ml inhalation Q6H.RT PRN (Reason: sob) Qty: 0 0RF Continued polyethylene glycol 3350 [Miralax] 17 gram Powder In Packet 17 g PO DAILY PRN (Reason: Constipation) ketoconazole 2 % cream 1 applic TOPICAL PRN PRN (Reason: Rash) Patient Comments: APPLY TO AFFECTED AREA ONCE DAILY sennosides-docusate sodium [Stool Softener-Stimulant Laxat] 8.6-50 mg tablet 2 tab PO BID PRN (Reason: Constipation) lisinopril 10 mg tablet 10 mg PO DAILY nystatin [Nyamyc] 100,000 unit/gram powder 1 applic TOPICAL BID cholecalciferol (vitamin D3) 50 mcg (2,000 unit) Capsule 50 mcg PO DAILY Gemtesa 75 mg tablet 75 mg PO DAILY ropinirole 0.25 mg tablet 0.25 mg PO QHS Changed omeprazole 20 mg capsule,delayed release(DR/EC) 40 mg PO DAILY 30 Days Qty: 0 0RF Referrals / Follow Up: Drake Morris MD [Med Staff - Active Staff] - Within 1 Month Byron Carlos DPM [Med Staff - Active Staff] - (Toe nail trimmings) Nasir Szymanski MD [Primary Care Provider] - John Piedra MD [Non-Staff -Ordering Privileges] - (neuropathy) Hadley Mendosa DO [Med Staff - Active Staff] - Within 1 Month (for GERD) Care Physician,No Primary [Non-Staff] - Disposition Disposition (needs filled in before D/C Order can be placed): [facility] Charges/Coding Visit Charges Inpatient E&M: 30802 Disch Hosp >30min
--- NOTE | 2023-02-04 11:06 | PHA.DC.MR.R ---
Pharmacy [place] Med Reconciliation Pharmacy Service has performed discharge medication reconciliation for this patient. The patient's discharge medication list was reviewed for discrepancies and discrepancies were resolved. Medications at Discharge Home Medications ketoconazole 2 % topical cream 1 applic topical PRN PRN Rash 05/29/21 polyethylene glycol 3350 17 gram oral powder packet (Miralax) 17 g PO DAILY PRN Constipation 05/29/21 lisinopril 10 mg tablet 10 mg PO DAILY bp 12/30/21 sennosides 8.6 mg-docusate sodium 50 mg tablet (Stool Softener-Stimulant Laxative) 2 tab PO BID PRN Constipation 12/30/21 cholecalciferol (vitamin D3) 50 mcg (2,000 unit) capsule 50 mcg PO DAILY 11/10/22 nystatin 100,000 unit/gram topical powder (Nyamyc) 1 applic topical BID 11/10/22 ropinirole 0.25 mg tablet 0.25 mg PO QHS RESTLESS LEG 02/01/23 vibegron 75 mg tablet (Gemtesa) 75 mg PO DAILY BLADDER SPASM 02/01/23 guaifenesin 1,200 mg tablet, extended release 12 hr (Mucus Relief ER) 1,200 mg PO BID 7 days #14 tabs 02/04/23 ipratropium 0.5 mg-albuterol 3 mg (2.5 mg base)/3 mL nebulization soln 3 ml inhalation Q6H.RT PRN sob #0 mL 02/04/23 levofloxacin 500 mg tablet 500 mg PO DAILY 4 days #4 tabs 02/04/23 omeprazole 20 mg capsule,delayed release 40 mg (2 x 20 mg) PO DAILY 30 days #0 caps 02/04/23
[2023-02-04] MEDS: 0.9% Saline Lock 10 ML Syringe IV (11:10)
--- NOTE | 2023-02-04 11:20 | CASEMGMT ---
Discharge Planning Discharge orders, signed med list and transport time sent to [place] via [facility]. Physicians will transfer patient by cot at noon. Nursing, patient, and her sister notified. Danelle Thakur, Discharge Planning Asst.
--- NOTE | 2023-02-04 12:03 | NURSING ---
Report called to nurse Herminia beltran [place].
== END 2023-02-04 12:10 | disposition skilled nursing facility (03) | DRG 198 ==
LOC: ED 10:33 → PCU 15:27
PROVIDERS: Internal Medicine Critical Care Medicine; Admitting Provider Internal Medicine; Emergency Provider Student in an Organized Health Care Education/Training Program; PCP Family Medicine; Visit Provider Internal Medicine
DX: J84.9 Interstitial pulmonary disease, unspecified (principal); E16.2 Hypoglycemia, unspecified; I10 Essential (primary) hypertension; K21.9 Gastro-esophageal reflux disease without esophagitis; M17.0 Bilateral primary osteoarthritis of knee; M54.2 Cervicalgia; M54.9 Dorsalgia, unspecified; R73.9 Hyperglycemia, unspecified; R77.8 Other specified abnormalities of plasma proteins; I49.3 Ventricular premature depolarization; Z20.822 Contact with and (suspected) exposure to COVID-19; Z79.899 Other long term (current) drug therapy; Z96.651 Presence of right artificial knee joint
CPT/HCPCS: 36415; 36600; 70450; 71275; 72125; 74174; 74230; 80048; 80053; 81001; 82803; 82962; 83036; 83605; 83735; 83880; 84100; 84443; 84484; 85025; 85379; 85610; 87040; 87086; 87428; 87449; 87633; 87635; 87641; 92526; 92610; 92611; 93005; 93306; 94640; 94668; 97110; 97116; 97162; 97166; 97530; 97535; 99285; J7030; Q9967; A4216; J1940; J2405

== ENCOUNTER 2023-04-18 08:24 | Observation (INO) | payer MEDICARE, MEDICAID, SELFPAY ==
[2023-04-18] VITALS (13 sets, daily range): BP systolic 108–175; BP diastolic 64–125; PULSE 66–95; RESP 16–26; TEMP 36.1–36.8; O2SAT 84–99; BMI 36.1; BMI 35.6
--- NOTE | 2023-04-18 08:29 | CT_ITS ---
We are attempting to reach an attending provider to discuss findings. An addendum with communication details will be sent when the communication is complete. EXAM: CT HEAD WITHOUT INTRAVENOUS CONTRAST CLINICAL INDICATION: Neuro deficit, acute, stroke suspected TECHNIQUE: Multiple axial images were obtained of the head without intravenous contrast. This CT exam was performed using one or more of the following dose reduction techniques: automated exposure control, adjustment of the mA and/or kV according to patient size, and/or use of iterative reconstruction technique. RADIATION DOSE: CTDIvol = 44.99 mGy, DLP = 914.22 mGy-cm COMPARISON: CT head without contrast 02/01/2023. FINDINGS: BRAIN AND EXTRA-AXIAL SPACES: Hypoplastic inferior semilunar lobules of both cerebellar hemispheres and developmentally absent inferior cerebellar tonsils. Dilated ventricular system due to cerebral atrophy, more central than cortical. No intra- or extra-axial hemorrhage. No evidence of acute infarct. No intracranial mass or mass effect. There is preservation of the smith/white matter interface. No hydrocephalus. Basal cisterns are patent. BONES/JOINTS: Unremarkable. No discrete lytic or blastic abnormalities. SINUSES: Unremarkable as visualized. Clear. MASTOID AIR CELLS: Unremarkable. Clear. ORBITS: Visualized globes, extraocular muscles, optic nerves and retrobulbar fat appear unremarkable. CT/STROKE Brain/Head without Cont IMPRESSION: 1. No CT evidence of intracranial bleeding, acute ischemic infarct or acute intracranial abnormality at this time. 2. Total ASPECTS score: 10/10. 3. No interval change when compared to 02/01/2023. Electronically Signed: Errol Garner MD at 8:50 EDT ,
--- NOTE | 2023-04-18 08:29 | EKG12_ITS ---
Test Reason : POSS STROKE Blood Pressure : / mmHG Vent. Rate : 095 BPM Atrial Rate : 095 BPM P-R Int : 164 ms QRS Dur : 090 ms QT Int : 378 ms P-R-T Axes : 049 -17 083 degrees QTc Int : 475 ms Sinus rhythm with frequent Premature ventricular complexes Minimal voltage criteria for LVH, may be normal variant ( R in aVL ) Nonspecific ST and T wave abnormality Abnormal ECG Confirmed by MELVI TRACEY, JERRY ([id number]), acquisition editor ALIYAH TURCIOS ([id number]) on 04/21/2023 10:32:07 AM Referred By: WANG Confirmed By:EH OGDEN MD
--- NOTE | 2023-04-18 08:29 | CT_ITS ---
STUDY: CTA HEAD AND NECK WITH CONTRAST REASON FOR EXAM: Female, 72 years old. Neuro deficit, acute, stroke suspected RADIATION DOSAGE (If Supplied By Facility): CTDIvol = ( 36.26 ) mGy, DLP = ( 731.49 ) mGycm TECHNIQUE: CT angiography was performed with a multi-detector CT scanner. Data acquisition was obtained from the skull base through the vertex following intravenous administration of IV 100mL Isovue-370. MIP images were reconstructed from the axial data set. Post-processing of the angiographic images was performed, with multiplanar reformation and 3D reconstruction. Individualized dose optimization techniques were used for this CT. COMPARISON: No relevant priors. FINDINGS: Normal bilateral petrous carotid arteries. Normal right cavernous carotid artery with a normal supraclinoid bifurcation. Normal left cavernous carotid artery with a normal supraclinoid bifurcation. Normal right A1 segments of the anterior cerebral artery. Normal left A1 segments of the anterior cerebral artery. Normal intact anterior communicating artery (ACOM). Normal bilateral A2 segments of the anterior cerebral arteries. Normal right M1 and M2 segments of the middle cerebral arteries, with a normal M1 bifurcation. Normal left M1 and M2 segments of the middle cerebral arteries, with a normal M1 bifurcation. No visible right posterior communicating artery (PCOM). origin of the left LOCOMOTIVE DRIVER off the left internal carotid artery rather than a widely patent left posterior communicating artery (PCOM). Normal bilateral vertebral arteries. The right vertebral artery is hypoplastic and terminates directly into the right PICA. Normal basilar artery with a normal basilar bifurcation. The visualized bilateral superior cerebellar (SCA) arteries are normal. Developmentally absent left P1 segment. Normal right P1, bilateral P2 and visualized P3 segments of the posterior cerebral arteries. There is no demonstrated aneurysm of the [place]. There is no demonstrated abnormality of the visualized brain. AORTIC ARCH: Normal visualized aortic arch. Normal origins of the brachiocephalic, left common carotid, and left subclavian arteries. RIGHT CAROTID ARTERIES: Normal right common carotid artery (CCA). Normal right carotid bulb. Normal origin of the right internal carotid (ICA) artery without a hemodynamically significant stenosis. Normal visualized cervical portion of the right internal carotid artery. Normal origin of the right external carotid artery (ECA). LEFT CAROTID ARTERIES: Normal left common carotid artery (CCA). Normal left carotid bulb. Normal origin of the left internal carotid (ICA) artery without a hemodynamically significant stenosis. Nonocclusive calcified plaque in the proximal left internal carotid artery. Normal remaining visualized cervical portion of the left internal carotid artery. Normal origin of the left external carotid artery (ECA). VERTEBRAL ARTERIES: Normal bilateral vertebral arteries. The right vertebral artery is hypoplastic and terminates directly into the right PICA. CT/STROKE CTA Head AND Neck W/Con IMPRESSION: 1. Limited CTA since there is large amount of contrast on the venous side of the circulation. 2. No CTA evidence of any suspicious vaso-occlusive disease of the anterior and posterior intracranial circulation. 3. origin of the left LOCOMOTIVE DRIVER off the left internal carotid artery accounting for developmentally absent left P1 segment. 4. Hypoplastic right vertebral artery terminating directly into the right PICA. 5. Nonocclusive calcified plaque in the left proximal internal carotid artery. The left cervical carotid artery is widely patent. 6. Widely patent right cervical carotid artery. 7. Widely patent hypoplastic right vertebral artery and dominant left vertebral artery. 8. Normal aortic arch and origins of the great vessels. 9. No CT evidence of mass or lymphadenopathy in the suprahyoid neck and infrahyoid neck. 10. Pronounced degenerative disc space height narrowing with endplate sclerosis at C6-C7 disc space level. Schmorl''s nodes in the central endplates at C5-C6 disc space level with vertebral marrow reactive sclerosis. No acute abnormality of the cervical spine. N.B. : The above Results were Read Back by Errol Garner MD to Roe Baker DO, and understanding confirmed on 04/18/2023 09:07:59 (ET). Electronically Signed: Errol Garner MD at 9:08 EDT ,
--- NOTE | 2023-04-18 08:31 | NURSING ---
NO OLD EKGS
[2023-04-18 08:36] LABS: Absolute Lymphocyte Count 1.05 X10^3/uL (0.83-4.51); Absolute Neutrophil Count 8.9 X10^3/uL (2.0-7.7); Basophil# 0.01 X10^3/uL; Basophil% 0.1 % (0-1); Hematocrit 40.7 % (37-47); Hemoglobin 12.9 g/dL (12.0-15.0); Lymphocyte # 1.05 X10^3/ul (0.83-4.51); Mean Corp Hgb Conc 31.7 g/dL (32-36); Mean Corpuscular Hgb 28.3 pg (27.0-32.0); Mean Corpuscular Volume 89.3 fL (81-99); Mean Platelet Vol. 8.4 fl (6.2-12.0); Monocyte# 0.42 X10^3/uL; NRBC Flagged by Analyzer 0 % (0-5); Neutrophil # 8.94 X10^3/uL (2.7-7.7); Neutrophil % 85.4 % (47-70); Platelet Count 231 K/mm3 (150-450); RBC Distribution Width CV 13.6 % (11.6-14.6); RBC Distribution Width SD 44.3 fl (35.1-43.9); Red Blood Count 4.56 M/mm3 (4.2-5.4); White Blood Count 10.5 K/mm3 (4.4-11.0)
--- NOTE | 2023-04-18 08:37 | NURSING ---
821 STROKE ALERT CALLED PRIOR TO ARRIVAL
[2023-04-18 08:46] LABS: Prothrombin Time (Protime)PT. 13.1 SECONDS (11.7-14.9)
--- NOTE | 2023-04-18 08:56 | ED.VIS.STROK ---
HPI History of Present Illness Chief Complaint: Stroke Alert Informant: patient, EMS and SNF Narrative Narrative: 72-year-old female presenting to the emergency room as a prehospital stroke alert. Per reports from SNF and EMS, the patient had been complaining of a headache yesterday. She describes it as being in her right sikh. She was reportedly at baseline at 2225 hours last night during med Pass. Around 11:00 she was noting some left-sided weakness. This morning the initial report was that she was unresponsive. However they were noting slurred speech and not moving the left side of her body. It was noted that she was hypoxic in the low 80s. EMS states that her symptoms have improved in route as has her oxygen levels while receiving supplementation. She is not on reported blood thinners. It would appear that the patient has had prior tracheostomy. Patient currently only notes a right temporal headache. She has kyphosis and states that beds typically make her back hurt. She denies shortness of breath or significant cough. [facility] Medical History Constipation Gastric reflux Hypertension Hypoxia Non-smoker Rash Shortness of breath on exertion Wears glasses Home Medications ketoconazole 2 % topical cream 1 applic topical PRN PRN Rash 05/29/21 [History Last Taken Unknown] polyethylene glycol 3350 17 gram oral powder packet (Miralax) 17 g PO DAILY PRN Constipation 05/29/21 [History Last Taken 01/31/23] lisinopril 10 mg tablet 10 mg PO DAILY bp 12/30/21 [History Last Taken 01/31/23] sennosides 8.6 mg-docusate sodium 50 mg tablet (Stool Softener-Stimulant Laxative) 2 tab PO BID PRN Constipation 12/30/21 [History Last Taken 01/31/23] cholecalciferol (vitamin D3) 50 mcg (2,000 unit) capsule 50 mcg PO DAILY 11/10/22 [History Last Taken 01/31/23] nystatin 100,000 unit/gram topical powder (Nyamyc) 1 applic topical BID 11/10/22 [History Last Taken 01/31/23] ropinirole 0.25 mg tablet 0.25 mg PO QHS RESTLESS LEG 02/01/23 [History Last Taken 01/31/23] vibegron 75 mg tablet (Gemtesa) 75 mg PO DAILY BLADDER SPASM 02/01/23 [History Last Taken 01/31/23] guaifenesin 1,200 mg tablet, extended release 12 hr (Mucus Relief ER) 1,200 mg PO BID 7 days #14 tabs 02/04/23 [Rx Last Taken Unknown] ipratropium 0.5 mg-albuterol 3 mg (2.5 mg base)/3 mL nebulization soln 3 ml inhalation Q6H.RT PRN sob #0 mL 02/04/23 [Rx Last Taken Unknown] levofloxacin 500 mg tablet 500 mg PO DAILY 4 days #4 tabs 02/04/23 [Rx Last Taken Unknown] omeprazole 20 mg capsule,delayed release 40 mg (2 x 20 mg) PO DAILY 30 days #0 caps 02/04/23 [Rx Last Taken 02/01/23] Allergy/AdvReac Type Severity Reaction Status Date / Time Penicillins Allergy Unknown Rash Verified 04/18/23 08:47 erythromycin Allergy Mild Rash Uncoded 04/18/23 08:47 Family History Other Hypertension Surgical History History of toe surgery History of total right knee replacement Hx of tracheostomy Social History household members: none Smoking Status: Never smoker alcohol intake: never substance use type: does not use ROS ROS ED Constitutional Constitutional ED: Denies chills, fever(s) or weight loss Eyes Eyes: Denies change in vision or diplopia ENT ENT ED: Denies ear pain, rhinorrhea or sore throat Cardiovascular Cardiovascular: Denies chest pain, orthopnea, palpitations or racing heartbeat Respiratory/Chest Respiratory/Chest: Denies cough, dyspnea or orthopnea Gastrointestinal Gastrointestinal: Denies abdominal pain, diarrhea, nausea or vomiting Genitourinary Genitourinary ED: Denies dysuria, hematuria or urinary frequency Musculoskeletal Musculoskeletal: Reports back pain; Denies arthralgias, myalgias or neck pain Integumentary Denies abscess or rash Neurologic Neurologic: Reports headache(s) and weakness Psychiatric Psychiatric: Denies anxiety, depression, suicidal ideation or suicidal thoughts Endocrine Endocrinology: Denies polydipsia, polyphagia or polyuria Allergic/Immunologic Allergic/Immunologic ED: Denies mouth swelling, tongue swelling or urticaria EXAM Physical Exam Const Vital Signs: 04/18/23 08:37 04/18/23 08:47 04/18/23 08:47 Temperature 97.2 F L Temperature Source Oral Pulse Rate 95 Respiratory Rate 17 Blood Pressure 157/84 H Blood Pressure Mean 108 Pulse Ox 84 90 Oxygen Delivery Method Room Air Nasal Cannula Nasal Cannula Oxygen Flow Rate (L/min) 3 3 04/18/23 09:29 04/18/23 10:07 04/18/23 11:17 Temperature Temperature Source Pulse Rate 76 93 66 Respiratory Rate 18 26 H 16 Blood Pressure 175/125 H 173/112 H 157/77 H Blood Pressure Mean 141 132 103 Pulse Ox 93 93 99 Oxygen Delivery Method Nasal Cannula Nasal Cannula Nasal Cannula Oxygen Flow Rate (L/min) 3 3 Positive well nourished and well developed General Appearance ED: well developed HEENT Reports normocephalic, head/scalp atraumatic and moist mucous membranes Eyes PERRL and EOMs intact bilaterally Neck no lymphadenopathy, supple and no JVD Neck Narrative: There is a well-healed tracheostomy scar Resp normal respiratory effort and clear to auscultation bilaterally Cardio regular rate, regular rhythm and no murmurs GI normal to inspection, nondistended, normoactive bowel sounds and non-tender Palpation: soft Back/Spine no CVA tenderness and normal ROM Extremity normal to inspection General Extremety ED: Negative for edema General Extremity: Negative for edema Neuro oriented x3 and CN's II-XII intact bilaterally Sensorium / Orientation: alert Motor Exam: strength 5/5 throughout Psych mental status grossly normal Mood & Affect: Negative for depressed or tearful Skin no rashes or lesions noted General Skin Exam: Negative for jaundice Trauma: Negative for laceration NIHSS NIHSS Initial: 1a Level of Consciousness: 0 1b LOC Questions (Score 2 if aphasic/stupor): 0 1c LOC Commands (Only score 1st attempt): 0 2 Best Gaze (If aphasic, use reflexive mvmts.): 0 3 Visual: 0 4 Facial Palsy: 0 5 Motor Arm Right (UN = amputation/fusion): 0 5 Motor Arm Left: 0 6 Motor Leg Right: 1 6 Motor Leg Left: 1 7 Limb ataxia (Only + if out of proportion): 0 8 Sensory (Aphasia/stupor=0 or 1, coma=2): 1 9 Best Language: 0 10 Dysarthria (mute, coma=2, intubated=UN): 1 11 Extinction and Inattention (only scored if +): 0 Total Score: 4 MDM MDM MDM Narrative Medical decision making narrative: Prehospital stroke team was called. I evaluated the patient in the ambulance hallway. Patient is unknown to me and history is limited upon initial arrival. Based upon the lower extremity weakness and the speech the patient was taken to the CT scanner. CT of the brain and CTA of the head and neck showed no acute findings. Patient is noted to be drowsy. She had nausea received Zofran. Tylenol for headache. She passed swallow study. Patient falls asleep easily. When she does her head tilted forward and she becomes hypoxic. She is easily awoken and saturations return to normal. However she is still requiring supplemental oxygenation. White count is normal. BUN is 27 with a creatinine 0.87. Urinalysis shows no overt infection. There is 25-50 white cells rare bacteria and negative nitrates. This will be sent for culture. Troponin is normal at 0.16. My interpretation of the chest x-ray is no acute process. It is very difficult to say what causes acute alteration in her neurologic evaluation. This could be TIA, effects of hypoxemia, developing infection. Lab Data Attestation: I reviewed the patient's lab results. Labs: Laboratory Results - last 24 hr 04/18/23 04/18/23 08:30 10:00 WBC 10.5 RBC 4.56 Hgb 12.9 Hct 40.7 MCV 89.3 MCH 28.3 MCHC 31.7 L RDW Std Deviation 44.3 H RDW Coeff of [place] 13.6 Plt Count 231 MPV 8.4 Immature Gran % (Auto) 0.500 Neut % (Auto) 85.4 H Lymph % (Auto) 10.0 L [place] % (Auto) 4.0 Eos % (Auto) 0.0 Baso % (Auto) 0.1 Absolute Neuts (auto) 8.9 H Absolute Lymphs (auto) 1.05 Nucleated RBC % 0 PT 13.1 INR 1.0 APTT 26.8 Sodium 140 Potassium 4.0 Chloride 110 H Carbon Dioxide 27.0 Anion Gap 3 L BUN 27 H Creatinine 0.87 Estim Creat Clear Calc 50.47 Est GFR (MDRD) Af Amer 82 Est GFR (MDRD) Non-Af 68 BUN/Creatinine Ratio 31.0 H Glucose 122 H Calcium 8.6 Troponin I High Sens 16 Urine Color Yellow Urine Clarity Clear Urine pH 6.0 Ur Specific [place] 1.020 Urine Protein 30 H Urine Glucose (UA) Normal Urine Ketones Negative Urine Occult Blood 10 H Urine Nitrite Negative Urine Bilirubin Negative Urine Urobilinogen Normal Ur Leukocyte Esterase 500 H Urine RBC 0-5 SEEN Urine WBC 25-50 SEEN Ur Squamous Epith Cells 0-5 SEEN Urine Bacteria RARE Hyaline Casts 0-5 SEEN Urine Mucus 0 SEEN Radiography Diagnostic Testing: Clinical Impression(s) from Imaging Studies Brain CT 04/18/23 08:[address]: 1[address] evidence of intracranial bleeding, acute ischemic infarct or acute intracranial abnormality at this time. 2. Total ASPECTS score: 10/10. 3. No interval change when compared to 02/01/2023. Electronically Signed: Errol Garner MD at 8:50 EDT , ADDENDUM: 04/18/23 0859 IMPRESSION: 1. No CT evidence of intracranial bleeding, acute ischemic infarct or acute intracranial abnormality at this time. 2. Total ASPECTS score: 10/10. 3. No interval change when compared to 02/01/2023. N.B. : The above Results were Read Back by Errol Garner MD to Roe Baker DO, and understanding confirmed on 04/18/2023 08:52:30 (ET). Electronically Signed: Errol Garner MD at 8:50 EDT , Head/Neck CTA 04/18/23 08:29 IMPRESSION: 1. Limited CTA since there is large amount of contrast on the venous side of the circulation. 2. No CTA evidence of any suspicious vaso-occlusive disease of the anterior and posterior intracranial circulation. 3. origin of the left HOUSE FELLOW off the left internal carotid artery accounting for developmentally absent left P1 segment. 4. Hypoplastic right vertebral artery terminating directly into the right PICA. 5. Nonocclusive calcified plaque in the left proximal internal carotid artery. The left cervical carotid artery is widely patent. 6. Widely patent right cervical carotid artery. 7. Widely patent hypoplastic right vertebral artery and dominant left vertebral artery. 8. Normal aortic arch and origins of the great vessels. 9. No CT evidence of mass or lymphadenopathy in the suprahyoid neck and infrahyoid neck. 10. Pronounced degenerative disc space height narrowing with endplate sclerosis at C6-C7 disc space level. Schmorl''s nodes in the central endplates at C5-C6 disc space level with vertebral marrow reactive sclerosis. No acute abnormality of the cervical spine. N.B. : The above Results were Read Back by Errol Garner MD to Roe Baker DO, and understanding confirmed on 04/18/2023 09:07:59 (ET). Electronically Signed: Errol Garner MD at 9:08 EDT , ADDENDUM: 04/18/23 0915 IMPRESSION: 1. Limited CTA since there is large amount of contrast on the venous side of the circulation. 2. No CTA evidence of any suspicious vaso-occlusive disease of the anterior and posterior intracranial circulation. 3. origin of the left HOUSE FELLOW off the left internal carotid artery accounting for developmentally absent left P1 segment. 4. Hypoplastic right vertebral artery terminating directly into the right PICA. 5. Nonocclusive calcified plaque in the left proximal internal carotid artery. The left cervical carotid artery is widely patent. 6. Widely patent right cervical carotid artery. 7. Widely patent hypoplastic right vertebral artery and dominant left vertebral artery. 8. Normal aortic arch and origins of the great vessels. 9. No CT evidence of mass or lymphadenopathy in the suprahyoid neck and infrahyoid neck. 10. Pronounced degenerative disc space height narrowing with endplate sclerosis at C6-C7 disc space level. Schmorl''s nodes in the central endplates at C5-C6 disc space level with vertebral marrow reactive sclerosis. No acute abnormality of the cervical spine. N.B. : The above Results were Read Back by Errol Garner MD to Roe Baker DO, and understanding confirmed on 04/18/2023 09:07:59 (ET). Electronically Signed: Errol Garner MD at 9:08 EDT , ADDENDUM: 04/18/2317 IMPRESSION: undefined Chest X-Ray 04/18/23 09:00 IMPRESSION: 1. No acute findings in the chest. 2. Prominent gastric hernia. 3. Interval clearing of interstitial infiltrates in both lungs compared to 12/30/2021. Electronically Signed: Errol Garner MD at 9:43 EDT , EKG Initial EKG: Attestation: I personally reviewed and interpreted this EKG as follows: Comments: Sinus rhythm with a ventricular rate of 95 bpm. Frequent PVCs noted. No concerning features of ACS noted Management Discussion w/another healthcare provider: Hospitalist Discharge Plan Dx/Rx/DC Orders Clinical Impression: Acute alteration in mental status, Hypoxemia, Acute left-sided weakness, Hypertension Disposition Disposition: [facility]
--- NOTE | 2023-04-18 09:00 | RAD_ITS ---
EXAM: XR CHEST, 1 VIEW CLINICAL INDICATION: Neuro deficit, acute, stroke suspected TECHNIQUE: Frontal view of the chest. COMPARISON: 12/30/2021. FINDINGS: LUNGS AND PLEURAL SPACES: Clearing of the ill-defined interstitial infiltrates in both lungs. Discoid atelectasis in left peripheral lung base. No pneumothorax. No effusion. HEART: Cardiomegaly is unchanged. MEDIASTINUM: Central airways and mediastinal contour are unremarkable. BONES/JOINTS: Unremarkable. SOFT TISSUES: Unremarkable. UPPER ABDOMEN: Prominent gastric hernia. RAD/Chest 1 View IMPRESSION: 1. No acute findings in the chest. 2. Prominent gastric hernia. 3. Interval clearing of interstitial infiltrates in both lungs compared to 12/30/2021. Electronically Signed: Errol Garner MD at 9:43 EDT ,
[2023-04-18 09:02] LABS: Anion Gap 3 (5-15); BUN 27 mg/dL (7-18); Calcium,Total 8.6 mg/dL (8.5-10.1); Chloride 110 mmol/L (98-107); Creatinine, Serum 0.87 mg/dL (0.55-1.02); EST Glomerular Filtration Rate 68 mL/min (>60); Est Glom Filt Rate - Afr Amer 82 mL/min (>60); Estimated Creatinine Clearance 50.47 ml/min; Glucose 122 mg/dL (74-106); Sodium Level 140 mmol/L (136-145); Troponin-I HS 16 pg/mL (3.0-54.0)
[2023-04-18 09:34] LABS: Partial Thromboplast Time 26.8 Seconds (24.1-36.2)
--- NOTE | 2023-04-18 10:03 | ED.RN ---
Patient assisted onto bedside commode with maximum assistance. Patient required three person assist to return to bed. Urine obtained and sent to lab. Patient c/o nausea, emd aware.
[2023-04-18] MEDS: Ondansetron 4 MG/2 ML Vial IV (10:08)
[2023-04-18 10:12] LABS: Mucous, Urine 0 SEEN /hpf (<or=2+)
[2023-04-18 10:14] LABS: Color, Urine Yellow (Yellow); Glucose, Dipstick Normal (Normal); Ketone-Dipstick Negative (Negative); Leukocyte Esterase-Dipstick 500 /ul (Negative); Nitrite-Dipstick Negative (Negative); Occult Blood-Urine 10 /ul (Negative); Protein-Dipstick 30 mg/dl (Negative); Urine Bilirubin Dipstick Negative (Negative); Urine Clarity Clear (Clear); Urine Urobilinogen Normal (Normal)
[2023-04-18] MEDS: Acetaminophen 325 MG Tablet 650 MG PO (10:33)
[2023-04-18 10:44] LABS: Bacteria RARE /hpf (None Seen); Hyaline Cast 0-5 SEEN /lpf (0-5); Red Blood Cells-Urine 0-5 SEEN /hpf (0-5); Squamous Epithelial Cells - UA 0-5 SEEN /hpf (5-10); White Blood Cells 25-50 SEEN /hpf (0-5)
--- NOTE | 2023-04-18 11:53 | PCM.HP.STD ---
HPI - General General Date of Admission: 04/18/23 Date of Service: 04/18/23 Chief Complaint: Altered mental status/lethargy HPI Narrative TEVIN MILLAN, is a 72 F who was brought to ED by EMS for altered mental status and slurred speech. Patient was more lethargic. Patient had right-sided temporal headache yesterday about 2-3/10 intensity. As per EMS report and nursing staff in senior living, they felt patient had left-sided weakness, slurred speech. Initial report also mentions unresponsiveness.Vitals per EMS shows blood pressure was high. Patient also found hypoxic, pulse ox in the low 90s but oxygenation and her symptoms improved in route to ED. Prehospital stroke alert was called. In ED, patient complained she had dizziness and mild blurry vision but that has resolved. She further said she did not dizziness and blurry vision. Patient temporal headache is resolved. She has severe kyphosis and cannot lay flat for MRI brain as he had severe difficulty laying flat during CT scan. CT head did not show any intracranial bleeding or acute ischemic stroke or acute epileptiform electrolyte changes since 02/01/2023. After talking to ER physician, he talked to the [facility] neurologist, preliminary diagnosis favors more encephalopathy rather than a stroke but cannot rule out completely without MRI. History is also limited as patient has intellectual delay and debility and she has hard time with recall and remember. [facility] Medical History Constipation Gastric reflux Hypertension Hypoxia Non-smoker Rash Shortness of breath on exertion Wears glasses Home Medications ketoconazole 2 % topical cream 1 applic topical PRN PRN Rash 05/29/21 [History Last Taken Unknown] polyethylene glycol 3350 17 gram oral powder packet (Miralax) 17 g PO DAILY PRN Constipation 05/29/21 [History Last Taken 01/31/23] lisinopril 10 mg tablet 10 mg PO DAILY bp 12/30/21 [History Last Taken 01/31/23] sennosides 8.6 mg-docusate sodium 50 mg tablet (Stool Softener-Stimulant Laxative) 2 tab PO BID PRN Constipation 12/30/21 [History Last Taken 01/31/23] cholecalciferol (vitamin D3) 50 mcg (2,000 unit) capsule 50 mcg PO DAILY 11/10/22 [History Last Taken 01/31/23] nystatin 100,000 unit/gram topical powder (Nyamyc) 1 applic topical BID 11/10/22 [History Last Taken 01/31/23] ropinirole 0.25 mg tablet 0.25 mg PO QHS RESTLESS LEG 02/01/23 [History Last Taken 01/31/23] vibegron 75 mg tablet (Gemtesa) 75 mg PO DAILY BLADDER SPASM 02/01/23 [History Last Taken 01/31/23] guaifenesin 1,200 mg tablet, extended release 12 hr (Mucus Relief ER) 1,200 mg PO BID 7 days #14 tabs 02/04/23 [Rx Last Taken Unknown] ipratropium 0.5 mg-albuterol 3 mg (2.5 mg base)/3 mL nebulization soln 3 ml inhalation Q6H.RT PRN sob #0 mL 02/04/23 [Rx Last Taken Unknown] levofloxacin 500 mg tablet 500 mg PO DAILY 4 days #4 tabs 02/04/23 [Rx Last Taken Unknown] omeprazole 20 mg capsule,delayed release 40 mg (2 x 20 mg) PO DAILY 30 days #0 caps 02/04/23 [Rx Last Taken 02/01/23] Allergy/AdvReac Type Severity Reaction Status Date / Time Penicillins Allergy Unknown Rash Verified 04/18/23 08:47 erythromycin Allergy Mild Rash Uncoded 04/18/23 08:47 Family History Other Hypertension Surgical History History of toe surgery History of total right knee replacement Hx of tracheostomy Social History household members: none Smoking Status: Never smoker alcohol intake: never substance use type: does not use ROS ROS Narrative Although history of review of system is hard to corroborate what patient denies nausea, vomiting, hematemesis, melena, fever, abdominal pain, URI symptoms cough, sputum production, tachypnea. Patient does not remember recent past and last 2 or 3 days but states she has a right-sided headache. Chronic degenerative arthritis. Mild neck swelling. Long-term senior living resident. Review of Systems ROS Unobtainable: due to encephalopathy and due to mental status Vital Signs Vital Signs Vital Signs: 04/18/23 08:37 04/18/23 08:47 04/18/23 08:47 Temperature 97.2 F L Temperature Source Oral Pulse Rate 95 Respiratory Rate 17 Blood Pressure 157/84 H Blood Pressure Mean 108 Pulse Ox 84 90 Oxygen Delivery Method Room Air Nasal Cannula Nasal Cannula Oxygen Flow Rate (L/min) 3 3 04/18/23 09:29 04/18/23 10:07 04/18/23 11:17 Temperature Temperature Source Pulse Rate 76 93 66 Respiratory Rate 18 26 H 16 Blood Pressure 175/125 H 173/112 H 157/77 H Blood Pressure Mean 141 132 103 Pulse Ox 93 93 99 Oxygen Delivery Method Nasal Cannula Nasal Cannula Nasal Cannula Oxygen Flow Rate (L/min) 3 3 Weight Weight: 210 lb 5.136 oz Body Mass Index (BMI) 36.1 Physical Exam Narrative General: Alert, Oriented x3, chronic mild cognitive deficit/learning debility HEENT: Atraumatic, PERRLA, EOMI, Normocephalic. Bilateral ethmoidalis. No tenderness in the restorationist or jaw. Oral: Oral mucosa dry. No Gingival or Mucosal Lesions/ Ulcerations Neck: Supple, No JVD, Negative Carotid Bruits Chest Wall/lungs: Severe kyphotic spine. Air entry diminished in bilateral lung bases. No crepitation/rhonchi Cardiovascular: Regular rate, Regular Rhythm, Normal S1, Normal S2, No murmurs Abdomen: Bowel Sounds Present, Soft, Non Tender, Non-Distended : No renal angle tenderness. No suprapubic tenderness. Extremities: Mild edema both lower extremities., Capillary Refill Less than 3 Seconds Skin: No rashes, No breakdown Musculoskeletal: Left TKR. 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 Chronic mild weakness 4+/5 at knee and hip joints. Mild drift but does not hit the bed in both lower extremities Neurological: Cranial nerves II-XII grossly intact, DTR 2+/4. Chronic mild speech impediment. History of seizures as a child. Psych/Mental Status: Flat affect. Results Lab / Micro Data 04/18/23 08:30 04/18/23 08:30 Labs: Laboratory Results - last 24 hr 04/18/23 08:30: WBC 10.5, RBC 4.56, Hgb 12.9, Hct 40.7, MCV 89.3, MCH 28.3, MCHC 31.7 L, RDW Std Deviation 44.3 H, RDW Coeff of Marcus 13.6, Plt Count 231, MPV 8.4, Immature Gran % (Auto) 0.500, Neut % (Auto) 85.4 H, Lymph % (Auto) 10.0 L, Roberts % (Auto) 4.0, Eos % (Auto) 0.0, Baso % (Auto) 0.1, Absolute Neuts (auto) 8.9 H, Absolute Lymphs (auto) 1.05, Nucleated RBC % 0, PT 13.1, INR 1.0, APTT 26.8, Sodium 140, Potassium 4.0, Chloride 110 H, Carbon Dioxide 27.0, Anion Gap 3 L, BUN 27 H, Creatinine 0.87, Estim Creat Clear Calc 50.47, Est GFR (MDRD) Af Amer 82, Est GFR (MDRD) Non-Af 68, BUN/Creatinine Ratio 31.0 H, Glucose 122 H, Calcium 8.6, Troponin I High Sens 16 04/18/23 10:00: Urine Color Yellow, Urine Clarity Clear, Urine pH 6.0, Ur Specific [place] 1.020, Urine Protein 30 H, Urine Glucose (UA) Normal, Urine Ketones Negative, Urine Occult Blood 10 H, Urine Nitrite Negative, Urine Bilirubin Negative, Urine Urobilinogen Normal, Ur Leukocyte Esterase 500 H, Urine RBC 0-5 SEEN, Urine WBC 25-50 SEEN, Ur Squamous Epith Cells 0-5 SEEN, Urine Bacteria RARE, Hyaline Casts 0-5 SEEN, Urine Mucus 0 SEEN Radiology Impression Brain CT 04/18/23 08:29 IMPRESSION: 1. No CT evidence of intracranial bleeding, acute ischemic infarct or acute intracranial abnormality at this time. 2. Total ASPECTS score: 10/10. 3. No interval change when compared to 02/01/2023. Electronically Signed: Errol Garner MD at 8:50 EDT , ADDENDUM: 04/18/23 0859 IMPRESSION: 1. No CT evidence of intracranial bleeding, acute ischemic infarct or acute intracranial abnormality at this time. 2. Total ASPECTS score: 10/10. 3. No interval change when compared to 02/01/2023. N.B. : The above Results were Read Back by Errol Garner MD to Roe Baker DO, and understanding confirmed on 04/18/2023 08:52:30 (ET). Electronically Signed: Errol Garner MD at 8:50 EDT , Head/Neck CTA 04/18/23 08:29 IMPRESSION: 1. Limited CTA since there is large amount of contrast on the venous side of the circulation. 2. No CTA evidence of any suspicious vaso-occlusive disease of the anterior and posterior intracranial circulation. 3. origin of the left ACCOUNTS RECEIVABLE SUPERVISOR off the left internal carotid artery accounting for developmentally absent left P1 segment. 4. Hypoplastic right vertebral artery terminating directly into the right PICA. 5. Nonocclusive calcified plaque in the left proximal internal carotid artery. The left cervical carotid artery is widely patent. 6. Widely patent right cervical carotid artery. 7. Widely patent hypoplastic right vertebral artery and dominant left vertebral artery. 8. Normal aortic arch and origins of the great vessels. 9. No CT evidence of mass or lymphadenopathy in the suprahyoid neck and infrahyoid neck. 10. Pronounced degenerative disc space height narrowing with endplate sclerosis at C6-C7 disc space level. Schmorl''s nodes in the central endplates at C5-C6 disc space level with vertebral marrow reactive sclerosis. No acute abnormality of the cervical spine. N.B. : The above Results were Read Back by Errol Garner MD to Roe Baker DO, and understanding confirmed on 04/18/2023 09:07:59 (ET). Electronically Signed: Errol Garner MD at 9:08 EDT , ADDENDUM: 04/18/2315 IMPRESSION: 1. Limited CTA since there is large amount of contrast on the venous side of the circulation. 2. No CTA evidence of any suspicious vaso-occlusive disease of the anterior and posterior intracranial circulation. 3. origin of the left ACCOUNTS RECEIVABLE SUPERVISOR off the left internal carotid artery accounting for developmentally absent left P1 segment. 4. Hypoplastic right vertebral artery terminating directly into the right PICA. 5. Nonocclusive calcified plaque in the left proximal internal carotid artery. The left cervical carotid artery is widely patent. 6. Widely patent right cervical carotid artery. 7. Widely patent hypoplastic right vertebral artery and dominant left vertebral artery. 8. Normal aortic arch and origins of the great vessels. 9. No CT evidence of mass or lymphadenopathy in the suprahyoid neck and infrahyoid neck. 10. Pronounced degenerative disc space height narrowing with endplate sclerosis at C6-C7 disc space level. Schmorl''s nodes in the central endplates at C5-C6 disc space level with vertebral marrow reactive sclerosis. No acute abnormality of the cervical spine. N.B. : The above Results were Read Back by Errol Garner MD to Roe Baker DO, and understanding confirmed on 04/18/2023 09:07:59 (ET). Electronically Signed: Errol Garner MD at 9:08 EDT , ADDENDUM: 04/18/23916 IMPRESSION: undefined Chest X-Ray 04/18/23 09:00 IMPRESSION: 1. No acute findings in the chest. 2. Prominent gastric hernia. 3. Interval clearing of interstitial infiltrates in both lungs compared to 12/30/2021. Electronically Signed: Errol Garner MD at 9:43 EDT , Assessment & Plan Assessment/Plan (1) Acute alteration in mental status: PLAN: Plan This is a 72-year-old female being admitted for shortness of breath and hypoxia, etiology unclear 1. Altered mental status/lethargy, acute encephalopathy exact etiology unclear possibly due to medications: Patient is being admitted in PCU and monitored. Patient denies any focal signs and symptoms of infection including dysuria or new lower tract symptoms, cough, sputum production, abdominal pain, nausea or vomiting or new rash. IV fluid ordered. Hold sedating or benzodiazepine/antianxiety medications. CT head CT head does not show acute change. Patient had difficulty in laying flat for CT head because of severe kyphosis and deformity therefore MRI is canceled. Patient acute confusion has resolved and she feels back to 2. Chronic abnormal EKG changes: Patient EKG indicated reviewed and shows normal sinus rhythm, PVCs with heart rate, QTc 475 ms. Previous admission in January 2023 for hypoxia due to pneumonitis/pneumonia 3. History of hypoglycemia, resolved: Patient's glucose is 122. Previous admission, patient was hypoglycemic and at that time A1c was 5.5% 4. Other chronic comorbidities include hypertension, GERD, possible mild intellectual debility and chronic constipation: Patient had modified barium swallow reported as mild to moderate oropharyngeal dysphagia with mild esophageal retrograde flow. VTE prophylaxis: Lovenox 40 mg subcu daily. Living will/advanced directive/end of life care: Patient does have living will or advanced directive signed by her PCP Dr. Nasir Mina in 03/2020. After discussion of benefits/risks procedures involved with full code, DNR CC arrest and DNR CC, the patient knows and agrees for DNR CC arrest Patient doesn't want artificial life support including intubation, tube feed, ventilator and/chest compression, central venous catheter, vasopressor and DC shock if needed Total time spent in [id number] encounter in discussion of advanced directive 17 minutes. Clinical Impression(s) from Imaging Studies Brain CT 04/18/23 08:29 IMPRESSION: 1. No CT evidence of intracranial bleeding, acute ischemic infarct or acute intracranial abnormality at this time. 2. Total ASPECTS score: 10/10. 3. No interval change when compared to 02/01/2023. Head/Neck CTA 04/18/23 08:29 IMPRESSION: 1. Limited CTA since there is large amount of contrast on the venous side of the circulation. 2. No CTA evidence of any suspicious vaso-occlusive disease of the anterior and posterior intracranial circulation. 3. origin of the left ACCOUNTS RECEIVABLE SUPERVISOR off the left internal carotid artery accounting for developmentally absent left P1 segment. 4. Hypoplastic right vertebral artery terminating directly into the right PICA. 5. Nonocclusive calcified plaque in the left proximal internal carotid artery. The left cervical carotid artery is widely patent. 6. Widely patent right cervical carotid artery. 7. Widely patent hypoplastic right vertebral artery and dominant left vertebral artery. 8. Normal aortic arch and origins of the great vessels. 9. No CT evidence of mass or lymphadenopathy in the suprahyoid neck and infrahyoid neck. 10. Pronounced degenerative disc space height narrowing with endplate sclerosis at C6-C7 disc space level. Schmorl''s nodes in the central endplates at C5-C6 disc space level with vertebral marrow reactive sclerosis. No acute abnormality of the cervical spine. Chest X-Ray 04/18/23 09:00 IMPRESSION: 1. No acute findings in the chest. 2. Prominent gastric hernia. 3. Interval clearing of interstitial infiltrates in both lungs compared to 12/30/2021. Charges/Coding Visit Charges Inpatient E&M: 61677 Init Hosp L3 Procedures Hospitalists Procedures: 12968 Advncd Care Plan 30 Min
[2023-04-18] MEDS: 0.9% Normal Saline (1000mL) 1,000 ML 75 ML IV (17:01)
[2023-04-18] MEDS: Enoxaparin 40 MG/0.4 ML Syringe SC (17:03)
[2023-04-18] MEDS: Ensure Plus High Protein 120 ML LIQUID PO ×2 (17:59→21:29)
[2023-04-18 19:09] LABS: Amphetamine Urine VISTA NEGATIVE (<1000 ng/mL); Barbiturate Urine VISTA NEGATIVE (< 200 ng/mL); Benzodiazepine Urine VISTA NEGATIVE (< 200 ng/mL); Cocaine Urine VISTA NEGATIVE (< 300 ng/mL); Ecstacy Urine VISTA NEGATIVE (< 500 ng/mL); Methadone Urine VISTA NEGATIVE (< 300 ng/mL); PCP Urine VISTA NEGATIVE (< 25 ng/mL); THC Urine VISTA NEGATIVE (< 50 ng/mL); Vista UDS pH Range 5
[2023-04-18] MEDS: 0.9% Saline Lock 10 ML Syringe IV (21:29)
[2023-04-18] MEDS: Atorvastatin Calcium 80 MG Tablet PO (21:29)
[2023-04-19] VITALS (7 sets, daily range): BP systolic 119–120; BP diastolic 54–73; PULSE 62–75; RESP 17–18; TEMP 36.4–36.8; O2SAT 87–97; BMI 35.6
--- NOTE | 2023-04-19 01:50 | NURSING ---
emergency documentation started since 04/18/2023 @[id number]
[2023-04-19] MEDS: 0.9% Saline Lock 10 ML Syringe IV (04:03)
[2023-04-19 05:23] LABS: Absolute Lymphocyte Count 2.12 X10^3/uL (0.83-4.51); Absolute Neutrophil Count 6.3 X10^3/uL (2.0-7.7); Basophil# 0.03 X10^3/uL; Basophil% 0.3 % (0-1); Eosinophil# 0.06 X10^3/uL; Eosinophils% 0.7 % (0-5); Hematocrit 35.4 % (37-47); Hemoglobin 11.3 g/dL (12.0-15.0); Lymphocyte # 2.12 X10^3/ul (0.83-4.51); Lymphocyte % 23.1 % (19-41); Mean Corp Hgb Conc 31.9 g/dL (32-36); Mean Corpuscular Hgb 29.3 pg (27.0-32.0); Mean Corpuscular Volume 91.7 fL (81-99); Mean Platelet Vol. 8.5 fl (6.2-12.0); Monocyte# 0.67 X10^3/uL; Monocyte% 7.3 % (0-10); NRBC Flagged by Analyzer 0 % (0-5); Neutrophil # 6.27 X10^3/uL (2.7-7.7); Neutrophil % 68.4 % (47-70); Platelet Count 204 K/mm3 (150-450); RBC Distribution Width CV 13.9 % (11.6-14.6); RBC Distribution Width SD 46.6 fl (35.1-43.9); Red Blood Count 3.86 M/mm3 (4.2-5.4); White Blood Count 9.2 K/mm3 (4.4-11.0)
[2023-04-19 06:10] LABS: Anion Gap 4 (5-15); BUN 28 mg/dL (7-18); BUN/Creat Ratio 34.1 RATIO (10-20); Chloride 109 mmol/L (98-107); Cholesterol 116 mg/dL (200); Creatinine, Serum 0.82 mg/dL (0.55-1.02); EST Glomerular Filtration Rate 73 mL/min (>60); Est Glom Filt Rate - Afr Amer 88 mL/min (>60); Estimated Creatinine Clearance 53.55 ml/min; Glucose 111 mg/dL (74-106); High Density Lipoprotein 30 mg/dL; Potassium 3.4 mmol/L (3.5-5.1); Sodium Level 139 mmol/L (136-145); Triglycerides 82 mg/dL; Very Low Density Lipoprotein 16 mg/dL (5-40)
--- NOTE | 2023-04-19 08:30 | CT_ITS ---
INDICATION: Repeat to R/O stroke (can not have MRI) EXAMINATION: CT BRAIN - CT Head or Brain W/O Contrast Injection TECHNIQUE: Multiple axial images were obtained of the head without intravenous contrast. A radiation dose optimization technique was used for this scan. IV Contrast dosage and agent: None. RADIATION DOSAGE (If Supplied By Facility): CTDIvol = ( 44.99 ) mGy, DLP = ( 897.35 ) mGycm COMPARISON: Prior study dated: 2322. FINDINGS: BRAIN PARENCHYMA: No intra- or extra-axial hemorrhage. No evidence of acute infarct. No intracranial mass or mass effect. There is preservation of the smith/white matter interface. Fluid in the posterior fossa and brain unchanged since prior exam. CSF SPACES: Dilated ventricles disproportionate to cortical sulci unchanged since prior exam. CALVARIUM, SKULL BASE, PARANASAL SINUSES AND MASTOID AIR CELLS: Clear. No discrete lytic or blastic abnormalities. ORBITS: Both globes, extraocular muscles, optic nerves and retrobulbar fat appear grossly unremarkable. CT/Brain/Head without Contrast IMPRESSION: 1. No significant change. 2. No demonstrated acute process since previous examination. Electronically Signed: Josh Harris MD at 9:15 EDT ,
--- NOTE | 2023-04-19 10:11 | PCM.TXEXTCAR ---
Diet Diet Order/Speech Therapy: 04/18/23 15:38 Diet: Cardiac - Heart Healthy Food consistency:: Regular Liquid Consistency:: Regular/Thin Routine Orders/Code Status Suppository Type: Dulcolax 10mg Suppository Frequency: Daily PRN Therapies Weight Bearing: Weight bearing as tolerated Extremity Affected:: Bilateral Lower Physical Therapy: Eval and Treat Occupational Therapy: Eval and Treat Speech Therapy: Eval and Treat Problem/Diagnosis (1) Acute alteration in mental status: Status: Acute Code(s): R41.82 - Altered mental status, unspecified Plan This is a 72-year-old female being admitted for shortness of breath and hypoxia, etiology unclear 1. Altered mental status/lethargy, acute encephalopathy exact etiology unclear possibly due to medications: Patient is being admitted in PCU and monitored. Patient denies any focal signs and symptoms of infection including dysuria or new lower tract symptoms, cough, sputum production, abdominal pain, nausea or vomiting or new rash. IV fluid ordered. Hold sedating or benzodiazepine/antianxiety medications. CT head CT head does not show acute change. Patient had difficulty in laying flat for CT head because of severe kyphosis and deformity therefore MRI is canceled. Patient acute confusion has resolved and she feels back to 2. Chronic abnormal EKG changes: Patient EKG indicated reviewed and shows normal sinus rhythm, PVCs with heart rate, QTc 475 ms. Previous admission in January 2023 for hypoxia due to pneumonitis/pneumonia 3. History of hypoglycemia, resolved: Patient's glucose is 122. Previous admission, patient was hypoglycemic and at that time A1c was 5.5% 4. Other chronic comorbidities include hypertension, GERD, possible mild intellectual debility and chronic constipation: Patient had modified barium swallow reported as mild to moderate oropharyngeal dysphagia with mild esophageal retrograde flow. VTE prophylaxis: Lovenox 40 mg subcu daily. Living will/advanced directive/end of life care: Patient does have living will or advanced directive signed by her PCP Dr. Nasir Mina in 03/2020. After discussion of benefits/risks procedures involved with full code, DNR CC arrest and DNR CC, the patient knows and agrees for DNR CC arrest Patient doesn't want artificial life support including intubation, tube feed, ventilator and/chest compression, central venous catheter, vasopressor and DC shock if needed Total time spent in [id number] encounter in discussion of advanced directive 17 minutes. Clinical Impression(s) from Imaging Studies Brain CT 04/18/23 08:29 IMPRESSION: 1. No CT evidence of intracranial bleeding, acute ischemic infarct or acute intracranial abnormality at this time. 2. Total ASPECTS score: 10/10. 3. No interval change when compared to 02/01/2023. Head/Neck CTA 04/18/23 08:29 IMPRESSION: 1. Limited CTA since there is large amount of contrast on the venous side of the circulation. 2. No CTA evidence of any suspicious vaso-occlusive disease of the anterior and posterior intracranial circulation. 3. origin of the left CONTROL PANEL OPERATOR off the left internal carotid artery accounting for developmentally absent left P1 segment. 4. Hypoplastic right vertebral artery terminating directly into the right PICA. 5. Nonocclusive calcified plaque in the left proximal internal carotid artery. The left cervical carotid artery is widely patent. 6. Widely patent right cervical carotid artery. 7. Widely patent hypoplastic right vertebral artery and dominant left vertebral artery. 8. Normal aortic arch and origins of the great vessels. 9. No CT evidence of mass or lymphadenopathy in the suprahyoid neck and infrahyoid neck. 10. Pronounced degenerative disc space height narrowing with endplate sclerosis at C6-C7 disc space level. Schmorl''s nodes in the central endplates at C5-C6 disc space level with vertebral marrow reactive sclerosis. No acute abnormality of the cervical spine. Chest X-Ray 04/18/23 09:00 IMPRESSION: 1. No acute findings in the chest. 2. Prominent gastric hernia. 3. Interval clearing of interstitial infiltrates in both lungs compared to 12/30/2021. Allergies/Procedures Done in Hospital Allergies erythromycin base Allergy (Mild, Verified 04/18/23 15:45) Rash Penicillins Allergy (Unknown, Verified 04/18/23 08:47) Rash Type of Care/Length of Stay Estimated LOS: More Than 30 Days Type of Care Needed: LTAC (Long-term care) Rehab Potential: Good Prognosis: Good Additional Orders/Day of Discharge Day of Discharge: 04/19/23 Discharge Plan Admission Admit Date/Time: 04/18/23 11:44 Primary Reason for Your Visit: Acute encephalopathy. Attending Provider: Bryan Franklin Primary Care Provider: Nasir Szymanski Discharge Orders/Prescriptions Prescriptions: New aspirin 81 mg Tablet,Chewable 81 mg PO BREAKFAST Qty: 30 2RF Rx Instructions: Discontinue if platelet count drops less than 50,000 or hemoglobin less than 8 g% Continued polyethylene glycol 3350 [Miralax] 17 gram Powder In Packet 17 g PO DAILY PRN (Reason: Constipation) sennosides-docusate sodium [Stool Softener-Stimulant Laxat] 8.6-50 mg tablet 2 tab PO BID PRN (Reason: Constipation) lisinopril 10 mg tablet 10 mg PO DAILY nystatin [Nyamyc] 100,000 unit/gram powder 1 applic TOPICAL BID cholecalciferol (vitamin D3) 50 mcg (2,000 unit) Capsule 50 mcg PO DAILY sertraline 25 mg tablet 25 mg PO DAILY Gemtesa 75 mg tablet 75 mg PO DAILY ropinirole 0.25 mg tablet 0.25 mg PO QHS ipratropium-albuterol 0.5 mg-3 mg(2.5 mg base)/3 mL Solution For Nebulization 3 ml inhalation Q6H.RT PRN (Reason: sob) Qty: 0 0RF omeprazole 20 mg capsule,delayed release(DR/EC) 40 mg PO DAILY 30 Days Qty: 0 0RF Referrals / Follow Up: Nasir Szymanski MD [Primary Care Provider] - Disposition Disposition (needs filled in before D/C Order can be placed): [facility]-Way Facility
--- NOTE | 2023-04-19 10:18 | DS.PCM_ITS ---
Providers Date of Admission: 04/18/23 Date of Discharge: 04/19/23 Primary Care Physician: Dr. Nasir Szymanski MD Reason For Visit: AMS/LETHARGY Diagnosis Discharge Diagnosis (1) Acute alteration in mental status: Status: Acute Code(s): R41.82 - Altered mental status, unspecified Plan This is a 72-year-old female being admitted for shortness of breath and hypoxia, etiology unclear 1. Altered mental status/lethargy, acute encephalopathy exact etiology unclear possibly due to medications: Patient is being admitted in PCU and monitored. Patient denies any focal signs and symptoms of infection including dysuria or new lower tract symptoms, cough, sputum production, abdominal pain, nausea or vomiting or new rash. IV fluid ordered. Hold sedating or benzodiazepine/antianxiety medications. CT head CT head does not show acute change. Patient had difficulty in laying flat for CT head because of severe kyphosis and deformity therefore MRI is canceled. 04/19: Patient acute confusion has resolved and she feels back to normal even in the ER. As per the nursing report in alf, definite left-sided weakness and slurred speech. Repeat CT head was done which does not show acute change. Follow-up suspicion of possible TIA, baby aspirin 81 mg daily was given with caution discontinue if platelet count drops less than 50,000 or hemoglobin less than 8 g%. Patient recently had echo in January 2023 which reported normal left atrium mitral valve normal with trivial MR. Fasting profile within normal limit, LDL 70, HDL 30 low. TSH normal. Mild hypokalemia, potassium replaced. Does not have burning micturition or new lower urinary tract symptoms. UA shows LE 500, nitrite negative, WBC 25-50 cells bacteria rare. I have low suspicion of UTI as patient does not have acute lower Braulio tract symptoms most probably asymptomatic bacteriuria. Urine culture ordered. U tox was negative. 2. Chronic abnormal EKG changes: Patient EKG indicated reviewed and shows normal sinus rhythm, PVCs with heart rate, QTc 475 ms. Previous admission in January 2023 for hypoxia due to pneumonitis/pneumonia 04/19: On color television console monitor, patient is sinus rhythm. 3. History of hypoglycemia, resolved: Patient's glucose is 122. Previous admission, patient was hypoglycemic and at that time A1c was 5.5% 04/19: Glucose 111 in BMP. 4. Other chronic comorbidities include hypertension, GERD, possible mild in tellectual debility and chronic constipation: Patient had modified barium swallow reported as mild to moderate oropharyngeal dysphagia with mild esophageal retrograde flow. VTE prophylaxis: Lovenox 40 mg subcu daily. Discharge medication reconciliation done. Discharge follow-up instructions com pleted. Discharge process discussed with the patient and all questions were answered to patient's satisfaction. Total time spent, exact 35 minutes on discharge meds reconciliation, examination, coordination of care with nurses and ancillary staff, review of imaging and blood test and discussion with the patient on follow-up instructions. Laboratory Results 04/18/23 08:30: Phosphorus 3.0, Magnesium 2.0 04/18/23 10:00: Urine Color Yellow, Urine Clarity Clear, Urine pH 6.0, Ur Specific [place] 1.020, Urine Protein 30 H, Urine Glucose (UA) Normal, Urine Ketones Negative, Urine Occult Blood 10 H, Urine Nitrite Negative, Urine Bilirubin Negative, Urine Urobilinogen Normal, Ur Leukocyte Esterase 500 H, Urine RBC 0-5 SEEN, Urine WBC 25-50 SEEN, Ur Squamous Epith Cells 0-5 SEEN, Urine Bacteria RARE, Hyaline Casts 0-5 SEEN, Urine Mucus 0 SEEN, Urine Opiates Screen NEGATIVE, Urine Methadone Screen NEGATIVE, Ur Barbiturates Screen NEGATIVE, Ur Phencyclidine Scrn NEGATIVE, Ur Amphetamines Screen NEGATIVE, MDMA (Ecstasy) Screen NEGATIVE, U Benzodiazepines Scrn NEGATIVE, Urine Cocaine Screen NEGATIVE, U Cannabinoids Screen NEGATIVE, Ur Drug Screen Comment 04/19/23 05:00: WBC 9.2, RBC 3.86 L, Hgb 11.3 L, Hct 35.4 L, MCV 91.7, MCH 29.3, MCHC 31.9 L, RDW Std Deviation 46.6 H, RDW Coeff of Marcus 13.9, Plt Count 204, MPV 8.5, Immature Gran % (Auto) 0.200, Neut % (Auto) 68.4, Lymph % (Auto) 23.1, [place] % (Auto) 7.3, Eos % (Auto) 0.7, Baso % (Auto) 0.3, Absolute Neuts (auto) 6.3, Absolute Lymphs (auto) 2.12, Nucleated RBC % 0, Sodium 139, Potassium 3.4 L, Chloride 109 H, Carbon Dioxide 26.0, Anion Gap 4 L, BUN 28 H, Creatinine 0.82, Estim Creat Clear Calc 53.55, Est GFR (MDRD) Af Amer 88, Est GFR (MDRD) Non-Af 73, BUN/Creatinine Ratio 34.1 H, Glucose 111 H, Calcium 8.0 L, Triglycerides 82, Cholesterol 116, LDL Cholesterol 70, VLDL Cholesterol 16, HDL Cholesterol 30 L, TSH 1.00 Living will/advanced directive/end of life care: Patient does have living will or advanced directive signed by her PCP Dr. Nasir Mina in 03/2020. After discussion of benefits/risks procedures involved with full code, DNR CC arrest and DNR CC, the patient knows and agrees for DNR CC arrest Patient doesn't want artificial life support including intubation, tube feed, ventilator and/chest compression, central venous catheter, vasopressor and DC shock if needed Clinical Impression(s) from Imaging Studies Brain CT 04/18/23 08:29 IMPRESSION: 1. No CT evidence of intracranial bleeding, acute ischemic infarct or acute intracranial abnormality at this time. 2. Total ASPECTS score: 10/10. 3. No interval change when compared to 02/01/2023. Head/Neck CTA 04/18/23 08:29 IMPRESSION: 1. Limited CTA since there is large amount of contrast on the venous side of the circulation. 2. No CTA evidence of any suspicious vaso-occlusive disease of the anterior and posterior intracranial circulation. 3. origin of the left ANALOG IC DESIGN ARCHITECT off the left internal carotid artery accounting for developmentally absent left P1 segment. 4. Hypoplastic right vertebral artery terminating directly into the right PICA. 5. Nonocclusive calcified plaque in the left proximal internal carotid artery. The left cervical carotid artery is widely patent. 6. Widely patent right cervical carotid artery. 7. Widely patent hypoplastic right vertebral artery and dominant left vertebral artery. 8. Normal aortic arch and origins of the great vessels. 9. No CT evidence of mass or lymphadenopathy in the suprahyoid neck and infrahyoid neck. 10. Pronounced degenerative disc space height narrowing with endplate sclerosis at C6-C7 disc space level. Schmorl''s nodes in the central endplates at C5-C6 disc space level with vertebral marrow reactive sclerosis. No acute abnormality of the cervical spine. Chest X-Ray 04/18/23 09:00 IMPRESSION: 1. No acute findings in the chest. 2. Prominent gastric hernia. 3. Interval clearing of interstitial infiltrates in both lungs compared to 12/30/2021. Medications at Discharge Home Medications polyethylene glycol 3350 17 gram oral powder packet (Miralax) 17 g PO DAILY PRN Constipation 05/29/21 lisinopril 10 mg tablet 10 mg PO DAILY bp 12/30/21 sennosides 8.6 mg-docusate sodium 50 mg tablet (Stool Softener-Stimulant Laxative) 2 tab PO BID PRN Constipation 12/30/21 cholecalciferol (vitamin D3) 50 mcg (2,000 unit) capsule 50 mcg PO DAILY 11/10/22 nystatin 100,000 unit/gram topical powder (Nyamyc) 1 applic topical BID 11/10/22 ropinirole 0.25 mg tablet 0.25 mg PO QHS RESTLESS LEG 02/01/23 vibegron 75 mg tablet (Gemtesa) 75 mg PO DAILY BLADDER SPASM 02/01/23 ipratropium 0.5 mg-albuterol 3 mg (2.5 mg base)/3 mL nebulization soln 3 ml inhalation Q6H.RT PRN sob #0 mL 02/04/23 omeprazole 20 mg capsule,delayed release 40 mg (2 x 20 mg) PO DAILY 30 days #0 caps 02/04/23 sertraline 25 mg tablet 25 mg PO DAILY depression 04/18/23 aspirin 81 mg chewable tablet 81 mg PO BREAKFAST #30 tabs 04/19/23 Physical Exam Narrative General: Alert, Oriented x3, chronic mild cognitive deficit but tends to detail high school. HEENT: Atraumatic, PERRLA, EOMI, Normocephalic. Bilateral ethmoidalis. No tenderness in the advent or jaw. Oral: Oral mucosa dry. No Gingival or Mucosal Lesions/ Ulcerations Neck: Supple, No JVD, Negative Carotid Bruits Chest Wall/lungs: Severe kyphotic spine. Air entry diminished in bilateral lung bases. No crepitation/rhonchi Cardiovascular: Regular rate, Regular Rhythm, Normal S1, Normal S2, systolic m urmur LUSB. Abdomen: Bowel Sounds Present, Soft, Non Tender, Non-Distended : No renal angle tenderness. No suprapubic tenderness. Extremities: Mild edema both lower extremities., Capillary Refill Less than 3 Seconds Skin: No rashes, No breakdown Musculoskeletal: Left TKR. 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 Chronic mild weakness 4+/5 at knee and hip joints. Mild drift but does not hit the bed in both lower extremities Neurological: Cranial nerves II-XII grossly intact, DTR 2+/4. Chronic mild speech impediment. History of seizures as a child. Psych/Mental Status: Flat affect. Chronic slow in his speech. Weight / BMI Weight Weight: 207 lb 10.807 oz Body Mass Index (BMI) 35.6 ABG / Lab / Microbiology Data 04/19/23 05:00 04/19/23 05:00 Laboratory: Laboratory Results - last 24 hr 04/18/23 08:30: Phosphorus 3.0, Magnesium 2.0 04/18/23 10:00: Urine Color Yellow, Urine Clarity Clear, Urine pH 6.0, Ur Specific [place] 1.020, Urine Protein 30 H, Urine Glucose (UA) Normal, Urine Ketones Negative, Urine Occult Blood 10 H, Urine Nitrite Negative, Urine Bilirubin Negative, Urine Urobilinogen Normal, Ur Leukocyte Esterase 500 H, Urine RBC 0-5 SEEN, Urine WBC 25-50 SEEN, Ur Squamous Epith Cells 0-5 SEEN, Urin e Bacteria RARE, Hyaline Casts 0-5 SEEN, Urine Mucus 0 SEEN, Urine Opiates Screen NEGATIVE, Urine Methadone Screen NEGATIVE, Ur Barbiturates Screen NEGATIVE, Ur Phencyclidine Scrn NEGATIVE, Ur Amphetamines Screen NEGATIVE, MDMA (Ecstasy) Screen NEGATIVE, U Benzodiazepines Scrn NEGATIVE, Urine Cocaine Screen NEGATIVE, U Cannabinoids Screen NEGATIVE, Ur Drug Screen Comment 04/19/23 05:00: WBC 9.2, RBC 3.86 L, Hgb 11.3 L, Hct 35.4 L, MCV 91.7, MCH 29.3, MCHC 31.9 L, RDW Std Deviation 46.6 H, RDW Coeff of Marcus 13.9, Plt Count 204, MPV 8.5, Immature Gran % (Auto) 0.200, Neut % (Auto) 68.4, Lymph % (Auto) 23.1, [place] % (Auto) 7.3, Eos % (Auto) 0.7, Baso % (Auto) 0.3, Absolute Neuts (auto) 6.3, Absolute Lymphs (auto) 2.12, Nucleated RBC % 0, Sodium 139, Potassium 3.4 L, Chloride 109 H, Carbon Dioxide 26.0, Anion Gap 4 L, BUN 28 H, Creatinine 0.82, Estim Creat Clear Calc 53.55, Est GFR (MDRD) Af Amer 88, Est GFR (MDRD) Non-Af 73, BUN/Creatinine Ratio 34.1 H, Glucose 111 H, Calcium 8.0 L, Triglycerides 82, Cholesterol 116, LDL Cholesterol 70, VLDL Cholesterol 16, HDL Cholesterol 30 L, TSH 1.00 Radiography Diagnostic Testing: Radiology Impression Brain CT 04/19/23 08:30 IMPRESSION: 1. No significant change. 2. No demonstrated acute process since previous examination. Electronically Signed: Josh Harris MD at 9:15 EDT , Meaningful Use Info Meaningful Use Diagnoses (Choose all that apply): None applicable Discharge Plan Admission Admit Date/Time: 04/18/23 11:44 Primary Reason for Your Visit: Acute encephalopathy. Attending Provider: Bryan Franklin Primary Care Provider: Nasir Szymanski Discharge Orders/Prescriptions Prescriptions: New aspirin 81 mg Tablet,Chewable 81 mg PO BREAKFAST Qty: 30 2RF Rx Instructions: Discontinue if platelet count drops less than 50,000 or hemoglobin less than 8 g% Continued polyethylene glycol 3350 [Miralax] 17 gram Powder In Packet 17 g PO DAILY PRN (Reason: Constipation) sennosides-docusate sodium [Stool Softener-Stimulant Laxat] 8.6-50 mg tablet 2 tab PO BID PRN (Reason: Constipation) lisinopril 10 mg tablet 10 mg PO DAILY nystatin [Nyamyc] 100,000 unit/gram powder 1 applic TOPICAL BID cholecalciferol (vitamin D3) 50 mcg (2,000 unit) Capsule 50 mcg PO DAILY sertraline 25 mg tablet 25 mg PO DAILY Gemtesa 75 mg tablet 75 mg PO DAILY ropinirole 0.25 mg tablet 0.25 mg PO QHS ipratropium-albuterol 0.5 mg-3 mg(2.5 mg base)/3 mL Solution For Nebulization 3 ml inhalation Q6H.RT PRN (Reason: sob) Qty: 0 0RF omeprazole 20 mg capsule,delayed release(DR/EC) 40 mg PO DAILY 30 Days Qty: 0 0RF Referrals / Follow Up: Nasir Szymanski MD [Primary Care Provider] - Disposition Disposition (needs filled in before D/C Order can be placed): [facility] Charges/Coding Visit Charges Inpatient E&M: 95094 Disch Hosp >30min
[2023-04-19] MEDS: Ensure Plus High Protein 120 ML LIQUID PO (10:38)
[2023-04-19] MEDS: Aspirin 81 MG TAB.CHEW PO (10:38)
[2023-04-19] MEDS: Enoxaparin 40 MG/0.4 ML Syringe SC (10:38)
[2023-04-19] MEDS: Potassium Chloride Oral Tablet 20 MEQ 40 MEQ PO (10:38)
[2023-04-19] MEDS: Flu Vacc QS2023-24(65YR UP)/PF 240 MCG/0.7 ML Syringe IM (12:24)
--- NOTE | 2023-04-19 13:16 | NURSING ---
Report called to Nurse Jameson at [facility]. Pt's sister at bedside and aware of transfer back to [facility].
== END 2023-04-19 12:51 | disposition skilled nursing facility (03) ==
LOC: ED 11:54 → PCU 12:34
PROVIDERS: Admitting Provider Internal Medicine; Emergency Provider Emergency Medicine; PCP Family Medicine; Visit Provider Internal Medicine
DX: R41.82 Altered mental status, unspecified (principal); I65.22 Occlusion and stenosis of left carotid artery; M40.209 Unspecified kyphosis, site unspecified; R42 Dizziness and giddiness; R53.83 Other fatigue; I10 Essential (primary) hypertension; R51.9 Headache, unspecified; E87.6 Hypokalemia; M62.81 Muscle weakness (generalized); R47.81 Slurred speech; R09.02 Hypoxemia; K21.9 Gastro-esophageal reflux disease without esophagitis; Z79.899 Other long term (current) drug therapy; R94.31 Abnormal electrocardiogram [ECG] [EKG]; I49.3 Ventricular premature depolarization; R06.02 Shortness of breath; E16.2 Hypoglycemia, unspecified; Z23 Encounter for immunization
CPT/HCPCS: 36415; 70450; 70496; 70498; 71045; 80048; 80061; 80307; 81001; 83735; 84100; 84443; 84484; 85025; 85610; 85730; 87086; 87088; 92610; 93005; 94668; 94762; 96361; 96372; 96374; 99221; 99252; 99285; J7030; Q9967; 90662; A4216; G0378; G0463; J2405

== ENCOUNTER 2023-10-07 10:57 | Emergency (ER) | payer MEDICARE, MEDICAID, SELFPAY ==
[2023-10-07] VITALS (10 sets, daily range): BP systolic 127–168; BP diastolic 38–78; PULSE 62–68; RESP 14–20; TEMP 36.3–36.6; O2SAT 88–99; BMI 36.1
--- NOTE | 2023-10-07 11:16 | EKG12_ITS ---
Test Reason : SOB Blood Pressure : / mmHG Vent. Rate : 066 BPM Atrial Rate : 066 BPM P-R Int : 168 ms QRS Dur : 098 ms QT Int : 396 ms P-R-T Axes : 021 -17 015 degrees QTc Int : 415 ms Normal sinus rhythm Minimal voltage criteria for LVH, may be normal variant ( R in aVL ) Borderline ECG Confirmed by Kirit Loyd ([id number]), digital editor ALIYAH TURCIOS ([id number]) on 10/09/2023 2:05:04 PM Referred By: Confirmed By:Kirit Loyd
--- NOTE | 2023-10-07 11:18 | ED.VIS.DYS ---
HPI History of Present Illness Chief Complaint: Shortness of Breath Informant: patient, EMS and SNF Onset/Context/Timing Onset: Today Timing: Continuous Current Severity: Mild Maximum Severity: Mild Worsened by: Nothing Relieved by: Nothing Associated Symptoms cough Chest Pain: Positive for None Narrative Narrative: 73-year-old female from a local extended care facility reportedly has shortness of breath with a pulse ox of 86%. Typically she is normally on room air according to the extended care facility. She denies any chest pain. She has had a mild nonproductive cough. No fever. No leg swelling. PE Risk Factors: Negative for Cancer, OCP + Smoking + > 35, Prior DVT or PE, Recent immobilization, Recent surgery or Recent travel Prior similar symptoms: No Recent Illness/Hospitalization: No PFSH PFSH Medical History Constipation Gastric reflux Hydrocephalus Hypertension Hypoxia Kyphosis Mild intellectual disability Non-smoker Osteoporosis Rash Scoliosis Shortness of breath on exertion Wears glasses Home Medications polyethylene glycol 3350 17 gram oral powder packet (Miralax) 17 g PO DAILY PRN Constipation 05/29/21 [History Last Taken 01/31/23] lisinopril 10 mg tablet 10 mg PO DAILY bp 12/30/21 [History Last Taken 01/31/23] sennosides 8.6 mg-docusate sodium 50 mg tablet (Stool Softener-Stimulant Laxative) 2 tab PO BID PRN Constipation 12/30/21 [History Last Taken 01/31/23] cholecalciferol (vitamin D3) 50 mcg (2,000 unit) capsule 50 mcg PO DAILY 11/10/22 [History Last Taken 01/31/23] nystatin 100,000 unit/gram topical powder (Nyamyc) 1 applic topical BID PRN skin irritation 11/10/22 [History Last Taken 01/31/23] ropinirole 0.25 mg tablet 0.25 mg PO QHS RESTLESS LEG 02/01/23 [History Last Taken 01/31/23] vibegron 75 mg tablet (Gemtesa) 75 mg PO DAILY BLADDER SPASM 02/01/23 [History Last Taken 01/31/23] omeprazole 20 mg capsule,delayed release 40 mg (2 x 20 mg) PO DAILY 30 days #0 caps 02/04/23 [Rx Last Taken 07/09/23] sertraline 25 mg tablet 25 mg PO DAILY depression 04/18/23 [History Last Taken Unknown] aspirin 81 mg chewable tablet 81 mg PO BREAKFAST #30 tabs 04/19/23 [Rx Last Taken Unknown] acetaminophen 325 mg tablet 650 mg PO Q6H PRN pain 10/07/23 [History Last Taken Unknown] bisacodyl 10 mg rectal suppository 10 mg AR QHS PRN constipation 10/07/23 [History Last Taken Unknown] diclofenac sodium 1 % topical gel 2 g topical Q4H PRN KNEE PAIN 10/07/23 [History Last Taken Unknown] ipratropium 0.5 mg-albuterol 3 mg (2.5 mg base)/3 mL nebulization soln 3 ml inhalation Q6H PRN shortness of breath or wheezing 10/07/23 [History Last Taken Unknown] loperamide 2 mg capsule 2 mg PO Q4H PRN loose stool 10/07/23 [History Last Taken Unknown] magnesium hydroxide 400 mg/5 mL oral suspension (Milk of Magnesia) 30 ml PO DAILY PRN constipation 10/07/23 [History Last Taken Unknown] menthol 5 % topical gel (Biofreeze (menthol)) 1 ea topical Q4H PRN muscle pain 10/07/23 [History Last Taken Unknown] mineral oil (Fleet Mineral Oil enema) 118 ml AR DAILY PRN constipation 10/07/23 [History Last Taken Unknown] Allergy/AdvReac Type Severity Reaction Status Date / Time erythromycin base Allergy Mild Rash Verified 10/07/23 11:10 Penicillins Allergy Unknown Rash Verified 10/07/23 11:10 Family History Other Hypertension Surgical History History of toe surgery History of total right knee replacement Hx of tracheostomy Social History household members: none Smoking Status: Never smoker alcohol intake: never substance use type: does not use ROS ROS ED ROS Narrative Cough. Short of breath. Review of Systems ROS Unobtainable: Denies due to encephalopathy Constitutional Constitutional ED: Denies chills or fever(s) Eyes Eyes: Denies blurry vision ENT ENT ED: Denies ear pain Cardiovascular Cardiovascular: Denies chest pain Respiratory/Chest Respiratory/Chest: Reports cough and dyspnea Gastrointestinal Gastrointestinal: Denies abdominal pain, constipation, diarrhea, melena, nausea or vomiting Genitourinary Genitourinary ED: Denies dysuria or hematuria Musculoskeletal Musculoskeletal: Denies arthralgias Integumentary Denies abscess Neurologic Neurologic: Denies headache(s) Psychiatric Psychiatric: Denies anxiety Endocrine Endocrinology: Denies cold intolerance Hematologic/Lymphatic Hematologic/Lymphatic: Denies easy bleeding, easy bruising or lymphadenopathy Allergic/Immunologic Allergic/Immunologic ED: Denies mouth swelling, tongue swelling or urticaria EXAM Physical Exam Narrative Exam Narrative: Well-appearing 73-year-old female. Vital signs stable except pulse ox 86% on room air. 95% on 4 L. She does not look septic toxic. She is in no acute distress. HEENT exam unremarkable. Pupils round react to light. Moist weeks membranes. No facial droop. Neck nontender no JVD. Prior tracheostomy scar at the base of her neck anteriorly. Closed. Lungs clear to auscultation bilaterally. Heart regular rhythm rate about 65 no murmur. Chest wall and ribs nontender. Abdomen soft nontender. Moving all 4 extremities. Calves are nontender without edema or cords. Back nontender. She has significant scoliosis to her mid to lower spine. Neurologically she is awake. She is alert. She answers questions. Following commands. Generally weak. Limited informant. Const Vital Signs: 10/07/23 11:01 10/07/23 11:05 10/07/23 11:08 Temperature 97.9 F 97.9 F Temperature Source Oral Oral Pulse Rate 68 66 Respiratory Rate 18 19 H Respiratory Effort Normal Non-Labored Respiratory Depth Normal Respiratory Pattern Normal Blood Pressure 127/78 H 127/72 H Blood Pressure Mean 94 90 Pulse Ox 88 95 Oxygen Delivery Method Room Air Nasal Cannula Nasal Cannula Oxygen Flow Rate (L/min) 4 4 10/07/23 11:27 10/07/23 12:05 10/07/23 13:00 Temperature 97.4 F L 97.8 F Temperature Source Temporal Temporal Pulse Rate 64 62 Respiratory Rate 20 H 19 H Respiratory Effort Respiratory Depth Respiratory Pattern Blood Pressure 148/78 H 147/56 H Blood Pressure Mean 101 86 Pulse Ox 99 99 Oxygen Delivery Method Nasal Cannula Nasal Cannula Nasal Cannula Oxygen Flow Rate (L/min) 4 4 4 10/07/23 14:00 10/07/23 15:00 10/07/23 16:00 Temperature 97.8 F 97.4 F L 97.6 F L Temperature Source Temporal Temporal Temporal Pulse Rate 64 66 62 Respiratory Rate 17 15 14 Respiratory Effort Respiratory Depth Respiratory Pattern Blood Pressure 162/77 H 157/62 H 168/72 H Blood Pressure Mean 105 93 104 Pulse Ox 98 97 96 Oxygen Delivery Method Nasal Cannula Nasal Cannula Nasal Cannula Oxygen Flow Rate (L/min) 4 2 2 Positive well nourished and well developed; Negative for cachectic, contractures or unkempt General Appearance ED: well developed and NAD; Negative for unkempt, cachectic, contractures or pallor Nutritional Appearance: Negative for cachectic HEENT Reports moist mucous membranes; Denies dry mucous membranes atraumatic; Negative for trauma or tenderness Mouth ED: No dry mucous membranes Mouth: No dry mucous membranes Eyes PERRL and EOMs intact bilaterally General Eye ED: Negative for pale conjunctiva or scleral icterus Neck no lymphadenopathy, supple, no meningeal signs and no JVD General: Negative for tenderness Lymph Lymphatic: Negative for other Chest Wall Chest: Negative for other Resp normal respiratory effort and clear to auscultation bilaterally Effort and Inspection: Negative for pain with movement Auscultation: Negative for rales, rhonchi, wheezes or diminished lung sounds Cardio regular rate, regular rhythm, S1 normal heart sound, S2 normal heart sound and no murmurs Rate: Negative for bradycardia or tachycardic Rhythm: Negative for abnormal rhythm GI non-tender, non-distended and no masses Inspection: Negative for other Auscultation: normoactive bowel sounds Palpation: soft; Negative for tender, guarding or rebound tenderness present Bladder / Kidney Exam: No other Back/Spine no CVA tenderness; Negative for normal to inspection Back/Spine Narrative: Severe scoliosis mid-thoracic and lumbar spine. General Back: Negative for CVA tenderness Extremity normal to inspection Extremity Narrative: Nontender. No cords. General Extremety ED: Negative for edema or tenderness General Extremity: Negative for edema Neuro CN's II-XII intact bilaterally Sensorium / Orientation: alert, oriented to person and oriented to place; Negative for oriented to time Motor Exam: strength 5/5 throughout Psych Appearance: Negative for unkempt Attitude: No agitated Mood & Affect: Negative for depressed or anxious Thought Process: normal thought process Skin no wounds General Skin Exam: Negative for jaundice or pallor Lesions: no lesions Rashes: no rashes MDM MDM MDM Narrative Medical decision making narrative: 73-year-old female from extended-care facility with hypoxia and complaint of shortness of breath. Undergo a cardiac workup with a D-dimer. Rule out infectious etiology such as pneumonia versus viral URI versus PE versus cardiac etiology, etc. Repeat exam no significant change at 3:45 PM. Patient still states she is short of breath. I spoke to the skilled nursing they said she is typically not on oxygen but they have orders to place her on oxygen as needed for her pulse ox. We will obtain a CTA of her chest. I will check that out to the afternoon physician. If there is not a significant abnormality such as a pneumonia or PE on the CAT scan I am comfortable with her being discharged back. History & Record Review Discussion w/independent historian: Patient Additional record(s) reviewed:: Prior inpatient record, Prior outpatient record, Prior ED visit and Prior labs Lab Data Attestation: I reviewed the patient's lab results. Lab results narrative: CBC unremarkable. White count of 10. H&H 13 and 39. Platelets 212. D-dimer is elevated 0.59 which is elevated but below her age-adjusted number. Electrolytes show a gap of 4. BUN 23 creatinine 0.8. Glucose equals 107. Troponin normal at 15. COVID, flu and RSV are all negative. Labs: Laboratory Results - last 24 hr 10/07/23 11:37 WBC 10.2 RBC 4.39 Hgb 13.2 Hct 39.9 MCV 90.9 MCH 30.1 MCHC 33.1 RDW Std Deviation 43.7 RDW Coeff of Marcus 13.1 Plt Count 212 MPV 8.4 Immature Gran % (Auto) 0.300 Neut % (Auto) 83.4 H Lymph % (Auto) 11.3 L Camp % (Auto) 4.9 Eos % (Auto) 0.0 Baso % (Auto) 0.1 Absolute Neuts (auto) 8.5 H Absolute Lymphs (auto) 1.15 Nucleated RBC % 0 D-Dimer Quant (PE/DVT) 0.59 H* Sodium 139 Potassium 4.8 Chloride 107 Carbon Dioxide 28.0 Anion Gap 4 L BUN 23 H Creatinine 0.85 Estim Creat Clear Calc 66.05 Est GFR (MDRD) Af Amer 85 Est GFR (MDRD) Non-Af 70 BUN/Creatinine Ratio 27.2 H Glucose 107 H Calcium 8.8 Troponin I High Sens 15 Radiography Chest X-Ray - ED: 1 View, Read by ED Physician, Heart, Lungs, Mediastinum, Bony Structures, No Acute Disease and Chronic Changes Diagnostic Testing: Clinical Impression(s) from Imaging Studies Chest X-Ray 10/07/23 12:08 IMPRESSION: Mild degree of CHF with bibasilar atelectasis. Electronically Signed: Dinesh Nevarez MD at 12:44 EDT , Chest x-ray, portable, single view interpreted by myself and the radiologist shows chronic changes. No infiltrates. No significant effusions. Rhythm Strip Rhythm Strip: Sinus Rhythm Rate: 66 Ectopy: None EKG Initial EKG: Attestation: I personally reviewed and interpreted this EKG as follows: Interpretation: Sinus Rhythm and No Acute Injury Pattern Comments: Normal sinus rhythm rate of 66 no acute signs of [place], ischemia or dysrhythmia. Discharge Plan Triage Chief Complaint: Shortness of Breath ED Provider: Salinas Marques Dx/Rx/DC Orders Clinical Impression: Acute dyspnea, Hypoxia, History of hypertension, History of kyphosis Instructions: ED Dyspnea Prescriptions: No Action polyethylene glycol 3350 [Miralax] 17 gram Powder In Packet 17 g PO DAILY PRN (Reason: Constipation) sennosides-docusate sodium [Stool Softener-Stimulant Laxat] 8.6-50 mg tablet 2 tab PO BID PRN (Reason: Constipation) lisinopril 10 mg tablet 10 mg PO DAILY nystatin [Nyamyc] 100,000 unit/gram powder 1 applic TOPICAL BID PRN (Reason: skin irritation) Rx Instructions: USE UNDER BREASTS AND GROIN AREA cholecalciferol (vitamin D3) 50 mcg (2,000 unit) Capsule 50 mcg PO DAILY sertraline 25 mg tablet 25 mg PO DAILY aspirin 81 mg Tablet,Chewable 81 mg PO BREAKFAST Qty: 30 2RF Rx Instructions: Discontinue if platelet count drops less than 50,000 or hemoglobin less than 8 g% Gemtesa 75 mg tablet 75 mg PO DAILY ropinirole 0.25 mg tablet 0.25 mg PO QHS omeprazole 20 mg capsule,delayed release(DR/EC) 40 mg PO DAILY 30 Days Qty: 0 0RF acetaminophen 325 mg tablet 650 mg PO Q6H PRN (Reason: pain) bisacodyl 10 mg suppository 10 mg AR QHS PRN (Reason: constipation) Rx Instructions: ADMINISTER IF NO BM 8 HOURS AFTER MOM ADMINISTRATION. mineral oil [Fleet Mineral Oil] Enema 118 ml AR DAILY PRN (Reason: constipation) Rx Instructions: ADMINISTER IF NO BM 8 HOURS AFTER RECEIVING SUPPOSITORY. IF NO BM WITHIN 1 HOUR OF ENEMA, NOTIFY MD. loperamide 2 mg capsule 2 mg PO Q4H PRN (Reason: loose stool) Biofreeze (menthol) 5 % gel 1 ea topical Q4H PRN (Reason: muscle pain) magnesium hydroxide [Milk of Magnesia] 400 mg/5 mL suspension 30 ml PO DAILY PRN (Reason: constipation) Rx Instructions: ADMINISTER ONCE DAILY IF NO BM IN 3 DAYS diclofenac sodium 1 % gel 2 g topical Q4H PRN (Reason: KNEE PAIN) ipratropium-albuterol 0.5 mg-3 mg(2.5 mg base)/3 mL Solution For Nebulization 3 ml inhalation Q6H PRN (Reason: shortness of breath or wheezing) Primary Care Provider: Nasir Szymanski Referrals: Nasir Szymanski MD [Primary Care Provider] - 3-5 Days if not improving Activity Restrictions/Additional Instructions: Labs and chest x-ray were unremarkable in emergency department. Use oxygen as needed for any pulse ox below 90%. Follow-up with her primary care physician or your medical interpreter. Disposition Disposition: Home, Self Care
[2023-10-07 11:45] LABS: Absolute Lymphocyte Count 1.15 X10^3/uL (0.83-4.51); Absolute Neutrophil Count 8.5 X10^3/uL (2.0-7.7); Basophil# 0.01 X10^3/uL; Basophil% 0.1 % (0-1); Hematocrit 39.9 % (37-47); Hemoglobin 13.2 g/dL (12.0-15.0); Lymphocyte # 1.15 X10^3/ul (0.83-4.51); Lymphocyte % 11.3 % (19-41); Mean Corp Hgb Conc 33.1 g/dL (32-36); Mean Corpuscular Hgb 30.1 pg (27.0-32.0); Mean Corpuscular Volume 90.9 fL (81-99); Mean Platelet Vol. 8.4 fl (6.2-12.0); Monocyte% 4.9 % (0-10); NRBC Flagged by Analyzer 0 % (0-5); Neutrophil # 8.48 X10^3/uL (2.7-7.7); Neutrophil % 83.4 % (47-70); Platelet Count 212 K/mm3 (150-450); RBC Distribution Width CV 13.1 % (11.6-14.6); RBC Distribution Width SD 43.7 fl (35.1-43.9); Red Blood Count 4.39 M/mm3 (4.2-5.4); White Blood Count 10.2 K/mm3 (4.4-11.0)
[2023-10-07 12:06] LABS: D-Dimer Quantitative (DVT/PE) 0.59 FEU/ug/m (0.27-0.49)
--- NOTE | 2023-10-07 12:08 | RAD_ITS ---
STUDY: X-RAY CHEST REASON FOR EXAM: Female, 73 years old. Chest pain TECHNIQUE: Single AP portable view of the chest. COMPARISON: Comparison is made with prior study April 18, 2023. FINDINGS: EKG electrodes are seen. Limited inspiratory effort. There is evidence of vascular congestion and mild degree of CHF with bibasilar atelectasis. Blunting of the left costophrenic angle. Normal size heart. Normal mediastinum and samara. Normal visualized pulmonary arteries. There is atherosclerotic tortuosity of the aortic arch and descending thoracic aorta. There are diffuse degenerative changes of the visualized thoracic spine. Normal visualized ribs, clavicles, and shoulders. Hiatal hernia. RAD/Chest 1 View (Portable) IMPRESSION: Mild degree of CHF with bibasilar atelectasis. Electronically Signed: Dinesh Nevarez MD at 12:44 EDT ,
[2023-10-07 12:11] LABS: Anion Gap 4 (5-15); BUN 23 mg/dL (7-18); BUN/Creat Ratio 27.2 RATIO (10-20); Calcium,Total 8.8 mg/dL (8.5-10.1); Chloride 107 mmol/L (98-107); Creatinine, Serum 0.85 mg/dL (0.55-1.02); EST Glomerular Filtration Rate 70 mL/min (>60); Est Glom Filt Rate - Afr Amer 85 mL/min (>60); Estimated Creatinine Clearance 66.05 ml/min; Glucose 107 mg/dL (74-106); Potassium 4.8 mmol/L (3.5-5.1); Sodium Level 139 mmol/L (136-145); Troponin-I HS 15 pg/mL (3.0-54.0)
--- NOTE | 2023-10-07 15:48 | CT_ITS ---
EXAM: CT ANGIOGRAPHY CHEST WITHOUT AND WITH INTRAVENOUS CONTRAST CLINICAL INDICATION: hypoxia of uncertain cause TECHNIQUE: Helically acquired angiography images were obtained of the chest without and with intravenous contrast. This CT exam was performed using one or more of the following dose reduction techniques: automated exposure control, adjustment of the mA and/or kV according to patient size, and/or use of iterative reconstruction technique. MIP reconstructed images were created and reviewed. CONTRAST: IV 100mL [id number] COMPARISON: No relevant prior studies available. FINDINGS: PULMONARY ARTERIES: Unremarkable. Normal in caliber. No evidence of pulmonary embolism. AORTA: Unremarkable. Normal in caliber. No evidence of dissection. GREAT VESSELS OF AORTIC ARCH: Unremarkable. Normal in caliber. No evidence of dissection. LUNGS AND PLEURAL SPACES: There is atelectasis in both lung bases. No mass. No pleural effusion or thickening. No pneumothorax. HEART: Unremarkable. Heart size is normal. No pericardial effusion. No significant coronary artery calcifications. MEDIASTINUM: There is a moderate size hiatal hernia. No mediastinal or hilar adenopathy. Esophagus is unremarkable. THYROID: Unremarkable. No thyroid lesions. BONES/JOINTS: Unremarkable. No suspicious lytic or blastic abnormality. CT/CTA Chest W/WO Contrast IMPRESSION: 1. No evidence of pulmonary embolus. 2. Bibasilar atelectasis. 3. Moderate size hiatal hernia. Electronically Signed: Todd Perez MD at 17:00 EDT ,
--- NOTE | 2023-10-07 17:37 | NURSING ---
CALLED [facility], ETA IS [phone]
--- NOTE | 2023-10-07 17:39 | ED.RN ---
Nurse to nurse called to Christina Collins, updated on pt's need to wear O2 to maintain spo2 >90%, all questions answered.
[2023-10-07] MEDS: Acetaminophen 325 MG Tablet 650 MG PO (18:41)
--- OUTSIDE RECORDS SUMMARY | 2023-10-07 20:39 | XMS RPT_ITS | CCD ---
Author Name Unknown Address [address] [place] [address] Organization [facility] Care Team Providers Care Resident Advisor Name Role Phone Mike Reed MD Primary Care Provider [phone] Allergies Allergy Classification Reported Allergen(s) Allergy Type Date of Onset Reaction(s) Facility (1 source) Erythromycin Drug Allergy [address] [place] [address] Work Phone: (1 source) Penicillins Propensity to adverse reactions 5 [facility] Work Phone: Medications Completed/Discontinued Medications Medication Drug Class(es) Dates Sig (Normalized) Sig (Original) acetaminophen 500 mg oral tablet (1 source) take 1 tablet by mouth every eight hours as needed acetaminophen (TYLENOL) 500 mg tablet Take 500 mg by mouth every 8 hours as needed. 0 Active Problems Active Problems Problem Classification Problem Date Documented Date Episodic/Chronic Abdominal hernia (1 source) Diaphragmatic hernia; Translations: [Diaphragmatic hernia without obstruction or gangrene] 07-02-2005 Episodic Developmental disorders (1 source) Intellectual disability; Translations: [Unspecified intellectual disabilities] 07-02-2005 Chronic Esophageal disorders (1 source) Gastroesophageal reflux disease without esophagitis; Translations: [Gastro-esophageal reflux disease without esophagitis] 10-03-2020 Chronic Essential hypertension (1 source) Essential hypertension; Translations: [Essential (primary) hypertension] 06-05-2015 Chronic Nutritional deficiencies (1 source) Vitamin D deficiency; Translations: [Vitamin D deficiency, unspecified] Onset: 05-13-2013 05-13-2013 Chronic Osteoarthritis (1 source) Osteoarthritis of right knee joint; Translations: [Unilateral primary osteoarthritis, right knee] Onset: 01-20-2017 01-20-2017 Chronic Other acquired deformities (1 source) Acquired kyphosis; Translations: [Other secondary kyphosis, thoracic region] Onset: 04-26-2020 04-26-2020 Chronic Other bone disease and musculoskeletal deformities (1 source) Disorder of skeletal system; Translations: [Disorder of bone, unspecified] 07-02-2005 Episodic Other screening for suspected conditions (not mental disorders or infectious disease) (1 source) Patient encounter status; Translations: [Encounter for screening mammogram for malignant neoplasm of breast] Episodic Past or Other Problems Problem Classification Problem Date Documented Da te Episodic/Chronic Acquired foot deformities (1 source) Bilateral acquired cavus deformity of feet; Translations: [Other acquired deformities of right foot] Onset: 04-29-2016 04-29-2016 Episodic Other non-traumatic joint disorders (1 source) Ankle instability; Translations: [Other instability, unspecified ankle] Onset: 08-18-2016 08-18-2016 Episodic Other non-traumatic joint disorders (1 source) Pain in right knee; Translations: [Pain in joint, lower leg] Onset: 01-20-2017 01-20-2017 Episodic Encounters Encounter Date Encounter Type Care Provider Facility Start: 01-22-2022 ambulatory Mike Zavala Work Phone: Internal Medicine [facility] Procedures Date Procedure Procedure Detail Performing Clinician Start: 11-26-2018 Adult depression scr eening assessment Mike Reed MD Work Phone: Start: 11-26-2018 Mammography Mike lund MD Work Phone: Start: 04-05-2015 Colonoscopy Mike lund MD Work Phone: Plan of Treatment Date Care Activity Detail Author Start: 10-01-2025 Urine microalbumin profile DTAP,TDAP,TD (3 - Tdap) [facility] Start: 05-14-2024 DIABETES SCREEN DIABETES SCREEN [facility] Start: 11-06-2022 LIPID SCREEN LIPID SCREEN [facility] Start: 05-14-2022 ANNUAL PCP TEAM CHRONIC DISEASE VISIT ANNUAL PCP TEAM CHRONIC DISEASE VISIT [facility] Start: 05-14-2022 BP CONTROLLED (<130/80) BP CONTROLLED (<130/80) [facility] Start: 03-27-2022 Influenza vaccination INFLUENZA (#1) [facility] Start: 10-23-2021 COVID-19 VACCINE (4 - Booster for Moderna series) COVID-19 VACCINE (4 - Booster for Moderna series) [facility] Start: 07-27-2021 ADVANCE DIRECTIVE DISCUSSION ADVANCE DIRECTIVE DISCUSSION [facility] Start: 04-05-2020 Colonoscopy COLONOSCOPY [facility] Start: 04-05-2020 COLORECTAL CANCER SCREENING COLORECTAL CANCER SCREENING [facility] Start: 11-27-2019 Adult depression screening assessment DEPRESSION SCREENING [facility] Start: 11-27-2019 Mammography MAMMOGRAM [facility] Start: 10-24-2015 FECAL OCCULT BLOOD FECAL OCCULT BLOOD [facility] Start: 07-29-2014 SHINGRIX VACCINE (2 of 3) SHINGRIX VACCINE (2 of 3) [facility] Start: 1995 COLOGUARD (FIT-DNA) COLOGUARD (FIT-DNA) [facility] Start: [address] COLONOGRAPHY [facility] Start: 1995 SIGMOIDOSCOPY SIGMOIDOSCOPY [facility] Start: 1968 HEPATITIS C SCREENING HEPATITIS C SCREENING [facility] End: 02-21-2023 Screening mammography bi 2-view breast inc cad GABRIELLE SCREENING Radiology Routine Encounter for screening mammogram for breast cancer 1 Occurrences starting 01/22/2022 until 02/21/2023 [facility] Work Phone: Immunizations Immunization Date Immunization Notes Care Provider [facility] 05-14-2021 influenza, high-dose , quadrivalent vaccine (FLUZONE HIGH DOSE QUADRIVALENT) Mike Reed MD Work Phone: [facility] Work Phone: 04-30-2020 influenza, high dose seasonal, preservative-free Mike Reed MD Work Phone: [facility] Work Phone: 05-30-2019 influenza, high dose seasonal, preservative-free Mike Reed MD Work Phone: [facility] Work Phone: 05-07-2018 influenza, injectabl e, quadrivalent, contains preservative Mike Reed MD Work Phone: [facility] Work Phone: 04-22-2016 influenza, high dose seasonal, preservative-free Mike Rede MD Work Phone: [facility] Work Phone: 03-27-2016 pneumococcal polysaccharide vaccine, 23 valent Mike Reed MD Work Phone: [facility] Work Phone: 10-02-2015 tetanus and diphther ia toxoids, adsorbed, preservative free, for adult use (5 Lf of tetanus toxoid and 2 Lf of diphtheria toxoid) Mike Reed MD Work Phone: [facility] 06-05-2015 pneumococcal conjuga te vaccine, 13 valent Mike Reed MD Work Phone: [facility] 03-27-2015 influenza, seasonal, injectable Mike Reed MD Work Phone: [facility] Work Phone: 06-03-2014 zoster vaccine, live Mike Reed MD Work Phone: [facility] 04-21-2014 influenza, high dose seasonal, preservative-free Mike Reed MD Work Phone: [facility] 05-13-2013 influenza virus vacc ine, unspecified formulation Mike Reed MD Work Phone: [facility] 04-10-2011 influenza virus vacc ine, unspecified formulation Mike Reed MD Work Phone: [facility] Work Phone: 09-01-2003 diphtheria and tetan us toxoids, adsorbed for pediatric use Mike Reed MD Work Phone: [facility] Work Phone: Payers Date Payer Category Payer Unknown ANTHEM BLUE [facility] S AND BLUE SHIELD AN[employer]M MED[employer] HMO [id number] 2019-Present [phone] [address] [place] [address] O [id number] 2017 Medicaid [facility] MEDICAID MYC ARE [facility] MEDICAID [id number] 2017-Present [phone] [address] [place] [address] Medicaid [id number] Social History Date Type Detail [facility] Start: 05-14-2021 Alcohol intake Current non-dr wind energy mechanic of alcohol (finding) [facility] Start: 1950 Sex Assigned At Not on file C [facility] Clinical Note 12-31-2022 Note Date & Type Note Facility 12-31-2022 Note Patient Outreach (IN TMMN) TEVIN MILLAN ([id number]) 1950 F Date Time Provider Department 12/31/22 MIKE REED During your visit today, we recorded the following information about you: Allergies As of Date: 12/31/2022 Noted Allergy Reaction ERYTHROMYCIN 07/02/2005 PENICILLINS 07/02/2005 Date Reviewed: 05/14/2021 Reviewed by: Sunitha Demarco LPN - Fully Assessed Visit Diagnosis:Encounter for screening mammogram for breast cancer [Z12.31] Order(s):GABRIELLE SCREENING [[id number]] Order #: [id number] FUTURE Prescriptions as of 01/05/2023 - lisinopril (ZESTRIL, PRINIVIL) 10 mg tablet Take 1 tablet by mouth once daily. - nystatin (MYCOSTATIN) powder Apply 1 application to affected area four times daily as needed. - lrntgdsfi-ADN-RC-acetaminophen (GAIL-SELTZER PLUS COLD+FLU) 12.5-10-20-650 mg pwpk Take by mouth. - esomeprazole (NEXIUM) 20 mg capsule Take 1 capsule by mouth daily before breakfast. - polyethylene glycol 3350 (MIRALAX, GLYCOLAX) 17 gram/dose powder Take 17 g by mouth once daily. - ibuprofen (MOTRIN) 200 mg tablet Take 200 mg by mouth every 8 hours as needed. - acetaminophen (TYLENOL) 500 mg tablet Take 500 mg by mouth every 8 hours as needed. - multivitamin-ferrous fumarate-folic acid (CENTRUM WOMEN) Take 1 tablet by mouth once daily. - calcium carbonate (CALCIUM 600 ORAL) Take by mouth. - glycerin-min oil-polycarbophil (REPLENS) gel Apply to vaginal opening 2-3 times per week. - Walker misc 1 Units as needed. - Magnesium Oxide 250 mg tab Take 250 mg by mouth once daily. - vitamin D3-vitamin K2, MK4, 1,000-100 unit-mcg tab Take 1 tablet by mouth once daily. Problem List As Of Date 12/31/2022 Noted Resolved Essential hypertension [I10] Gastroesophageal reflux disease without esophag* BONE AND CARTILAGE DIS NOS [M89.9, M94.9] MENTAL RETARDATION NOS [F79] DIAPHRAGMATIC HERNIA [K44.9] Vitamin D deficiency [E55.9] 05/13/2013 Special screening for malignant neoplasms, colo*04/05/2015 04/05/2015 Slow transit constipation [K59.01] 04/05/2015 04/05/2015 Acquired bilateral pes cavus [M21.6X1, M21.6X2] 04/29/2016 Ankle instability [M25.373] 08/18/2016 Primary osteoarthritis of right knee [M17.11] 01/20/2017 Chronic pain of right knee [M25.561, G89.29] 01/20/2017 Other secondary kyphosis, 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.*04/26/2020 Encounter Status:Closed by FRANDY BHAGAT on 01/05/23 [facility] Clinical Note 01-22-2022 Note Date & Type Note Facility 01-22-2022 Note Patient Outreach (IN [facility]) TEVIN MILLAN ([id number]) 1950 F Date Time Provider Department 01/22/22 MIKE REED During your visit today, we recorded the following information about you: Allergies As of Date: 01/22/2022 Noted Allergy Reaction ERYTHROMYCIN 07/02/2005 PENICILLINS 07/02/2005 Date Reviewed: 05/14/2021 Reviewed by: Sunitha Demarco LPN - Fully Assessed Visit Diagnosis:Encounter for screening mammogram for breast cancer [Z12.31] Order(s):[facility] SCREENING [[id number]] Order #: [id number] FUTURE Prescriptions as of 01/27/2022 - lisinopril (ZESTRIL, PRINIVIL) 10 mg tablet Take 1 tablet by mouth once daily. - nystatin (MYCOSTATIN) powder Apply 1 application to affected area four times daily as needed. - ekxulunyh-IZZ-GI-acetaminophen (GAIL-SELTZER PLUS COLD+FLU) 12.5-10-20-650 mg pwpk Take by mouth. - esomeprazole (NEXIUM) 20 mg capsule Take 1 capsule by mouth daily before breakfast. - polyethylene glycol 3350 (MIRALAX, GLYCOLAX) 17 gram/dose powder Take 17 g by mouth once daily. - ibuprofen (MOTRIN) 200 mg tablet Take 200 mg by mouth every 8 hours as needed. - acetaminophen (TYLENOL) 500 mg tablet Take 500 mg by mouth every 8 hours as needed. - multivitamin-ferrous fumarate-folic acid (CENTRUM WOMEN) Take 1 tablet by mouth once daily. - calcium carbonate (CALCIUM 600 ORAL) Take by mouth. - glycerin-min oil-polycarbophil (REPLENS) gel Apply to vaginal opening 2-3 times per week. - Walker misc 1 Units as needed. - Magnesium Oxide 250 mg tab Take 250 mg by mouth once daily. - vitamin D3-vitamin K2, MK4, 1,000-100 unit-mcg tab Take 1 tablet by mouth once daily. Problem List As Of Date 01/22/2022 Noted Resolved Essential hypertension [I10] Gastroesophageal reflux disease without esophag* BONE AND CARTILAGE DIS NOS [M89.9, M94.9] MENTAL RETARDATION NOS [F79] DIAPHRAGMATIC HERNIA [K44.9] Vitamin D deficiency [E55.9] 05/13/2013 Special screening for malignant neoplasms, colo*04/05/2015 04/05/2015 Slow transit constipation [K59.01] 04/05/2015 04/05/2015 Acquired bilateral pes cavus [M21.6X1, M21.6X2] 04/29/2016 Ankle instability [M25.373] 08/18/2016 Primary osteoarthritis of right knee [M17.11] 01/20/2017 Chronic pain of right knee [M25.561, G89.29] 01/20/2017 Other secondary kyphosis, 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.*04/26/2020 Encounter Status:Closed by EPIC, PRODUSER on 01/27/22 [facility] History of Past illness Narrative 04-05-2015 Note Date & Type Note Facility documented as of this encounter (statuses as of 01/27/2022) [facility] Evaluation note Note Date & Type Note Facility documented in this encounter [facility] Reason for referral (narrative) Diagnostic Procedure Only (Routine) - Pending Review Note Date & Type Note Facility Referral ID Status Reason Start Date Expiration Date Visits Requested Visits Authorized [id number] Pending Review Auto-Generat ed Referral 01/22/2022 02/21/2023 1 1 [facility] Summary Purpose Family History No Family History Records Found Advance Directives No Advanced Directives Records Found Additional Source Comments Source Comments (unrecognize d section and content) In the event this informatio n is protected by the Federal Confidentiality of Alcohol and Drug Abuse Patient Records regulations: The Federal rules restrict any use of the information to criminally investigate or prosecute any alcohol or drug abuse patient.[facility] Care Teams (unrecognized sec tion and content) INFORMATION SOURCE (unrecogn ized section and content) FOR RECORDS PERTAINING TO PATIENTS WHO ARE OR HAVE BEEN ENROLLED IN A CHEMICAL DEPENDENCY/SUBSTANCEABUSE PROGRAM, SOME INFORMATION MAY BE OMITTED. This clinical summary was aggregated from multiple sources. Caution should be exercised in using it in the provision of clinical care. This summary normalizes information from multiple sources, and as a consequence, information in this document may materially change the coding, format and clinical context of patient data. In addition, data may be omitted in some cases. CLINICAL DECISIONS SHOULD BE BASED ON THE PRIMARY CLINICAL RECORDS. [facility]. provides no warranty or guarantee of the accuracy or completeness of information in this document.
== END 2023-10-07 20:23 | disposition home or self-care (01) ==
PROVIDERS: Emergency Provider Emergency Medicine; PCP Family Medicine; Visit Provider Emergency Medicine
DX: R06.00 Dyspnea, unspecified (principal); I10 Essential (primary) hypertension; R09.02 Hypoxemia; K21.9 Gastro-esophageal reflux disease without esophagitis; Z79.82 Long term (current) use of aspirin; Z79.899 Other long term (current) drug therapy; Z79.51 Long term (current) use of inhaled steroids
CPT/HCPCS: 71045; 71275; 80048; 84484; 85025; 85379; 87631; 93005; 99285; Q9967; A4216

== ENCOUNTER 2024-01-27 09:30 | Observation (INO) | payer MEDICARE, MEDICAID, SELFPAY ==
[2024-01-27] VITALS (12 sets, daily range): BP systolic 111–139; BP diastolic 60–102; PULSE 72–90; RESP 16–90; TEMP 36.3–36.9; O2SAT 92–100; BMI 29.9
--- NOTE | 2024-01-27 09:33 | CT_ITS ---
We are attempting to reach an attending provider to discuss findings. An addendum with communication details will be sent when the communication is complete. STUDY: CTA HEAD AND NECK WITH CONTRAST REASON FOR EXAM: Female, 73 years old. Neuro deficit, acute, stroke suspected RADIATION DOSAGE (If Supplied By Facility): CTDIvol = ( 21.66 ) mGy, DLP = ( 701.10 ) mGycm TECHNIQUE: CT angiography was performed with a multi-detector CT scanner. Data acquisition was obtained from the skull base through the vertex following intravenous administration of IV 100mL Isovue-370. MIP images were reconstructed from the axial data set. Post-processing of the angiographic images was performed, with multiplanar reformation and 3D reconstruction. Individualized dose optimization techniques were used for this CT. COMPARISON: No relevant priors. FINDINGS: Normal bilateral petrous carotid arteries. Normal right cavernous carotid artery with a normal supraclinoid bifurcation. Normal left cavernous carotid artery with a normal supraclinoid bifurcation. Normal right A1 segments of the anterior cerebral artery. Normal left A1 segments of the anterior cerebral artery. Normal intact anterior communicating artery (ACOM). Normal bilateral A2 segments of the anterior cerebral arteries. Normal right M1 and M2 segments of the middle cerebral arteries, with a normal M1 bifurcation. Normal left M1 and M2 segments of the middle cerebral arteries, with a normal M1 bifurcation. Normal right posterior communicating artery (PCOM). Normal left posterior communicating artery (PCOM). There is a small atretic right vertebral artery with a dominant left vertebral artery. Normal basilar artery with a normal basilar bifurcation. The visualized bilateral superior cerebellar (SCA) arteries are normal. Normal bilateral P1, P2 and visualized P3 segments of the posterior cerebral arteries. There is no demonstrated aneurysm of the [place]. AORTIC ARCH: Normal visualized aortic arch. Normal origins of the brachiocephalic, left common carotid, and left subclavian arteries. RIGHT CAROTID ARTERIES: Normal right common carotid artery (CCA). Normal right common carotid bulb. Normal origin of the right internal carotid (ICA) artery without a hemodynamically significant stenosis. Normal visualized cervical portion of the right internal carotid artery. Normal origin of the right external carotid artery (ECA). LEFT CAROTID ARTERIES: Normal left common carotid artery (CCA). Normal left common carotid bulb. Normal origin of the left internal carotid (ICA) artery without a hemodynamically significant stenosis. Normal visualized cervical portion of the left internal carotid artery. Normal origin of the left external carotid artery (ECA). VERTEBRAL ARTERIES: There is enhancement within the bilateral vertebral arteries with a small right vertebral artery, and a dominant left vertebral artery. No suspicious enhancing lesion, airway narrowing or deviation. Thyroid gland and lung apices are unremarkable. There are degenerative bony changes CT/STROKE CTA Head AND Neck W/Con IMPRESSION: No CTA evidence of significant CCA or ICA stenosis. No vaso-occlusive disease within the intracranial circulation. No aneurysm or vascular malformation Small right vertebral artery along its entire course No suspicious enhancing lesion, airway narrowing deviation. Electronically Signed: Roney Colby MD at 10:10 EDT ,
--- NOTE | 2024-01-27 09:33 | EKG12_ITS ---
Test Reason : POSS STROKE Blood Pressure : / mmHG Vent. Rate : 077 BPM Atrial Rate : 077 BPM P-R Int : 182 ms QRS Dur : 094 ms QT Int : 390 ms P-R-T Axes : 039 -24 006 degrees QTc Int : 441 ms Normal sinus rhythm Minimal voltage criteria for LVH, may be normal variant ( R in aVL ) Nonspecific ST abnormality Abnormal ECG Confirmed by SRINATH TRACEY, JESSICA ([id number]), advertising editor KUSHAL GRACIA ([id number]) on 01/29/2024 9:25:52 AM Referred By: Confirmed By:JESSICA YO MD
--- NOTE | 2024-01-27 09:33 | CT_ITS ---
STUDY: CT BRAIN WITHOUT CONTRAST REASON FOR EXAM: Female, 73 years old. Mental status change RADIATION DOSAGE (If Supplied By Facility): CTDIvol = ( ) mGy, DLP = ( ) mGycm TECHNIQUE: Transaxial CT imaging of the brain was performed without administration of intravenous contrast material. Individualized dose optimization techniques were used for this CT. COMPARISON: 04/19/2023 FINDINGS: Normal soft tissue structures. Normal calvarium. There is moderate cerebral atrophy with widening of the extra-axial spaces and ventricular dilatation. Normal white matter tracts of the cerebral hemispheres. Normal basal ganglia and thalami. Normal brainstem. There is moderate cerebellar atrophy. There is a stable negative cisterna magna, and stable ventricular dilatation ASPECTS Score for Acute Strokes: 10 There is no intracranial hemorrhage. There are no findings of an acute ischemic infarction. Normal visualized paranasal sinuses. CT/STROKE Brain/Head without Cont IMPRESSION: Chronic involutional changes of the brain, no acute hemorrhage or significant interval change. N.B. : The above Results were Read Back by Roney Colby MD to Tommy Lopez MD, and understanding confirmed on 01/27/2024 09:50:21 (ET). Electronically Signed: Roney Colby MD at 9:52 EDT ,
--- NOTE | 2024-01-27 09:33 | RAD_ITS ---
STUDY: X-RAY CHEST REASON FOR EXAM: Female, 73 years old. Chest pain/pressure TECHNIQUE: Single AP portable view of the chest. COMPARISON: 10/07/2023 FINDINGS: EKG leads overlie the chest Chronic interstitial changes in both lung cooley without a superimposed acute pulmonary process. There is no demonstrated pleural abnormality. Normal size heart. Normal mediastinum and samara. Normal visualized pulmonary arteries. Normal visualized aortic arch and descending thoracic aorta. There are diffuse degenerative changes of the visualized thoracic spine. Normal visualized ribs, clavicles, and shoulders. There is no demonstrated abnormality of the visualized soft tissue structures of the upper abdomen. RAD/Chest 1 View IMPRESSION: Chronic interstitial changes without evidence of a superimposed acute pulmonary process Electronically Signed: Roney Colby MD at 10:39 EDT ,
--- NOTE | 2024-01-27 09:34 | EDS_ITS ---
HPI History of Present Illness Chief Complaint: Stroke Alert [facility] Medical History (Updated 01/27/24 @ 13:[address] Harjit Garcia MD) Falls frequently Osteoporosis Scoliosis Kyphosis Hydrocephalus Mild intellectual disability Hypoxia Wears glasses Rash Constipation Gastric reflux Non-smoker Shortness of breath on exertion Hypertension Home Medications ?Medication ?Instructions ?Recorded ?Last Taken ?Type polyethylene glycol 3350 17 gram 17 g PO DAILY PRN Constipation 05/29/21 01/31/23 History oral powder packet (Miralax) lisinopril 10 mg tablet 10 mg PO DAILY bp 12/30/21 01/26/24 History sennosides 8.6 mg-docusate sodium 2 tab PO BID PRN Constipation 12/30/21 01/31/23 History 50 mg tablet (Stool Softener-Stimulant Laxative) cholecalciferol (vitamin D3) 50 50 mcg PO DAILY 11/10/22 01/26/24 History mcg (2,000 unit) capsule nystatin 100,000 unit/gram topical 1 applic topical BID PRN skin 11/10/22 01/26/24 History powder (Nyamyc) irritation ropinirole 0.25 mg tablet 0.25 mg PO QHS RESTLESS LEG 02/01/23 01/26/24 History omeprazole 20 mg capsule,delayed 40 mg (2 x 20 mg) PO DAILY 30 days 02/04/23 01/26/24 Rx release #0 caps sertraline 25 mg tablet 25 mg PO DAILY depression 04/18/23 01/26/24 History aspirin 81 mg chewable tablet 81 mg PO BREAKFAST #30 tabs 04/19/23 01/26/24 Rx acetaminophen 325 mg tablet 650 mg PO Q6H PRN pain 10/07/23 01/26/24 History bisacodyl 10 mg rectal suppository 10 mg [place] QHS PRN constipation 10/07/23 Unknown History diclofenac sodium 1 % topical gel 2 g topical Q4H PRN KNEE PAIN 10/07/23 Unknown History ipratropium 0.5 mg-albuterol 3 mg 3 ml inhalation Q6H PRN shortness 10/07/23 Unknown History (2.5 mg base)/3 mL nebulization of breath or wheezing soln loperamide 2 mg capsule 2 mg PO Q4H PRN loose stool 10/07/23 Unknown History magnesium hydroxide 400 mg/5 mL 30 ml PO DAILY PRN constipation 10/07/23 Unknown History oral suspension (Milk of Magnesia) menthol 5 % topical gel (Biofreeze 1 ea topical Q4H PRN muscle pain 10/07/23 Unknown History (menthol)) mineral oil (Fleet Mineral Oil 118 ml [place] DAILY PRN constipation 10/07/23 Unknown History enema) mirabegron 50 mg tablet,extended 50 mg PO DAILY OVERACTIVE BLADDER 01/27/24 01/26/24 History release 24 hr (Myrbetriq) Allergy/AdvReac Type Severity Reaction Status Date / Time erythromycin base Allergy Mild Rash Verified 10/07/23 11:10 Penicillins Allergy Unknown Rash Verified 10/07/23 11:10 Family History Other Hypertension Surgical History History of total right knee replacement Hx of tracheostomy History of toe surgery Social History household members: none Smoking Status: Never smoker alcohol intake: never substance use type: does not use EXAM Physical Exam Const Vital Signs: 01/27/24 09:31 01/27/24 09:33 01/27/24 09:33 Temperature 98.4 F Temperature Source Oral Pulse Rate 90 Respiratory Rate 90 H Blood Pressure 123/89 H Blood Pressure Mean 100 Pulse Ox 99 Oxygen Delivery Method Nasal Cannula Nasal Cannula Oxygen Flow Rate (L/min) 4 4 01/27/24 10:00 01/27/24 10:30 01/27/24 11:00 Temperature Temperature Source Pulse Rate 81 88 86 Respiratory Rate 22 H 20 H 18 Blood Pressure 125/75 H 132/76 H 139/80 H Blood Pressure Mean 91 94 99 Pulse Ox 96 98 98 Oxygen Delivery Method Nasal Cannula Nasal Cannula Nasal Cannula Oxygen Flow Rate (L/min) 4 4 4 01/27/24 11:37 01/27/24 11:57 Temperature Temperature Source Pulse Rate 77 80 Respiratory Rate 18 18 Blood Pressure 139/102 H 139/102 H Blood Pressure Mean 114 114 Pulse Ox 98 98 Oxygen Delivery Method Nasal Cannula Nasal Cannula Oxygen Flow Rate (L/min) 4 4 MDM MDM MDM Narrative Medical decision making narrative: HISTORY OF PRESENT ILLNESS: 73-year-old female presents with concern for acute stroke. Per EMS her last known well was sometime last night but is not known. Per EMS patient had left- sided facial drooping and left-sided weakness on their arrival. Had a positive Maria Stein score. He stated her vitals were normal. He stated blood sugar was 109. He denied her being on blood thinners. Patient has a history of intellectual disability but states she has no speech or sensory or motor deficits at this time. She denies chest pain, shortness of breath abdominal pain vomiting fever or other recent illnesses. REVIEW OF SYSTEMS: Pertinent positives: Facial drooping, left-sided weakness Pertinent negatives: Chest pain, palpitations PHYSICAL EXAM: Nursing triage notes reviewed, Vital signs reviewed Constitutional: please see mdm HENT: MMM Eyes: Pupils equal round and reactive to light, Extraocular muscles intact Neck: No stridor, no JVD, full neck ROM Lungs: Clear to auscultation, No wheezing or rales. No increased work of breathing, no conversational dyspnea, no accessory muscle use, no nasal flaring. No respiratory distress noted Heart: Regular rate and rhythm, No murmurs, No rubs and No gallops, 2+ distal pulses (radial, femoral, posterior tibial) in all extremities Abdomen: Soft, there is no tenderness, rigidity, rebound or guarding, no obvious peritoneal signs, no palpable pulsatile abdominal masses, no auscultated abdominal bruit : No CVAT Extremities: No edema Neuro: Alert, oriented to person place and time, no obvious focality on extremity exam, patient had noted aphasia, dysarthria (patient states this is baseline), NIH 2 (aphasia, dysarthria) Skin: No rash or lesions noted MEDICAL DECISION MAKING: Chief Complaint: Left-sided weakness External records reviewed: Prior imaging reviewed: CT scan of the brain from 2022 shows no acute change no demonstrated acute process Factors affecting care: Speech impediment, GERD, electro, hypertension Social determinants of health: long-term patient History obtained from others: EMS Consults: Stroke neurology, stroke radiology [facility] Narrative: Patient was initially hemodynamically stable, afebrile and nontoxic-appearing. Pt was evaluated in the landing zones Notes aphasia, dysarthria (which could be baseline) but given patient was within 24 hours and had a focal deficit I went ahead with our code stroke protocol and patient was sent directly to CT scan. Her CT scan of the head without contrast as well as a CTA. Spoke with the stroke neurologist who recommended no TNK or thrombectomy at this time given negative imaging. Spoke to the internal medicine physician Dr. Garcia agreed admit the patient for MRI and risk factor modification. Discussed with radiology (Dr. Colby), Stroke (Tamar), Internal Medicine (Dr. Garcia) I considered the following differential diagnosis: ICH, CVA, TIA, focal seizure, arrhythmia ALL IMAGES (IF OBTAINED) HAVE BEEN PERSONALLY REVIEWED AND INTERPRETED BY MYSELF. I have personally reviewed the patient's chest x-ray. Chest x-ray is unremarkab le for pulmonary edema, pneumothorax, pneumonia or focal cardiopulmonary abnormality. EKG with normal sinus rhythm, left ax deviation, no intervals, no STEMI High-sensitivity troponin is negative, no evidence of myocardial ischemia CBC without leukocytosis, severe anemia, no thrombocytopenia. No coagulopathy BMP without evidence of significant electrolyte abnormalities, no anion gap, no acute kidney injury. Urinalysis shows no evidence of urinary inflammation suggestive of UTI MRI showed no evidence of acute infarction Given patient's NIH of 2 (likely for baseline deficits) will admit for con firmatory MRI and risk factor modification. Discussed case with Dr. Garcia. Dr. Garcia recommended ordering MRI and attempt to expedite this test prior to holiday tomorrow (27 January). Imaging was ordered. The patient and/or family, caregivers express understanding. The patient and/or family, caregivers agrees with the plan. Shared decision making: I will have a discussion with the patient and or visitors regarding risk/benefits of further testing or admission. They will be made aware of of the risk/benefits inherent in this decision they will be given the opportunity to voice understanding. Total critical care time today provided was at least 0 minutes. This excludes separately billable procedures. Critical care time (if documented) is secondary to the patient having high probability of clinically significant/life threatening deterioration in the patient's condition which required my urgent intervention. Impression: 1. Aphasia 2. Dysarthria 3. History of CVA Dispo: Admit to PCU obs This note was generated with [employer] dictation software. It may contain incorrect words, spelling, and punctuation that were not noted in review of the chart prior to signing. Lab Data Labs: Laboratory Results - last 24 hr 01/27/24 01/27/24 09:50 11:24 WBC 8.1 RBC 4.17 L Hgb 12.2 Hct 37.7 MCV 90.4 MCH 29.3 MCHC 32.4 RDW Std Deviation 42.0 RDW Coeff of Marcus 12.7 Plt Count 180 MPV 8.2 Immature Gran % (Auto) 0.400 Neut % (Auto) 76.2 H Lymph % (Auto) 16.6 L [place] % (Auto) 6.2 Eos % (Auto) 0.4 Baso % (Auto) 0.2 Absolute Neuts (auto) 6.2 Absolute Lymphs (auto) 1.35 Nucleated RBC % 0 PT 14.0 INR 1.1 APTT 30.8 Sodium 138 Potassium 4.0 Chloride 108 H Carbon Dioxide 24.0 Anion Gap 6 BUN 21 H Creatinine 0.90 Estim Creat Clear Calc 60.98 Est GFR (MDRD) Af Amer 79 Est GFR (MDRD) Non-Af 65 BUN/Creatinine Ratio 23.4 H Glucose 90 Calcium 8.2 L Troponin I High Sens 24 Urine Color Yellow Urine Clarity Clear Urine pH 6.0 Ur Specific [place] 1.020 Urine Protein 15 H Urine Glucose (UA) Normal Urine Ketones Negative Urine Occult Blood Negative Urine Nitrite Negative Urine Bilirubin Negative Urine Urobilinogen Normal Ur Leukocyte Esterase Negative Urine RBC 0 SEEN Urine WBC 0-5 SEEN Ur Squamous Epith Cells 0 SEEN Urine Bacteria 0 SEEN Urine Mucus 0 SEEN Radiography Diagnostic Testing: Clinical Impression(s) from Imaging Studies Brain CT 01/27/24 09:33 IMPRESSION: Chronic involutional changes of the brain, no acute hemorrhage or significant interval change. N.B. : The above Results were Read Back by Roney Colby MD to Tommy Lopez MD, and understanding confirmed on 01/27/2024 09:50:21 (ET). Electronically Signed: Roney Colby MD at 9:52 EDT , ADDENDUM: 01/27/24 0959 IMPRESSION: Chronic involutional changes of the brain, no acute hemorrhage or significant interval change. N.B. : The above Results were Read Back by Roney Colby MD to Tommy Lopez MD, and understanding confirmed on 01/27/2024 09:50:21 (ET). Electronically Signed: Roney Colby MD at 9:52 EDT , Chest X-Ray 01/27/24 09:33 IMPRESSION: Chronic interstitial changes without evidence of a superimposed acute pulmonary process Electronically Signed: Roney Colby MD at 10:39 EDT , Head/Neck CTA 01/27/24 09:33 IMPRESSION: No CTA evidence of significant CCA or ICA stenosis. No vaso-occlusive disease within the intracranial circulation. No aneurysm or vascular malformation Small right vertebral artery along its entire course No suspicious enhancing lesion, airway narrowing deviation. Electronically Signed: Roney Colby MD at 10:10 EDT , ADDENDUM: 01/27/24 1020 IMPRESSION: No CTA evidence of significant CCA or ICA stenosis. No vaso-occlusive disease within the intracranial circulation. No aneurysm or vascular malformation Small right vertebral artery along its entire course No suspicious enhancing lesion, airway narrowing deviation. N.B. : The above Results were Read Back by Roney Colby MD to Tommy Lopez DO, and understanding confirmed on 01/27/2024 10:13:16 (ET). Electronically Signed: Roney Colby MD at 10:10 EDT , Brain MRI 01/27/24 11:54 IMPRESSION: 1. Involutional and chronic ischemic changes of the brain, as described above. 2. Redemonstration of bilateral superior parietal and cerebellar lobes significant parenchymal loss consistent with sequela of prior infarcts. 3. No demonstrated acute infarct or intracranial hemorrhage. Electronically Signed: Romario Hartmann MD at 15:27 EDT , Discharge Plan Disposition Disposition: Acute Care [facility] Discharge Date/Time: 01/27/24 12:29
[2024-01-27 09:59] LABS: Absolute Lymphocyte Count 1.35 X10^3/uL (0.83-4.51); Absolute Neutrophil Count 6.2 X10^3/uL (2.0-7.7); Basophil# 0.02 X10^3/uL; Basophil% 0.2 % (0-1); Eosinophil# 0.03 X10^3/uL; Eosinophils% 0.4 % (0-5); Hematocrit 37.7 % (37-47); Hemoglobin 12.2 g/dL (12.0-15.0); Lymphocyte # 1.35 X10^3/ul (0.83-4.51); Lymphocyte % 16.6 % (19-41); Mean Corp Hgb Conc 32.4 g/dL (32-36); Mean Corpuscular Hgb 29.3 pg (27.0-32.0); Mean Corpuscular Volume 90.4 fL (81-99); Mean Platelet Vol. 8.2 fl (6.2-12.0); Monocyte% 6.2 % (0-10); NRBC Flagged by Analyzer 0 % (0-5); Neutrophil # 6.18 X10^3/uL (2.7-7.7); Neutrophil % 76.2 % (47-70); Platelet Count 180 K/mm3 (150-450); RBC Distribution Width CV 12.7 % (11.6-14.6); Red Blood Count 4.17 M/mm3 (4.2-5.4); White Blood Count 8.1 K/mm3 (4.4-11.0)
[2024-01-27 10:12] LABS: International Normalized Ratio 1.1
[2024-01-27 10:13] LABS: Partial Thromboplast Time 30.8 Seconds (24.1-36.2)
[2024-01-27 10:21] LABS: Anion Gap 6 (5-15); BUN 21 mg/dL (7-18); BUN/Creat Ratio 23.4 RATIO (10-20); Calcium,Total 8.2 mg/dL (8.5-10.1); Chloride 108 mmol/L (98-107); EST Glomerular Filtration Rate 65 mL/min (>60); Est Glom Filt Rate - Afr Amer 79 mL/min (>60); Estimated Creatinine Clearance 60.98 ml/min; Glucose 90 mg/dL (74-106); Sodium Level 138 mmol/L (136-145); Troponin-I HS 24 pg/mL (3.0-54.0)
[2024-01-27 11:27] LABS: Bacteria 0 SEEN /hpf (None Seen); Mucous, Urine 0 SEEN /hpf (<or=2+); Red Blood Cells-Urine 0 SEEN /hpf (0-5); Squamous Epithelial Cells - UA 0 SEEN /hpf (5-10)
[2024-01-27 11:29] LABS: Color, Urine Yellow (Yellow); Glucose, Dipstick Normal (Normal); Ketone-Dipstick Negative (Negative); Leukocyte Esterase-Dipstick Negative /ul (Negative); Nitrite-Dipstick Negative (Negative); Occult Blood-Urine Negative /ul (Negative); Protein-Dipstick 15 mg/dl (Negative); Urine Bilirubin Dipstick Negative (Negative); Urine Clarity Clear (Clear); Urine Urobilinogen Normal (Normal)
[2024-01-27 11:38] LABS: White Blood Cells 0-5 SEEN /hpf (0-5)
--- NOTE | 2024-01-27 11:44 | ED.RN ---
Nurse at correction updated on patients current status
--- NOTE | 2024-01-27 11:54 | MRI_ITS ---
STUDY: MRI BRAIN WITHOUT CONTRAST REASON FOR EXAM: Female, 73 years old. CVA rule out TECHNIQUE: Standardized multiplanar fat and water weighted pulse sequences were obtained. COMPARISON: Head CT dated January 27, 2024. FINDINGS: There is mild cerebral atrophy with widening of the extra-axial spaces and ventricular dilatation. There are a limited number of small white matter hyperintensities, distributed throughout the deep white matter tracts of the cerebral hemispheres, consistent with mild chronic white matter ischemic changes. There is no evidence for recent intracranial ischemia or other cause of cytotoxic edema on diffusion weighted imaging (DWI). Normal T2* images of the brain without demonstrated susceptibility artifact. There is no demonstrated hemosiderin stain. No hydrocephalus or midline shift is present. Redemonstration of bilateral superior parietal and cerebellar lobes significant parenchymal loss consistent with sequela of prior infarcts. Normal bilateral basal ganglia. Normal thalami. There is no extra-axial fluid accumulation. Normal flow voids within the major intracranial circulation suggesting patency by spin echo criteria. Normal sella turcica, pituitary gland, infundibular stalk, optic chiasm and hypothalamus. Normal tectal plate and pineal gland. Normal midbrain, prasanth and medulla. There is severe prominence of the vermian folia, consistent with atrophy of the vermis. The cerebellar hemispheres are normal. Normal basal cisterns. Normal bilateral temporal bones. Normal bilateral internal auditory canals. No demonstrated orbital abnormality, within the constraints of a routine brain study. Normal visualized paranasal sinuses. Normal calvarium and skull base. Normal visualized soft tissue structures. Normal visualized upper cervical spine. MRI/Brain without Contrast IMPRESSION: 1. Involutional and chronic ischemic changes of the brain, as described above. 2. Redemonstration of bilateral superior parietal and cerebellar lobes significant parenchymal loss consistent with sequela of prior infarcts. 3. No demonstrated acute infarct or intracranial hemorrhage. Electronically Signed: Romario Hartmann MD at 15:27 EDT ,
--- NOTE | 2024-01-27 13:32 | PCM.HP.STD ---
HPI - General General Date of Admission: 01/27/24 HPI Narrative TEVIN MILLAN, is a 73 F who presents from a retirement with a last known well of yesterday evening but this is unclear. Staff found her with left-sided facial drooping and weakness as well as chronic slurred speech. On arrival to the ER NIH was 1-2 and a CTA of the head and neck was unremarkable with no large vessel occlusion. Currently does appear to be back to baseline and sister states that her speech is also back to normal so on my evaluation she currently has an NIH of 0. She is on aspirin at home but is not on a statin. [facility] Medical History (Updated 01/27/24 @ 13:[address] Harjit Garcia MD) Falls frequently Osteoporosis Scoliosis Kyphosis Hydrocephalus Mild intellectual disability Hypoxia Wears glasses Rash Constipation Gastric reflux Non-smoker Shortness of breath on exertion Hypertension Home Medications ?Medication ?Instructions ?Recorded ?Last Taken ?Type polyethylene glycol 3350 17 gram 17 g PO DAILY PRN Constipation 05/29/21 01/31/23 History oral powder packet (Miralax) lisinopril 10 mg tablet 10 mg PO DAILY bp 12/30/21 01/26/24 History sennosides 8.6 mg-docusate sodium 2 tab PO BID PRN Constipation 12/30/21 01/31/23 History 50 mg tablet (Stool Softener-Stimulant Laxative) cholecalciferol (vitamin D3) 50 50 mcg PO DAILY 11/10/22 01/26/24 History mcg (2,000 unit) capsule nystatin 100,000 unit/gram topical 1 applic topical BID PRN skin 11/10/22 01/26/24 History powder (Nyamyc) irritation ropinirole 0.25 mg tablet 0.25 mg PO QHS RESTLESS LEG 02/01/23 01/26/24 History omeprazole 20 mg capsule,delayed 40 mg (2 x 20 mg) PO DAILY 30 days 02/04/23 01/26/24 Rx release #0 caps sertraline 25 mg tablet 25 mg PO DAILY depression 04/18/23 01/26/24 History aspirin 81 mg chewable tablet 81 mg PO BREAKFAST #30 tabs 04/19/23 01/26/24 Rx acetaminophen 325 mg tablet 650 mg PO Q6H PRN pain 10/07/23 01/26/24 History bisacodyl 10 mg rectal suppository 10 mg [place] QHS PRN constipation 10/07/23 Unknown History diclofenac sodium 1 % topical gel 2 g topical Q4H PRN KNEE PAIN 10/07/23 Unknown History ipratropium 0.5 mg-albuterol 3 mg 3 ml inhalation Q6H PRN shortness 10/07/23 Unknown History (2.5 mg base)/3 mL nebulization of breath or wheezing soln loperamide 2 mg capsule 2 mg PO Q4H PRN loose stool 10/07/23 Unknown History magnesium hydroxide 400 mg/5 mL 30 ml PO DAILY PRN constipation 10/07/23 Unknown History oral suspension (Milk of Magnesia) menthol 5 % topical gel (Biofreeze 1 ea topical Q4H PRN muscle pain 10/07/23 Unknown History (menthol)) mineral oil (Fleet Mineral Oil 118 ml [place] DAILY PRN constipation 10/07/23 Unknown History enema) mirabegron 50 mg tablet,extended 50 mg PO DAILY OVERACTIVE BLADDER 01/27/24 01/26/24 History release 24 hr (Myrbetriq) Allergy/AdvReac Type Severity Reaction Status Date / Time erythromycin base Allergy Mild Rash Verified 10/07/23 11:10 Penicillins Allergy Unknown Rash Verified 10/07/23 11:10 Family History Other Hypertension Surgical History History of total right knee replacement Hx of tracheostomy History of toe surgery Social History household members: none Smoking Status: Never smoker alcohol intake: never substance use type: does not use ROS Constitutional Constitutional: Denies chills, fatigue, fever(s) or malaise Eyes Eyes: Denies blurry vision ENT HEENT: Denies headache(s) or nasal discharge Cardiovascular Cardiovascular: Denies chest pain, dyspnea on exertion or syncope Respiratory/Chest Respiratory/Chest: Denies cough, shortness of breath at rest or shortness of breath with exertion Gastrointestinal Gastrointestinal: Denies constipation, diarrhea, nausea or vomiting Genitourinary Genitourinary: Denies dysuria Neurologic Neurologic: Reports abnormal speech and focal weakness; Denies numbness or tremor(s) Psychiatric Psychiatric: Denies anxiety or depression Vital Signs Vital Signs Vital Signs: 01/27/24 09:31 01/27/24 09:33 01/27/24 09:33 Temperature 98.4 F Temperature Source Oral Pulse Rate 90 Respiratory Rate 90 H Blood Pressure 123/89 H Blood Pressure Mean 100 Blood Pressure Source Blood Pressure Position Blood Pressure Location Pulse Ox 99 Oxygen Delivery Method Nasal Cannula Nasal Cannula Oxygen Flow Rate (L/min) 4 4 01/27/24 10:00 01/27/24 10:30 01/27/24 11:00 Temperature Temperature Source Pulse Rate 81 88 86 Respiratory Rate 22 H 20 H 18 Blood Pressure 125/75 H 132/76 H 139/80 H Blood Pressure Mean 91 94 99 Blood Pressure Source Blood Pressure Position Blood Pressure Location Pulse Ox 96 98 98 Oxygen Delivery Method Nasal Cannula Nasal Cannula Nasal Cannula Oxygen Flow Rate (L/min) 4 4 4 01/27/24 11:37 01/27/24 11:57 01/27/24 11:58 Temperature 97.8 F Temperature Source Pulse Rate 77 80 81 Respiratory Rate 18 18 18 Blood Pressure 139/102 H 139/102 H 139/102 H Blood Pressure Mean 114 114 114 Blood Pressure Source Blood Pressure Position Blood Pressure Location Pulse Ox 98 98 97 Oxygen Delivery Method Nasal Cannula Nasal Cannula Oxygen Flow Rate (L/min) 4 4 01/27/24 12:52 Temperature 97.3 F L Temperature Source Temporal Pulse Rate 72 Respiratory Rate 16 Blood Pressure 119/76 Blood Pressure Mean 90 Blood Pressure Source Monitor Blood Pressure Position Semi-Fowlers Blood Pressure Location Right Arm Pulse Ox 100 Oxygen Delivery Method Nasal Cannula Oxygen Flow Rate (L/min) 4 Weight Weight: 196 lb 13.965 oz Body Mass Index (BMI) 29.9 Physical Exam Narrative General: Alert, Oriented, Cooperative, No apparent distress HEENT: Atraumatic, PERRLA, EOMI, Normocephalic Oral: Moist Mucosa Neck: Supple, No JVD Lungs: Diminished, Normal air movement, No rhonchi, No wheeze, No rales Cardiovascular: Regular rate, Regular Rhythm, Normal S1, Normal S2, No murmurs Abdomen: Soft, Non Tender, Non-Distended, No Hepato-splenomegaly Extremities: No edema, Capillary Refill Less than 3 Seconds Skin: No rashes, No breakdown Musculoskeletal: No Tenderness to Palpation of Joints or Extremities Neurological: No focal neurological deficits, Motor Exam 5/5 strength throughout, Sensory exam intact to light touch and pain, NIH of 0 Psych/Mental Status: Normal Affect, Appropriate Results Lab / Micro Data 01/27/24 09:50 01/27/24 09:50 Labs: Laboratory Results - last 24 hr 01/27/24 09:50: WBC 8.1, RBC 4.17 L, Hgb 12.2, Hct 37.7, MCV 90.4, MCH 29.3, MCHC 32.4, RDW Std Deviation 42.0, RDW Coeff of Marcus 12.7, Plt Count 180, MPV 8.2, Immature Gran % (Auto) 0.400, Neut % (Auto) 76.2 H, Lymph % (Auto) 16.6 L, [place] % (Auto) 6.2, Eos % (Auto) 0.4, Baso % (Auto) 0.2, Absolute Neuts (auto) 6.2, Absolute Lymphs (auto) 1.35, Nucleated RBC % 0, PT 14.0, INR 1.1, APTT 30.8, Sodium 138, Potassium 4.0, Chloride 108 H, Carbon Dioxide 24.0, Anion Gap 6, BUN 21 H, Creatinine 0.90, Estim Creat Clear Calc 60.98, Est GFR (MDRD) Af Amer 79, Est GFR (MDRD) Non-Af 65, BUN/Creatinine Ratio 23.4 H, Glucose 90, Calcium 8.2 L, Troponin I High Sens 24 01/27/24 11:24: Urine Color Yellow, Urine Clarity Clear, Urine pH 6.0, Ur Specific [place] 1.020, Urine Protein 15 H, Urine Glucose (UA) Normal, Urine Ketones Negative, Urine Occult Blood Negative, Urine Nitrite Negative, Urine Bilirubin Negative, Urine Urobilinogen Normal, Ur Leukocyte Esterase Negative, Urine RBC 0 SEEN, Urine WBC 0-5 SEEN, Ur Squamous Epith Cells 0 SEEN, Urine Bacteria 0 SEEN, Urine Mucus 0 SEEN Imaging Radiology Impression Brain CT 01/27/24 09:33 IMPRESSION: Chronic involutional changes of the brain, no acute hemorrhage or significant interval change. N.B. : The above Results were Read Back by Roney Colby MD to Tommy Lopez MD, and understanding confirmed on 01/27/2024 09:50:21 (ET). Electronically Signed: Roney Colby MD at 9:52 EDT , ADDENDUM: 01/27/24 0959 IMPRESSION: Chronic involutional changes of the brain, no acute hemorrhage or significant interval change. N.B. : The above Results were Read Back by Roney Colby MD to Tommy Lopez MD, and understanding confirmed on 01/27/2024 09:50:21 (ET). Electronically Signed: Roney Colby MD at 9:52 EDT , Chest X-Ray 01/27/24 09:33 IMPRESSION: Chronic interstitial changes without evidence of a superimposed acute pulmonary process Electronically Signed: Roney Colby MD at 10:39 EDT , Head/Neck CTA 01/27/24 09:33 IMPRESSION: No CTA evidence of significant CCA or ICA stenosis. No vaso-occlusive disease within the intracranial circulation. No aneurysm or vascular malformation Small right vertebral artery along its entire course No suspicious enhancing lesion, airway narrowing deviation. Electronically Signed: Roney Colby MD at 10:10 EDT , ADDENDUM: 01/27/24 1020 IMPRESSION: No CTA evidence of significant CCA or ICA stenosis. No vaso-occlusive disease within the intracranial circulation. No aneurysm or vascular malformation Small right vertebral artery along its entire course No suspicious enhancing lesion, airway narrowing deviation. N.B. : The above Results were Read Back by Roney Colby MD to Tommy Lopez DO, and understanding confirmed on 01/27/2024 10:13:16 (ET). Electronically Signed: Roney Colby MD at 10:10 EDT , Assessment & Plan Assessment/Plan (1) TIA (transient ischemic attack): PLAN: Plan 1. CVA rule out/essential HTN ? Concern for possible stroke, CTA of the head and neck was unremarkable ? MRI is pending ? Will do a limited echo with a bubble if MRI is positive ? Will hold her home lisinopril for permissive hypertension ? Continue with aspirin and Lipitor if positive will add Plavix and a event monitor on discharge 2. GERD ? Stable ? Continue with PPI 3. Anxiety/depression/restless legs ? Stable ? Continue with her home medications 4. Has a baseline learning disability DVT: Ambulation 75 minutes was spent on direct patient care, including documentation as well as chart review and collaboration with colleagues Charges/Coding Visit Charges Inpatient E&M: 12481 Init Hosp L3
--- NOTE | 2024-01-27 14:28 | CASEMGMT ---
Social Work- SW went to pt room to confirm pt's preference to return to [facility] at discharge. Pt sister shared that pt was having MRI & shared that pt does wish to return to [facility], where pt resides nursing home. JACINTO Tuttle
--- NOTE | 2024-01-27 14:40 | CASEMGMT ---
Addendum entered by Danelle Thakur 01/27/24 15:55: Patient will not need precert to return. Danelle Thakur DC Planning Asst. Original Note: Discharge Planning Msg sent to [facility] via [facility] that patient may return tomorrow. Asked for phone/fax and if patient will need precert. Awaiting response. Danelle Thakur DC Planning Asst.
[2024-01-27] MEDS: Pramipexole Di-HCl 0.125 MG Tablet PO (21:49)
[2024-01-27] MEDS: Atorvastatin Calcium 80 MG Tablet PO (21:49)
[2024-01-27] MEDS: 0.9% Saline Lock 10 ML Syringe IV (21:50)
[2024-01-28] VITALS (7 sets, daily range): BP systolic 117–135; BP diastolic 57–75; PULSE 64–73; RESP 16–18; TEMP 36.2–36.9; O2SAT 89–96; BMI 29.9
[2024-01-28 06:52] LABS: Cholesterol 145 mg/dL (200); High Density Lipoprotein 38 mg/dL; Triglycerides 80 mg/dL; Very Low Density Lipoprotein 16 mg/dL (5-40)
[2024-01-28] MEDS: Sertraline 50 MG Tablet 25 MG PO (08:42)
[2024-01-28] MEDS: Pantoprazole Sodium 40 MG Tablet PO (08:42)
[2024-01-28] MEDS: Aspirin 81 MG TAB.CHEW PO (08:42)
--- NOTE | 2024-01-28 10:21 | PCM.TXEXTCAR ---
Diet Diet Order/Speech Therapy: 01/27/24 13:32 Diet: Cardiac - Heart Healthy Food consistency:: Regular Liquid Consistency:: Regular/Thin Is pt able to select menu?: Yes Diet Comments: NO STRAWS Routine Orders/Code Status Routine Lab Work: CBC and BMP Code Status: Full Code Therapies Physical Therapy: Eval and Treat Occupational Therapy: Eval and Treat Problem/Diagnosis (1) TIA (transient ischemic attack): Status: Acute Code(s): G45.9 - Transient cerebral ischemic attack, unspecified Plan 1. CVA rule out/essential HTN ? Concern for possible stroke, CTA of the head and neck was unremarkable ? MRI is pending ? Will do a limited echo with a bubble if MRI is positive ? Will hold her home lisinopril for permissive hypertension ? Continue with aspirin and Lipitor if positive will add Plavix and a event monitor on discharge 2. GERD ? Stable ? Continue with PPI 3. Anxiety/depression/restless legs ? Stable ? Continue with her home medications 4. Has a baseline learning disability DVT: Ambulation 75 minutes was spent on direct patient care, including documentation as well as chart review and collaboration with colleagues Allergies/Procedures Done in Hospital Allergies erythromycin base Allergy (Mild, Verified 10/07/23 11:10) Rash Penicillins Allergy (Unknown, Verified 10/07/23 11:10) Rash Procedures: None Type of Care/Length of Stay Estimated LOS: More Than 30 Days Type of Care Needed: [facility]dc/Assisted Living Rehab Potential: Good Prognosis: Good Additional Orders/Day of Discharge Day of Discharge: 01/28/24 Dietary and Speech Recommendations Dietitian Recommendations/Changes: Continue Cardiac diet as ordered Discharge Plan Admission Admit Date/Time: 01/27/24 11:58 Attending Provider: Harjit Garcia Primary Care Provider: Nasir Szymanski Discharge Orders/Prescriptions Prescriptions: New atorvastatin 80 mg Tablet 80 mg PO QHS 30 Days Qty: 30 0RF Continued polyethylene glycol 3350 [Miralax] 17 gram Powder In Packet 17 g PO DAILY PRN (Reason: Constipation) sennosides-docusate sodium [Stool Softener-Stimulant Laxat] 8.6-50 mg tablet 2 tab PO BID PRN (Reason: Constipation) lisinopril 10 mg tablet 10 mg PO DAILY nystatin [Nyamyc] 100,000 unit/gram powder 1 applic TOPICAL BID PRN (Reason: skin irritation) Rx Instructions: USE UNDER BREASTS AND GROIN AREA cholecalciferol (vitamin D3) 50 mcg (2,000 unit) Capsule 50 mcg PO DAILY sertraline 25 mg tablet 25 mg PO DAILY aspirin 81 mg Tablet,Chewable 81 mg PO BREAKFAST Qty: 30 2RF Rx Instructions: Discontinue if platelet count drops less than 50,000 or hemoglobin less than 8 g% ropinirole 0.25 mg tablet 0.25 mg PO QHS omeprazole 20 mg capsule,delayed release(DR/EC) 40 mg PO DAILY 30 Days Qty: 0 0RF mirabegron [Myrbetriq] 50 mg tablet extended release 24 hr 50 mg PO DAILY acetaminophen 325 mg tablet 650 mg PO Q6H PRN (Reason: pain) bisacodyl 10 mg suppository 10 mg CO QHS PRN (Reason: constipation) Rx Instructions: ADMINISTER IF NO BM 8 HOURS AFTER MOM ADMINISTRATION. mineral oil [Fleet Mineral Oil] Enema 118 ml CO DAILY PRN (Reason: constipation) Rx Instructions: ADMINISTER IF NO BM 8 HOURS AFTER RECEIVING SUPPOSITORY. IF NO BM WITHIN 1 HOUR OF ENEMA, NOTIFY MD. loperamide 2 mg capsule 2 mg PO Q4H PRN (Reason: loose stool) Biofreeze (menthol) 5 % gel 1 ea topical Q4H PRN (Reason: muscle pain) magnesium hydroxide [Milk of Magnesia] 400 mg/5 mL suspension 30 ml PO DAILY PRN (Reason: constipation) Rx Instructions: ADMINISTER ONCE DAILY IF NO BM IN 3 DAYS diclofenac sodium 1 % gel 2 g topical Q4H PRN (Reason: KNEE PAIN) ipratropium-albuterol 0.5 mg-3 mg(2.5 mg base)/3 mL Solution For Nebulization 3 ml inhalation Q6H PRN (Reason: shortness of breath or wheezing) Referrals / Follow Up: Nasir Szymanski MD [Primary Care Provider] - Disposition Disposition (needs filled in before D/C Order can be placed): Nursing Home Facility
--- NOTE | 2024-01-28 14:23 | PCM.DC.SUM ---
Providers Date of Admission: 01/27/24 Primary Care Physician: Dr. Nasir Szymanski MD Reason For Visit: CVS R/O Diagnosis Discharge Diagnosis (1) TIA (transient ischemic attack): Status: Acute Code(s): G45.9 - Transient cerebral ischemic attack, unspecified Medications at Discharge Home Medications polyethylene glycol 3350 17 gram oral powder packet (Miralax) 17 g PO DAILY PRN Constipation 05/29/21 lisinopril 10 mg tablet 10 mg PO DAILY bp 12/30/21 sennosides 8.6 mg-docusate sodium 50 mg tablet (Stool Softener-Stimulant Laxative) 2 tab PO BID PRN Constipation 12/30/21 cholecalciferol (vitamin D3) 50 mcg (2,000 unit) capsule 50 mcg PO DAILY 11/10/22 nystatin 100,000 unit/gram topical powder (Nyamyc) 1 applic topical BID PRN skin irritation 11/10/22 ropinirole 0.25 mg tablet 0.25 mg PO QHS RESTLESS LEG 02/01/23 omeprazole 20 mg capsule,delayed release 40 mg (2 x 20 mg) PO DAILY 30 days #0 caps 02/04/23 sertraline 25 mg tablet 25 mg PO DAILY depression 04/18/23 aspirin 81 mg chewable tablet 81 mg PO BREAKFAST #30 tabs 04/19/23 acetaminophen 325 mg tablet 650 mg PO Q6H PRN pain 10/07/23 bisacodyl 10 mg rectal suppository 10 mg OK QHS PRN constipation 10/07/23 diclofenac sodium 1 % topical gel 2 g topical Q4H PRN KNEE PAIN 10/07/23 ipratropium 0.5 mg-albuterol 3 mg (2.5 mg base)/3 mL nebulization soln 3 ml inhalation Q6H PRN shortness of breath or wheezing 10/07/23 loperamide 2 mg capsule 2 mg PO Q4H PRN loose stool 10/07/23 magnesium hydroxide 400 mg/5 mL oral suspension (Milk of Magnesia) 30 ml PO DAILY PRN constipation 10/07/23 menthol 5 % topical gel (Biofreeze (menthol)) 1 ea topical Q4H PRN muscle pain 10/07/23 mineral oil (Fleet Mineral Oil enema) 118 ml OK DAILY PRN constipation 10/07/23 mirabegron 50 mg tablet,extended release 24 hr (Myrbetriq) 50 mg PO DAILY OVERACTIVE BLADDER 01/27/24 atorvastatin 80 mg tablet 80 mg PO QHS 30 days #30 tabs 01/28/24 Hospital Course Operations None Procedures None Summary of Care Provided Minutes Spent on Discharge: 32 Hospital Course: Per HPI: TEVIN MILLAN, is a 73 F who presents from a senior living with a last known well of yesterday evening but this is unclear. Staff found her with left-sided facial drooping and weakness as well as chronic slurred speech. On arrival to the ER NIH was 1-2 and a CTA of the head and neck was unremarkable with no large vessel occlusion. Currently does appear to be back to baseline and sister states that her speech is also back to normal so on my evaluation she currently has an NIH of 0. She is on aspirin at home but is not on a statin. Hospital Course: 1. CVA rule out/essential HTN ? Concern for possible stroke, CTA of the head and neck was unremarkable ? MRI is negative but does show possible previous strokes ? Will hold her home lisinopril for permissive hypertension ? Continue with aspirin and Lipitor if positive will add Plavix and a event monitor on discharge ?I discussed with her the plan for discharge today she expressed understanding of the risk benefits of going home and would like to go home today. I also discussed the discharge plan with the sister. Given the history of previous strokes we will continue with her home medications but also had Lipitor. 2. GERD ? Stable ? Continue with PPI 3. Anxiety/depression/restless legs ? Stable ? Continue with her home medications Physical Exam Narrative General: Alert, Oriented, Cooperative, No apparent distress HEENT: Atraumatic, PERRLA, EOMI, Normocephalic Oral: Moist Mucosa Neck: Supple, No JVD Lungs: Diminished, Normal air movement, No rhonchi, No wheeze, No rales Cardiovascular: Regular rate, Regular Rhythm, Normal S1, Normal S2, No murmurs Abdomen: Soft, Non Tender, Non-Distended, No Hepato-splenomegaly Extremities: No edema, Capillary Refill Less than 3 Seconds Skin: No rashes, No breakdown Musculoskeletal: No Tenderness to Palpation of Joints or Extremities Neurological: No focal neurological deficits, Motor Exam 5/5 strength throughout, Sensory exam intact to light touch and pain, NIH of 0 Psych/Mental Status: Normal Affect, Appropriate Weight / BMI Weight Weight: 196 lb 13.965 oz Body Mass Index (BMI) 29.9 ABG / Lab / Microbiology Data 01/27/24 09:50 01/27/24 09:50 Laboratory: Laboratory Results - last 24 hr 01/28/24 05:18: Triglycerides 80, Cholesterol 145, LDL Cholesterol 91, VLDL Cholesterol 16, HDL Cholesterol 38 L Radiography Diagnostic Testing: Radiology Impression Brain MRI 01/27/24 11:54 IMPRESSION: 1. Involutional and chronic ischemic changes of the brain, as described above. 2. Redemonstration of bilateral superior parietal and cerebellar lobes significant parenchymal loss consistent with sequela of prior infarcts. 3. No demonstrated acute infarct or intracranial hemorrhage. Electronically Signed: Romario Hartmann MD at 15:27 EDT , Meaningful Use Info Meaningful Use Meaningful Use Diagnoses (Choose all that apply): None applicable Ischemic Stroke Statin Dosing Therapy Reference: STATIN DOSE THERAPY REFERENCE: * Patients > 75 years receive moderate or high dose statin therapy. * Patients 75 years or YOUNGER should receive HIGH intensity statin dose unless contraindicated. You will be required to document reason for non-treatment if statin daily dose does not meet guidelines. HIGH DOSE STATIN THERAPY DAILY Atorvastatin > than or = to 40 mg Rosuvastatin > than or = to 20 mg Amlodipine + Atorvastatin > than or = to 2.5/40 mg Ezetimibe + Simvastatin 10/80 mg Simvastatin 80mg Discharge Plan Admission Admit Date/Time: 01/27/24 11:58 Attending Provider: Harjit Garcia Primary Care Provider: Nasir Szymanski Discharge Orders/Prescriptions Prescriptions: New atorvastatin 80 mg Tablet 80 mg PO QHS 30 Days Qty: 30 0RF Continued polyethylene glycol 3350 [Miralax] 17 gram Powder In Packet 17 g PO DAILY PRN (Reason: Constipation) sennosides-docusate sodium [Stool Softener-Stimulant Laxat] 8.6-50 mg tablet 2 tab PO BID PRN (Reason: Constipation) lisinopril 10 mg tablet 10 mg PO DAILY nystatin [Nyamyc] 100,000 unit/gram powder 1 applic TOPICAL BID PRN (Reason: skin irritation) Rx Instructions: USE UNDER BREASTS AND GROIN AREA cholecalciferol (vitamin D3) 50 mcg (2,000 unit) Capsule 50 mcg PO DAILY sertraline 25 mg tablet 25 mg PO DAILY aspirin 81 mg Tablet,Chewable 81 mg PO BREAKFAST Qty: 30 2RF Rx Instructions: Discontinue if platelet count drops less than 50,000 or hemoglobin less than 8 g% ropinirole 0.25 mg tablet 0.25 mg PO QHS omeprazole 20 mg capsule,delayed release(DR/EC) 40 mg PO DAILY 30 Days Qty: 0 0RF mirabegron [Myrbetriq] 50 mg tablet extended release 24 hr 50 mg PO DAILY acetaminophen 325 mg tablet 650 mg PO Q6H PRN (Reason: pain) bisacodyl 10 mg suppository 10 mg OK QHS PRN (Reason: constipation) Rx Instructions: ADMINISTER IF NO BM 8 HOURS AFTER MOM ADMINISTRATION. mineral oil [Fleet Mineral Oil] Enema 118 ml OK DAILY PRN (Reason: constipation) Rx Instructions: ADMINISTER IF NO BM 8 HOURS AFTER RECEIVING SUPPOSITORY. IF NO BM WITHIN 1 HOUR OF ENEMA, NOTIFY MD. loperamide 2 mg capsule 2 mg PO Q4H PRN (Reason: loose stool) Biofreeze (menthol) 5 % gel 1 ea topical Q4H PRN (Reason: muscle pain) magnesium hydroxide [Milk of Magnesia] 400 mg/5 mL suspension 30 ml PO DAILY PRN (Reason: constipation) Rx Instructions: ADMINISTER ONCE DAILY IF NO BM IN 3 DAYS diclofenac sodium 1 % gel 2 g topical Q4H PRN (Reason: KNEE PAIN) ipratropium-albuterol 0.5 mg-3 mg(2.5 mg base)/3 mL Solution For Nebulization 3 ml inhalation Q6H PRN (Reason: shortness of breath or wheezing) Referrals / Follow Up: Nasir Szymanski MD [Primary Care Provider] - Disposition Disposition (needs filled in before D/C Order can be placed): Assisted Facility Charges/Coding Visit Charges Inpatient E&M: 18275 Disch Hosp >30min
== END 2024-01-28 10:33 | disposition skilled nursing facility (03) ==
LOC: ED 10:41 → PCU 12:12
PROVIDERS: Admitting Provider Family Medicine; Emergency Provider Emergency Medicine; PCP Family Medicine; Visit Provider Family Medicine
DX: G45.9 Transient cerebral ischemic attack, unspecified (principal); F70 Mild intellectual disabilities; R47.1 Dysarthria and anarthria; K21.9 Gastro-esophageal reflux disease without esophagitis; I10 Essential (primary) hypertension; R47.81 Slurred speech; F41.9 Anxiety disorder, unspecified; R47.01 Aphasia; M41.9 Scoliosis, unspecified; Z79.899 Other long term (current) drug therapy; Z79.82 Long term (current) use of aspirin; R29.810 Facial weakness; F32.A Depression, unspecified
CPT/HCPCS: 36415; 70450; 70496; 70498; 70551; 71045; 80048; 80061; 81001; 84484; 85025; 85610; 85730; 93005; 94762; 97162; 97165; 97802; 99221; 99285; P9612; Q9967; A4216; G0378

== ENCOUNTER 2024-02-27 12:07 | Observation (INO) | payer MEDICARE, MEDICAID, SELFPAY ==
[2024-02-27] VITALS (7 sets, daily range): BP systolic 96–133; BP diastolic 48–96; PULSE 73–99; RESP 16–20; TEMP 36.2–37.6; O2SAT 85–97; BMI 29.7
--- NOTE | 2024-02-27 12:43 | CT_ITS ---
STUDY: CT BRAIN WITHOUT CONTRAST REASON FOR EXAM: Female, 73 years old. Seizure activity RADIATION DOSAGE (If Supplied By Facility): CTDIvol = ( 44.99 ) mGy, DLP = ( 812.98 ) mGycm TECHNIQUE: Transaxial CT imaging of the brain was performed without administration of intravenous contrast material. Individualized dose optimization techniques were used for this CT. COMPARISON: MR brain from 01/27/2024 FINDINGS: Normal soft tissue structures. Normal calvarium. Normal size ventricles and extra-axial spaces for the patient''s age. There are areas of decreased attenuation within the white matter tracts of the supratentorial brain, consistent with microvascular disease changes. Normal basal ganglia and thalami. Normal brainstem. Normal cerebellum. There is no intracranial hemorrhage. There are no findings of an acute ischemic infarction. Normal visualized paranasal sinuses. CT/Brain/Head without Contrast IMPRESSION: Chronic involutional changes of the brain, no acute hemorrhage. Electronically Signed: Roney Colby MD at 14:26 EDT ,
--- NOTE | 2024-02-27 12:43 | EKG12_ITS ---
Test Reason : SEIZURE Blood Pressure : / mmHG Vent. Rate : 083 BPM Atrial Rate : 083 BPM P-R Int : 130 ms QRS Dur : 100 ms QT Int : 386 ms P-R-T Axes : -03 -24 001 degrees QTc Int : 453 ms Normal sinus rhythm Moderate voltage criteria for LVH, may be normal variant ( R in aVL , Bob product ) Nonspecific ST and T wave abnormality Abnormal ECG Confirmed by Kirit Loyd ([id number]), publications editor ALIYAH TURCIOS ([id number]) on 02/29/2024 2:17:49 PM Referred By: Confirmed By:Kirit Loyd
--- NOTE | 2024-02-27 12:43 | RAD_ITS ---
STUDY: X-RAY CHEST REASON FOR EXAM: Female, 73 years old. Chest pain TECHNIQUE: Frontal view of the chest COMPARISON: 01/27/2024 FINDINGS: There is atelectasis at the lung bases. The lungs are otherwise clear. There are no pleural effusions. There is no pneumothorax. The heart is normal in size. The visualized osseous structures are within normal limits. RAD/Chest 1 View (Portable) IMPRESSION: No acute thoracic pathology. Electronically Signed: Clemente Ocasio MD at 14:12 EDT ,
[2024-02-27 13:06] LABS: Absolute Lymphocyte Count 0.91 X10^3/uL (0.83-4.51); Absolute Neutrophil Count 9.5 X10^3/uL (2.0-7.7); Basophil# 0.01 X10^3/uL; Basophil% 0.1 % (0-1); Eosinophil# 0.01 X10^3/uL; Eosinophils% 0.1 % (0-5); Hematocrit 43.9 % (37-47); Hemoglobin 14.1 g/dL (12.0-15.0); Lymphocyte # 0.91 X10^3/ul (0.83-4.51); Lymphocyte % 8.4 % (19-41); Mean Corp Hgb Conc 32.1 g/dL (32-36); Mean Corpuscular Hgb 28.8 pg (27.0-32.0); Mean Corpuscular Volume 89.8 fL (81-99); Mean Platelet Vol. 8.9 fl (6.2-12.0); Monocyte% 3.7 % (0-10); NRBC Flagged by Analyzer 0 % (0-5); Neutrophil # 9.49 X10^3/uL (2.7-7.7); Neutrophil % 87.4 % (47-70); POSITIVE COUNT YES; Platelet Count 178 K/mm3 (150-450); RBC Distribution Width SD 42.7 fl (35.1-43.9); Red Blood Count 4.89 M/mm3 (4.2-5.4); White Blood Count 10.9 K/mm3 (4.4-11.0)
[2024-02-27 13:13] LABS: Differential Indicated SCAN CRITERIA MET
[2024-02-27] MEDS: 0.9% Normal Saline (1000mL) 1,000 ML 1000 ML IV (13:31)
[2024-02-27 13:37] LABS: Differential Comment SCANNED
[2024-02-27 13:43] LABS: ALB/GLOB Ratio 0.9 RATIO (0.9-2.4); AST(SGOT) 29 U/L (15-37); Alanine Aminotransfer ALT/SGPT 48 U/L (13-56); Albumin, Serum 3.4 g/dL (3.2-5.0); Alkaline Phosphatase 112 U/L (45-117); Anion Gap 6 (5-15); BUN 25 mg/dL (7-18); BUN/Creat Ratio 28.1 RATIO (10-20); Calcium,Total 8.7 mg/dL (8.5-10.1); Chloride 109 mmol/L (98-107); Creatinine, Serum 0.89 mg/dL (0.55-1.02); EST Glomerular Filtration Rate 66 mL/min (>60); Est Glom Filt Rate - Afr Amer 80 mL/min (>60); Globulin 3.6 g/dL (2.2-4.2); Glucose 114 mg/dL (74-106); Sodium Level 140 mmol/L (136-145)
[2024-02-27 13:46] LABS: Lactic Acid 1.8 mmol/L (0.4-1.9)
[2024-02-27 14:43] LABS: Mucous, Urine 0 SEEN /hpf (<or=2+); Red Blood Cells-Urine 0 SEEN /hpf (0-5); Squamous Epithelial Cells - UA 0 SEEN /hpf (5-10); White Blood Cells 0 SEEN /hpf (0-5)
--- NOTE | 2024-02-27 14:43 | NURSING ---
Pt has XL BM. This RN cleaned pt up, pt repositioned in bed.
[2024-02-27 14:54] LABS: Color, Urine Yellow (Yellow); Glucose, Dipstick Normal (Normal); Ketone-Dipstick 5 mg/dl (Negative); Leukocyte Esterase-Dipstick Negative /ul (Negative); Nitrite-Dipstick Negative (Negative); Occult Blood-Urine Negative /ul (Negative); Protein-Dipstick 15 mg/dl (Negative); Urine Bilirubin Dipstick Negative (Negative); Urine Clarity Clear (Clear); Urine Urobilinogen Normal (Normal)
--- NOTE | 2024-02-27 15:02 | EX.ED.DYSGE1 ---
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 Patient presents via EMS from [facility] with reported full body seizure. He states that it happened twice within the last 24 hours, once yesterday, and once this morning. Patient states that she had history of seizures remotely. Unknown if she is on any medication currently. She denies any headache. No other symptoms. [facility] Medical History Falls frequently Osteoporosis Scoliosis Kyphosis Hydrocephalus Mild intellectual disability Hypoxia Wears glasses Rash Constipation Gastric reflux Non-smoker Shortness of breath on exertion Hypertension Home Medications ?Medication ?Instructions ?Recorded ?Last Taken ?Type polyethylene glycol 3350 17 gram 17 g PO DAILY PRN Constipation 05/29/21 01/31/23 History oral powder packet (Miralax) lisinopril 10 mg tablet 10 mg PO DAILY bp 12/30/21 01/26/24 History sennosides 8.6 mg-docusate sodium 2 tab PO BID PRN Constipation 12/30/21 01/31/23 History 50 mg tablet (Stool Softener-Stimulant Laxative) cholecalciferol (vitamin D3) 50 50 mcg PO DAILY 11/10/22 01/26/24 History mcg (2,000 unit) capsule nystatin 100,000 unit/gram topical 1 applic topical BID PRN skin 11/10/22 01/26/24 [place] powder [place] [place] ropinirole 0.25 mg tablet 0.25 mg PO QHS RESTLESS LEG 02/01/23 01/26/24 History omeprazole 20 mg capsule,delayed 40 mg (2 x 20 mg) PO DAILY 30 days 02/04/23 01/26/24 Rx release #0 caps sertraline 25 mg tablet 25 mg PO DAILY depression 04/18/23 01/26/24 History aspirin 81 mg chewable tablet 81 mg PO BREAKFAST #30 tabs 04/19/23 01/26/24 Rx acetaminophen 325 mg tablet 650 mg PO Q6H PRN pain 10/07/23 01/26/24 History bisacodyl 10 mg rectal suppository 10 mg NV QHS PRN constipation 10/07/23 Unknown History diclofenac sodium 1 % topical gel 2 g topical Q4H PRN KNEE PAIN 10/07/23 Unknown History ipratropium 0.5 mg-albuterol 3 mg 3 ml inhalation Q6H PRN shortness 10/07/23 Unknown History (2.5 mg base)/3 mL nebulization of breath or wheezing soln loperamide 2 mg capsule 2 mg PO Q4H PRN loose stool 10/07/23 Unknown History magnesium hydroxide 400 mg/5 mL 30 ml PO DAILY PRN constipation 10/07/23 Unknown History oral suspension (Milk of Magnesia) menthol 5 % topical gel (Biofreeze 1 ea topical Q4H PRN muscle pain 10/07/23 Unknown History (menthol)) mineral oil (Fleet Mineral Oil 118 ml NV DAILY PRN constipation 10/07/23 Unknown History enema) Allergy/AdvReac Type Severity Reaction Status Date / Time erythromycin base Allergy Mild Rash Verified 02/27/24 12:10 Penicillins Allergy Unknown Rash Verified 02/27/24 12:10 Family History Other Hypertension Surgical History History of total right knee replacement Hx of tracheostomy History of toe surgery Social History household members: none Smoking Status: Never smoker alcohol intake: never substance use type: does not use ROS ROS ED ROS Narrative Limited secondary to intellectual disability, also discussed with sister who is at the bedside. Focused review of systems is positive for reported seizure, but no loss of bowel or bladder. Patient complains of right leg pain as well, but no headache, no neck pain. EXAM Physical Exam Narrative Exam Narrative: Afebrile. Vital signs noted. Regular rate and rhythm. Lungs clear to auscultation bilaterally. Abdomen soft nontender with normoactive bowel sounds. No guarding or rebound. Neurological examination shows her to be awake, alert, and at her baseline. She is oriented to person and place. Nonfocal, nonlateralizing, moves all extremities. Const Vital Signs: 02/27/24 12:10 02/27/24 14:08 02/27/24 15:40 Temperature 97.6 F L 97.1 F L Temperature Source Temporal Pulse Rate 83 82 76 Respiratory Rate 16 20 H 20 H Blood Pressure 118/69 120/68 133/93 H Blood Pressure Mean 85 85 106 Pulse Ox 85 95 93 Oxygen Delivery Method Room Air Nasal Cannula MDM MDM MDM Narrative Medical decision making narrative: Seizure precautions were instilled. In the differential diagnosis is tonic-clonic seizure. In discussion with her sister, they state that she had seizures as a child from a head injury until she was at least in her 20s, but stopped having them. CT of the brain was obtained to rule out intracranial hemorrhage or mass. I reviewed the radiology report which shows no evidence of acute process. I reviewed her laboratory work and she has a normal white count of 10.9, hemoglobin normal at 14.1, hematocrit 43.9, platelet count normal at 178. Sodium is normal at 140, potassium normal at 4.0 with chloride slightly elevated at 109 which I think is nonspecific. Her glucose is elevated at 114 with a normal anion gap of 6, BUN elevated at 25 with creatinine normal at 0.89. LFTs are grossly unremarkable. I did obtain a lactic acid which is normal at 1.8. Chest x-ray in 1 view interpreted by myself independently shows no evidence of pneumothorax or pneumonia. I reviewed the radiology report which confirms my independent interpretation. I reviewed the patient's prior records and she was here a few weeks ago, with concern for stroke. While there was no evidence of acute stroke at that time according to her sister, there were areas where she had previous strokes reportedly. I am unsure as to if she actually did have a seizure 2 times. I did review her urinalysis as well and there are 0 white cells and 0 RBCs. I do not feel antibiotics are indicated. Her sister relates history that [employer] wanted to speak with the patient at [facility] over the telephone. They were telling her that she needed payment and that she was not covered and reportedly was going to be expelled from the senior care facility. She thinks that maybe the patient worked up which might of caused her seizure. Patient will be discussed with the hospitalist for observation. History & Record Review Discussion w/independent historian: Patient and Family Additional record(s) reviewed:: Prior labs Lab Data Attestation: I reviewed the patient's lab results. Labs: Laboratory Results - last 24 hr 02/27/24 02/27/24 13:00 14:37 WBC 10.9 RBC 4.89 Hgb 14.1 Hct 43.9 MCV 89.8 MCH 28.8 MCHC 32.1 RDW Std Deviation 42.7 RDW Coeff of Marcus 13.0 Plt Count 178 MPV 8.9 Immature Gran % (Auto) 0.300 Neut % (Auto) 87.4 H Lymph % (Auto) 8.4 L [place] % (Auto) 3.7 Eos % (Auto) 0.1 Baso % (Auto) 0.1 Absolute Neuts (auto) 9.5 H Absolute Lymphs (auto) 0.91 Nucleated RBC % 0 Differential Comment SCANNED Sodium 140 Potassium 4.0 Chloride 109 H Carbon Dioxide 25.0 Anion Gap 6 BUN 25 H Creatinine 0.89 Est GFR (MDRD) Af Amer 80 Est GFR (MDRD) Non-Af 66 BUN/Creatinine Ratio 28.1 H Glucose 114 H Lactic Acid 1.8 Calcium 8.7 Total Bilirubin 0.50 AST 29 ALT 48 Alkaline Phosphatase 112 Total Protein 7.0 Albumin 3.4 Globulin 3.6 Albumin/Globulin Ratio 0.9 Urine Color Yellow Urine Clarity Clear Urine pH 6.0 Ur Specific [place] 1.020 Urine Protein 15 H Urine Glucose (UA) Normal Urine Ketones 5 H Urine Occult Blood Negative Urine Nitrite Negative Urine Bilirubin Negative Urine Urobilinogen Normal Ur Leukocyte Esterase Negative Urine RBC 0 SEEN Urine WBC 0 SEEN Ur Squamous Epith Cells 0 SEEN Urine Bacteria 2+ Hyaline Casts 0-5 SEEN Urine Mucus 0 SEEN Radiography Diagnostic Testing: Clinical Impression(s) from Imaging Studies Brain CT 02/27/24 12:43 IMPRESSION: Chronic involutional changes of the brain, no acute hemorrhage. Electronically Signed: Roney Colby MD at 14:26 EDT , Chest X-Ray 02/27/24 12:43 IMPRESSION: No acute thoracic pathology. Electronically Signed: Clemente Ocasio MD at 14:12 EDT , Management Discussion w/another healthcare provider: Hospitalist (Dr. Liliana Diaz) Discharge Plan Triage Chief Complaint: Seizure ED Provider: Errol Stewart Dx/Rx/DC Orders Clinical Impression: Seizures Prescriptions: No Action polyethylene glycol 3350 [Miralax] 17 gram Powder In Packet 17 g PO DAILY PRN (Reason: Constipation) sennosides-docusate sodium [Stool Softener-Stimulant Laxat] 8.6-50 mg tablet 2 tab PO BID PRN (Reason: Constipation) lisinopril 10 mg tablet 10 mg PO DAILY nystatin [Nyamyc] 100,000 unit/gram powder 1 applic TOPICAL BID PRN (Reason: skin irritation) Rx Instructions: USE UNDER BREASTS AND GROIN AREA cholecalciferol (vitamin D3) 50 mcg (2,000 unit) Capsule 50 mcg PO DAILY sertraline 25 mg tablet 25 mg PO DAILY aspirin 81 mg Tablet,Chewable 81 mg PO BREAKFAST Qty: 30 2RF Rx Instructions: Discontinue if platelet count drops less than 50,000 or hemoglobin less than 8 g% ropinirole 0.25 mg tablet 0.25 mg PO QHS omeprazole 20 mg capsule,delayed release(DR/EC) 40 mg PO DAILY 30 Days Qty: 0 0RF acetaminophen 325 mg tablet 650 mg PO Q6H PRN (Reason: pain) bisacodyl 10 mg suppository 10 mg NV QHS PRN (Reason: constipation) Rx Instructions: ADMINISTER IF NO BM 8 HOURS AFTER MOM ADMINISTRATION. mineral oil [Fleet Mineral Oil] Enema 118 ml NV DAILY PRN (Reason: constipation) Rx Instructions: ADMINISTER IF NO BM 8 HOURS AFTER RECEIVING SUPPOSITORY. IF NO BM WITHIN 1 HOUR OF ENEMA, NOTIFY MD. loperamide 2 mg capsule 2 mg PO Q4H PRN (Reason: loose stool) Biofreeze (menthol) 5 % gel 1 ea topical Q4H PRN (Reason: muscle pain) magnesium hydroxide [Milk of Magnesia] 400 mg/5 mL suspension 30 ml PO DAILY PRN (Reason: constipation) Rx Instructions: ADMINISTER ONCE DAILY IF NO BM IN 3 DAYS diclofenac sodium 1 % gel 2 g topical Q4H PRN (Reason: KNEE PAIN) ipratropium-albuterol 0.5 mg-3 mg(2.5 mg base)/3 mL Solution For Nebulization 3 ml inhalation Q6H PRN (Reason: shortness of breath or wheezing) Primary Care Provider: Nasir Szymanski Referrals: Nasir Szymanski MD [Primary Care Provider] - Print Language: Indonesian
[2024-02-27 15:11] LABS: Bacteria 2+ /hpf (None Seen)
[2024-02-27 15:12] LABS: Hyaline Cast 0-5 SEEN /lpf (0-5)
[2024-02-27] MEDS: Mag /Aluminum/Simeth WCH UDC 30 ML ORAL.SUSP PO (15:17)
[2024-02-27] MEDS: Lidocaine 2% Viscous15 ML UDC 15 ML PO (15:17)
--- NOTE | 2024-02-27 16:05 | NURSING ---
PCU OBS CARPENTER SEIZURES
--- NOTE | 2024-02-27 16:14 | NURSING ---
PCU OBS CARPENTER SEIZURES
--- NOTE | 2024-02-27 16:26 | PCM.HP.STD ---
HPI - General General Date of Admission: 02/27/24 Date of Service: 02/27/24 Chief Complaint: Concern for multiple seizures HPI Narrative TEVIN MILLAN, is a 73 F history of seizures before age 20, GERD, intellectual disability, hypertension, depression, restless legs presented to [facility] ED 03/25/2024 from nursing facility due to concern for seizures. In ED patient reportedly back to baseline and workup no acute process. Hospitalist contacted for observation due to report of multiple seizures in the past 24 hours. History per ED physician as the present family members at bedside did not know specifics of what led up to patient presenting to the ED and no other family at bedside available for collateral. Reportedly patient had full body seizure yesterday and once this morning. Had seizures in childhood but had not had any after the age of 20. Her sister had endorsed that patient was stressed yesterday and she was concerned that that may have caused her seizure. Patient at bedside somewhat poor historian, reports some intermittent right foot pain that is chronic and denies any other complaints, unable to endorse what happened leading up to presentation either. [facility] Medical History Falls frequently Osteoporosis Scoliosis Kyphosis Hydrocephalus Mild intellectual disability Hypoxia Wears glasses Rash Constipation Gastric reflux Non-smoker Shortness of breath on exertion Hypertension Home Medications ?Medication ?Instructions ?Recorded ?Last Taken ?Type polyethylene glycol 3350 17 gram 17 g PO DAILY PRN Constipation 05/29/21 01/31/23 History oral powder packet (Miralax) lisinopril 10 mg tablet 10 mg PO DAILY bp 12/30/21 01/26/24 History sennosides 8.6 mg-docusate sodium 2 tab PO BID PRN Constipation 12/30/21 01/31/23 History 50 mg tablet (Stool Softener-Stimulant Laxative) cholecalciferol (vitamin D3) 50 50 mcg PO DAILY 11/10/22 01/26/24 History mcg (2,000 unit) capsule nystatin 100,000 unit/gram topical 1 applic topical BID PRN skin 11/10/22 01/26/24 History powder (Nyamyc) irritation ropinirole 0.25 mg tablet 0.25 mg PO QHS RESTLESS LEG 02/01/23 01/26/24 History omeprazole 20 mg capsule,delayed 40 mg (2 x 20 mg) PO DAILY 30 days 02/04/23 01/26/24 Rx release #0 caps sertraline 25 mg tablet 25 mg PO DAILY depression 04/18/23 01/26/24 History aspirin 81 mg chewable tablet 81 mg PO BREAKFAST #30 tabs 04/19/23 01/26/24 Rx acetaminophen 325 mg tablet 650 mg PO Q6H PRN pain 10/07/23 01/26/24 History bisacodyl 10 mg rectal suppository 10 mg MI QHS PRN constipation 10/07/23 Unknown History diclofenac sodium 1 % topical gel 2 g topical Q4H PRN KNEE PAIN 10/07/23 Unknown History ipratropium 0.5 mg-albuterol 3 mg 3 ml inhalation Q6H PRN shortness 10/07/23 Unknown History (2.5 mg base)/3 mL nebulization of breath or wheezing soln loperamide 2 mg capsule 2 mg PO Q4H PRN loose stool 10/07/23 Unknown History magnesium hydroxide 400 mg/5 mL 30 ml PO DAILY PRN constipation 10/07/23 Unknown History oral suspension (Milk of Magnesia) menthol 5 % topical gel (Biofreeze 1 ea topical Q4H PRN muscle pain 10/07/23 Unknown History (menthol)) mineral oil (Fleet Mineral Oil 118 ml MI DAILY PRN constipation 10/07/23 Unknown History enema) Allergy/AdvReac Type Severity Reaction Status Date / Time erythromycin base Allergy Mild Rash Verified 02/27/24 12:10 Penicillins Allergy Unknown Rash Verified 02/27/24 12:10 Family History Other Hypertension Surgical History History of total right knee replacement Hx of tracheostomy History of toe surgery Social History household members: none Smoking Status: Never smoker alcohol intake: never substance use type: does not use ROS ROS Narrative General: Denies fever/chills HENT: Denies headache, denies stuffy nose, denies sore throat EYES: Denies changes in vision Resp: Denies cough, denies shortness of breath Cardiac: Denies chest pain but does report she currently has some heartburn pain GI: Denies abdominal pain, denies changes in bowel, denies nausea/vomiting : Denies changes in urination Extremity: Denies swelling MSK: Denies weakness, intermittently gets some pain in her right foot Neuro: Denies any numbness/tingling Heme: Denies any bleeding or bruising Skin: Denies rashes Psychiatric: No complaints voiced Vital Signs Vital Signs Vital Signs: 02/27/24 12:10 02/27/24 14:08 02/27/24 15:40 Temperature 97.6 F L 97.1 F L Temperature Source Temporal Pulse Rate 83 82 76 Respiratory Rate 16 20 H 20 H Blood Pressure 118/69 120/68 133/93 H Blood Pressure Mean 85 85 106 Pulse Ox 85 95 93 Oxygen Delivery Method Room Air Nasal Cannula 02/27/24 16:00 Temperature Temperature Source Pulse Rate 79 Respiratory Rate 19 H Blood Pressure 128/96 H Blood Pressure Mean 106 Pulse Ox 92 Oxygen Delivery Method Room Air Physical Exam Narrative General: Alert, no apparent distress HEENT: Atraumatic, normocephalic Eyes: Anicteric, normal conjunctiva, extraocular movements grossly intact Neck: Supple Respiratory: Clear to auscultation bilaterally, normal respiratory effort Cardiovascular: Regular rate and rhythm GI: Soft, nontender, nondistended Extremities: No edema Musculoskeletal: Moving all extremities Neuro: No overt focal neurological deficits Skin: No rashes appreciated Psych: Cooperative Results Lab / Micro Data 02/27/24 13:00 02/27/24 13:00 Labs: Laboratory Results - last 24 hr 02/27/24 13:00: WBC 10.9, RBC 4.89, Hgb 14.1, Hct 43.9, MCV 89.8, MCH 28.8, MCHC 32.1, RDW Std Deviation 42.7, RDW Coeff of Marcus 13.0, Plt Count 178, MPV 8.9, Immature Gran % (Auto) 0.300, Neut % (Auto) 87.4 H, Lymph % (Auto) 8.4 L, [place] % (Auto) 3.7, Eos % (Auto) 0.1, Baso % (Auto) 0.1, Absolute Neuts (auto) 9.5 H, Absolute Lymphs (auto) 0.91, Nucleated RBC % 0, Differential Comment SCANNED, Sodium 140, Potassium 4.0, Chloride 109 H, Carbon Dioxide 25.0, Anion Gap 6, BUN 25 H, Creatinine 0.89, Est GFR (MDRD) Af Amer 80, Est GFR (MDRD) Non-Af 66, BUN/Creatinine Ratio 28.1 H, Glucose 114 H, Lactic Acid 1.8, Calcium 8.7, Total Bilirubin 0.50, AST 29, ALT 48, Alkaline Phosphatase 112, Total Protein 7.0, Albumin 3.4, Globulin 3.6, Albumin/Globulin Ratio 0.9 02/27/24 14:37: Urine Color Yellow, Urine Clarity Clear, Urine pH 6.0, Ur Specific [place] 1.020, Urine Protein 15 H, Urine Glucose (UA) Normal, Urine Ketones 5 H, Urine Occult Blood Negative, Urine Nitrite Negative, Urine Bilirubin Negative, Urine Urobilinogen Normal, Ur Leukocyte Esterase Negative, Urine RBC 0 SEEN, Urine WBC 0 SEEN, Ur Squamous Epith Cells 0 SEEN, Urine Bacteria 2+, Hyaline Casts 0-5 SEEN, Urine Mucus 0 SEEN Imaging Radiology Impression Brain CT 02/27/24 12:43 IMPRESSION: Chronic involutional changes of the brain, no acute hemorrhage. Electronically Signed: Roney Colby MD at 14:26 EDT , Chest X-Ray 02/27/24 12:43 IMPRESSION: No acute thoracic pathology. Electronically Signed: Clemente Ocasio MD at 14:12 EDT , Assessment & Plan Assessment/Plan (1) Seizures: (2) Intellectual disability: (3) Hypertension: (4) GERD (gastroesophageal reflux disease): QUALIFIERS: Esophagitis presence: esophagitis presence not specified Qualified Code(s): K21.9 - Gastro-esophageal reflux disease without esophagitis PLAN: Plan #Concern for multiple seizures -Reportedly patient had 2 full body seizures and was postictal for period of time -No family or staff at bedside that are able to describe this further -Given report of these multiple seizures with postictal period and normal CT will start on Keppra 500 twice daily -EEG -Teleneurology consult -Seizure precautions #HTN -Continue lisinopril #Depression -On sertraline #GERD -Continue PPI -Take a GI cocktail in ED due to some heartburn #Documented low O2 on arrival -ED documentation indicates 85% on arrival however pt not having any resp complaints or hypoxia on my exam and she did not recieve any tx or nebs, query if this was accurate SpO2 -Does use inhalers prn at home, prn alb ordered here -CXR w/in normal limits -If any further concerns will broaded workup #DVT ppx: SCDs Liliana Diaz MD Charges/Coding Visit Charges Inpatient E&M: 26391 Init Hosp L1
[2024-02-27] MEDS: levETIRAcetam IV 500 MG in 0.9% Normal Saline (100mL Bag) 100 ML 420 MG IV (18:11)
--- NOTE | 2024-02-27 19:50 | NURSING ---
Patient is a poor historian this RN called and spoke to sister Carmen about patient complaining of not being able to move legs? RN told sister looked like patient could have questionable footdrop to right foot and that leg does seem to be weaker and if this was new? Evy told RN that this is not new and the patient has not been able to walk well for probably a year an a half now. She stated the weakness in the right leg is not new for the patient.
[2024-02-27] MEDS: Pramipexole Di-HCl 0.125 MG Tablet PO (20:05)
[2024-02-28 04:20] VITALS: BP 100/50; PULSE 64; RESP 18; TEMP 36.6; O2SAT 96
[2024-02-28] MEDS: Acetaminophen 325 MG Tablet 650 MG PO (04:25)
[2024-02-28 05:37] LABS: Absolute Lymphocyte Count 1.91 X10^3/uL (0.83-4.51); Absolute Neutrophil Count 5.2 X10^3/uL (2.0-7.7); Basophil# 0.03 X10^3/uL; Basophil% 0.4 % (0-1); Eosinophil# 0.09 X10^3/uL; Eosinophils% 1.1 % (0-5); Hematocrit 36.7 % (37-47); Hemoglobin 11.8 g/dL (12.0-15.0); Lymphocyte # 1.91 X10^3/ul (0.83-4.51); Mean Corp Hgb Conc 32.2 g/dL (32-36); Mean Corpuscular Hgb 29.4 pg (27.0-32.0); Mean Corpuscular Volume 91.3 fL (81-99); Monocyte# 0.68 X10^3/uL; Monocyte% 8.5 % (0-10); NRBC Flagged by Analyzer 0 % (0-5); Neutrophil # 5.21 X10^3/uL (2.7-7.7); Neutrophil % 65.5 % (47-70); Platelet Count 188 K/mm3 (150-450); RBC Distribution Width CV 13.2 % (11.6-14.6); RBC Distribution Width SD 44.2 fl (35.1-43.9); Red Blood Count 4.02 M/mm3 (4.2-5.4)
[2024-02-28 06:09] LABS: ALB/GLOB Ratio 0.9 RATIO (0.9-2.4); AST(SGOT) 23 U/L (15-37); Alanine Aminotransfer ALT/SGPT 33 U/L (13-56); Albumin, Serum 2.9 g/dL (3.2-5.0); Alkaline Phosphatase 89 U/L (45-117); Anion Gap 5 (5-15); BUN 22 mg/dL (7-18); BUN/Creat Ratio 30.3 RATIO (10-20); Calcium,Total 8.5 mg/dL (8.5-10.1); Chloride 112 mmol/L (98-107); Creatinine, Serum 0.73 mg/dL (0.55-1.02); EST Glomerular Filtration Rate 83 mL/min (>60); Est Glom Filt Rate - Afr Amer 101 mL/min (>60); Estimated Creatinine Clearance 73.07 ml/min; Globulin 3.1 g/dL (2.2-4.2); Glucose 97 mg/dL (74-106); Magnesium 1.8 mg/dL (1.6-2.6); Potassium 3.1 mmol/L (3.5-5.1); Sodium Level 143 mmol/L (136-145)
[2024-02-28 09:49] VITALS: BP 129/61; PULSE 76; RESP 16; TEMP 36.8; O2SAT 96
[2024-02-28] MEDS: Aspirin 81 MG TAB.CHEW PO (09:51)
[2024-02-28] MEDS: Lisinopril 10 MG Tablet PO (09:52)
[2024-02-28] MEDS: Pantoprazole Sodium 40 MG Tablet PO (09:52)
[2024-02-28] MEDS: Sertraline 50 MG Tablet 25 MG PO (09:52)
[2024-02-28] MEDS: levETIRAcetam IV 500 MG in 0.9% Normal Saline (100mL Bag) 100 ML 420 MG IV ×2 (09:54→21:09)
--- NOTE | 2024-02-28 10:35 | PN.HOSP_ITS ---
Reason for Visit Reason for Visit: Diagnoses Unspecified intellectual disabilities (02/27/24) Essential (primary) hypertension (02/27/24) Gastro-esophageal reflux disease without esophagitis (02/27/24) Unspecified convulsions (02/27/24) Objective Data Objective Data Vital Signs: Vital Signs Temp Pulse Resp BP Pulse Ox O2 Del Method O2 Flow Rate 98.3 F 76 16 129/61 H 96 Nasal Cannula 2 02/28/24 09:49 02/28/24 09:49 02/28/24 09:49 02/28/24 09:49 02/28/24 09:49 02/28/24 09:49 02/28/24 09:49 FiO2 89 02/27/24 20:00 Oxygen Flow Rate (L/min) 2 Oxygen Delivery Method Nasal Cannula Weight: 196 lb Body Mass Index (BMI) 29.7 Intake & Output: Intake and Output for Last 24 Hours 02/26/24 02/27/24 02/28/24 23:59 23:59 23:59 Intake Total 1345 / 1585 345 / 345 Output Total 100 / 250 450 / 450 Balance 1245 / 1335 -105 / -105 Lab / Micro Data 02/28/24 04:17 02/28/24 04:17 Labs: Laboratory Results - last 24 hr 02/27/24 13:00: WBC 10.9, RBC 4.89, Hgb 14.1, Hct 43.9, MCV 89.8, MCH 28.8, MCHC 32.1, RDW Std Deviation 42.7, RDW Coeff of Marcus 13.0, Plt Count 178, MPV 8.9, Immature Gran % (Auto) 0.300, Neut % (Auto) 87.4 H, Lymph % (Auto) 8.4 L, [place] % (Auto) 3.7, Eos % (Auto) 0.1, Baso % (Auto) 0.1, Absolute Neuts (auto) 9.5 H, Absolute Lymphs (auto) 0.91, Nucleated RBC % 0, Differential Comment SCANNED, Sodium 140, Potassium 4.0, Chloride 109 H, Carbon Dioxide 25.0, Anion Gap 6, BUN 25 H, Creatinine 0.89, Est GFR (MDRD) Af Amer 80, Est GFR (MDRD) Non-Af 66, B UN/Creatinine Ratio 28.1 H, Glucose 114 H, Lactic Acid 1.8, Calcium 8.7, Total Bilirubin 0.50, AST 29, ALT 48, Alkaline Phosphatase 112, Total Protein 7.0, Albumin 3.4, Globulin 3.6, Albumin/Globulin Ratio 0.9 02/27/24 14:37: Urine Color Yellow, Urine Clarity Clear, Urine pH 6.0, Ur Specific [place] 1.020, Urine Protein 15 H, Urine Glucose (UA) Normal, Urine Ketones 5 H, Urine Occult Blood Negative, Urine Nitrite Negative, Urine Bilirubin Negative, Urine Urobilinogen Normal, Ur Leukocyte Esterase Negative, Urine RBC 0 SEEN, Urine WBC 0 SEEN, Ur Squamous Epith Cells 0 SEEN, Urine Bacteria 2+, Hyaline Casts 0-5 SEEN, Urine Mucus 0 SEEN 02/28/24 04:17: WBC 8.0, RBC 4.02 L, Hgb 11.8 L, Hct 36.7 L, MCV 91.3, MCH 29.4, MCHC 32.2, RDW Std Deviation 44.2 H, RDW Coeff of Marcus 13.2, Plt Count 188, MPV 9.0, Immature Gran % (Auto) 0.500, Neut % (Auto) 65.5, Lymph % (Auto) 24.0, [place] % (Auto) 8.5, Eos % (Auto) 1.1, Baso % (Auto) 0.4, Absolute Neuts (auto) 5.2, Absolute Lymphs (auto) 1.91, Nucleated RBC % 0, Sodium 143, Potassium 3.1 L, C hloride 112 H, Carbon Dioxide 26.0, Anion Gap 5, BUN 22 H, Creatinine 0.73, Estim Creat Clear Calc 73.07, Est GFR (MDRD) Af Amer 101, Est GFR (MDRD) Non-Af 83, BUN/Creatinine Ratio 30.3 H, Glucose 97, Calcium 8.5, Magnesium 1.8, Total Bilirubin 0.50, AST 23, ALT 33, Alkaline Phosphatase 89, Total Protein 6.0 L, A lbumin 2.9 L, Globulin 3.1, Albumin/Globulin Ratio 0.9 Radiography Diagnostic Testing: Radiology Impression Brain CT 02/27/24 12:43 IMPRESSION: Chronic involutional changes of the brain, no acute hemorrhage. Electronically Signed: Roney Colby MD at 14:26 EDT , Chest X-Ray 02/27/24 12:43 IMPRESSION: No acute thoracic pathology. Electronically Signed: Clemente Ocasio MD at 14:12 EDT , Physical Exam Narrative Seen and examined No fever. Patient could not give history because of intellectual disability. For every question ceases yes/ yeah Physical exam General: Alert, Oriented x3, Cooperative HEENT: Atraumatic, PERRLA, EOMI, Normocephalic Oral: No Gingival or Mucosal Lesions/ Ulcerations Neck: Supple, No JVD, Negative Carotid Bruits Chest wall/Lungs: Air entry diminished in bilateral lung bases. No crepitation/rhonchi Cardiovascular: Regular rate, Regular Rhythm, Normal S1, Normal S2, No M/G/R Abdomen: Bowel Sounds Present, Soft, Non Tender, Non-Distended : No dysuria. No renal angle tenderness. No suprapubic tenderness. Extremities: No edema, Capillary Refill Less than 3 Seconds Skin: No rashes, No breakdown Musculoskeletal: No Tenderness to Palpation of Joints or Extremities Neurological: Cranial nerves II-XII grossly intact, DTR 2+/4. Repeatedly words. Chronic Psych/Mental Status: intellectual disability.mild Assessment & Plan Assessment/Plan (1) Seizures: (2) Intellectual disability: (3) Hypertension: (4) GERD (gastroesophageal reflux disease): QUALIFIERS: Esophagitis presence: esophagitis presence not specified Qualified Code(s): K21.9 - Gastro-esophageal reflux disease without esophagitis PLAN: Plan 73-year-old female admitted from [facility] with reported full body seizure, hypertension twice in the last 24 hours. Patient has mild intellectual disability. Remote history of seizure. Not on antiepileptic medication. #Concern for multiple seizures -Reportedly patient had 2 full body seizures and was postictal for period of time -No family or staff at bedside . Patient lives in retirement. -Given report of these multiple seizures with postictal period and normal CT, on Keppra 500 twice daily -EEG pending. -Teleneurology consult -Seizure precautions #HTN -Continue lisinopril #Depression -On sertraline #GERD -Continue PPI GI cocktail in ED due to some heartburn #Documented low O2 on arrival -ED documentation indicates 85% on arrival however pt not having any resp complaints or hypoxia on my exam and she did not recieve any tx or nebs, query if this was accurate SpO2 -Does use inhalers prn at home, prn alb ordered here -CXR w/in normal limits Pulse ox 96% on 2 L of oxygen #DVT ppx: SCDs Charges/Coding Visit Charges Inpatient E&M: 85446 Subs Hosp L2
--- NOTE | 2024-02-28 11:23 | NEURO.CONS ---
Assessment and Plan: Neuro Assessment/Plan TEVIN MILLAN is a 73 F with a past medical history of seizures, intellectual disability, RLS, being evaluated by Teleneurology for seizure activity. Based on history, unclear if event is truly a sz however will operate under assumtion it is. She has not had sz since she was 20 and many pts do grow out of sz. Her imaging however has severe parietal atrophy b/l consistent with some cognitive conditions which is a common cause of new onset sz in the elderly. Recommend EEG and MRI to further evaluate but inclined to start AED for this patient. Final recs after testing. Plan: - final recs pending MRI Brain and EEG - seizure precautions in the hospital - will attempt to get more history from the long term. I personally attended this patient and spent a total time of 30 minutes evaluating this patient including clinical assessment, review of chart, medical history imaging, and determining appropriate treatment and workup. HPI Consult Data Date of Consult: 02/28/24 HPI Narrative HPI Narrative: TEVIN MILLAN, is a 73 F history of seizures before age 20, GERD, intellectual disability, hypertension, depression, restless legs presented to [facility] ED 03/25/2024 from nursing facility due to concern for seizures. In ED patient reportedly back to baseline and workup no acute process. Hospitalist contacted for observation due to report of multiple seizures in the past 24 hours. History per ED physician as the present family members at bedside did not know specifics of what led up to patient presenting to the ED and no other family at bedside available for collateral. Reportedly patient had full body seizure yesterday and once this morning. Had seizures in childhood but had not had any after the age of 20. Her sister had endorsed that patient was stressed yesterday and she was concerned that that may have caused her seizure. Patient at bedside somewhat poor historian, reports some intermittent right foot pain that is chronic and denies any other complaints, unable to endorse what happened leading up to presentation either. Had seizure when she was a little girl. Never had seizures as an adult. Pt lives at [facility]. persistent weakness in the R leg which may be normal for her but nothing abnormal on exam. Pt difficulty contributin to her own history [facility] Medical History Falls frequently Osteoporosis Scoliosis Kyphosis Hydrocephalus Mild intellectual disability Hypoxia Wears glasses Rash Constipation Gastric reflux Non-smoker Shortness of breath on exertion Hypertension Home Medications ?Medication ?Instructions ?Recorded ?Last Taken ?Type polyethylene glycol 3350 17 gram 17 g PO DAILY PRN Constipation 05/29/21 01/31/23 History oral powder packet (Miralax) lisinopril 10 mg tablet 10 mg PO DAILY bp 12/30/21 01/26/24 History sennosides 8.6 mg-docusate sodium 2 tab PO BID PRN Constipation 12/30/21 01/31/23 History 50 mg tablet (Stool Softener-Stimulant Laxative) cholecalciferol (vitamin D3) 50 50 mcg PO DAILY 11/10/22 01/26/24 History mcg (2,000 unit) capsule nystatin 100,000 unit/gram topical 1 applic topical BID PRN skin 11/10/22 01/26/24 History powder ([facility]) irritation ropinirole 0.25 mg tablet 0.25 mg PO QHS RESTLESS LEG 02/01/23 01/26/24 History omeprazole 20 mg capsule,delayed 40 mg (2 x 20 mg) PO DAILY 30 days 02/04/23 01/26/24 Rx release #0 caps sertraline 25 mg tablet 25 mg PO DAILY depression 04/18/23 01/26/24 History aspirin 81 mg chewable tablet 81 mg PO BREAKFAST #30 tabs 04/19/23 01/26/24 Rx acetaminophen 325 mg tablet 650 mg PO Q6H PRN pain 10/07/23 01/26/24 History bisacodyl 10 mg rectal suppository 10 mg ID QHS PRN constipation 10/07/23 Unknown History diclofenac sodium 1 % topical gel 2 g topical Q4H PRN KNEE PAIN 10/07/23 Unknown History ipratropium 0.5 mg-albuterol 3 mg 3 ml inhalation Q6H PRN shortness 10/07/23 Unknown History (2.5 mg base)/3 mL nebulization of breath or wheezing soln loperamide 2 mg capsule 2 mg PO Q4H PRN loose stool 10/07/23 Unknown History magnesium hydroxide 400 mg/5 mL 30 ml PO DAILY PRN constipation 10/07/23 Unknown History oral suspension (Milk of Magnesia) menthol 5 % topical gel (Biofreeze 1 ea topical Q4H PRN muscle pain 10/07/23 Unknown History (menthol)) mineral oil (Fleet Mineral Oil 118 ml ID DAILY PRN constipation 10/07/23 Unknown History enema) Allergy/AdvReac Type Severity Reaction Status Date / Time erythromycin base Allergy Mild Rash Verified 02/27/24 12:10 Penicillins Allergy Unknown Rash Verified 02/27/24 12:10 Family History Other Hypertension Surgical History History of total right knee replacement Hx of tracheostomy History of toe surgery Social History household members: none Smoking Status: Never smoker alcohol intake: never substance use type: does not use Vital Signs Vital Signs Vital Signs: 02/27/24 12:10 02/27/24 14:08 02/27/24 15:40 Temperature 97.6 F L 97.1 F L Temperature Source Temporal Pulse Rate 83 82 76 Respiratory Rate 16 20 H 20 H Respiratory Effort Respiratory Depth Respiratory Pattern Blood Pressure 118/69 120/68 133/93 H Blood Pressure Mean 85 85 106 Blood Pressure Source Blood Pressure Position Blood Pressure Location Pulse Ox 85 95 93 Oxygen Delivery Method Room Air Nasal Cannula Oxygen Flow Rate (L/min) Fraction of Inspired Oxygen (FIO2) 02/27/24 16:00 02/27/24 17:25 02/27/24 20:00 Temperature 98.4 F Temperature Source Oral Pulse Rate 79 73 Respiratory Rate 19 H 16 Respiratory Effort Respiratory Depth Respiratory Pattern Blood Pressure 128/96 H 112/88 H Blood Pressure Mean 106 96 Blood Pressure Source Monitor Blood Pressure Position Semi-Fowlers Blood Pressure Location Right Arm Pulse Ox 92 97 Oxygen Delivery Method Room Air Room Air Room Air Oxygen Flow Rate (L/min) Fraction of Inspired Oxygen (FIO2) 89 02/27/24 20:45 02/27/24 20:45 02/27/24 22:45 Temperature 99.6 F H 98.4 F Temperature Source Temporal Temporal Pulse Rate 99 77 Respiratory Rate 18 18 Respiratory Effort Normal Non-Labored Respiratory Depth Normal Respiratory Pattern Normal Blood Pressure 96/48 L 100/54 L Blood Pressure Mean 64 69 Blood Pressure Source Monitor Blood Pressure Position Semi-Fowlers Blood Pressure Location Right Arm Pulse Ox 94 97 Oxygen Delivery Method Room Air Nasal Cannula Nasal Cannula Oxygen Flow Rate (L/min) 2 2 Fraction of Inspired Oxygen (FIO2) 02/28/24 04:20 02/28/24 06:50 02/28/24 08:24 Temperature 97.8 F Temperature Source Temporal Pulse Rate 64 Respiratory Rate 18 Respiratory Effort Respiratory Depth Respiratory Pattern Blood Pressure 100/50 L Blood Pressure Mean 66 Blood Pressure Source Blood Pressure Position Blood Pressure Location Pulse Ox 96 Oxygen Delivery Method Nasal Cannula Nasal Cannula Oxygen Flow Rate (L/min) 2 2 2 Fraction of Inspired Oxygen (FIO2) 02/28/24 08:49 02/28/24 09:49 Temperature 98.3 F Temperature Source Temporal Pulse Rate 76 Respiratory Rate 16 Respiratory Effort Respiratory Depth Respiratory Pattern Blood Pressure 129/61 H Blood Pressure Mean 83 Blood Pressure Source Monitor Blood Pressure Position Semi-Fowlers Blood Pressure Location Right Arm Pulse Ox 96 Oxygen Delivery Method Nasal Cannula Oxygen Flow Rate (L/min) 2 2 Fraction of Inspired Oxygen (FIO2) Weight Weight: 88.904 kg Body Mass Index (BMI) 29.7 EEG Results Procedure Details EEG Procedure Details: TEVIN MILLAN is a 73 year old F with a past medical history of , who presents for evaluation of Electroencephalogram on DATE at TIME Physical Exam Narrative -? NEURO: -? Mental Status: The patient was alert but oriented to place but poorly to time. -? Language: speech is dyarthric.? Naming, repetition, fluency, and comprehension intact. -? Cranial Nerves: EOMI, visual cooley full, no facial asymmetry, facial sensation intact, hearing intact, tongue midline, no evidence of atrophy or fibrillations. -? Motor: normal bulk, tone, and strength throughout. No pronator drift or satelliting. Upper and lower extremities equal bilaterally. HF 4/4 KE 5/5 KF 5/5 DF 5/5 -? Tone: is normal and bulk is normal -? Sensation- Intact to light touch bilaterally -? Coordination: No dysmetria on [id number], finger follow finger, and HTS -? Gait- deferred, has not ambulated in a year Lab / Micro Data 02/28/24 04:17 02/28/24 04:17 Labs: Laboratory Results - last 24 hr 02/27/24 13:00: WBC 10.9, RBC 4.89, Hgb 14.1, Hct 43.9, MCV 89.8, MCH 28.8, MCHC 32.1, RDW Std Deviation 42.7, RDW Coeff of Marcus 13.0, Plt Count 178, MPV 8.9, Immature Gran % (Auto) 0.300, Neut % (Auto) 87.4 H, Lymph % (Auto) 8.4 L, Jerome % (Auto) 3.7, Eos % (Auto) 0.1, Baso % (Auto) 0.1, Absolute Neuts (auto) 9.5 H, Absolute Lymphs (auto) 0.91, Nucleated RBC % 0, Differential Comment SCANNED, Sodium 140, Potassium 4.0, Chloride 109 H, Carbon Dioxide 25.0, Anion Gap 6, BUN 25 H, Creatinine 0.89, Est GFR (MDRD) Af Amer 80, Est GFR (MDRD) Non-Af 66, BUN/Creatinine Ratio 28.1 H, Glucose 114 H, Lactic Acid 1.8, Calcium 8.7, Total Bilirubin 0.50, AST 29, ALT 48, Alkaline Phosphatase 112, Total Protein 7.0, Albumin 3.4, Globulin 3.6, Albumin/Globulin Ratio 0.9 02/27/24 14:37: Urine Color Yellow, Urine Clarity Clear, Urine pH 6.0, Ur Specific [place] 1.020, Urine Protein 15 H, Urine Glucose (UA) Normal, Urine Ketones 5 H, Urine Occult Blood Negative, Urine Nitrite Negative, Urine Bilirubin Negative, Urine Urobilinogen Normal, Ur Leukocyte Esterase Negative, Urine RBC 0 SEEN, Urine WBC 0 SEEN, Ur Squamous Epith Cells 0 SEEN, Urine Bacteria 2+, Hyaline Casts 0-5 SEEN, Urine Mucus 0 SEEN 02/28/24 04:17: WBC 8.0, RBC 4.02 L, Hgb 11.8 L, Hct 36.7 L, MCV 91.3, MCH 29.4, MCHC 32.2, RDW Std Deviation 44.2 H, RDW Coeff of Marcus 13.2, Plt Count 188, MPV 9.0, Immature Gran % (Auto) 0.500, Neut % (Auto) 65.5, Lymph % (Auto) 24.0, Jerome % (Auto) 8.5, Eos % (Auto) 1.1, Baso % (Auto) 0.4, Absolute Neuts (auto) 5.2, Absolute Lymphs (auto) 1.91, Nucleated RBC % 0, Sodium 143, Potassium 3.1 L, Chloride 112 H, Carbon Dioxide 26.0, Anion Gap 5, BUN 22 H, Creatinine 0.73, Estim Creat Clear Calc 73.07, Est GFR (MDRD) Af Amer 101, Est GFR (MDRD) Non-Af 83, BUN/Creatinine Ratio 30.3 H, Glucose 97, Calcium 8.5, Magnesium 1.8, Total Bilirubin 0.50, AST 23, ALT 33, Alkaline Phosphatase 89, Total Protein 6.0 L, Albumin 2.9 L, Globulin 3.1, Albumin/Globulin Ratio 0.9 Imaging Radiology Impression Brain CT 02/27/24 12:43 IMPRESSION: Chronic involutional changes of the brain, no acute hemorrhage. Electronically Signed: Roney Colby MD at 14:26 EDT , Chest X-Ray 02/27/24 12:43 IMPRESSION: No acute thoracic pathology. Electronically Signed: Clemente Ocasio MD at 14:12 EDT , Active Medications Active Medications Active Medications: Current Medications Generic Name Dose Route Start Last Admin Trade Name Freq PRN Reason Stop Dose Admin Acetaminophen 650 mg 02/27/24 17:09 02/28/24 04:25 Acetaminophen 325 Mg Tablet PO 650 mg Q6H PRN PRN Administration Pain 1-10 Or Fever >100.7 Albuterol Sulfate 2.5 mg 02/27/24 17:09 Albuterol 2.5 Mg/3 Ml Vial.Neb. INHALATION Q2H PRN PRN SOB &/OR WHEEZING Aspirin 81 mg 02/28/24 08:00 02/28/24 09:51 Aspirin 81 Mg Tab.Chew PO 81 mg BREAKFAST LIBAN Administration Levetiracetam 500 mg/ Sodium 105 mls @ 420 mls/hr 02/27/24 18:00 02/28/24 10:24 Chloride IV Infused Q12 LIBAN Infusion Sodium Chloride 250 mls @ 15 mls/hr 02/27/24 17:13 IV .[id number] PRN Saline Flush Sodium Chloride 250 mls @ 15 mls/hr 02/27/24 17:13 IV .[id number] PRN Additional IVPB Infusion Lisinopril 10 mg 02/28/24 10:00 02/28/24 09:52 Lisinopril 10 Mg Tablet PO 10 mg DAILY LIBAN Administration Protocol Melatonin 3 mg 02/27/24 17:09 Melatonin 3 Mg Tablet PO QHS PRN PRN INSOMNIA Ondansetron HCl 4 mg 02/27/24 17:09 Ondansetron 4 Mg/2 Ml Vial IV Q8H PRN PRN NAUSEA/VOMITING Pantoprazole Sodium 40 mg 02/28/24 10:00 02/28/24 09:52 Pantoprazole Sodium 40 Mg Tablet PO 40 mg DAILY LIBAN Administration Potassium Chloride 40 meq 02/28/24 11:00 Potassium Chloride Oral Tablet 20 Meq PO 02/28/24 14:01 Q3H LIBAN Pramipexole Dihydrochloride 0.125 mg 02/27/24 22:00 02/27/24 20:05 Pramipexole Di-Hcl 0.125 Mg Tablet PO 0.125 mg QHS LIBAN Administration Senna/Docusate Sodium 2 tablet 02/27/24 17:09 Senna/Docusate Sodium 1 Tablet PO BID PRN PRN Constipation Sertraline HCl 25 mg 02/28/24 10:00 02/28/24 09:52 Sertraline 50 Mg Tablet PO 25 mg DAILY LIBAN Administration Sodium Chloride 10 - 40 ml 02/27/24 17:13 0.9% Saline Lock 10 Ml Syringe IV UD PRN SALINE FLUSH
[2024-02-28] MEDS: Potassium Chloride Oral Tablet 20 MEQ 40 MEQ PO ×2 (11:42→15:08)
[2024-02-28 12:16] VITALS: BMI 29.7
[2024-02-28 15:09] VITALS: BP 102/66; PULSE 67; RESP 14; TEMP 36.8; O2SAT 94
[2024-02-28] MEDS: Pramipexole Di-HCl 0.125 MG Tablet PO (21:02)
[2024-02-28] MEDS: 0.9% Saline Lock 10 ML Syringe IV ×2 (21:03→21:10)
[2024-02-28 21:12] VITALS: BP 113/60; PULSE 70; RESP 18; TEMP 36.7; O2SAT 95
[2024-02-29 03:00] VITALS: BP 118/59; PULSE 62; RESP 18; TEMP 36.6; O2SAT 95
[2024-02-29] MEDS: Aspirin 81 MG TAB.CHEW PO (08:52)
[2024-02-29 09:00] VITALS: BP 131/79; PULSE 65; RESP 18; TEMP 36.1; O2SAT 96
[2024-02-29 09:53] VITALS: O2SAT 97
--- NOTE | 2024-02-29 10:13 | TREXTCAR_ITS ---
Diet Diet Order/Speech Therapy: 02/27/24 17:09 Diet: Regular - General Food consistency:: Regular Liquid Consistency:: Regular/Thin Problem/Diagnosis (1) Seizures: Status: Acute Code(s): R56.9 - Unspecified convulsions (2) Intellectual disability: Status: Acute Code(s): F79 - Unspecified intellectual disabilities (3) Hypertension: Status: Chronic Code(s): I10 - Essential (primary) hypertension (4) GERD (gastroesophageal reflux disease): Status: Chronic Code(s): K21.9 - Gastro-esophageal reflux disease without esophagitis Plan 73-year-old female admitted from [facility] with reported full body seizure, hypertension twice in the last 24 hours. Patient has mild intellectual disability. Remote history of seizure. Not on antiepileptic medication. #Concern for multiple seizures -Reportedly patient had 2 full body seizures and was postictal for period of time -No family or staff at bedside . Patient lives in alf. -Given report of these multiple seizures with postictal period and normal CT, on Keppra 500 twice daily -EEG pending. -Teleneurology consult -Seizure precautions #HTN -Continue lisinopril #Depression -On sertraline #GERD -Continue PPI GI cocktail in ED due to some heartburn #Documented low O2 on arrival -ED documentation indicates 85% on arrival however pt not having any resp complaints or hypoxia on my exam and she did not recieve any tx or nebs, query if this was accurate SpO2 -Does use inhalers prn at home, prn alb ordered here -CXR w/in normal limits Pulse ox 96% on 2 L of oxygen #DVT ppx: SCDs Allergies/Procedures Done in Hospital Allergies erythromycin base Allergy (Mild, Verified 02/27/24 12:10) Rash Penicillins Allergy (Unknown, Verified 02/27/24 12:10) Rash Type of Care/Length of Stay Estimated LOS: Convalescent Care Less Than 30 days Type of Care Needed: Skilled Rehab Potential: Good Prognosis: Good Additional Orders/Day of Discharge Day of Discharge: 02/29/24 Discharge Plan Admission Admit Date/Time: 02/27/24 16:26 Primary Reason for Your Visit: Seizure Attending Provider: Bryan Franklin Primary Care Provider: Nasir Szymanski Consulting Providers: Jean Martin; Georgina Barreto; Anneliese Langston; Noe Schmitt; Branden Velasquez; Yayo Cook; BHUPINDER NOWAK; Edilia Douglas; Susana Arriaga; Lang Hernandez; Yesica Farrell; Addison Ferrell; Radha Parkinson; Pat Childs; Garth Sanford; Katrin Solano; Julio Waldron; Kahlil Crump; Jed Mercado; Shaye Tabor; Tuyet Santos; Oscar Herbert; Ridge Ramon; Rodolfo Leung; Payton Ashton; Vasquez Alves; Liliana Diaz Discharge Orders/Prescriptions Prescriptions: New levetiracetam [Keppra] 500 mg tablet 500 mg PO BID 30 Days Qty: 60 3RF Continued polyethylene glycol 3350 [Miralax] 17 gram Powder In Packet 17 g PO DAILY PRN (Reason: Constipation) sennosides-docusate sodium [Stool Softener-Stimulant Laxat] 8.6-50 mg tablet 2 tab PO BID PRN (Reason: Constipation) lisinopril 10 mg tablet 10 mg PO DAILY nystatin [Nyamyc] 100,000 unit/gram powder 1 applic TOPICAL BID PRN (Reason: skin irritation) Rx Instructions: USE UNDER BREASTS AND GROIN AREA cholecalciferol (vitamin D3) 50 mcg (2,000 unit) Capsule 50 mcg PO DAILY sertraline 25 mg tablet 25 mg PO DAILY aspirin 81 mg Tablet,Chewable 81 mg PO BREAKFAST Qty: 30 2RF Rx Instructions: Discontinue if platelet count drops less than 50,000 or hemoglobin less than 8 g% ropinirole 0.25 mg tablet 0.25 mg PO QHS omeprazole 20 mg capsule,delayed release(DR/EC) 40 mg PO DAILY 30 Days Qty: 0 0RF acetaminophen 325 mg tablet 650 mg PO Q6H PRN (Reason: pain) bisacodyl 10 mg suppository 10 mg OR QHS PRN (Reason: constipation) Rx Instructions: ADMINISTER IF NO BM 8 HOURS AFTER MOM ADMINISTRATION. mineral oil [Fleet Mineral Oil] Enema 118 ml OR DAILY PRN (Reason: constipation) Rx Instructions: ADMINISTER IF NO BM 8 HOURS AFTER RECEIVING SUPPOSITORY. IF NO BM WITHIN 1 HOUR OF ENEMA, NOTIFY MD. loperamide 2 mg capsule 2 mg PO Q4H PRN (Reason: loose stool) Biofreeze (menthol) 5 % gel 1 ea topical Q4H PRN (Reason: muscle pain) magnesium hydroxide [Milk of Magnesia] 400 mg/5 mL suspension 30 ml PO DAILY PRN (Reason: constipation) Rx Instructions: ADMINISTER ONCE DAILY IF NO BM IN 3 DAYS diclofenac sodium 1 % gel 2 g topical Q4H PRN (Reason: KNEE PAIN) ipratropium-albuterol 0.5 mg-3 mg(2.5 mg base)/3 mL Solution For Nebulization 3 ml inhalation Q6H PRN (Reason: shortness of breath or wheezing) Referrals / Follow Up: Nasir Szymanski MD [Primary Care Provider] - Gio Alvarez MD [Non-Staff] - Within 1 Month (For seizure) Disposition Disposition (needs filled in before D/C Order can be placed): [facility] (4) GERD (gastroesophageal reflux disease) Qualifiers: Esophagitis presence: esophagitis presence not specified Qualified Code(s): K21.9 - Gastro-esophageal reflux disease without esophagitis
--- NOTE | 2024-02-29 10:22 | CASEMGMT ---
Patient is from [facility]. SW sent updates to [facility] via [employer] and also let them know patient will likely return today. Plan: d/c back to [facility] under intermediate level of care. April GARCIA
[2024-02-29] MEDS: Pantoprazole Sodium 40 MG Tablet PO (10:52)
[2024-02-29] MEDS: Lisinopril 10 MG Tablet PO (10:52)
[2024-02-29] MEDS: Sertraline 50 MG Tablet 25 MG PO (10:52)
--- NOTE | 2024-02-29 11:30 | DS.PCM_ITS ---
Providers Date of Admission: 02/27/24 Date of Discharge: 02/29/24 Primary Care Physician: Dr. Nasir Szymanski MD Consultations 02/27/24 17:09 Consult: Tele-Neurology Routine Consulting Provider: [facility] Reason for Consult: concern for mult seizures in past 24 hrs EMERGENT Consult: No MD Notified: Yes Date Notified: 02/27/24 Time Notified: 23:10 Method of Notification: Answering Service Nursing Unit Staff Notify [facility] of Tele-Neurology Consult: Yes Reason For Visit: CONCERN FOR SEIZURES Diagnosis Discharge Diagnosis (1) Seizures: Status: Acute Code(s): R56.9 - Unspecified convulsions (2) Intellectual disability: Status: Acute Code(s): F79 - Unspecified intellectual disabilities (3) Hypertension: Status: Chronic Code(s): I10 - Essential (primary) hypertension (4) GERD (gastroesophageal reflux disease): Status: Chronic Code(s): K21.9 - Gastro-esophageal reflux disease without esophagitis Qualifiers: Esophagitis presence: esophagitis presence not specified Qualified Code(s): K21.9 - Gastro-esophageal reflux disease without esophagitis Plan 73-year-old female admitted from [facility] with reported full body seizure, hypertension twice in the last 24 hours. Patient has mild intellectual disability. Remote history of seizure. Not on antiepileptic medication. #Concern for multiple seizures -Reportedly patient had 2 full body seizures and was postictal for period of time -No family or staff at bedside . Patient lives in residential. -Given report of these multiple seizures with postictal period and normal CT, on Keppra 500 twice daily 02/29/2024 -EEG reported generalized slowing but no epileptiform discharges -Teleneurology consult was done. Had no acute finding and recent MRI of January 2024. Wanted repeat MRI therefore done. Office will report pending but reviewed by neurologist. Okay for discharge on Keppra 500 mg twice daily. -Seizure precautions #HTN -Continue lisinopril #Depression -On sertraline #GERD -Continue PPI GI cocktail in ED due to some heartburn #Documented low O2 on arrival -ED documentation indicates 85% on arrival however pt not having any resp complaints or hypoxia on my exam and she did not recieve any tx or nebs, query if this was accurate SpO2 -Does use inhalers prn at home, prn alb ordered here -CXR w/in normal limits Pulse ox 96% on 2 L of oxygen #DVT ppx: SCDs Discharge medication reconciliation done. Discharge follow-up instructions completed. Discharge process discussed with the patient and all questions were answered to patient's satisfaction. Follow with PCP in 1 to 2 weeks. Follow-up with neurologist Total time spent, exact 35 minutes on discharge meds reconciliation, examination, coordination of care with nurses and ancillary staff, review of imaging and blood test and discussion with the patient on follow-up instructions. Medications at Discharge Home Medications polyethylene glycol 3350 17 gram oral powder packet (Miralax) 17 g PO DAILY PRN Constipation 05/29/21 lisinopril 10 mg tablet 10 mg PO DAILY bp 12/30/21 sennosides 8.6 mg-docusate sodium 50 mg tablet (Stool Softener-Stimulant Laxative) 2 tab PO BID PRN Constipation 12/30/21 cholecalciferol (vitamin D3) 50 mcg (2,000 unit) capsule 50 mcg PO DAILY 11/10/22 nystatin 100,000 unit/gram topical powder (Nyamyc) 1 applic topical BID PRN skin irritation 11/10/22 ropinirole 0.25 mg tablet 0.25 mg PO QHS RESTLESS LEG 02/01/23 omeprazole 20 mg capsule,delayed release 40 mg (2 x 20 mg) PO DAILY 30 days #0 caps 02/04/23 sertraline 25 mg tablet 25 mg PO DAILY depression 04/18/23 aspirin 81 mg chewable tablet 81 mg PO BREAKFAST #30 tabs 04/19/23 acetaminophen 325 mg tablet 650 mg PO Q6H PRN pain 10/07/23 bisacodyl 10 mg rectal suppository 10 mg DC QHS PRN constipation 10/07/23 diclofenac sodium 1 % topical gel 2 g topical Q4H PRN KNEE PAIN 10/07/23 ipratropium 0.5 mg-albuterol 3 mg (2.5 mg base)/3 mL nebulization soln 3 ml inhalation Q6H PRN shortness of breath or wheezing 10/07/23 loperamide 2 mg capsule 2 mg PO Q4H PRN loose stool 10/07/23 magnesium hydroxide 400 mg/5 mL oral suspension (Milk of Magnesia) 30 ml PO DAILY PRN constipation 10/07/23 menthol 5 % topical gel (Biofreeze (menthol)) 1 ea topical Q4H PRN muscle pain 10/07/23 mineral oil (Fleet Mineral Oil enema) 118 ml DC DAILY PRN constipation 10/07/23 levetiracetam 500 mg tablet (Keppra) 500 mg PO BID 1 month #60 tabs 02/29/24 Physical Exam Narrative Seen and examined No fever. No acute event overnight. Patient could not give history because of intellectual disability. Physical exam General: Alert, Oriented x3, Cooperative HEENT: Atraumatic, PERRLA, EOMI, Normocephalic Oral: No Gingival or Mucosal Lesions/ Ulcerations Neck: Supple, No JVD, Negative Carotid Bruits Chest wall/Lungs: Air entry diminished in bilateral lung bases. No crepitation/rhonchi Cardiovascular: Regular rate, Regular Rhythm, Normal S1, Normal S2, No M/G/R Abdomen: Bowel Sounds Present, Soft, Non Tender, Non-Distended : No dysuria. No renal angle tenderness. No suprapubic tenderness. Extremities: No edema, Capillary Refill Less than 3 Seconds Skin: No rashes, No breakdown Musculoskeletal: No Tenderness to Palpation of Joints or Extremities Neurological: Cranial nerves II-XII grossly intact, DTR 2+/4. Repeatedly words. Chronic cognitive/intelligence deficit Psych/Mental Status: intellectual disability.mild Weight / BMI Weight Weight: 196 lb 0.208 oz Body Mass Index (BMI) 29.7 ABG / Lab / Microbiology Data 02/28/24 04:17 02/28/24 04:17 Meaningful Use Info Meaningful Use Meaningful Use Diagnoses (Choose all that apply): None applicable Ischemic Stroke Statin Dosing Therapy Reference: STATIN DOSE THERAPY REFERENCE: * Patients > 75 years receive moderate or high dose statin therapy. * Patients 75 years or YOUNGER should receive HIGH intensity statin dose unless contraindicated. You will be required to document reason for non-treatment if statin daily dose does not meet guidelines. HIGH DOSE STATIN THERAPY DAILY Atorvastatin > than or = to 40 mg Rosuvastatin > than or = to 20 mg Amlodipine + Atorvastatin > than or = to 2.5/40 mg Ezetimibe + Simvastatin 10/80 mg Simvastatin 80mg Discharge Plan Admission Admit Date/Time: 02/27/24 16:26 Primary Reason for Your Visit: Seizure Attending Provider: Bryan Franklin Primary Care Provider: Nasir Szymanski Consulting Providers: Jean Martin; Georgina Barreto; Anneliese Langston; Noe Schimtt; Branden Deleon; Yayo Cook; BHUPINDER NOWAK; Edilia Douglas; Susana Arriaga; Lang Hernandez; Yesica Farrell; Addison Ferrell; Radha Parkinson; Pat Childs; Garth Sanford; Katrin Sloano; Julio Waldron; Kahlil Crump; Jed Mercado; Shaye Tabor; Tuyet Santos; Oscar Herbert; Ridge Ramon; Rodolfo Leung; Payton Ashton; Vasquez Alves; Liliana Diaz Discharge Orders/Prescriptions Prescriptions: New levetiracetam [Keppra] 500 mg tablet 500 mg PO BID 30 Days Qty: 60 3RF Continued polyethylene glycol 3350 [Miralax] 17 gram Powder In Packet 17 g PO DAILY PRN (Reason: Constipation) sennosides-docusate sodium [Stool Softener-Stimulant Laxat] 8.6-50 mg tablet 2 tab PO BID PRN (Reason: Constipation) lisinopril 10 mg tablet 10 mg PO DAILY nystatin [Nyamyc] 100,000 unit/gram powder 1 applic TOPICAL BID PRN (Reason: skin irritation) Rx Instructions: USE UNDER BREASTS AND GROIN AREA cholecalciferol (vitamin D3) 50 mcg (2,000 unit) Capsule 50 mcg PO DAILY sertraline 25 mg tablet 25 mg PO DAILY aspirin 81 mg Tablet,Chewable 81 mg PO BREAKFAST Qty: 30 2RF Rx Instructions: Discontinue if platelet count drops less than 50,000 or hemoglobin less than 8 g% ropinirole 0.25 mg tablet 0.25 mg PO QHS omeprazole 20 mg capsule,delayed release(DR/EC) 40 mg PO DAILY 30 Days Qty: 0 0RF acetaminophen 325 mg tablet 650 mg PO Q6H PRN (Reason: pain) bisacodyl 10 mg suppository 10 mg DC QHS PRN (Reason: constipation) Rx Instructions: ADMINISTER IF NO BM 8 HOURS AFTER MOM ADMINISTRATION. mineral oil [Fleet Mineral Oil] Enema 118 ml DC DAILY PRN (Reason: constipation) Rx Instructions: ADMINISTER IF NO BM 8 HOURS AFTER RECEIVING SUPPOSITORY. IF NO BM WITHIN 1 HOUR OF ENEMA, NOTIFY MD. loperamide 2 mg capsule 2 mg PO Q4H PRN (Reason: loose stool) Biofreeze (menthol) 5 % gel 1 ea topical Q4H PRN (Reason: muscle pain) magnesium hydroxide [Milk of Magnesia] 400 mg/5 mL suspension 30 ml PO DAILY PRN (Reason: constipation) Rx Instructions: ADMINISTER ONCE DAILY IF NO BM IN 3 DAYS diclofenac sodium 1 % gel 2 g topical Q4H PRN (Reason: KNEE PAIN) ipratropium-albuterol 0.5 mg-3 mg(2.5 mg base)/3 mL Solution For Nebulization 3 ml inhalation Q6H PRN (Reason: shortness of breath or wheezing) Referrals / Follow Up: Nasir Szymanski MD [Primary Care Provider] - Gio Alvarez MD [Non-Staff] - Within 1 Month (For seizure) Disposition Disposition (needs filled in before D/C Order can be placed): Nursing Home Facility Charges/Coding Visit Charges Inpatient E&M: 52528 Disch Hosp >30min
[2024-02-29] MEDS: levETIRAcetam IV 500 MG in 0.9% Normal Saline (100mL Bag) 100 ML 420 MG IV (11:38)
--- NOTE | 2024-02-29 11:46 | CASEMGMT ---
Patient is unable to complete DURBIN. Call placed to pts sister (Ysabel) but call would not go through. VM left for pt's other sister (Carmen). Danelle Thakur, Discharge Planning Asst
[2024-02-29] MEDS: 0.9% Saline Lock 10 ML Syringe IV (11:49)
--- NOTE | 2024-02-29 12:04 | CASEMGMT ---
Spoke with patients sisters (Carmen and Keyla) to complete DURBIN form. DURBIN form explained to both who voiced understanding. Original form placed in pt?s chart. Carmen declined copy be sent with patient. Danelle Thakur, Discharge Planning Asst
--- NOTE | 2024-02-29 12:09 | MRI_ITS ---
STUDY: MRI BRAIN WITHOUT CONTRAST REASON FOR EXAM: Female, 73 years old. seizure TECHNIQUE: Standardized multiplanar fat and water weighted pulse sequences were obtained. COMPARISON: CT of the brain February 27, 2024 MRI of the brain January 27, 2024 FINDINGS: There is ventricular enlargement with respect to prominence of cortical sulci possibly representing communicating hydrocephalus or NPH. There is associated marked thinning of the corpus callosum.. There is very mild periventricular white matter hyperintensity but no evidence for stricture diffusion or mass effect.. Normal bilateral basal ganglia. Normal thalami. There is no extra-axial fluid accumulation. Normal flow voids within the major intracranial circulation suggesting patency by spin echo criteria. Normal sella turcica, pituitary gland, infundibular stalk, optic chiasm and hypothalamus. Normal tectal plate and pineal gland. Normal midbrain, prasanth and medulla. 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 There is associated marked loss of volume of the vermis Normal basal cisterns. Normal bilateral temporal bones. Normal bilateral internal auditory canals. Postsurgical changes of the orbits.. Normal visualized paranasal sinuses. Normal calvarium and skull base. Normal visualized soft tissue structures. Normal visualized upper cervical spine. 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 However clinical correlation recommended No evidence for mass or acute infarct Electronically Signed: Byron Rodrigues MD at 16:53 EDT ,
--- NOTE | 2024-02-29 15:53 | CHAPLAIN ---
Type of Pastoral Visit _x__ Initial Visit ___ Follow-up Visit ___ On-call Visit ___ General Patient Visit ___ Spiritual Assessment ___ Family Conference ___ Bereavement ___ Rapid Response ___ Code Blue ___ Other (describe below) Pastoral Care Referral From _x__ Patient ___ Family ___ Nurse ___ Physician ___ Decision Support Analyst ___ Restaurant Lead ___ Other (describe below) Sacrament/Intervention _x__ Active listening ___ Anointing ___ Hinduism ___ Bereavement ___ Communion _x__ Homa exploration ___ ___ Life review _x__ Prayer ___ Reconciliation ___ Sacrament of Sick _x__ Supportive presence ___ Wedding ___ Other (describe below) Pastoral Comments patient is very welcoming and pleasant in conversation; pt speaks of her homa and love of going to tenriism at her SNF each week; pt states that she has many friends at the SNF and she gets along well there; pt says she is feeling better and looking forward to her return there; pt welcomes presence and prayer
[2024-02-29 16:00] VITALS: BP 119/96; PULSE 66; RESP 18; TEMP 36.1; O2SAT 98
--- NOTE | 2024-02-29 16:35 | CASEMGMT ---
Discharge Planning Discharge orders, signed med list, and transport time sent to [facility] via [facility]. Physicians will transport patient by cot at 5:30. Nursing, patient, and her sister (Carmen), updated. Danelle Thakur DC Planning Asst.
--- NOTE | 2024-02-29 17:12 | PN_ITS ---
Progress Note TEVIN MILLAN is a 73 F with a past medical history of seizures (remote, not on AEDs), intellectual disability, RLS EEG with no evidence of seizure activity. MRI reviewed with severe parieto- occipital cortical atrophy. 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 Can start Keppra 500 mg BID and follow up in clinic
--- NOTE | 2024-02-29 17:12 | PCM.PN.BLA ---
Progress Note TEVIN MILLAN is a 73 F with a past medical history of seizures (remote, not on AEDs), intellectual disability, RLS EEG with no evidence of seizure activity. MRI reviewed with severe parieto-occipital cortical atrophy. 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 Can start Keppra 500 mg BID and follow up in clinic
--- NOTE | 2024-02-29 17:16 | NURSING ---
This RN called report to Filomena at 1650.
== END 2024-02-29 16:20 | disposition skilled nursing facility (03) ==
LOC: ED 15:58 → PCU 16:20
PROVIDERS: Admitting Provider Internal Medicine; Emergency Provider Emergency Medicine; PCP Family Medicine; Visit Provider Internal Medicine
DX: R56.9 Unspecified convulsions (principal); R73.9 Hyperglycemia, unspecified; K21.9 Gastro-esophageal reflux disease without esophagitis; F70 Mild intellectual disabilities; I10 Essential (primary) hypertension; Z79.899 Other long term (current) drug therapy; Z79.82 Long term (current) use of aspirin; F32.A Depression, unspecified
CPT/HCPCS: 36415; 70450; 70551; 71045; 80053; 81001; 83605; 83735; 85025; 93005; 95819; 96361; 96365; 96366; 97162; 97166; 99221; 99284; J7030; J7040; A4216; G0378